=== PATIENT | female | born 1975 | race Two or more races ===

== ENCOUNTER 2020-07-03 12:15 | Outpatient (REF) | payer OTHER, SELFPAY | END 2020-07-03 12:16 | disposition home or self-care (01) | LOC: HO.MDS 12:15 | PROVIDERS: Visit Provider Internal Medicine Medical Oncology | DX: D50.9 Iron deficiency anemia, unspecified (principal) | CPT/HCPCS: 96365; J1439 ==

== ENCOUNTER 2020-07-07 13:02 | Outpatient (REF) | payer OTHER, SELFPAY ==
[2020-07-07 16:40] LABS: CT PCR NOT DETECTED (Not Detect.); NG PCR NOT DETECTED (Not Detect.)
[2020-07-10 01:26] LABS: HPV mRNA E6/E7 rflx Not Detected (Not Detected)
== END 2020-07-07 13:03 | disposition home or self-care (01) ==
LOC: HO.LAB 13:02
PROVIDERS: PCP Family Medicine; Visit Provider Obstetrics & Gynecology
DX: N92.0 Excessive and frequent menstruation with regular cycle (principal)
CPT/HCPCS: 36415; 87491; 87591; 87624; 88142; 99202

== ENCOUNTER 2020-07-08 09:42 | Outpatient (REF) | payer OTHER, SELFPAY | END 2020-07-08 09:43 | disposition home or self-care (01) | LOC: HO.MDS 09:42 | PROVIDERS: Visit Provider Internal Medicine Medical Oncology | DX: D50.9 Iron deficiency anemia, unspecified (principal) | CPT/HCPCS: 96365; J1439 ==

== ENCOUNTER 2020-07-16 10:22 | Outpatient (REF) | payer OTHER, SELFPAY ==
--- NOTE | ~2020-07-16 | US_ITS ---
EXAMINATION: US PELVIS, COMPLETE CLINICAL INFORMATION: Excessive and frequent menses. COMPARISON: 05/31/2011 TECHNIQUE: Transabdominal and transvaginal imaging was performed. FINDINGS: LMP: 06/16/2020 Uterus is anteverted , measuring 14.1 x 7 x 9.2 cm. Hypoechoic foci, probably representing fibroids. 1 cm fibroid in the anterior fundus, 1.7 cm fibroid in the posterior myometrium. Endometrial thickness 0.9 cm. Right ovary measures 2.9 x 2.3 x 2.3 cm. Volume 8 mL. Left ovary measures 3 x 1.9 x 2.6 cm. Volume 7.8 mL. Bilateral ovaries appear unremarkable. No free fluid in the cul-de-sac. US/US pelvic complete IMPRESSION: 1. Hypoechoic foci likely representing uterine fibroids, larger measuring 1.7 cm. 2. Otherwise unremarkable study.
--- NOTE | ~2020-07-16 | US_ITS ---
EXAMINATION: US PELVIS, COMPLETE CLINICAL INFORMATION: Excessive and frequent menses. COMPARISON: 05/31/2011 TECHNIQUE: Transabdominal and transvaginal imaging was performed. FINDINGS: LMP: 06/16/2020 Uterus is anteverted , measuring 14.1 x 7 x 9.2 cm. Hypoechoic foci, probably representing fibroids. 1 cm fibroid in the anterior fundus, 1.7 cm fibroid in the posterior myometrium. Endometrial thickness 0.9 cm. Right ovary measures 2.9 x 2.3 x 2.3 cm. Volume 8 mL. Left ovary measures 3 x 1.9 x 2.6 cm. Volume 7.8 mL. Bilateral ovaries appear unremarkable. No free fluid in the cul-de-sac. US/US transvaginal IMPRESSION: 1. Hypoechoic foci likely representing uterine fibroids, larger measuring 1.7 cm. 2. Otherwise unremarkable study.
[2020-07-16 12:44] LABS: HCG Quantitative < 2 mIU/mL; Thyroid Stimulating Hormone 2.66 uIU/mL (0.32-4.0)
== END 2020-07-16 10:23 | disposition home or self-care (01) ==
LOC: HO.US 10:22
PROVIDERS: PCP Family Medicine; Visit Provider Obstetrics & Gynecology
DX: N92.0 Excessive and frequent menstruation with regular cycle (principal)
CPT/HCPCS: 36415; 76830; 76856; 84443; 84702

== ENCOUNTER 2020-09-01 13:39 | Outpatient (REF) | payer OTHER, SELFPAY | END 2020-09-01 13:40 | disposition home or self-care (01) | LOC: HO.LAB 13:39 | PROVIDERS: Visit Provider Obstetrics & Gynecology | DX: N92.0 Excessive and frequent menstruation with regular cycle (principal); E11.21 Type 2 diabetes mellitus with diabetic nephropathy; E78.5 Hyperlipidemia, unspecified; I10 Essential (primary) hypertension; E66.9 Obesity, unspecified; G47.33 Obstructive sleep apnea (adult) (pediatric); E55.9 Vitamin D deficiency, unspecified; Z98.51 Tubal ligation status; Z90.79 Acquired absence of other genital organ(s); Z90.721 Acquired absence of ovaries, unilateral | CPT/HCPCS: 58100; 88305 ==

== ENCOUNTER → 2020-09-16 11:44 | Outpatient (BNVA) | payer OTHER, SELFPAY | PROVIDERS: Visit Provider Obstetrics & Gynecology ==

== ENCOUNTER → 2020-10-14 11:34 | Outpatient (BNVA) | payer OTHER, SELFPAY | PROVIDERS: Visit Provider Obstetrics & Gynecology ==

== ENCOUNTER → 2020-10-20 10:41 | Outpatient (BNVA) | payer OTHER, SELFPAY | PROVIDERS: Visit Provider Obstetrics & Gynecology | DX: N92.0 Excessive and frequent menstruation with regular cycle (principal) | CPT/HCPCS: 99212 ==

== ENCOUNTER 2020-10-23 11:32 | Day surgery (SDC) | payer OTHER, SELFPAY ==
--- NOTE | 2020-10-22 09:09 | P.CONAN_ITS ---
Documented by User: Puja Velasco 10/22/20 09:10 HPI - Anesthesia Eval Consult details Narrative: 45yo F for Uterine Ablation w/Novasure PMFSH Active Problems Active Problems: All Active Problems (Updated 09/24/20 @ 10:52 by Susanna Santiago MD) Screening mammogram, encounter for (Acute) Menorrhagia (Acute) Microcytic anemia (Acute) Past Medical History Medical History Allergic rhinitis Anemia Carpal tunnel syndrome Chronic low back pain Diabetes mellitus Diabetic nephropathy Dyslipidemia Family history of systemic lupus erythematosus Hepatitis B immune Hypertension Microalbuminuria Migraine headache Obesity WANDA (obstructive sleep apnea) Transaminitis Vitamin D deficiency Family History Family History Father Diabetes Heart disease Mother Hypertension Arthritis Thyroid activity decreased Brother Hypertension Thyroid activity decreased Sister Hypertension Thyroid activity decreased Other Family history of cancer of gallbladder Surgical History Surgical History History of salpingo-oophorectomy Tubal ligation status Social History Social History Alcohol intake: never Patient : No Meds Allergies Allergy/AdvReac Type Severity Reaction Status Date / Time yusuf inhibitors Allergy Unknown cough Uncoded 08/30/18 00:00 Home Medications Medication Instructions Recorded Confirmed Last Taken Type acetaminophen [Tylenol Extra 500 mg PO Q6H PRN 06/25/20 10/20/20 Unknown History Strength] albuterol sulfate 2 puff INHALATION Q4-6H PRN 06/25/20 10/20/20 Unknown History ascorbic acid (vitamin C) [Vitamin 500 mg PO BID 06/25/20 10/20/20 Unknown History C] cholecalciferol (vitamin D3) 50 mcg PO DAILY 06/25/20 10/20/20 Unknown History [Vitamin D3] cyclobenzaprine 10 mg PO BEDTIME 06/25/20 10/20/20 Unknown History losartan 100 mg PO DAILY 06/25/20 10/20/20 Unknown History metformin 500 mg PO BID 06/25/20 10/20/20 Unknown History metoprolol tartrate 50 mg PO BID 06/25/20 10/20/20 Unknown History Exam Exam Date and Time: October 22, 2020 0909 Pertinent Lab Results Pertinent Lab Results: Laboratory Tests 09/24/20 09/24/20 10:17 10:17 WBC 5.7 Hgb 11.6 L Hct 33.8 L Plt Count 259 Sodium 140 Potassium 3.9 Chloride 105 Carbon Dioxide 29 BUN 8 L Creatinine 0.66 Assessment and Plan Assessment Anesthesia Assessment: Chart Reviewed Documented by User: Raquel Higgins 10/23/20 09:04 [facility] Past Medical History Medical History Allergic rhinitis Anemia Carpal tunnel syndrome Chronic low back pain Diabetes mellitus Diabetic nephropathy Dyslipidemia Family history of systemic lupus erythematosus Hepatitis B immune Hypertension Microalbuminuria Migraine headache Obesity WANDA (obstructive sleep apnea) Transaminitis Vitamin D deficiency Family History Family History Father Diabetes Heart disease Mother Hypertension Arthritis Thyroid activity decreased Brother Hypertension Thyroid activity decreased Sister Hypertension Thyroid activity decreased Other Family history of cancer of gallbladder Surgical History Surgical History History of salpingo-oophorectomy Tubal ligation status Social History Social History Alcohol intake: never Patient : No Meds Allergies Allergy/AdvReac Type Severity Reaction Status Date / Time yusuf inhibitors Allergy Unknown cough Uncoded 08/30/18 00:00 Home Medications Medication Instructions Recorded Confirmed Last Taken Type acetaminophen [Tylenol Extra 500 mg PO Q6H PRN 06/25/20 10/20/20 Unknown History Strength] albuterol sulfate 2 puff INHALATION Q4-6H PRN 06/25/20 10/20/20 Unknown History ascorbic acid (vitamin C) [Vitamin 500 mg PO BID 06/25/20 10/20/20 Unknown History C] cholecalciferol (vitamin D3) 50 mcg PO DAILY 06/25/20 10/20/20 Unknown History [Vitamin D3] cyclobenzaprine 10 mg PO BEDTIME 06/25/20 10/20/20 Unknown History losartan 100 mg PO DAILY 06/25/20 10/20/20 Unknown History metformin 500 mg PO BID 06/25/20 10/20/20 Unknown History metoprolol tartrate 50 mg PO BID 06/25/20 10/20/20 Unknown History Exam Airway Mallampati Class: II TM Dist: >3cm Neck ROM: Full Assessment and Plan Assessment Anesthesia Assessment: Anesthesia Plan Discussed and Chart Reviewed Final Anesthetic Review NPO: Yes ASA Class: II Final Preanesthetic Review: No Changes in Pt Med Stat, Meds/Allgs Chart Reviewed, Consent Obtained/Reviewed and Anes Risks/Benef Reviewed Patient Risk: Low Procedure Risk: Low Assessment/Block/Sedation in SS: Assess/Block/Sedation-SS Anesthetic Plan Anesthetic Plan: MAC: Disposition: Standard PACU
[2020-10-23] VITALS (7 sets, daily range): BP systolic 138–160; BP diastolic 76–85; PULSE 68–78; RESP 16–20; TEMP 36.2; O2SAT 95–100; BMI 39.4
--- NOTE | 2020-10-23 11:47 | MHC.SHP ---
Pre-Procedural Eval Section A Date of Service: 10/23/20 The patient is an INPATIENT: No Changes since office visit: No Cold of Flu in the past 2 weeks, No New Medical Problems, No Changes in Medication and No Patient answered all questions The History & Physical has been completed within 30 days and I have reviewed it.: Yes Section B Chief Complaint: excessive and frquent menstruation Allergies: Allergies Allergy/AdvReac Type Severity Reaction Status Date / Time yusuf inhibitors Allergy Unknown cough Uncoded 08/30/18 00:00 Plan Diagnosis/Plan: Unchanged I have reviewed the history and physical and performed a pertinent physical examination on my patient. No changes have occurred unless specified.
[2020-10-23 11:55] LABS: Glucose, Whole Blood 131 mg/dL (60-115)
[2020-10-23 12:04] LABS: UPreg QC Valid YES; Urine Pregnancy NEGATIVE (NEGATIVE)
[2020-10-23] MEDS: Lactated Ringers 1,000 ML 100 ML IVCONT (12:06)
--- NOTE | 2020-10-23 13:38 | P.BOP_ITS ---
Brief Operative Note Date of Service: 10/23/20 Pre-op diagnosis: Menometrorrhagia Post-op diagnosis: same Procedure: NovaSure Endometrial Ablation Surgeon: Sam Michel MD Anesthesia: MAC Was an Pasting Machine Offbearer used for this Procedure?: No Estimated blood loss (mL): 0 Pathology: none sent Condition: stable Disposition: PACU
--- NOTE | 2020-10-23 13:38 | P.OP_ITS ---
Operative Note Operative Note Date of Service: 02/21/20 Narrative: Preop diagnosis: Menorrhagia Post Op Diagnosis: Same Op: Novasure Endometrial Ablation Anesthesia: MAC Skein Drier: None QBL: Minimal Pathology: None Complications: None Procedure: The patient was put in the dorsal lithotomy position. She was prepped and draped in the usual sterile manner. Bimanual exam prior to prepping revealed a mobile, anteverted uterus. A speculum was placed in the vagina and the anterior lip of the cervix was grasped with a single toothed tenaculum and brought forward. Taking care not to enter deep into the uterus, a sound was passed inside to measure the length of the uterus and cervix. This length was found to be 8 cm. Next, Hegar dilator was inserted into the cervical os to measure the cervical length which was 3 cm. This yielded an endometrial cavity length of 6.5 cm. A series of Hegar dilators were then inserted sequentially into the cervical os up to a size of 5 mm. The Novasure device was then opened and tested; the fan deployed easily. The instrument was set to the correct cavity length and introduced into the uterine cavity. The fan was slowly deployed with gentle movements to ensure a snug fit within the cavity. The cavity width read 4.5 cm. The measurements were imported and a cavity check was done. The trumpet was then slid down to the cervix and the device was activated. The total burn time was 86 seconds. The fan was retracted and device removed. The fan was examined and revealed charred tissue. The tenaculum was removed and the cervix examined for hemostasis which was achieved using pressure. Finally the speculum was removed. The patient tolerated the procedure well and was brought to the recovery room in a stable condition. At the end of the procedure all sponges and instruments were counted and correct. The blood loss was minimal and there were no complications.
[2020-10-23] MEDS: oxyCODONE HCl Immed Release 5 MG TABLET PO (13:59)
[2020-10-23] MEDS: Acetaminophen 325 MG TABLET 650 MG PO (14:00)
[2020-10-23] MEDS: fentaNYL citrate/PF 100 MCG/2 ML VIAL 50 MCG IVPUSH (14:01)
== END 2020-10-23 14:50 | disposition home or self-care (01) ==
PROVIDERS: Visit Provider Obstetrics & Gynecology
PROC: (CPT 58353; principal; 2020-10-23 10:40)
DX: N92.0 Excessive and frequent menstruation with regular cycle (principal); N85.4 Malposition of uterus; I10 Essential (primary) hypertension; E11.21 Type 2 diabetes mellitus with diabetic nephropathy; G47.33 Obstructive sleep apnea (adult) (pediatric); E55.9 Vitamin D deficiency, unspecified; Z79.84 Long term (current) use of oral hypoglycemic drugs; Z79.899 Other long term (current) drug therapy; Z98.51 Tubal ligation status
CPT/HCPCS: 58353; 81025; 82947; J1100; J2250; J2405; J3010

== ENCOUNTER → 2020-11-17 12:25 | Outpatient (BNVA) | payer OTHER, SELFPAY | PROVIDERS: PCP Family Medicine; Visit Provider Obstetrics & Gynecology ==

== ENCOUNTER 2021-06-22 12:43 | Emergency (ER) | payer OTHER, SELFPAY ==
--- NOTE | 2021-06-22 12:52 | ED_ITS ---
HPI - Chest Pain General Chief Complaint: Chest Pain Stated Complaint: CP,HIGH BP PER EMS Time Seen by Provider: 06/22/21 12:51 Source: EMS Mode of arrival: EMS Limitations: no limitations History of Present Illness HPI narrative: Patient with increased chest pain and BP. Patient received NTG x 2 and ASA with some relief. Patient states that her pain started 4 days ago and is associated with HTN. BP 207/107 at home. she is also complaining of palpitations. Today her chest pain was relieved by NTG. Father had a [place] at 40 MD complaint: chest pain Onset (ago): day(s) Timing of current episode: episodic Onset: during exertion Pain location: left chest Pain radiation: back Severity: mild Quality: aching Relieving factors: nothing Associated symptoms: nausea and other (headache) Risk Factors Coronary artery disease risk factors: diabetes, hyperlipidemia and hypertension Related Data Home Medications Medication Instructions Recorded Confirmed acetaminophen 500 mg tablet 500 mg PO Q6H PRN 06/25/20 10/20/20 (Tylenol Extra Strength) albuterol sulfate 90 mcg/actuation 2 puff INHALATION Q4-6H PRN 06/25/20 10/20/20 aerosol inhaler ascorbic acid (vitamin C) 500 mg 500 mg PO BID 06/25/20 10/20/20 tablet (Vitamin C) cholecalciferol (vitamin D3) 50 50 mcg PO DAILY 06/25/20 10/20/20 mcg (2,000 unit) tablet (Vitamin D3) cyclobenzaprine 10 mg tablet 10 mg PO BEDTIME 06/25/20 10/20/20 losartan 100 mg tablet 100 mg PO DAILY 06/25/20 10/20/20 metformin 500 mg tablet 500 mg PO BID 06/25/20 10/20/20 metoprolol tartrate 50 mg tablet 50 mg PO BID 06/25/20 10/20/20 Previous Rx's Medication Instructions Recorded metoprolol tartrate 100 mg tablet 100 mg PO BID #30 tab 06/22/21 Allergies Allergy/AdvReac Type Severity Reaction Status Date / Time yusuf inhibitors Allergy Unknown cough Uncoded 08/30/18 00:00 Review of Systems Constitutional: Constitutional: Reports no additional constitutional complaints Eyes: Eyes: Reports no additional eye complaints ENT: Denies dizziness Cardiovascular: Cardiovascular: Reports no additional cardiovascular complaints Respiratory: Respiratory: Reports as per HPI Gastrointestinal: Gastrointestinal: Reports no additional gastrointestinal complaints Genitourinary: Genitourinary: Reports no additional female genitourinary complaints Musculoskeletal: Musculoskeletal: Reports no additional musculoskeletal complaints Integumentary/Breasts: Skin/Breast: Denies rash Neurologic: Reports system reviewed and no additional complaints, except as documented, Denies dizziness and Denies Sensory deficit (Neuro) Psychiatric: Psychiatric: Denies anxiety [facility] Past Medical History Medical History Allergic rhinitis Anemia Carpal tunnel syndrome Chronic low back pain Diabetes mellitus Diabetic nephropathy Dyslipidemia Family history of systemic lupus erythematosus Hepatitis B immune Hypertension Microalbuminuria Migraine headache Obesity WANDA (obstructive sleep apnea) Transaminitis Vitamin D deficiency Surgical History History of salpingo-oophorectomy Tubal ligation status Family History Family History Father Diabetes Heart disease Mother Hypertension Arthritis Thyroid activity decreased Brother Hypertension Thyroid activity decreased Sister Hypertension Thyroid activity decreased Other Family history of cancer of gallbladder Social History Social History Alcohol intake: never Patient Tobacco Use Status: Never used Tobacco Second Hand Smoke Exposure: No Use of substances other than those prescribed or required for medical reasons: No Advance Directives: No Advance Directives Information Provided: No Patient : No Physical Exam Vital Signs: Vital Signs: Last Vital Signs Temp 98.0 F 06/22/21 13:40 Pulse 83 06/22/21 14:04 Resp 16 06/22/21 14:04 BP 169/88 H 06/22/21 14:04 Pulse Ox 97 06/22/21 13:40 BMI result Body Mass Index 40.2 Neuro: Sensory Exam: No Sensory deficit (Neuro) Course Reevaluation(s) Reevaluation #1: No evidence of cardiac injury, BP down to systolic of 150 and 170 with just NTP. Will increase metoprolol to 100mg twice a day and have patient follow up with PMD Time: 15:15 MDM - Chest Pain Lab Data Result diagrams: 06/22/21 13:45 06/22/21 13:45 Labs: Lab Results 06/22/21 06/22/21 06/22/21 Range/Units 13:45 13:45 13:45 WBC 5.7 (4.8-10.8) X10*3/uL RBC 4.33 (4.20-5.50) X10*6/uL Hgb 13.2 (12.0-16.0) g/dl Hct 38.3 (37.0-47.0) % MCV 88.5 (80.0-98.0) fL MCH 30.5 (27.0-33.0) pg MCHC 34.5 (31.0-35.0) g/dl RDW 11.9 (11.0-16.0) % Plt Count 250 (160-400) X10*3/uL MPV 9.3 L (9.4-12.3) fL Immature Gran % (Auto) 0.4 (0.0-0.4) % Neut % (Auto) 55.9 (45-73) % Lymph % (Auto) 32.2 (20-40) % [place] % (Auto) 9.9 (2-11) % Eos % (Auto) 1.2 (0-4) % Baso % (Auto) 0.4 (0-2) % Lymph # (Auto) 1.8 (1.2-4.9) X10*3/uL [place] # (Auto) 0.6 (0.1-1.2) X10*3/uL Eos # (Auto) 0.1 (0.0-0.4) X10*3/uL Baso # (Auto) 0.0 (0.0-0.2) X10*3/uL Abs Immat Gran (auto) 0.02 (0.00-0.03) X10*3/uL Absolute Neuts (auto) 3.2 (2.0-8.3) x10*3/uL Absolute Nucleated RBC 0.000 (0.0-0.012) X10*3/uL Nucleated RBC % (auto) 0.0 (0.0-0.2) /100WBC Sodium 138 (135-145) mmol/L Potassium 4.2 (3.3-5.1) mmol/L Chloride 106 (96-108) mmol/L Carbon Dioxide 24 (22-29) mmol/L Anion Gap 12 (12-20) BUN 13 (9-16) mg/dL Creatinine 0.73 (0.5-1.4) mg/dL Estim Creat Clear Calc 102.3 Estimated GFR > 60 Random Glucose 148 H (60-115) mg/dL Calcium 9.5 (8.4-10.2) mg/dL Troponin I High Sens 3.8 (<3.5-17.0) ng/L ECG Data ECG #1: Attestation: I personally reviewed and interpreted this ECG as follows: Interpretation: sinus rate of 80, boderline LVH, flate ts anterior and lateral Discharge Plan Discharge Clinical Impression: Atypical chest pain, Essential hypertension Patient Disposition: Home, Self-Care Instructions: Chest Pain (ED), Hypertension (ED) Additional Instructions: must increase your metoprolol to 100mg twice a day and follow up with your doctor in a week for blood pressure check Prescriptions: New metoprolol tartrate 100 mg tablet 100 mg PO BID Qty: 30 0RF No Action cyclobenzaprine 10 mg Tablet 10 mg PO BEDTIME 0RF metformin 500 mg Tablet 500 mg PO BID 0RF acetaminophen [Tylenol Extra Strength] 500 mg Tablet 500 mg PO Q6H PRN (Reason: Pain) 0RF ascorbic acid (vitamin C) [Vitamin C] 500 mg Tablet 500 mg PO BID 0RF metoprolol tartrate 50 mg Tablet 50 mg PO BID 0RF albuterol sulfate 90 mcg/actuation Hfa Aerosol Inhaler 2 puff INHALATION Q4-6H PRN (Reason: Wheezing) 0RF losartan 100 mg Tablet 100 mg PO DAILY 0RF cholecalciferol (vitamin D3) [Vitamin D3] 50 mcg (2,000 unit) Tablet 50 mcg PO DAILY 0RF Referrals: Sharmin Ortiz MD [Primary Care Provider] - 1 week
--- NOTE | 2021-06-22 13:06 | ECG_ITS ---
Test Reason : CHEST PAIN Blood Pressure : / mmHG Vent. Rate : 084 BPM Atrial Rate : 084 BPM P-R Int : 140 ms QRS Dur : 086 ms QT Int : 366 ms P-R-T Axes : 044 023 028 degrees QTc Int : 432 ms Normal sinus rhythm Nonspecific T wave abnormality Abnormal ECG When compared to the previous EKG of 18 may 2004, T inversion improved. Referred By: Bello Booth Electronically Signed By:SARAH JACKMAN
[2021-06-22 13:08] VITALS: BP 160/90; PULSE 90; TEMP 37; O2SAT 98; BMI 40.2
[2021-06-22 13:40] VITALS: BP 151/83; PULSE 82; RESP 14; TEMP 36.7; O2SAT 97
[2021-06-22 13:49] LABS: MANUAL DIFF FLAG NO
[2021-06-22 13:55] LABS: Basophils Percent Auto 0.4 % (0-2); Eosinophils Absolute Auto 0.1 X10*3/uL (0.0-0.4); Eosinophils Percent Auto 1.2 % (0-4); Hematocrit 38.3 % (37.0-47.0); Hemoglobin 13.2 g/dl (12.0-16.0); Imm Gran Abs Auto 0.02 X10*3/uL (0.00-0.03); Imm Gran Pct Auto 0.4 % (0.0-0.4); Lymphocytes Absolute Auto 1.8 X10*3/uL (1.2-4.9); Lymphocytes Percent Auto 32.2 % (20-40); Mean Corpuscular HGB Conc 34.5 g/dl (31.0-35.0); Mean Corpuscular Hemoglobin 30.5 pg (27.0-33.0); Mean Corpuscular Volume 88.5 fL (80.0-98.0); Mean Platelet Volume 9.3 fL (9.4-12.3); Monocytes Absolute Auto 0.6 X10*3/uL (0.1-1.2); Monocytes Percent Auto 9.9 % (2-11); Neutrophils Absolute Auto 3.2 x10*3/uL (2.0-8.3); Neutrophils Percent Auto 55.9 % (45-73); Platelet Count 250 X10*3/uL (160-400); Red Blood Count 4.33 X10*6/uL (4.20-5.50); Red Cell Distribution Width 11.9 % (11.0-16.0); White Blood Count 5.7 X10*3/uL (4.8-10.8)
[2021-06-22] MEDS: Nitroglycerin 2 % Oint 1 GM Packet 1 INCH TRANSDERMA (14:00)
[2021-06-22 14:04] VITALS: BP 169/88; PULSE 83; RESP 16
[2021-06-22 14:07] LABS: Anion Gap 12 (12-20); Blood Urea Nitrogen 13 mg/dL (9-16); Calcium 9.5 mg/dL (8.4-10.2); Carbon Dioxide 24 mmol/L (22-29); Chloride 106 mmol/L (96-108); Creatinine Clr Calc Pharmacy 102.3; Estimated Glomerular Filt Rate > 60; Glucose Random 148 mg/dL (60-115); Potassium 4.2 mmol/L (3.3-5.1); Sodium 138 mmol/L (135-145)
[2021-06-22 14:15] LABS: Troponin-I High Sensitivity 3.8 ng/L (<3.5-17.0)
[2021-06-22] MEDS: Metoprolol Tartrate 100 MG TABLET PO (15:34)
[2021-06-22] MEDS: Acetaminophen 325 MG TABLET 975 MG PO (15:34)
[2021-06-22 15:37] VITALS: BP 182/106; PULSE 95; RESP 16; O2SAT 96
== END 2021-06-22 15:42 | disposition home or self-care (01) ==
PROVIDERS: Emergency Provider Emergency Medicine; PCP Family Medicine
DX: R07.89 Other chest pain (principal); I10 Essential (primary) hypertension; E11.9 Type 2 diabetes mellitus without complications; E78.5 Hyperlipidemia, unspecified
CPT/HCPCS: 36415; 80048; 84484; 85025; 93005; 99283; 99285

== ENCOUNTER → 2021-09-02 12:49 | Outpatient (BNVA) | payer OTHER, SELFPAY | PROVIDERS: PCP Family Medicine; Referring Provider Family Medicine; Visit Provider Internal Medicine Cardiovascular Disease | DX: I10 Essential (primary) hypertension (principal); R07.9 Chest pain, unspecified | CPT/HCPCS: 99202 ==

== ENCOUNTER → 2021-10-18 08:27 | Outpatient (REF) | payer OTHER, SELFPAY ==
--- NOTE | ~2021-10-18 | NM_ITS ---
Exercise Myocardial perfusion study Indication: Chest pain to evaluate for myocardial ischemia Technique: The patient was brought in for an exercise perfusion study on 10/18/2021. Patient performed exercise as per Adriano protocol and was injected 35 mCi of sestamibi was given intravenously one target HR was achieved. Images were obtained using the SPECT gamma camera interlaced with the gating device. Images were obtained in supine position. Resting perfusion study was performed on 10/19/2021. Patient was administered 35 mCi of sestamibi intravenously at rest. Images were then obtained in supine position. Images obtained with and without CT attenuation. Total DLP 146 mGy-cm. Images were processed with the software and compared side to side in short axis, horizontal long axis and vertical long axis views. Findings: The stress perfusion study showed non attenuated images show normal uptake of radiotracer in all segments of LV myocardium. Attenuated corrected images show minimal thinning of the septum of the LV myocardium.. The gated study shows low normal LV systolic function with calculated LVEF of 53%. LV cavity is normal in in size. The gated study shows normal systolic wall thickening and contraction of all segments. There is no transient ischemic dilation. Resting study shows non attenuated images show normal uptake of radiotracer in all segments of LV myocardium. Gating at rest reveals normal systolic wall motion with ejection fraction at greater than 50 %. The findings are consistent with normal myocardial perfusion. NM/NM cardiolite stress test Impression: 1. Normal myocardial perfusion 2. Gated LVEF is 53% 3. Transient ischemic dilatation not present Stress EKG is negative for ischemia
--- NOTE | 2021-10-18 08:36 | CA_ITS ---
Acquisition Time: 2021-10-18 09:03:08 Total Exercise Time: 00:05:31 Test Indications: ABN EKG Medications: SEE CHART Protocol: MINOO Max HR: 151 BPM 87% of Pred: 173 BPM Max BP: 190/098 mmHG Max Work Load: 4.6 METS Exercise Stress test using modified Minoo protocol for 5 min 31 sec, METS 4.6, TAPHR up to 87%. Pt had SOB one minute into the exercise. Second stage held. EKG without any arrhythmias, no ischemic changes seen from baseline during exercise or in recovery. Hypertensive response to exercise. Nuclear images to follow. Test reviewed with Dr. Pearl. Referred By: Lacho Pearl Overread By: Oneyda Wagner NP
== END ==
LOC: HO.CARD 08:27
PROVIDERS: Visit Provider Internal Medicine Cardiovascular Disease
DX: R07.9 Chest pain, unspecified (principal)
CPT/HCPCS: 78452; 93017; A9500

== ENCOUNTER → 2021-11-09 08:55 | Outpatient (REF) | payer OTHER, SELFPAY ==
--- NOTE | 2021-11-09 09:00 | HM_ITS ---
* Total monitoring time 3 days and 1 hour. * Underlying rhythm is sinus. Average rate 95/Min. Range 64 to 146/Min. * About 41% of the time, rate greater than 100/Min. * Rare ventricular ectopy. 2 morphologies. 1 couplet. Overall burden 0.3%. * No patient events. MTDD
--- NOTE | 2021-11-09 09:00 | CA_ITS ---
Transthoracic Echocardiogram Patient (Last, First, Middle): Arleen Astorga, Gender: Female Date of : 1975 Age: 46 Procedure Date: 11/09/2021 Procedure Type: Transthoracic Echocardiogram Location: OP Height: 154.94 cm Weight: 99.34 kg BSA: 1.96 m2 Heart Rate: bpm BP: 132 / 88 mmHg Housekeeper Child Care: TERELL Referring MD: Lacho Pearl MD Investigator Operator: Lacho Pearl MD Symptoms: R07.9 - Chest pain, unspecified Study Quality: Fair ECG Rhythm: Sinus Conclusions: - 1. Technically limited study due to body habitus 2. Normal LV systolic function with impaired relaxation filling pattern 3. Limited visualization of cardiac valves with normal cardiac valvular Doppler Findings Left Ventricle Normal left ventricular size, thickness, and systolic function. The visually estimated ejection fraction is between 65-70%. Regional wall motion abnormalities can not be excluded due to suboptimal endocardial definition. Spectral Doppler is indicative of an impaired relaxation filling pattern. E/E prime ratio is between 8 and 15 consistent with indeterminate filling pressures. Right Ventricle The right ventricle was not well visualized. Atria The left atrium is normal in size. Interatrial shunt cannot be excluded. The right atrium was not well visualized. Aortic Valve The aortic valve was not well visualized. There is no aortic valve stenosis. There is no aortic valve regurgitation. Mitral Valve The mitral valve was not well visualized. There is no mitral valve regurgitation. There is no mitral valve stenosis. Pulmonic Valve The pulmonic valve was not well visualized. Tricuspid Valve The tricuspid valve was not well visualized. Tricuspid regurgitation envelope is inadequate for calculation of right ventricular systolic pressure. Great Vessels All visible segments of the aorta are normal in size. The pulmonary artery was not well visualized. Venous The inferior vena cava was not well visualized. Pericardium/Pleural The pericardium was not well visualized. Prior Study Comparison no previous study in the last 5 years for comparison Measurements 2D Linear Measurements IVSd: 1.15 0.6-0.9/0.6-1.0 cm LVIDd: 4.33 3.9-5.3/4.2-5.9 cm LVIDd Index: 2.21 2.4-3.2/2.2-3.1 cm/m2 LVIDs: 2.95 2.0-3.6 cm LVPWd: 1.14 0.7-1.1 cm LA Diam: 3.60 2.7-3.8/3.0-4.0 cm LAIDs Index: 1.84 1.5-2.3 cm/m2 LV Mass: 217.29 67-162/88-224 g LV Mass Index: 110.86 43-95/49-115 g/m2 LVOT Diam: 1.90 3.0+(-)1.3 cm 2D Systolic Function EF 4C: 65.50 >55% EF 2C: 60.50 >55% EF BiP: 66.90 >55% Mitral Valve MV Pk E: 0.63 MV PK A: 0.75 MV Decel Time: 215.00 E/A: 0.80 E'Lateral: 5.87 E'Medial: 5.00 E/E' Med: 12.60 E/E' Lat: 10.70 PHT: 63.00 MVA PHT: 3.49 Decel Owen: 2.92 Aortic Valve AoV Pk Dax: 1.34 AoV Mn Dax: 0.93 AoV VTI: 0.26 AoV Pk Grad: 7.00 Aov Mn Grad: 4.00 HOLLI Cont.VTI: 2.15 LVOT LVOT Pk Dax: 0.95 LVOT Mn Dax: 0.62 LVOT VTI: 0.20 LVOT Pk Grad: 4.00 LVOT Mn Grad: 2.00 LVOT Diam: 1.90 LVOT Area: 2.84 Diastolic Function MV Pk E: 0.63 MV Pk A: 0.75 E/A: 0.80 E'Medial: 5.00 E/E' Med: 12.60 E' Laterial: 5.87 E/E' Lat: 10.70 Right Ventricle TAPSE (mm): 18.40 TVS' Dax: 10.70 Great Vessels Aorta Sinus of Valsalva: 3.61 2.0-3.[address] [place]: 3.07 1.7-3.4 cm Ao Asc: 3.60 2.1-3.4 cm Updated in Other Vendor System with Status of Final Lacho Pearl MD electronically signed on 11/10/2021 4:02:17 PM with status of Final
== END ==
LOC: HO.CARD 08:55
PROVIDERS: Visit Provider Internal Medicine Cardiovascular Disease
DX: R07.9 Chest pain, unspecified (principal)
CPT/HCPCS: 93242; 93306

== ENCOUNTER → 2021-11-25 13:45 | Outpatient (BNVA) | payer OTHER, SELFPAY | PROVIDERS: PCP Family Medicine; Referring Provider Family Medicine; Visit Provider Internal Medicine Cardiovascular Disease | DX: R00.0 Tachycardia, unspecified (principal); I10 Essential (primary) hypertension | CPT/HCPCS: 93005; 99212 ==

== ENCOUNTER 2022-02-14 15:58 | Outpatient (REF) | payer OTHER, SELFPAY ==
[2022-02-14 17:17] LABS: Alanine Aminotransferase 60 U/L (0-31); Albumin Level 4.3 g/dL (3.5-5.0); Alkaline Phosphatase 136 U/L (39-117); Aspartate Amino Transferase 39 U/L (5-31); Bilirubin Direct 0.2 mg/dL (0.0-0.5); Bilirubin Total 0.4 mg/dL (0.0-1.0); Lipase 27 U/L (8-78); Total Protein 7.3 g/dL (6.5-8.0)
[2022-02-14 17:37] LABS: TSH reflex Free T4 1.39 uIU/mL (0.32-4.0)
[2022-02-14 17:48] LABS: Folate 9.9 ng/mL (> or = 4.0); Vitamin B12 339 pg/mL (200-900)
[2022-02-18 16:26] LABS: Vitamin D 25-OH, D2 8 ng/mL; Vitamin D 25-OH, D3 9 ng/mL; Vitamin D 25-OH, Total 17 ng/mL (30-100)
== END 2022-02-14 15:59 | disposition home or self-care (01) ==
LOC: HO.LAB 15:58
PROVIDERS: PCP Family Medicine; Visit Provider Nurse Practitioner Family
DX: Z01.818 Encounter for other preprocedural examination (principal); K59.00 Constipation, unspecified; R19.7 Diarrhea, unspecified; R14.0 Abdominal distension (gaseous); R10.11 Right upper quadrant pain; E55.9 Vitamin D deficiency, unspecified
CPT/HCPCS: 36415; 80076; 82306; 82607; 82746; 83690; 84443; 99202; 99212

== ENCOUNTER 2022-02-17 13:20 | Outpatient (REF) | payer OTHER, SELFPAY ==
[2022-02-28 22:42] LABS: Pancreatic Elastase-1 >500 mcg/g
== END 2022-02-17 13:21 | disposition home or self-care (01) ==
LOC: HO.LNP 13:20
PROVIDERS: Visit Provider Nurse Practitioner Family
DX: R10.9 Unspecified abdominal pain (principal)
CPT/HCPCS: 82656

== ENCOUNTER 2022-03-15 08:34 | Outpatient (REF) | payer OTHER, SELFPAY ==
--- NOTE | ~2022-03-15 | US_ITS ---
EXAMINATION: US ABDOMEN COMPLETE CLINICAL INFORMATION: Abdominal pain. COMPARISON: CT abdomen pelvis 06/08/2017. TECHNIQUE: Real-time imaging of the abdominal viscera. FINDINGS: PANCREAS: Normal. ABDOMINAL AORTA: The proximal, mid, and distal segments are normal in caliber. INFERIOR VENA CAVA: Visualized portions are normal. LIVER: The liver is enlarged in size. The liver contour is normal. Parenchymal echogenicity is increased. There are focal areas of fatty sparing. There is no intrahepatic biliary duct dilatation seen. GALLBLADDER: Gallbladder has been surgically removed. COMMON BILE DUCT: Normal in caliber measuring 0.31 cm in diameter. RIGHT KIDNEY: Normal. No hydronephrosis. No renal calculi or focal parenchymal lesions. The kidney measures 10.6 cm in maximum dimension. LEFT KIDNEY: Normal. No hydronephrosis. No renal calculi or focal parenchymal lesions. The kidney measures 11.7 cm in maximum dimension. SPLEEN: Normal. The spleen measures 11.6 cm in maximum dimension. FREE FLUID: None. US/US abdomen complete IMPRESSION: Hepatomegaly with hepatic steatosis with areas of focal fatty sparing. Cholecystectomy. Rest of the abdominal ultrasound is unremarkable.
== END 2022-03-15 08:35 | disposition home or self-care (01) ==
LOC: HO.HMGCX 08:34
PROVIDERS: PCP Family Medicine; Visit Provider Nurse Practitioner Family
DX: R10.9 Unspecified abdominal pain (principal)
CPT/HCPCS: 76700

== ENCOUNTER → 2022-04-25 13:28 | Outpatient (BNVA) | payer OTHER, SELFPAY | PROVIDERS: PCP Family Medicine; Referring Provider Family Medicine; Visit Provider Nurse Practitioner Family | DX: R04.1 Hemorrhage from throat (principal); K58.1 Irritable bowel syndrome with constipation; K59.04 Chronic idiopathic constipation; R74.01 Elevation of levels of liver transaminase levels | CPT/HCPCS: 99212 ==

== ENCOUNTER 2022-06-16 09:57 | Outpatient (REF) | payer OTHER, SELFPAY ==
[2022-06-16 10:36] LABS: INTERNATIONAL NORM RATIO 0.9 (0.9-1.1); Prothrombin Time 10.6 SEC (10.0-13.1)
[2022-06-16 10:49] LABS: C Reactive Protein 0.48 mg/dL (< or = 0.50)
[2022-06-16 11:29] LABS: Estimated Average Glucose 140 mg/dL; Hemoglobin A1C 148.3279 umol/L; Hemoglobin A1c % 6.5 %
[2022-06-17 05:25] LABS: HBS Num1 > 1000.00 mIU/mL (0-7.99); HBc Num1 0.15 S/CO (0.00-0.79); HBsAGNum1 0.28 S/CO (0.00-0.99); HIV AB/AG Nonreactive (Nonreactive); HIV Num 1 0.09 S/CO (0.00-0.99); Hepatitis A Antibody IgM 0.15 Index (0-0.79); Hepatitis B Core Antibody Nonreactive (Nonreactive); Hepatitis B Surface Antigen Negative (Negative); ~HepC Num1 0.12 S/CO (0.00-0.79); ~Hepatitis A Antibody IgM Nonreactive (Nonreactive); ~Hepatitis B Surface Antibody REACTIVE (Nonreactive); ~Hepatitis C Antibody Nonreactive (Nonreactive)
[2022-06-20 13:18] LABS: Alpha Fetoprotein 1.9 ng/mL
[2022-06-20 15:14] LABS: Ceruloplasmin 30 mg/dL (18-53)
[2022-06-21 13:13] LABS: Smooth Muscle Antibody <20 U (<20)
[2022-06-22 11:23] LABS: Mitochondrial Antibodies NEGATIVE (NEGATIVE)
[2022-06-24 00:54] LABS: FIB-ALT 29 U/L (6-29); FIB-Alpha-2-Macroglobulin 190 mg/dL (106-279); FIB-Apolipoprotein A1 135 mg/dL (101-198); FIB-GGT 31 U/L (3-55); FIB-Haptoglobin 230 mg/dL (43-212); FIB-Total Bilirubin 0.6 mg/dL (0.2-1.2); Liver Fibrosis Score 0.15; Liver Fibrosis Stage F0; Nec Inflam Act Grade A0; Nec Inflam Act Score 0.11
== END 2022-06-16 09:58 | disposition home or self-care (01) ==
LOC: HO.LAB 09:57
PROVIDERS: PCP Family Medicine; Visit Provider Nurse Practitioner Family
DX: R79.89 Other specified abnormal findings of blood chemistry (principal); R74.8 Abnormal levels of other serum enzymes; E11.9 Type 2 diabetes mellitus without complications; K58.9 Irritable bowel syndrome, unspecified
CPT/HCPCS: 36415; 81596; 82105; 82390; 83036; 85610; 86015; 86140; 86255; 86256; 86704; 86706; 86709; 86803; 87340; 87389

== ENCOUNTER → 2022-06-22 08:09 | Outpatient (REF) | payer OTHER, SELFPAY ==
--- NOTE | ~2022-06-22 | NM_ITS ---
EXAMINATION: [place] RADIONUCLIDE SOLID FOOD GASTRIC EMPTYING 4-HOUR STUDY CLINICAL INFORMATION: Abnormal gaseous distention. COMPARISON: Abdominal ultrasound done on 03/15/2022. TECHNIQUE: A standard meal consisting of 4 oz of Egg Beaters brand tagged with 820 microcuries Tc-99m Sulfur Colloid, 8 oz water and 2 slices of toast with jelly was administered orally to the patient. Images were obtained using a dual head gamma camera in the anterior and posterior projections over of the stomach immediately post ingestion and at hourly intervals up to 4 hours post ingestion. The anterior and posterior counts at each time interval were averaged using the geometric mean and expressed as percentage of the immediate post ingestion counts. FINDINGS: There is good visualization of activity in the stomach immediately post ingestion. As the study progresses, there is good clearance of activity from the stomach and visualization of progressively increasing small bowel activity. By the end of the study, there is almost no retention noted in the stomach. Retention in the stomach at each time interval was: 1 hour 65% (normal 37%-90%) 2 hours 40% (normal 30%-60%) 3 hours 14% 4 hours 4% (normal 0%-10%) NY/NY gastric emptying study IMPRESSION: Normal 4-hour solid food gastric emptying study.
== END ==
LOC: HO.NUCMED 08:09
PROVIDERS: Visit Provider Nurse Practitioner Family
DX: R14.0 Abdominal distension (gaseous) (principal)
CPT/HCPCS: 78264; A9541

== ENCOUNTER 2023-02-08 08:53 | Outpatient (AMB) | payer OTHER, SELFPAY ==
[2023-02-08 09:05] VITALS: BMI 39.1
--- NOTE | 2023-02-08 09:05 | A.OFFVIS_ITS ---
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 States she has numbness and tingling in both hands that started about 4-5 yr ago and now symptoms are more frequent and worse at night. States her left is worse. Denies past injection or therapy. 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 She complains of numbness in all digits of her bilateral hands, L>R. She is unsure if her small fingers feel numb at times. She says this has been present ~5 years and has recently worsened. Her symptoms are intermittent, but daily, and worse at night which affects her sleep. She says she occasionally has difficulties holding objects for long periods of time without her hands becoming numb, and activities such as doing her hair is difficult for her. She also says she has swelling more in her right hand than her left at times, which she thinks may be arthritis. She denies any prior treatment, and says she has a NCS scheduled sometime next week. She is a Diabetic, and says this is well-controlled. [facility] Medical History (Updated 02/08/23 @ 09:26 by Remi Thomason) Family history of systemic lupus erythematosus Hepatitis B immune Diabetic nephropathy Microalbuminuria Dyslipidemia Diabetes mellitus Allergic rhinitis Transaminitis Anemia Chronic low back pain Migraine headache Obesity Carpal tunnel syndrome Hypertension WANDA (obstructive sleep apnea) Vitamin D deficiency Surgical History Tubal ligation status History of salpingo-oophorectomy Family History Father Diabetes Heart disease Mother Hypertension Arthritis Thyroid activity decreased Brother Hypertension Thyroid activity decreased Sister Hypertension Thyroid activity decreased Other Family history of cancer of gallbladder Social History (Updated 02/08/23 @ 09:11 by GHAZAL Ritter) Alcohol intake: never Patient Tobacco Use Status: Never used Tobacco Second Hand Smoke Exposure: No 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 Female Reproductive History Menstrual Age of Menarche: 8 Review of Systems Const All systems reviewed & are unremarkable except as noted in HPI and below Physical Exam Vital Signs: BMI result Body Mass Index 39.1 Const General: cooperative, healthy appearing and no acute distress Orientation/consciousness: patient oriented x3 HEENT Head: Yes normocephalic and Yes atraumatic Eyes EOM: EOMs intact bilaterally Resp Effort & Inspection: normal respiratory effort and able to speak in complete sentences Cardio Jugular venous distension: no JVD Skin General skin exam: turgor normal Rashes: no rashes Neuro General: patient oriented x3 Extrem Other: Evaluation of Bilateral Upper Extremity: The patient is alert, oriented, and in no acute distress Neuro: Decreased subjective sensation in the median nerve distribution of her right hand today in clinic. More normal sensation to the ulnar nerve distribution of the right hand today in a clinic Normal sensation to the tips of all digits of the left hand today in clinic. No thenar or intrinsic wasting Good APB muscle belly firing and good finger cross Vascular: Cap refill brisk ROM: She can make a fist and extend all her digits No locking or catching Skin: No lacerations or abrasions. General: No Ecchymosis. No Erythema or evidence of infection. Psych Appearance: grossly normal Affect: normal affect Attitude: cooperative Assessment & Plan Assessment & Plan (1) Bilateral hand numbness: Code(s): R20.0 - Anesthesia of skin Plan Assessment & Plan: 1. Left hand numbness In the median nerve distribution Symptoms intermittent, but daily, worse at night This is the more bothersome side 2. Right hand numbness In the median nerve distribution Symptoms intermittent, but daily, worse at night I educated her about this condition She has a NCS scheduled for 02/16/23 with an outside provider She will follow up when completed for review Scribed for Carmen Rothman MD by Remi Thomason manager medical writing, on 02/08/23 at 9:30 AM, EST. Orders: Orders NE nerve conduction velocity Today R20.0 - Anesthesia of skin, R20.2 - Paresthesia of skin Coding Level of Care Code New Pt Level 3 (84651) Diagnoses Bilateral hand numbness R20.0
== END 2023-02-08 09:36 | disposition home or self-care (01) ==
PROVIDERS: PCP Family Medicine; Visit Provider Orthopaedic Surgery
DX: R20.0 Anesthesia of skin (principal)
CPT/HCPCS: 99203

== ENCOUNTER → 2023-02-08 08:53 | Outpatient (BNVA) | payer OTHER, SELFPAY | PROVIDERS: PCP Family Medicine; Visit Provider Orthopaedic Surgery | DX: R20.0 Anesthesia of skin (principal); R20.2 Paresthesia of skin | CPT/HCPCS: 99202 ==

== ENCOUNTER 2023-02-16 07:56 | Outpatient (REF) | payer OTHER, SELFPAY ==
--- NOTE | 2023-02-16 08:27 | EMG_ITS ---
Bilateral median and ulnar motor and sensory studies were performed. Bilateral radial and median and lateral antecubital brachial sensory studies were performed and needle examination was performed. IMPRESSION: Mild bilateral median neuropathy across carpal tunnel. MD SATNAM Hanna/WENDY / [id number]
== END 2023-02-16 07:57 | disposition home or self-care (01) ==
LOC: HO.NEURO 07:56
PROVIDERS: PCP Family Medicine; Visit Provider Family Medicine
DX: R20.0 Anesthesia of skin (principal); R20.2 Paresthesia of skin; G56.03 Carpal tunnel syndrome, bilateral upper limbs
CPT/HCPCS: 95886; 95913

== ENCOUNTER 2023-02-23 09:25 | Outpatient (AMB) | payer OTHER, SELFPAY ==
[2023-02-23 09:27] VITALS: BMI 39.1
--- NOTE | 2023-02-23 09:27 | A.OFFVIS_ITS ---
Intake Vital Signs 02/23/23 09:27 Height 5 ft 1 in Weight 207 lb BMI 39.1 Intake Visit Reasons: ov- Carpal tunnel syndrome B/L Intake Note: Arleen mcconnell 47 year old left hand dominant female presents today for a EMG review of bilateral hands. Allergies yusuf inhibitors Allergy (Unknown, Uncoded 02/23/23 09:31) cough HPI ov- Carpal tunnel syndrome B/L HPI Details 47-year-old female who presents to the [facility] today with an science analyst for an EMG review of bilateral hand. She states she has intermittent numbness, tingling and weakness in her hand for about 4 years and has been worsening for about an year and a half. Her numbness comes with lifting or with any motion which puts her hand forward. She has a history of diabetes. She is taking insulin for her sugar. [facility] Medical History (Updated 02/23/23 @ 09:49 by Shine Niño) Family history of systemic lupus erythematosus Hepatitis B immune Diabetic nephropathy Microalbuminuria Dyslipidemia Diabetes mellitus Allergic rhinitis Transaminitis Anemia Chronic low back pain Migraine headache Obesity Carpal tunnel syndrome Hypertension WANDA (obstructive sleep apnea) Vitamin D deficiency Surgical History Tubal ligation status History of salpingo-oophorectomy Family History Father Diabetes Heart disease Mother Hypertension Arthritis Thyroid activity decreased Brother Hypertension Thyroid activity decreased Sister Hypertension Thyroid activity decreased Other Family history of cancer of gallbladder Social History Alcohol intake: never Patient Tobacco Use Status: Never used Tobacco Second Hand Smoke Exposure: No 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 Tenderness over the carpal canal. Numbness and tingling over the median nerve distribution of the right hand. Able to make a full fist and fully extend all fingers. Positive Tinel's. Results Reviewed Results Reviewed: 02/16/23 EMG IMPRESSION: Mild bilateral median neuropathy across carpal tunnel. Assessment & Plan Assessment & Plan (1) Carpal tunnel syndrome, bilateral: Code(s): G56.03 - Carpal tunnel syndrome, bilateral upper limbs Plan We discussed options which include conservative vs operative treatment. Since the patient has been symptomatic for several months and it is impacting their daily life, the decision was made to undergo right carpal tunnel release. We discussed risk, benefits and alternatives. Risk including but not limited to infection, weakness, stiffness, ongoing numbness or tingling. The patient does understand all this and would like to proceed with Right carpal tunnel release with Dr. Rothman. They will be booked accordingly. Patient Instructions: Scribed for Sam Nieto PA-C, by Shine Niño bacteriologist medical, on 02/23/2023 at 9:45 AM ROYAL. Sam Corral PA-C, have personally reviewed and agree with the information entered by the scribe. Coding Level of Care Code Est Pt Level 3 (05000) Diagnoses Carpal tunnel syndrome, bilateral G56.03
== END 2023-02-23 10:41 | disposition home or self-care (01) ==
PROVIDERS: PCP Family Medicine; Visit Provider Physician Assistant
DX: G56.03 Carpal tunnel syndrome, bilateral upper limbs (principal)
CPT/HCPCS: 99214

== ENCOUNTER → 2023-02-23 09:25 | Outpatient (BNVA) | payer OTHER, SELFPAY | PROVIDERS: PCP Family Medicine; Visit Provider Physician Assistant | DX: G56.03 Carpal tunnel syndrome, bilateral upper limbs (principal) | CPT/HCPCS: 99212 ==

== ENCOUNTER 2023-03-28 10:49 | Outpatient (AMB) | payer MEDICAID, SELFPAY ==
--- NOTE | 2023-03-28 10:50 | A.OFFVIS_ITS ---
Intake Vital Signs 3 03/28/23 10:58 Height 5 ft 1 in Weight 207 lb 8 oz BMI 39.2 BP 140/78 H Blood Pressure Location Rt brachial Position Sitting Pulse 72 Pulse Source Pulse Oximeter Pulse Oximetry (%) 98 Oxygen Delivery Method Room Air Intake Visit Reasons: CHRONIC LOW BACK PAIN/no answer Allergies yusuf inhibitors Allergy (Unknown, Uncoded 02/23/23 09:31) cough HPI CHRONIC LOW BACK PAIN/no answer 2 HPI0 Details Patient is a pleasant 47 years old female with past medical history of chronic back pain, carpal tunnel syndrome, WANDA with mild adherence to CPAP machine, obesity, type 2 DM (A1C 6.8 on 11/30), left knee pain, OA, fibromyalgia, presents today for initial evaluation of right hip and low back pain. Denies any recent trauma, injury or falls. She was seen at [facility] 2 years ago and declined SI injection. She is also was seen by Rheumatology for OA and fibromyalgia. 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 Back pain is axial and also radiates into her right buttock and into lateral right hip and groin. She reports weakness and occasional right leg giving out as well as burning and radiating pain into her right foot with numbness and tingling. Patient also has significant neck pain with muscle stiffness and spasms. Reports physical therapy in the remote past with mild improvement in her symptoms and function. Due to significant pain, patient cannot undergo PT. Pain is constant and she rates it at 8/10. Denies previous spine surgery or injections. Pain affects her daily activities, functioning, sleep, social activities, mood and quality of life. Patient denies any fever, abdominal pain, foot drop, bladder or bowel incontinence or saddle anesthesia. Reports right lower extremity weakness with ambulation. Patient reports she does not check blood sugars regularly. She states her A1C was good in November and she cannot recall if this has been rechecked recently. Patient tries to loose weight, and control DM with diet and taking medications regularly. Location Lower back, radiates into right buttock and right hip and groin Duration Progressively worsening pain > 2 years Characteristics of symptom or complaint Aching, shooting, radiating, tight, tiring, numbness, heavy, sore Aggravating or associated factors Walking, bending, climbing stairs, lifting, pulling, pushing, cold weather Relieving factors Cyclobenzaprine, Tylenol, resting, heat therapy Treatment None PFSH Medical History (Updated 03/28/23 @ 13:13 by DAMEON Mandujano) Fibromyalgia Family history of systemic lupus erythematosus Hepatitis B immune Diabetic nephropathy Microalbuminuria Dyslipidemia Diabetes mellitus Allergic rhinitis Transaminitis Anemia Chronic low back pain Migraine headache Obesity Carpal tunnel syndrome Hypertension WANDA (obstructive sleep apnea) Vitamin D deficiency Surgical History Tubal ligation status History of salpingo-oophorectomy Family History Father Diabetes Heart disease Mother Hypertension Arthritis Thyroid activity decreased Brother Hypertension Thyroid activity decreased Sister Hypertension Thyroid activity decreased Other Family history of cancer of gallbladder Social History Alcohol intake: never Comment: medicated in pacu Patient Tobacco Use Status: Never used Tobacco Second Hand Smoke Exposure: No 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 Alert and oriented. Mood and affect appropriate. Follows and participates in conversation appropriately. Respiratory effort is unlabored. No cough. Able to transition from sit to stand unassisted. Ambulates with bilaterally normal heel strike and toe off, reports increased pain on right low back and right leg with heel walking on right. Neck Other: Significant tightness throughout bilateral upper trapezius muscles. No paravertebral tenderness over facet joints. Multiple taut bands palpated throughout bilateral upper trapezius muscles. Neck: Yes full ROM, Yes no lymphadenopathy, Yes supple, No anterior neck swelling, Yes no JVD and Yes prominent dorsocervical fat pad Back/Spine/Pelvis Other: Limited lumbar ROM with flexion and extension reproducing moderate pain, worse pain with extension. Antalgic gait with mild limping on right due to pain. Demonstrates 5/5 left and 4/5 right due to pain strength of quadriceps bilaterally as well as flexion/dorsiflexion of bilateral feet against resistance. 2+ pedal pulses bilaterally. Seated straight leg rise with dorsiflexion positive on the right. +2 patellar and achilles reflexes bilaterally. Facet loading test positive bilaterally. Nia sign, Sudarshan?s, Gaenslen, Pelvic compression and Stinchfield tests are positive on the right, minimal pain on the left. Moderate right groin pain with I/E hip rotations. Valsalva maneuver negative. Cervical Spine: cervical ROM normal, cervical muscular tenderness, pain with cervical ROM, cervical spasm, No Cervical spine tenderness and No step off deformity Thoracic/Lumbar Spine: thoracic and lumbar spine normal to inspection, No Thoracic/lumbar spine scar(s), Lasegue's sign positive on the right and diffuse, pain with thoraco-lumbar ROM, paraspinal muscle tenderness, thoraco-lumbar ROM limited, No thoracic spinal tenderness, lumbar spinal tenderness at L4 and at L5 and straight leg raise positive right at 50 degrees Pelvis: buttock tenderness on the right Sacroiliac joints: bilaterally tender to palpation Results Reviewed Results Reviewed: Assessment & Plan Assessment & Plan (1) Right hip pain: Code(s): M25.551 - Pain in right hip (2) Sacroiliac joint pain: Code(s): M53.3 - Sacrococcygeal disorders, not elsewhere classified (3) Lumbosacral spondylosis: Code(s): M47.817 - Spondylosis without myelopathy or radiculopathy, lumbosacral region (4) Fibromyalgia: Code(s): M79.7 - Fibromyalgia (5) Myofascial neck pain: Code(s): M54.2 - Cervicalgia Plan Lumbar spine and hip imaging to assess degree of degenerative changes, any subluxation, listhesis, compression fractures or pars defects. Discussed treatments for axial low back pain, right hip, right SIJ pain and cervical muscle tenderness, including therapeutic vs diagnostic injections, Sprint PNS trial, SI joint stimulation, stabilization vs RFA. Reinforced importance of checking and monitoring blood sugars regularly, daily physical activity, healthy eating, weight loss and lowering risks for diabetic complications. We will check A1C level prior to potential cervical trigger point injections and therapeutic right hip vs SI joint injections. Expectations, risks and benefits were reviewed. Informational pamphlets provided to patient. All questions and concerns have been answered and patient agreed with the plan. Follow up for xray/A1C results and sooner as needed. Orders: Orders 2 XR hip RT w PEL1V Today M25.551 - Pain in right hip, M53.3 - Sacrococcygeal disorders, not elsewhere classified Hemoglobin A1c Today E11.9 - Type 2 diabetes mellitus without complications XR lumbar spine 4V min Today M47.817 - Spondylosis without myelopathy or radiculopathy, lumbosacral region, M53.3 - Sacrococcygeal disorders, not elsewhere classified Coding Level of Care Code New Pt Level 4 (23435) Diagnoses Right hip pain M25.551 Sacroiliac joint pain M53.3 Lumbosacral spondylosis M47.817 Fibromyalgia M79.7 Myofascial neck pain M54.2
[2023-03-28 10:58] VITALS: BP 140/78; PULSE 72; O2SAT 98; BMI 39.2
== END 2023-03-28 11:37 | disposition home or self-care (01) ==
PROVIDERS: PCP Family Medicine; Visit Provider Nurse Practitioner Family
DX: M25.551 Pain in right hip (principal); M53.3 Sacrococcygeal disorders, not elsewhere classified; M47.817 Spondylosis without myelopathy or radiculopathy, lumbosacral region; M79.7 Fibromyalgia; M54.2 Cervicalgia
CPT/HCPCS: 99204

== ENCOUNTER → 2023-03-28 10:49 | Outpatient (BNVA) | payer OTHER, SELFPAY | PROVIDERS: PCP Family Medicine; Visit Provider Nurse Practitioner Family | DX: M25.551 Pain in right hip (principal); M53.3 Sacrococcygeal disorders, not elsewhere classified; M47.817 Spondylosis without myelopathy or radiculopathy, lumbosacral region; M79.7 Fibromyalgia; M54.2 Cervicalgia | CPT/HCPCS: 99212 ==

== ENCOUNTER 2023-04-25 09:44 | Outpatient (REF) | payer OTHER, SELFPAY ==
[2023-04-25 10:37] LABS: Estimated Average Glucose 148 mg/dL; Hemoglobin A1c % 6.8 % (<6.0)
[2023-04-25 11:03] LABS: Alanine Aminotransferase 35 U/L (0-31); Albumin Level 4.3 g/dL (3.5-5.0); Alkaline Phosphatase 124 U/L (39-117); Anion Gap 14 (12-20); Aspartate Amino Transferase 24 U/L (5-31); Bilirubin Total 0.3 mg/dL (0.0-1.0); Blood Urea Nitrogen 23 mg/dL (9-16); Carbon Dioxide 27 mmol/L (22-29); Chloride 101 mmol/L (96-108); Cholesterol 162 mg/dL (<200); Estimated Glomerular Filt Rate 43; Glucose Random 176 mg/dL (60-115); HDL Cholesterol 32 mg/dL (>40); LDL Cholesterol Calculated 90 mg/dL (<100); Potassium 3.6 mmol/L (3.3-5.1); Sodium 138 mmol/L (135-145); Total Protein 7.8 g/dL (6.5-8.0); Triglycerides 200 mg/dL (<150)
[2023-04-25 11:20] LABS: TSH reflex Free T4 3.86 uIU/mL (0.32-4.0)
[2023-04-25 11:28] LABS: Folate 7.3 ng/mL (> or = 4.0); Vitamin B12 256 pg/mL (200-900)
[2023-04-25 12:05] LABS: Creatinine Urine 171.09 mg/dL; Microalbum/Creatinine Ratio Ur 30.3 ug/mg cr (<30)
[2023-04-25 13:27] LABS: Reflex LDLD? No
== END 2023-04-25 09:45 | disposition home or self-care (01) ==
LOC: HO.LAB 09:44
PROVIDERS: PCP Family Medicine; Visit Provider Nurse Practitioner Family
DX: E11.65 Type 2 diabetes mellitus with hyperglycemia (principal); E55.9 Vitamin D deficiency, unspecified
CPT/HCPCS: 36415; 80053; 80061; 82043; 82306; 82570; 82607; 82746; 83036; 84443

== ENCOUNTER 2023-06-01 09:21 | Day surgery (SDC) | payer OTHER, SELFPAY ==
[2023-06-01 09:37] VITALS: BP 112/84; PULSE 82; RESP 16; TEMP 36.7; O2SAT 100
--- NOTE | 2023-06-01 09:45 | MHC.SHP ---
Pre-Procedural Eval Section A - 24 Hr Update-Section A only Date of Service: 06/01/23 The patient is an INPATIENT: No Changes since office visit: No Cold of Flu in the past 2 weeks, No New Medical Problems, No Changes in Medication and No Patient answered all questions The patient has been examined within 24 hours of the surgical procedure. The History & Physical has been completed within 30 days and I have reviewed it.: Yes Section B - Complete if H&P > 30 days Chief Complaint: Carpal tunnel syndrome, right upper limb Allergies: Allergies Allergy/AdvReac Type Severity Reaction Status Date / Time yusuf inhibitors Allergy Intermediate cough Uncoded 06/01/23 09:33 Plan I have reviewed the history and physical and performed a pertinent physical examination on my patient. No changes have occurred unless specified. Time Spent With Patient Time: Total time managing care of this patient today ____ minutes.
--- NOTE | 2023-06-01 09:45 | W.PM.OPN ---
Operative Note Operative Note Date of Service: 06/01/23 Narrative: Preop diagnosis: 1. Right Carpal tunnel syndrome Postop diagnosis: same Procedure: 1. Right Carpal tunnel release Surgeon: Carmen Rothman MD Anesthesia: local block using 1% lidocaine with epinephrine Findings: Thickened transverse carpal ligament. EBL: Less than 5 mL Specimens: None Complications: None Disposition: Brought to recovery room in stable condition Plan: Follow-up for 10-14 days for wound check and suture removal Indications: The patient is 47 years old, with right carpal tunnel syndrome that has been unresponsive to nonoperative management. The risks and benefits of operative treatment including but not limited to risk of damage to blood vessels, nerves, tendons, infection, persistent pain, persistent symptoms, or possible need for additional surgery were discussed with the patient and the patient wishes to proceed with surgery. Procedure: Once consent was obtained a local block was performed using a combination of 1% lidocaine with epinephrine. The patient was then brought back to the operating suite and placed on the operative table in supine position. The right upper extremity was prepped and draped in a standard surgical fashion. Once assured that we had a good block, a 2.0 cm longitudinal incision was made centered over the carpal tunnel. The incision was made through the skin to the subcutaneous tissues using a #15 blade. Dissection was made down to the level of the transverse carpal ligament with care being taken to protect the palmar cutaneous nerve. Once the transverse carpal ligament was clearly visualized, a longitudinal incision was made in the transverse carpal ligament 1st using a #15 blade, then using tenotomy scissors under direct visualization. Care was taken to look for and protect the motor branch of the median nerve when seen in this area. Once satisfied with our carpal tunnel release the wound was copiously irrigated with normal saline and hemostasis was obtained with a brief period of local pressure. The skin edges were reapproximated with some 5.0 nylon suture material and a sterile dressing was applied. The patient appears to have tolerated the procedure well and with no complications. All digits were well vascularized at the conclusion of the case.
[2023-06-01 10:39] VITALS: BMI 36.8
[2023-06-01 11:35] VITALS: BP 140/86; PULSE 79; RESP 20; O2SAT 100
[2023-06-01 12:31] VITALS: BP 140/86; PULSE 79; RESP 20; O2SAT 100
== END 2023-06-01 12:32 | disposition home or self-care (01) ==
PROVIDERS: PCP Family Medicine; Visit Provider Orthopaedic Surgery
PROC: (CPT 64721; principal; 2023-06-01 09:30)
DX: G56.01 Carpal tunnel syndrome, right upper limb (principal); R20.0 Anesthesia of skin; R20.2 Paresthesia of skin; E11.21 Type 2 diabetes mellitus with diabetic nephropathy; Z79.4 Long term (current) use of insulin; Z88.8 Allergy status to other drugs, medicaments and biological substances
CPT/HCPCS: 64721; J0171

== ENCOUNTER → 2023-06-01 09:21 | Outpatient (BNV) | payer OTHER, SELFPAY | PROVIDERS: PCP Family Medicine; Visit Provider Orthopaedic Surgery | DX: G56.01 Carpal tunnel syndrome, right upper limb (principal) | CPT/HCPCS: 64721 ==

== ENCOUNTER 2023-06-20 12:15 | Outpatient (REF) | payer OTHER, SELFPAY ==
--- NOTE | ~2023-06-20 | XR_ITS ---
EXAMINATION: XR AP PELVIS XR HIP, RIGHT CLINICAL INFORMATION: Pain in right hip COMPARISON: None available. TECHNIQUE: Two views of the right hip. AP view the pelvis FINDINGS: No fracture. Alignment is anatomic. Right hip joint space is maintained. Small calcifications are seen in the right lower quadrant. A few calcifications are seen in the pelvis which likely represent phleboliths. Hip joint space of the left hip is preserved. 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 The pubic symphysis is normal. XR/XR hip RT w PEL1V IMPRESSION: No significant abnormality of the right hip.
--- NOTE | ~2023-06-20 | XR_ITS ---
EXAMINATION: XR LUMBOSACRAL SPINE WITH OBLIQUES CLINICAL INFORMATION: Sacrococcygeal disorders, not elsewhere classified COMPARISON: None available. TECHNIQUE: AP, both oblique, and lateral views of the lumbar spine. Lateral view of the lumbosacral junction. FINDINGS: There 5 nonrib-bearing lumbar-type vertebral bodies. The height of the vertebral bodies is well-maintained. There is straightening of the usual lumbar lordosis which can be seen with muscle spasm. There is no spondylolysis or spondylolisthesis. 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 A few small calcifications are seen in the right lower quadrant. There are a few calcifications in the pelvis which likely represent phleboliths. Surgical clips in the right upper quadrant are consistent with prior cholecystectomy. XR/XR lumbar spine 4V min IMPRESSION: 1. Muscle spasm. 2. 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
== END 2023-06-20 12:16 | disposition home or self-care (01) ==
LOC: HO.XRAY 12:15
PROVIDERS: Absent Provider Nurse Practitioner Family; PCP Family Medicine; Visit Provider Orthopaedic Surgery
DX: M25.641 Stiffness of right hand, not elsewhere classified (principal); G56.03 Carpal tunnel syndrome, bilateral upper limbs; Z48.02 Encounter for removal of sutures; M25.551 Pain in right hip; M53.3 Sacrococcygeal disorders, not elsewhere classified; M47.817 Spondylosis without myelopathy or radiculopathy, lumbosacral region; M79.7 Fibromyalgia; E11.9 Type 2 diabetes mellitus without complications
CPT/HCPCS: 72110; 73502; 99212

== ENCOUNTER 2023-06-20 12:15 | Outpatient (AMB) | payer OTHER, SELFPAY ==
[2023-06-20 13:03] VITALS: BMI 36.8
--- NOTE | 2023-06-20 13:03 | MHC.OFFVIS ---
Intake Vital Signs 06/20/23 13:03 Height 5 ft 1 in Weight 195 lb BMI 36.8 Intake Visit Reasons: PO RT CTR 06/05/23 AR Intake Note: Arleen 47 yr old female presents today for his PO visit for his RT CTR 06/05/[address] Rothman. States CTS have have improved but her hand feels a little numb, stiff and swollen. Sutures removed and steri strips applied. Allergies yusuf inhibitors Allergy (Intermediate, Uncoded 06/20/23 13:18) cough HPI PO RT CTR 06/05/23 AR HPI Details Arleen is a 47 year old left hand dominant Kyrgyz speaking Diabetic woman who returns S/P right carpal tunnel release, DOS: 06/05/23. She says she is doing well & her sensation has improved, but she still has some numbness in the median nerve distribution, along with stiffness in her fingers. She continues to have intermittent but daily numbness in the left median nerve distribution. 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 She has a hx of Fibromyalgia & OA, and sees both Rheumatology & Pain Management for this. [facility] Medical History (Updated 06/20/23 @ 13:55 by Remi Thomason) Fibromyalgia Family history of systemic lupus erythematosus Hepatitis B immune Diabetic nephropathy Microalbuminuria Dyslipidemia Diabetes mellitus Allergic rhinitis Transaminitis Anemia Chronic low back pain Migraine headache Obesity Carpal tunnel syndrome Hypertension WANDA (obstructive sleep apnea) Vitamin D deficiency Surgical History History of cholecystectomy Tubal ligation status History of salpingo-oophorectomy Family History Father Diabetes Heart disease Mother Hypertension Arthritis Thyroid activity decreased Brother Hypertension Thyroid activity decreased Sister Hypertension Thyroid activity decreased Other Family history of cancer of gallbladder Social History Alcohol intake: never Comment: medicated in pacu Patient Tobacco Use Status: Never used Tobacco Second Hand Smoke Exposure: No 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 Sutures removed and Steri-Strips applied She struggles to bring her fingers closed to a fist, and it looks like she has not been working on ROM since her surgery Initially she can only bring her fingertips to perhaps 4 cm from her palm. Before leaving clinic she could bring them actively to a fist and back into extension with encouragement. Similarly, initially she can only touch the tip of her index finger with her thumb, but with encouragement she was able to touch the tips of her middle ring and then small finger with her thumb. Again she finds it painful to move her thumb through full range of motion. Sensation is improving but she still has numbness in the median nerve distribution Cap refill is brisk Nerve Conduction study: IMPRESSION: Mild bilateral median neuropathy across carpal tunnel. [place] MD 02/16/2023 Psych Appearance: grossly normal Affect: normal affect Attitude: cooperative Assessment & Plan Assessment & Plan (1) Stiffness of right hand joint: Code(s): M25.641 - Stiffness of right hand, not elsewhere classified (2) Carpal tunnel syndrome, bilateral: Code(s): G56.03 - Carpal tunnel syndrome, bilateral upper limbs (3) Fibromyalgia: Code(s): M79.7 - Fibromyalgia (4) Diabetes mellitus: Code(s): E11.9 - Type 2 diabetes mellitus without complications Plan Assessment & Plan: 1. Right carpal tunnel syndrome, mild Pre-operative symptoms intermittent, but daily, worse at night Now with improving but not yet normal sensation 2. Right hand stiffness Likely secondary to disuse following surgery The patient appears to be doing well post-operatively, though she does have a bit more stiffness which is likely secondary to apprehension and disuse. I educated her about the post-operative course I explained the signs and symptoms of infection, if the patient develops any new or worsening erythema, drainage, pain, or warmth they should contact the clinic or attend the ED. I discussed activity modifications, she is to lift nothing heavier than a cellphone for the next two weeks She will perform gentle ROM exercises at home. 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 She says there is no light duty available for her She will follow up in 3 weeks for a ROM check Her hope is to get her back to work at full duty 1 week later, which will be 6 weeks postop. 3. Left carpal tunnel syndrome, mild Symptoms intermittent, but daily, worse at night She will follow up at a later date to discuss treatment options, when she has recovered from her right hand surgery. Scribed for Carmen Rothman MD by Remi Thomason, medical billing representative, on 06/20/23 at 1:50 PM, EST. Orders: Orders OT Evaluation and Treatment Today G56.03 - Carpal tunnel syndrome, bilateral upper limbs Coding Level of Care Code Global (97803) Diagnoses Stiffness of right hand joint M25.641 Carpal tunnel syndrome, bilateral G56.03 Fibromyalgia M79.7 Diabetes mellitus E11.9
== END 2023-06-20 15:00 | disposition home or self-care (01) ==
PROVIDERS: PCP Family Medicine; Visit Provider Orthopaedic Surgery
DX: M25.641 Stiffness of right hand, not elsewhere classified (principal); G56.03 Carpal tunnel syndrome, bilateral upper limbs; M79.7 Fibromyalgia; E11.9 Type 2 diabetes mellitus without complications
CPT/HCPCS: 99024

== ENCOUNTER 2023-06-30 10:05 | Outpatient (AMB) | payer OTHER, SELFPAY ==
--- NOTE | 2023-06-30 10:09 | A.OFFVIS_ITS ---
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 She was initially seen in our office in March 2023. Reports recent right carpal tunnel release surgery and reports recovery has been well. 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 Her back pain extends to sacral areas bilaterally and into her lateral hips. She reports her worse side alternates from left to right, depending on the daily activities and work. Patient also reports occasional sensations of heaviness with numbness in her posterior legs. Lumbar spine and hip xrays reports were reviewed today and are noted below. Pain affects her daily ADLs, mobility, sleep and social interactions. She continues to stay active and performs regular HEP, takes Tylenol and Flexeril with continued symptoms. She has been trying to loose weight and has lost 7 lbs since last visit. Most recent A1C is 6.8. Patient is interested to proceed with interventional treatments to address her radicular back and SIJ pain. Denies any recent cough, cold, infection, fever, weakness, foot drop, bladder or bowel dysfunction, saddle anesthesia, any significant changes in her medical history, medications or recent hospitalizations. PRIOR: Patient is a pleasant 47 years old female with past medical history of chronic back pain, carpal tunnel syndrome, WANDA with mild adherence to CPAP machine, obesity, type 2 DM (A1C 6.8 on 11/30), left knee pain, OA, fibromyalgia, presents today for initial evaluation of right hip and low back pain. Denies any recent trauma, injury or falls. She was seen at [facility] ago and declined SI injection. She is also was seen by Rheumatology for OA and fibromyalgia. 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 Back pain is axial and also radiates into her right buttock and into lateral right hip and groin. She reports weakness and occasional right leg giving out as well as burning and radiating pain into her right foot with numbness and tingling. Patient also has significant neck pain with muscle stiffness and spasms. Reports physical therapy in the remote past with mild improvement in her symptoms and function. Due to significant pain, patient cannot undergo PT. Pain is constant and she rates it at 8/10. Denies previous spine surgery or injections. Pain affects her daily activities, functioning, sleep, social activities, mood and quality of life. Patient denies any fever, abdominal pain, foot drop, bladder or bowel incontinence or saddle anesthesia. Reports right lower extremity weakness with ambulation. Patient reports she does not check blood sugars regularly. She states her A1C was good in November and she cannot recall if this has been rechecked recently. Patient tries to loose weight, and control DM with diet and taking medications regularly. Location Lower back, radiates into right buttock and right hip and groin Duration Progressively worsening pain > 2 years Characteristics of symptom or complaint Aching, shooting, radiating, tight, tiring, numbness, heavy, sore Aggravating or associated factors Walking, bending, climbing stairs, lifting, pulling, pushing, cold weather Relieving factors Cyclobenzaprine, Tylenol, resting, heat therapy Treatment None PFS Medical History (Updated 06/30/23 @ 13:09 by DAMEON Mandujano) Fibromyalgia Family history of systemic lupus erythematosus Hepatitis B immune Diabetic nephropathy Microalbuminuria Dyslipidemia Diabetes mellitus Allergic rhinitis Transaminitis Anemia Chronic low back pain Migraine headache Obesity Carpal tunnel syndrome Hypertension WANDA (obstructive sleep apnea) Vitamin D deficiency Surgical History History of cholecystectomy Tubal ligation status History of salpingo-oophorectomy Family History Father Diabetes Heart disease Mother Hypertension Arthritis Thyroid activity decreased Brother Hypertension Thyroid activity decreased Sister Hypertension Thyroid activity decreased Other Family history of cancer of gallbladder Social History Alcohol intake: never Comment: medicated in pacu Patient Tobacco Use Status: Never used Tobacco Second Hand Smoke Exposure: No 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 Alert and oriented. Mood and affect appropriate. Follows and participates in conversation appropriately. Respiratory effort is unlabored. No cough. Able to transition from sit to stand unassisted. Ambulates with bilaterally normal heel strike and toe off, reports imbalance on the right due to back and right anterior knee pain. Neck Neck: Yes full ROM, Yes no lymphadenopathy, Yes supple, No anterior neck swelling, Yes no JVD and Yes prominent dorsocervical fat pad Back/Spine/Pelvis Other: Limited lumbar ROM with flexion and extension reproducing moderate pain, worse pain with extension and facet loading bilaterally. Antalgic gait with mild limping on right due to pain. Demonstrates 5/5 strength of quadriceps bilaterally as well as flexion/dorsiflexion of bilateral feet against resistance. 2+ pedal pulses bilaterally. Seated straight leg rise with dorsiflexion positive bilaterally. +1 patellar and achilles reflexes bilaterally. Nia sign, Sudarshan?s, Gaenslen, Pelvic compression and Stinchfield tests are positive bilaterally. No groin pain with I/E hip rotations. Valsalva maneuver negative. Cervical Spine: cervical ROM normal, cervical muscular tenderness, pain with cervical ROM, cervical spasm, No Cervical spine tenderness and No step off deformity Thoracic/Lumbar Spine: thoracic and lumbar spine normal to inspection, No Thoracic/lumbar spine scar(s), Lasegue's sign positive bilateral and diffuse, pain with thoraco-lumbar ROM, paraspinal muscle tenderness, thoraco-lumbar ROM limited, No thoracic spinal tenderness and lumbar spinal tenderness (L4-S1) Pelvis: buttock tenderness bilaterally Sacroiliac joints: bilaterally tender to palpation Extrem General: Yes capillary refill normal, Yes no clubbing, cyanosis or edema and Yes no calf tenderness Right lower extremity: knee Details: tenderness Location: of the patella, normal ROM and crepitus; no swelling, no ecchymosis and no deformity Results Reviewed Results Reviewed: XR LUMBOSACRAL SPINE WITH OBLIQUES 06/20/23 FINDINGS: There 5 nonrib-bearing lumbar-type vertebral bodies. The height of the vertebral bodies is well-maintained. There is straightening of the usual lumbar lordosis which can be seen with muscle spasm. There is no spondylolysis or spondylolisthesis. 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 A few small calcifications are seen in the right lower quadrant. There are a few calcifications in the pelvis which likely represent phleboliths. Surgical clips in the right upper quadrant are consistent with prior cholecystectomy. IMPRESSION: 1. Muscle spasm. 2. 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 Alignment is anatomic. Right hip joint space is maintained. Small calcifications are seen in the right lower quadrant. A few calcifications are seen in the pelvis which likely represent phleboliths. Hip joint space of the left hip is preserved. 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 The pubic symphysis is normal. IMPRESSION: No significant abnormality of the right hip. XR KNEE, RIGHT XR KNEE, LEFT 06/13/2018 CLINICAL INFORMATION: Bilateral chronic knee pain. FINDINGS: RIGHT KNEE: There is no visible acute fracture or dislocation. The tricompartment joint space is preserved. No bony erosive changes or loose body seen. No abnormal joint effusion seen. There is a small enthesophyte along the anterior superior patella. LEFT KNEE: There is no acute fracture or dislocation. There is a small enthesophyte along the anterior superior patella. No abnormal joint effusion seen. There is no loose bodies. There is a small enthesophyte along the anterior superior patella. IMPRESSION: Small enthesophytes along the anterior superior patella. Otherwise the tricompartment joint space is normal. No visible acute fracture or dislocation seen. Assessment & Plan Assessment & Plan (1) Sacroiliac joint pain: Code(s): M53.3 - Sacrococcygeal disorders, not elsewhere classified (2) Sacroiliitis: Code(s): M46.1 - Sacroiliitis, not elsewhere classified (3) Low back pain: Code(s): M54.50 - Low back pain, unspecified (4) Fibromyalgia: Code(s): M79.7 - Fibromyalgia (5) Lumbar radiculopathy: Code(s): M54.16 - Radiculopathy, lumbar region Plan Discussed recent lumbar spine and right hip xray results and imaging and interventional treatments for radicular back and SIJ pain. Patient is hesitant toward injections but will consider it under light sedation due to needle phobia. Schedule Bilateral Diagnostic SIJ injections with sedation and fluorosocopy. We reviewed SI joint stabilization with fusion (especially on the left), PNS trial and implant, therapeutic injections and RFA procedure. Informational pamphlets provided to patient. Patient was fitted for SIJ brace today, instructions provided on wearing SIJ brace to support lower back and hips. Continue gabapentin, Flexeril, Tylenol and avoid NSAIDs. All questions and concerns have been answered and patient agreed with the plan. Follow up after injections and sooner as needed. Coding Level of Care Code Est Pt Level 4 (18939) Diagnoses Sacroiliac joint pain M53.3 Sacroiliitis M46.1 Low back pain M54.50 Fibromyalgia M79.7 Lumbar radiculopathy M54.16
[2023-06-30 10:17] VITALS: BP 137/82; PULSE 115; O2SAT 100; BMI 36.7
== END 2023-06-30 11:13 | disposition home or self-care (01) ==
PROVIDERS: PCP Family Medicine; Visit Provider Nurse Practitioner Family
DX: M53.3 Sacrococcygeal disorders, not elsewhere classified (principal); M46.1 Sacroiliitis, not elsewhere classified; M54.50 Low back pain, unspecified; M79.7 Fibromyalgia; M54.16 Radiculopathy, lumbar region
CPT/HCPCS: 99214

== ENCOUNTER → 2023-06-30 10:05 | Outpatient (BNVA) | payer OTHER, SELFPAY | PROVIDERS: PCP Family Medicine; Visit Provider Nurse Practitioner Family | DX: M79.7 Fibromyalgia (principal); M46.1 Sacroiliitis, not elsewhere classified; G47.33 Obstructive sleep apnea (adult) (pediatric); E66.9 Obesity, unspecified; M53.3 Sacrococcygeal disorders, not elsewhere classified; M54.16 Radiculopathy, lumbar region; Z99.89 Dependence on other enabling machines and devices | CPT/HCPCS: 99212 ==

== ENCOUNTER 2023-07-12 14:58 | Outpatient (AMB) | payer OTHER, SELFPAY ==
--- NOTE | 2023-07-12 15:02 | A.OFFVIS_ITS ---
Intake Intake Visit Reasons: PO RT CTR 06/05/23 AR-follow up Intake Note: Arleen 47 yr old female presents today for her PO visit for her right CTR 06/05/23 AR ROM check and discuss work status. Patient states she mainly has some pain in her palm,thumb, and wrist but she states the pain has gotten much better than before and she states her ROM is much better. Allergies BEAU Inhibitors Allergy (Unknown, Verified 07/12/23 15:02) cough HPI PO RT CTR 06/05/23 AR-follow up HPI Details Arleen is a 47 year old left hand dominant Diabetic woman who returns S/P right carpal tunnel release, DOS: 06/05/23. She says she is doing well & her sensation has improved, but is still not normal. She has some pain with use of her hand, such as prolonged holding objects, but she says her pain & stiffness have greatly improved after attending OT hand therapy. She is happy about this improvement and is able to make a fist. She says she has ~2 weeks of OT left. She continues to have intermittent but daily numbness in the left median nerve distribution. 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 She has a hx of Fibromyalgia & OA, and sees both Rheumatology & Pain Management for this. She says she is out of work on FMLA currently as there is no light duty available for her at her job. REPLACED BY [facility] Medical History Fibromyalgia Family history of systemic lupus erythematosus Hepatitis B immune Diabetic nephropathy Microalbuminuria Dyslipidemia Diabetes mellitus Allergic rhinitis Transaminitis Anemia Chronic low back pain Migraine headache Obesity Carpal tunnel syndrome Hypertension WANDA (obstructive sleep apnea) Vitamin D deficiency Surgical History History of cholecystectomy Tubal ligation status History of salpingo-oophorectomy Family History Father Diabetes Heart disease Mother Hypertension Arthritis Thyroid activity decreased Brother Hypertension Thyroid activity decreased Sister Hypertension Thyroid activity decreased Other Family history of cancer of gallbladder Social History Alcohol intake: never Comment: medicated in pacu Patient Tobacco Use Status: Never used Tobacco Second Hand Smoke Exposure: No 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 Female Reproductive History Menstrual Age of Menarche: 8 Physical Exam Const General: no acute distress and alert Orientation/consciousness: patient oriented x3 Neuro General: patient oriented x3 Extrem Other: The patient was alert oriented and in no acute distress The incision is well-healed with no erythema drainage or evidence of infection. She was able to make a weak fist and slowly bring her fingers out to full extension, improved from prior She has some tightness in the dorsal aspect of her MCP joints Sensation is improving but she still has numbness in the median nerve distribution Cap refill is brisk Nerve Conduction study: IMPRESSION: Mild bilateral median neuropathy across carpal tunnel. [place] MD 02/16/2023 Psych Appearance: grossly normal Affect: normal affect Attitude: cooperative Assessment & Plan Assessment & Plan (1) Stiffness of right hand joint: Code(s): M25.641 - Stiffness of right hand, not elsewhere classified (2) Carpal tunnel syndrome, bilateral: Code(s): G56.03 - Carpal tunnel syndrome, bilateral upper limbs (3) Fibromyalgia: Code(s): M79.7 - Fibromyalgia (4) Diabetes mellitus: Code(s): E11.9 - Type 2 diabetes mellitus without complications Plan Assessment & Plan: 1. Right carpal tunnel syndrome, S/P release DOS: 06/05/23 Pre-operative symptoms intermittent, but daily, worse at night Now with improving but not yet normal sensation 2. 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 She would like to finish out her OT hand therapy before returning to work. Her last appointment is on 07/26/23 She was given a note to return to work on full duty, without restrictions, effective 07/27/23 3. Left carpal tunnel syndrome, mild Symptoms intermittent, but daily, worse at night She will follow up at a later date to discuss treatment options, when she has recovered from her right hand surgery. When we discuss surgery we need to remind her to begin ROM exercises the day of surgery, to prevent her developing significant stiffness. Scribed for Carmen Rothman MD by Remi Thomason, medical transcriber, on 07/12/23 at 3:30 PM, EST. Coding Level of Care Code Global (16411) Diagnoses Stiffness of right hand joint M25.641 Carpal tunnel syndrome, bilateral G56.03 Fibromyalgia M79.7 Diabetes mellitus E11.9
== END 2023-07-13 09:33 | disposition home or self-care (01) ==
PROVIDERS: PCP Family Medicine; Visit Provider Orthopaedic Surgery
DX: M25.641 Stiffness of right hand, not elsewhere classified (principal); G56.03 Carpal tunnel syndrome, bilateral upper limbs; M79.7 Fibromyalgia; E11.9 Type 2 diabetes mellitus without complications
CPT/HCPCS: 99024

== ENCOUNTER → 2023-07-12 14:58 | Outpatient (BNVA) | payer OTHER, SELFPAY | PROVIDERS: PCP Family Medicine; Visit Provider Orthopaedic Surgery | DX: Z47.89 Encounter for other orthopedic aftercare (principal); M25.641 Stiffness of right hand, not elsewhere classified; G56.02 Carpal tunnel syndrome, left upper limb; M79.7 Fibromyalgia; E11.9 Type 2 diabetes mellitus without complications; Z86.69 Personal history of other diseases of the nervous system and sense organs | CPT/HCPCS: 99212 ==

== ENCOUNTER 2023-07-26 13:00 | Outpatient (RCR) | payer OTHER, SELFPAY ==
--- NOTE | 2023-06-28 15:20 | MHC.OT.EP ---
[address] [phone] Occupational Therapy Plan of Care Patient Name: Arleen Astorga Date of Evaluation: 06/28/23 Diagnosis: S/P R CTR Pain Location: 2/10 AT REST 7/10 WITH USE RADIAL WRIST > PALM OF HAND THROBBING PAIN Pain Score: 2-7/10 Pain Scale Used: Numeric (0 - 10) Aggravating Factors: PINCHING, HOLDING ITEMS Alleviating Factors: TYLENOL, NOT USING HEAT/ICE Assessment: MS ASTORGA IS ABOUT 4 WEEKS S/P R CTR ON 06/01/23. SHE HAS EMERGING ROM THROUGH R WRIST AND HAND. A 61% LIMITATION IS REPORTED PER THE QUICK DASH ASSESSMENT. 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 Frequency and Duration: The patient will be seen 2X/WEEK FOR 6 WEEKS Short Term Goals: IND HEP IND EDEMA MANAGEMENT AND SCAR MOBILIZATION IND USE OF ICE MASSAGE/ CP TOLERATE 7 MINS OF ROUGH, TOUGH TEXTURES TO VOLAR WRIST IND ADL CLOSURE BOARD [facility] Goals: R WRIST FLEX >55 DEGREES, L WRIST EXT >55 DEGREES R GROSS GRASP >40 POUNDS TOLERATE LIFTING >15 POUNDS AND SIMULATED WORK RELATED TASKS WITH <3/10 PAIN QUICK DASH <40% Treatment Plan: Therapeutic Exercise Therapeutic Activity Home Exercise Program Splinting Neuro Re-ed Patient Education Desensitization/Sensory Re-ed Edema Control ADL Training Ultrasound NMES Iontophoresis Paraffin Fluidotherapy MHP Cold Packs Joint Mobilization Soft Tissue Mobilization Kinesiotaping Other (see comments) Electronically Signed By: CHANDRIKA BUCIO OTR/L Please Sign and return to therapist. Thank you once again for your referral.
--- NOTE | 2023-07-10 14:45 | MHC.OT.OP ---
[address] [phone] F: [phone] Occupational Therapy Progress Note Patient Name: Arleen Astorga Diagnosis: S/P R CTR Date of Surgery: 06/05/23 Date of Evaluation: 06/28/23 Treatments to Date: 5 Cancellations to Date: 0 No Shows to Date: 0 Subjective: I'M BECOMING MORE INDEPENDENT Pain Score: 4 Pain Location: R WRIST Objective Measures: R WRIST 48 EXTENSION R WRIST 62 FLEXION 0.5 CM TIP TO DPC 16.8 CM CIRCUMFERENCE DISTAL TO U.S. AT WRIST 42.5 CM FIGURE 8 ON R GRASP DEFERRED ON R Status: Progressing Assessment: MS ASTORGA IS 5 WEEKS POST OP. SHE IS SHOWING CONSISTENT IMPROVEMENTS IN HER RIGHT HAND, WRIST ROM AND COORDINATION. SHE IS WORKING ON DECREASING EDEMA IN R HAND AND SCAR MOBILIZATION NOW THAT STERI STRIPS ARE NO LONGER PRESENT AND INCISION IS HEALED. SHE CONT TO P/W TIGHT INTRINSICS AND LIMITED WRIST EXTENSION. ONGOING SKILLED OT IS WARRANTED TO ADDRESS AREAS MENTIONED BELOW. 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 Goals: R WRIST FLEX >55 DEGREES, R WRIST EXT >55 DEGREES R GROSS GRASP >40 POUNDS TOLERATE LIFTING >15 POUNDS AND SIMULATED WORK RELATED TASKS WITH <3/10 PAIN QUICK DASH <40% Frequency and Duration: The patient will be seen 2X/WEEK FOR 4 WEEKS Treatment Plan: Therapeutic Exercise Therapeutic Activity Home Exercise Program Splinting Neuro Re-ed Patient Education Desensitization/Sensory Re-ed Edema Control ADL Training Ultrasound NMES Iontophoresis Paraffin Fluidotherapy MHP Cold Packs Joint Mobilization Soft Tissue Mobilization Kinesiotaping Other (see comments) Electronically Signed By: CHANDRIKA BUCIO OTR/L Reviewed/agree with student documentation: N/A Therapist:
--- NOTE | 2023-08-11 10:17 | MHC.OT.DC ---
[address] [phone] F: [phone] Occupational Therapy Discharge Note Patient Name: Arleen Astorga Provider: Carmen Rothman Diagnosis: S/P R CTR Date of Surgery: 06/05/23 Date of Evaluation: 06/28/23 Date of Discharge: 08/11/23 Treatments to Date: 8 Cancellations to Date: 0 No Shows to Date: 0 Discharge Status: Achieved Goals Improved Function Independent with HEP Discharge Summary: MS ASTORGA HAS MADE STEADY GAINS TOWARDS HER LTGs AND IMPROVED TOLERANCE TO IADLs AT HOME. SHE WAS CLEARED FOR RTW BY ORTHO . Pt WAS ORIGINALLY PLACED ON HOLD (07/26/23) WITH POSSIBILITY TO CONTINUE OT WITH FOCUS ON STRENGTHENING AND SCAR MOBILIZATION. Pt HAS NOW RETURNED BACK TO WORK (07/31/23), AND READY FOR TRANSITION TO A HOME BASED PROGRAM. Pt IND WITH HEP. D/C SKILLED OT SERVICES. Electronically Signed By: CHANDRIKA BUCIO OTR/L Reviewed/agree with student documentation: N/A Therapist: Please Sign and return to therapist, thank you for your referral.
== END 2023-08-11 10:15 | disposition home or self-care (01) ==
LOC: HO.OT 13:00
PROVIDERS: PCP Family Medicine; Visit Provider Orthopaedic Surgery
DX: G56.03 Carpal tunnel syndrome, bilateral upper limbs (principal)
CPT/HCPCS: 97035; 97110; 97140; 97166

== ENCOUNTER 2023-12-05 09:50 | Outpatient (AMB) | payer OTHER, SELFPAY ==
--- NOTE | 2023-12-05 10:00 | MHC.OFFVIS ---
Vital Signs 12/05/23 10:06 Height 5 ft 1 in Weight 206 lb 2 oz BMI 38.9 BP 168/86 H Blood Pressure Location Rt brachial Position Sitting Pulse 75 Pulse Source Pulse Oximeter Pulse Oximetry (%) 98 Oxygen Delivery Method Room Air Intake Visit Reasons: Follow Up/Discuss Inj Intake Note: 01/17 Wrapper And Preserver Required: No Accompanied by: Self / Same As Patient Allergies BEAU Inhibitors Allergy (Unknown, Verified 12/05/23 10:06) cough HPI Comments Details: Patient presents today for follow-up for worsening low back pain. She was seen in June with plans to undergo diagnostic sacroiliac joint injections. Unfortunately this has not been scheduled as of yet. 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 She reports she was started on naproxen and muscle relaxants without any pain relief. Patient presents today with significant low back pain and unable to undergo full exam due to exacerbation of back and bilateral leg pain. She reports numbness and intermittent weakness in bilateral lower extremities and severe pain with bending or flexing forward. Denies any fever, chills, abdominal or groin pain, foot drop, bladder or bowel dysfunction or saddle anesthesia. PRIOR: Patient presents today for follow up for worsening low back pain and review xray results. She was initially seen in our office in March 2023. Reports recent right carpal tunnel release surgery and reports recovery has been well. 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 Her back pain extends to sacral areas bilaterally and into her lateral hips. She reports her worse side alternates from left to right, depending on the daily activities and work. Patient also reports occasional sensations of heaviness with numbness in her posterior legs. Lumbar spine and hip xrays reports were reviewed today and are noted below. Pain affects her daily ADLs, mobility, sleep and social interactions. She continues to stay active and performs regular HEP, takes Tylenol and Flexeril with continued symptoms. She has been trying to loose weight and has lost 7 lbs since last visit. Most recent A1C is 6.8. Patient is interested to proceed with interventional treatments to address her radicular back and SIJ pain. Denies any recent cough, cold, infection, fever, weakness, foot drop, bladder or bowel dysfunction, saddle anesthesia, any significant changes in her medical history, medications or recent hospitalizations. PRIOR: Patient is a pleasant 47 years old female with past medical history of chronic back pain, carpal tunnel syndrome, WANDA with mild adherence to CPAP machine, obesity, type 2 DM (A1C 6.8 on 11/30), left knee pain, OA, fibromyalgia, presents today for initial evaluation of right hip and low back pain. Denies any recent trauma, injury or falls. She was seen at [facility] 2 years ago and declined SI injection. She is also was seen by Rheumatology for OA and fibromyalgia. 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 Back pain is axial and also radiates into her right buttock and into lateral right hip and groin. She reports weakness and occasional right leg giving out as well as burning and radiating pain into her right foot with numbness and tingling. Patient also has significant neck pain with muscle stiffness and spasms. Reports physical therapy in the remote past with mild improvement in her symptoms and function. Due to significant pain, patient cannot undergo PT. Pain is constant and she rates it at 8/10. Denies previous spine surgery or injections. Pain affects her daily activities, functioning, sleep, social activities, mood and quality of life. Patient denies any fever, abdominal pain, foot drop, bladder or bowel incontinence or saddle anesthesia. Reports right lower extremity weakness with ambulation. Patient reports she does not check blood sugars regularly. She states her A1C was good in November and she cannot recall if this has been rechecked recently. Patient tries to loose weight, and control DM with diet and taking medications regularly. Location Lower back, radiates into right buttock and right hip and groin Duration Progressively worsening pain > 2 years Characteristics of symptom or complaint Aching, shooting, radiating, tight, tiring, numbness, heavy, sore Aggravating or associated factors Walking, bending, climbing stairs, lifting, pulling, pushing, cold weather Relieving factors Cyclobenzaprine, Tylenol, resting, heat therapy Treatment None [facility] Medical History Fibromyalgia Family history of systemic lupus erythematosus Hepatitis B immune Diabetic nephropathy Microalbuminuria Dyslipidemia Diabetes mellitus Allergic rhinitis Transaminitis Anemia Chronic low back pain Migraine headache Obesity Carpal tunnel syndrome Hypertension WANDA (obstructive sleep apnea) Vitamin D deficiency Surgical History History of cholecystectomy Tubal ligation status History of salpingo-oophorectomy Family History Father Diabetes Heart disease Mother Hypertension Arthritis Thyroid activity decreased Brother Hypertension Thyroid activity decreased Sister Hypertension Thyroid activity decreased Other Family history of cancer of gallbladder Social History Alcohol intake: never Comment: medicated in pacu Patient Tobacco Use Status: Never used Tobacco Second Hand Smoke Exposure: No 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 Alert and oriented. Mood and affect appropriate. Follows and participates in conversation appropriately. Respiratory effort is unlabored. No cough. Able to transition from sit to stand unassisted. Ambulates with bilaterally normal heel strike and toe off, reports BLE numbness with intermittent weakness. Neck Neck: Yes full ROM, Yes no lymphadenopathy, Yes supple, No anterior neck swelling, Yes no JVD and Yes prominent dorsocervical fat pad General: Yes no CVA tenderness Back/Spine/Pelvis Other: Limited lumbar ROM with flexion and extension reproducing moderate-severe pain, worse pain with flexion forward and facet loading bilaterally. Antalgic gait with mild limping on right due to pain. Demonstrates 5/5 left and 4/5 right strength of quadriceps bilaterally as well as flexion/dorsiflexion of bilateral feet against resistance. 2+ pedal pulses bilaterally. Seated straight leg rise with dorsiflexion positive bilaterally. +1 patellar and achilles reflexes bilaterally. Nia sign positive bilaterally, Sudarshan?s, Gaenslen, Pelvic compression and Stinchfield tests are positive bilaterally. No groin pain with I/E hip rotations. Valsalva maneuver negative. Back: no CVA tenderness Cervical Spine: cervical ROM normal, cervical muscular tenderness, pain with cervical ROM, No Cervical spine tenderness and No step off deformity Thoracic/Lumbar Spine: thoracic and lumbar spine normal to inspection, No Thoracic/lumbar spine scar(s), Lasegue's sign positive bilateral and diffuse, pain with thoraco-lumbar ROM, paraspinal muscle tenderness, thoraco-lumbar ROM limited, No thoracic spinal tenderness and lumbar spinal tenderness (L4-S1) Pelvis: buttock tenderness bilaterally Sacroiliac joints: bilaterally tender to palpation Extrem General: Yes capillary refill normal, Yes no clubbing, cyanosis or edema and Yes no calf tenderness Right lower extremity: knee Details: tenderness Location: of the patella, normal ROM and crepitus; no swelling, no ecchymosis and no deformity Results Reviewed Results Reviewed: XR LUMBOSACRAL SPINE WITH OBLIQUES 06/20/23 FINDINGS: There 5 nonrib-bearing lumbar-type vertebral bodies. The height of the vertebral bodies is well-maintained. There is straightening of the usual lumbar lordosis which can be seen with muscle spasm. There is no spondylolysis or spondylolisthesis. 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 A few small calcifications are seen in the right lower quadrant. There are a few calcifications in the pelvis which likely represent phleboliths. Surgical clips in the right upper quadrant are consistent with prior cholecystectomy. IMPRESSION: 1. Muscle spasm. 2. 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 Alignment is anatomic. Right hip joint space is maintained. Small calcifications are seen in the right lower quadrant. A few calcifications are seen in the pelvis which likely represent phleboliths. Hip joint space of the left hip is preserved. 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 The pubic symphysis is normal. IMPRESSION: No significant abnormality of the right hip. XR KNEE, RIGHT XR KNEE, LEFT 06/13/2018 CLINICAL INFORMATION: Bilateral chronic knee pain. FINDINGS: RIGHT KNEE: There is no visible acute fracture or dislocation. The tricompartment joint space is preserved. No bony erosive changes or loose body seen. No abnormal joint effusion seen. There is a small enthesophyte along the anterior superior patella. LEFT KNEE: There is no acute fracture or dislocation. There is a small enthesophyte along the anterior superior patella. No abnormal joint effusion seen. There is no loose bodies. There is a small enthesophyte along the anterior superior patella. IMPRESSION: Small enthesophytes along the anterior superior patella. Otherwise the tricompartment joint space is normal. No visible acute fracture or dislocation seen. Assessment & Plan Assessment & Plan (1) Sacroiliac joint pain: Code(s): M53.3 - Sacrococcygeal disorders, not elsewhere classified Category: Medical (2) Low back pain: Code(s): M54.50 - Low back pain, unspecified Category: Medical (3) Lumbar radiculopathy: Code(s): M54.16 - Radiculopathy, lumbar region Category: Medical (4) Lumbosacral spondylosis: Code(s): M47.817 - Spondylosis without myelopathy or radiculopathy, lumbosacral region Category: Medical (5) Discogenic low back pain: Code(s): M51.36 - Other intervertebral disc degeneration, lumbar region Category: Medical (6) Lumbar degenerative disc disease: Code(s): M51.36 - Other intervertebral disc degeneration, lumbar region Category: Medical Plan MRI of the lumbar spine to assess for neural integrity and compression and follow up on previous MRI findings to rule out disc herniation following recent work-related injury 3 weeks ago. Patient has tried NSAIDs, muscle relaxants, heat therapy with continued symptoms. She can not pursue physical therapy at this time due to severe low back pain. Patient will return to the clinic to discuss results of the MRI findings when it is done and consider interventional therapy as indicated. We will hold off on Bilateral Diagnostic SIJ injections with sedation and fluorosocopy until further notice. Work note provided today at patient's request. Discussed activity restrictions and advised patient for light duty at work setting. All questions and concerns have been answered and patient agreed with the plan. Follow up for MRI results and sooner as needed. Orders: Orders MR lumbar spine wo con Today M47.817 - Spondylosis without myelopathy or radiculopathy, lumbosacral region, M51.36 - Other intervertebral disc degeneration, lumbar region, M54.16 - Radiculopathy, lumbar region Medications: New lidocaine 5% 1 patch topical DAILY 30 ea 0RF pain 30 days M4 - Spondylosis without myelopathy or radiculopathy, lumbosacral region, M51.36 - Other intervertebral disc degeneration, lumbar region, M54.16 - Radiculopathy, lumbar region, M54.50 - Low back pain, unspecified Changed From gabapentin 300 mg PO DAILY - Spondylosis without myelopathy or radiculopathy, lumbosacral region, M51.36 - Other intervertebral disc degeneration, lumbar region, M54.16 - Radiculopathy, lumbar region To gabapentin 100 mg PO TID 90 caps 0RF pain 30 days M4 - Spondylosis without myelopathy or radiculopathy, lumbosacral region, M51.36 - Other intervertebral disc degeneration, lumbar region, M54.16 - Radiculopathy, lumbar region Coding Level of Care Code Est Pt Level 4 (19177) Diagnoses Sacroiliac joint pain M53.3 Low back pain M54.50 Lumbar radiculopathy M54.16 Lumbosacral spondylosis M4781 Discogenic low back pain M51.36 Lumbar degenerative disc disease M51.36
[2023-12-05 10:06] VITALS: BP 168/86; PULSE 75; O2SAT 98; BMI 38.9
== END 2023-12-05 10:27 | disposition home or self-care (01) ==
PROVIDERS: PCP Family Medicine; Visit Provider Nurse Practitioner Family
DX: M53.3 Sacrococcygeal disorders, not elsewhere classified (principal); M54.50 Low back pain, unspecified; M54.16 Radiculopathy, lumbar region; M47.817 Spondylosis without myelopathy or radiculopathy, lumbosacral region; M51.36 Other intervertebral disc degeneration, lumbar region
CPT/HCPCS: 99214

== ENCOUNTER → 2023-12-05 09:50 | Outpatient (BNVA) | payer OTHER, SELFPAY | PROVIDERS: PCP Family Medicine; Visit Provider Nurse Practitioner Family | DX: M53.3 Sacrococcygeal disorders, not elsewhere classified (principal); M54.50 Low back pain, unspecified; M54.16 Radiculopathy, lumbar region; M47.817 Spondylosis without myelopathy or radiculopathy, lumbosacral region; M51.36 Other intervertebral disc degeneration, lumbar region | CPT/HCPCS: 99212 ==

== ENCOUNTER → 2023-12-14 14:23 | Outpatient (RCR) | payer OTHER, SELFPAY ==
[2020-06-25 08:49] VITALS: BP 196/107; PULSE 96; RESP 12; TEMP 36.5; O2SAT 98; BMI 39.6
--- NOTE | 2020-06-25 09:24 | P.CNHO_ITS ---
Subjective - Subjective Chief complaint: Consult for anemia. Patient: new to practice Consult date: 06/25/20 Requesting Physician: Diana. Primary Care Provider: Sharmin Ortiz MD Medical Summary: DIAGNOSIS: MICROCYTIC ANEMIA. HPI - Consult Narrative Reason for consult: Consult for anemia. Narrative: Arleen Astorga is a pleasant 44 year old lady, who has felt fatigued over the past 6 months or so. Review of her labs in the computer revealed the following hemoglobin trend: Jun 13, 09:55 9.1 Jun 08, 15:33 11.1 Aug 01, 09:00 9.8 Sep 24, 09:40 11.0 August 25, 09:10 13.8 Apr 15, 09:15 13.6 Jun 26, 10:24 12.8 Jun 30, 16:21 11.7 Oct 22, 10:34 9.1 September 01 15:07 8.1. ROS: She does feel rather fatigued. Appetite is good. Weight is stable. She complains of headache and dizziness. She gets chest pain and palpitations. She complains of nausea and constipation. Sometimes she gets diarrhea he attributes that to metformin. She denies urinary complaints. She does have a heavy period. It changes from month to month She has not seen plant chief lately. She complains of joint pains involving her neck back shoulders elbows knees and fingers. She recently had an MRI of the spine which showed arthritis and Disc disease. She denies depression. Review of Systems - Constitutional Reports no additional constitutional complaints, Reports lack of energy, Reports malaise, Reports weakness, Reports weight gain - Eyes Reports no additional eye complaints - ENT Reports no additional ear, nose, mouth, and throat complaints - Cardiovascular Reports no additional cardiovascular complaints - Respiratory Reports no additional respiratory complaints - Gastrointestinal Reports no additional gastrointestinal complaints, Reports constipation, Reports nausea - Genitourinary Reports no additional female genitourinary complaints, Reports heavy periods - Musculoskeletal Reports no additional musculoskeletal complaints, Reports back pain, Reports joint pain - Integumentary/Breasts Skin/Breast: Reports no additional skin complaints - Neurologic Reports no additional neurologic complaints - Psychiatric Reports no additional psychiatric complaints - Endocrine Reports no additional endocrine complaints - Hematologic/Lymphatic Reports no additional hematologic/lymphatic complaints - Allergic/Immunologic Reports no additional allergic/immunologic complaints Oncology Screenings - ECOG Performance Status ECOG Performance Status: 0 PMFSH Medical History: Medical History (Last Updated 06/25/20 @ 08:44 by Sherrell Buchanan) Allergic rhinitis Anemia Carpal tunnel syndrome Chronic low back pain Diabetes mellitus Diabetic nephropathy Dyslipidemia Family history of systemic lupus erythematosus Hepatitis B immune Hypertension Microalbuminuria Migraine headache Obesity WANDA (obstructive sleep apnea) Transaminitis Vitamin D deficiency Functional capacity: independent ambulation Patient : No Family History: Family History (Last Updated 06/25/20 @ 08:59 by Sherrell Buchanan) Father Diabetes Heart disease Mother Hypertension Arthritis Thyroid activity decreased Brother Hypertension Thyroid activity decreased Sister Hypertension Thyroid activity decreased Other Family history of cancer of gallbladder Surgical History: Surgical History (Last Updated 06/25/20 @ 08:44 by Sherrell Buchanan) History of salpingo-oophorectomy Social History: Social History (Last Updated 06/25/20 @ 08:53 by Sherrell Buchanan) Alcohol History: Alcohol intake: never Alcohol History Details: Alcohol intake frequency: does not drink Tobacco History: Smoking Status: Never smoker Substance Use History: Use of substances other than those prescribed or required for medical reasons : No Nutrition Assessment: Patient : No Smoking status: Never smoker Home Medications and Allergies Home Medications Medication Instructions Recorded Confirmed Type acetaminophen [Tylenol Extra 500 mg PO Q6H PRN 06/25/20 06/25/20 History Strength] albuterol sulfate 2 puff INHALATION Q4-6H PRN 06/25/20 06/25/20 History ascorbic acid (vitamin C) [Vitamin 500 mg PO BID 06/25/20 06/25/20 History C] cholecalciferol (vitamin D3) 50 mcg PO DAILY 06/25/20 06/25/20 History [Vitamin D3] cyclobenzaprine 10 mg PO BEDTIME 06/25/20 06/25/20 History ferrous sulfate 325 mg PO BID 06/25/20 06/25/20 History lidocaine [Lidoderm] 1 patch TOPICAL DAILY 06/25/20 06/25/20 History losartan 100 mg PO DAILY 06/25/20 06/25/20 History meloxicam 7.5 mg PO DAILY 06/25/20 06/25/20 History metformin 500 mg PO BID 06/25/20 06/25/20 History metoprolol tartrate 50 mg PO BID 06/25/20 06/25/20 History pravastatin 20 mg PO BEDTIME 06/25/20 06/25/20 History Allergies Allergy/AdvReac Type Severity Reaction Status Date / Time yusuf inhibitors Allergy Unknown cough Uncoded 08/30/18 00:00 Physical Exam Vital signs: Vital Signs Temp 97.7 F 06/25/20 08:49 Pulse 96 06/25/20 08:49 Resp 12 06/25/20 08:49 BP 196/107 H 06/25/20 08:49 Pulse Ox 98 06/25/20 08:49 Intake & Output 06/24/20 06/25/20 06/25/20 18:59 06:59 18:59 Other: Weight 95.1 kg [place] Weight in Grams 27844 Weight 95.1 kg - Constitutional Present: no acute distress - Routine HEENT Exam Head: Present: normal inspection ENT: Present: mucous membranes moist - Routine Neck Exam Present: supple - Routine Respiratory Exam Present: CTAB - Routine Cardiovascular Exam Cardiovascular: Present: RRR, S1, S2 - Routine Abdominal Exam Present: normal bowel sounds, nontender - Routine Rectal Exam Patient deferred: digital exam - Routine Skin Exam Present: intact - Routine Neurological Exam Present: alert, oriented X3 - Detailed Neurological Exam: Coma Scale Eye Opening: Spontaneous (4) - Routine Psychiatric Exam Present: normal affect Hem/Onc Consult Result - Labs CBC & Chem 7: 06/25/20 09:29 06/25/20 09:29 Assessment and Plan (1) Microcytic anemia Status: Acute This is a pleasant 44-year-old lady with a history of anemia that is microcystic hypochromic. It has been present intermittently over the years. She has had it since September of 2014. Prior to that she was anemic in the summer of 2004. DIFFERENTIAL DIAGNOSIS: 1. IRON DEFICIENCY ANEMIA: This is most likely. She does have heavy periods that are responsible for it. 2. ANEMIA OF CHRONIC DISEASE: Is possible. She does have underlying diabetes and kidney disease. 3. HEMOLYTIC ANEMIA: Could be microcytic. 4. MYELO INFILTRATIVE DISORDER: Not likely at her young age and other explanation for her anemia. 5. THALASSEMIA: Is possible however she does have a iron deficiency. Her MCV was normal back in 2009 so less likely. Can consider the once the iron deficit has been corrected and if she still remains anemic. PLAN: I will proceed with further workup. Check CBC and diff. I will check iron studies and ferritin.: . Check hemolytic screen, retic 1.8. If she remains anemic will give her IV iron. I will arrange for Injectofer, because of its effectiveness and convenience. This will be set up in short stay surgery next week. She has been taking oral but has had some intolerance to it and so not regular. Will refer her for plant chief consultation regarding her heavy period to fix the root cause of the problem. She will return in 3 months for a follow-up visit. Thank you, CC: Dr. Sharmin Ortiz. Dr. Michel.
[2020-06-25 09:31] LABS: MANUAL DIFF FLAG NO
[2020-06-25 09:37] LABS: Basophils Percent Auto 0.4 % (0-2); Eosinophils Absolute Auto 0.1 X10*3/uL (0.0-0.4); Hematocrit 31.5 % (37-47); Imm Gran Abs Auto 0.02 X10*3/uL (0.00-0.03); Imm Gran Pct Auto 0.4 % (0.0-0.4); Immature Retic Fraction 23.1 % (3.0-15.9); Lymphocytes Absolute Auto 1.9 X10*3/uL (1.2-4.9); Lymphocytes Percent Auto 36.5 % (20-40); Mean Corpuscular HGB Conc 31.7 g/dl (31.0-35.0); Mean Corpuscular Volume 81.8 fL (80-98); Monocytes Absolute Auto 0.4 X10*3/uL (0.1-1.2); Monocytes Percent Auto 8.4 % (2-11); Neutrophils Absolute Auto 2.7 X10*3/uL (2.0-8.3); Neutrophils Percent Auto 52.3 % (45-73); Platelet Count 253 X10*3/uL (160-400); Red Blood Count 3.85 X10*6/uL (4.20-5.50); Red Cell Distribution Width 15.2 % (11.0-16.0); Retic HGB Equivalent 30.9 pg (30.0-35.0); Reticulocyte Percent 1.8 % (0.5-1.8); Reticulocytes Absolute 0.071 X10*6/uL (0.026-0.095); White Blood Count 5.1 X10*3/uL (4.8-10.8)
--- NOTE | 2020-06-25 09:38 | MHC.HEMONCMA ---
Pt presents for consult on anemia. Hx reviewed, labs drawn and pt to return in [address] Michel has been placed.
[2020-06-25 10:12] LABS: Alanine Aminotransferase 35 U/L (0-31); Albumin Level 4.2 g/dL (3.5-5.0); Alkaline Phosphatase 137 U/L (39-117); Anion Gap 8 (12-20); Aspartate Amino Transferase 23 U/L (5-31); Bilirubin Total 0.4 mg/dL (0.0-1.0); Blood Urea Nitrogen 8 mg/dL (9-16); Calcium 8.4 mg/dL (8.4-10.2); Carbon Dioxide 30 mmol/L (22-29); Chloride 104 mmol/L (96-108); Estimated Glomerular Filt Rate > 60; Glucose Random 156 mg/dL (60-115); Iron 21 mcg/dL (30-160); Percent Iron Saturation 5 % (15-50); Potassium 3.8 mmol/L (3.3-5.1); Sodium 138 mmol/L (135-145); Total Iron Binding Capacity 452 mcg/dL (228-428); Total Protein 6.8 g/dL (6.5-8.0); Unsaturated Iron Binding 431 ug/dL
[2020-06-25 10:24] LABS: Ferritin 7 ng/mL (10-250)
[2020-06-26 05:12] LABS: Transglutaminase IgA 1 U/mL
--- NOTE | 2020-06-26 08:30 | MHC.HEMONCMA ---
Order for injectofen faxed to [facility] on 06/15/20 and pt is scheduled to come in on 07/03/20 @ 1 pm. Pt notified.
--- NOTE | 2020-06-26 09:17 | MHC.HEMONCMA ---
Referral to Dr. Michel made for 07/06/20 @ 1:30pm. Pt was notified and has to change it. Information was given for her to reschedule.
[2020-09-24 10:21] LABS: MANUAL DIFF FLAG NO
[2020-09-24 10:24] LABS: Basophils Percent Auto 0.3 % (0-2); Eosinophils Absolute Auto 0.2 X10*3/uL (0.0-0.4); Eosinophils Percent Auto 2.6 % (0-4); Hematocrit 33.8 % (37-47); Hemoglobin 11.6 g/dl (12.0-16.0); Imm Gran Abs Auto 0.02 X10*3/uL (0.00-0.03); Imm Gran Pct Auto 0.3 % (0.0-0.4); Lymphocytes Absolute Auto 1.4 X10*3/uL (1.2-4.9); Lymphocytes Percent Auto 24.7 % (20-40); Mean Corpuscular HGB Conc 34.3 g/dl (31.0-35.0); Mean Corpuscular Hemoglobin 30.4 pg (27.0-33.0); Mean Corpuscular Volume 88.7 fL (80-98); Mean Platelet Volume 9.1 fL (9.4-12.3); Monocytes Absolute Auto 0.5 X10*3/uL (0.1-1.2); Monocytes Percent Auto 9.4 % (2-11); Neutrophils Absolute Auto 3.6 X10*3/uL (2.0-8.3); Neutrophils Percent Auto 62.7 % (45-73); Platelet Count 259 X10*3/uL (160-400); Red Blood Count 3.81 X10*6/uL (4.20-5.50); Red Cell Distribution Width 12.7 % (11.0-16.0); White Blood Count 5.7 X10*3/uL (4.8-10.8)
[2020-09-24 10:25] VITALS: BP 160/95; PULSE 92; RESP 18; TEMP 36.6; O2SAT 98; BMI 39.7
[2020-09-24 10:46] LABS: Alanine Aminotransferase 58 U/L (0-31); Albumin Level 4.3 g/dL (3.5-5.0); Alkaline Phosphatase 176 U/L (39-117); Anion Gap 10 (12-20); Aspartate Amino Transferase 34 U/L (5-31); Bilirubin Total 0.5 mg/dL (0.0-1.0); Blood Urea Nitrogen 8 mg/dL (9-16); Calcium 9.3 mg/dL (8.4-10.2); Carbon Dioxide 29 mmol/L (22-29); Chloride 105 mmol/L (96-108); Creatinine Clr Calc Pharmacy 113.6; Estimated Glomerular Filt Rate > 60; Glucose Random 164 mg/dL (60-115); Potassium 3.9 mmol/L (3.3-5.1); Sodium 140 mmol/L (135-145)
--- NOTE | 2020-09-24 10:50 | PM.HEMONCPN ---
Medical Summary - Medical Summary Date of Service: 09/24/20 Chief complaint: Follow-up for: Iron deficiency anemia. Medical Summary: DIAGNOSIS: MICROCYTIC ANEMIA. CURRENT THERAPY: Received injectofer 750 mg x 2, 1 week apart. Interval History Interval history: Arleen Astorga is a pleasant 44 year old lady, here for a follow-up visit. She tells me that her energy level was really good 1st couple of weeks after the iron infusion. Subsequently it went down a bit however she does work long hours. 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 Her blood pressure is elevated today. Her period has been heavy, especially this past month. She is under the care of chief lifestyle officer. They have given her a choice of Mirena IUD verses endometrial ablation. She is still considering these. She complains of occasional headaches and dizziness. She denies chest pain nor trouble breathing. She gets occasional palpitations. She denies abdominal pain, occasional nausea but no vomiting. Mostly she has constipation. No blood in the stools. Sometimes she gets diarrhea, she attributes that to metformin. Appetite is good. Weight is stable. She denies urinary complaints. She complains of joint pains involving her neck back shoulders elbows knees and fingers. She had an MRI of the spine which showed arthritis and Disc disease. She denies depression. Previous history: She had felt fatigued over the past 6 months or so. Review of her labs in the computer revealed the following hemoglobin trend: Jun 13 09:55 9.1 Jun 08 15:33 11.1 Aug 01 09:00 9.8 Sep 24 09:40 11.0 August 25 09:10 13.8 Apr 15 09:15 13.6 Jun 26 10:24 12.8 Jun 30 16:21 11.7 Oct 22 10:34 9.1 September 01 15:07 8.1. ROS: Review of Systems - Constitutional Reports no additional constitutional complaints, Denies lack of energy, Denies weight gain - Eyes Reports no additional eye complaints - ENT Reports no additional ear, nose, mouth, and throat complaints - Cardiovascular Reports no additional cardiovascular complaints, Denies bluish discoloration of hand/feet - Respiratory Reports no additional respiratory complaints - Gastrointestinal Reports no additional gastrointestinal complaints - Genitourinary Reports no additional female genitourinary complaints - Musculoskeletal Reports no additional musculoskeletal complaints - Integumentary/Breasts Skin/Breast: Reports no additional skin complaints - Neurologic Reports no additional neurologic complaints, Reports weakness - Psychiatric Reports no additional psychiatric complaints, Denies depression - Endocrine Reports no additional endocrine complaints - Hematologic/Lymphatic Reports no additional hematologic/lymphatic complaints - Allergic/Immunologic Reports no additional allergic/immunologic complaints [facility] Medical History: Medical History (Last Reviewed 09/16/20 @ 12:21 by Sam Michel MD) Allergic rhinitis Anemia Carpal tunnel syndrome Chronic low back pain Diabetes mellitus Diabetic nephropathy Dyslipidemia Family history of systemic lupus erythematosus Hepatitis B immune Hypertension Microalbuminuria Migraine headache Obesity WANDA (obstructive sleep apnea) Transaminitis Vitamin D deficiency Functional capacity: independent ambulation Patient : No Family History: Family History (Last Reviewed 09/16/20 @ 12:21 by Sam Michel MD) Father Diabetes Heart disease Mother Hypertension Arthritis Thyroid activity decreased Brother Hypertension Thyroid activity decreased Sister Hypertension Thyroid activity decreased Other Family history of cancer of gallbladder Surgical History: Surgical History (Last Reviewed 09/16/20 @ 12:21 by Sam Michel MD) History of salpingo-oophorectomy Tubal ligation status Social History: Social History (Last Reviewed 09/16/20 @ 12:21 by Sam Michel MD) Alcohol History: Alcohol intake: never Alcohol History Details: Alcohol intake frequency: does not drink Substance Use History: Use of substances other than those prescribed or required for medical reasons: No Nutrition Assessment: Patient : No Oncology Screenings - ECOG Performance Status ECOG Performance Status: 0 Home Medications and Allergies Home Medications Medication Instructions Recorded Confirmed Type acetaminophen [Tylenol Extra 500 mg PO Q6H PRN 06/25/20 09/24/20 History Strength] albuterol sulfate 2 puff INHALATION Q4-6H PRN 06/25/20 09/24/20 History ascorbic acid (vitamin C) [Vitamin 500 mg PO BID 06/25/20 09/24/20 History C] cholecalciferol (vitamin D3) 50 mcg PO DAILY 06/25/20 09/24/20 History [Vitamin D3] cyclobenzaprine 10 mg PO BEDTIME 06/25/20 09/24/20 History losartan 100 mg PO DAILY 06/25/20 09/24/20 History metformin 500 mg PO BID 06/25/20 09/24/20 History metoprolol tartrate 50 mg PO BID 06/25/20 09/24/20 History Allergies Allergy/AdvReac Type Severity Reaction Status Date / Time yusuf inhibitors Allergy Unknown cough Uncoded 08/30/18 00:00 Exam Vital signs: Vital Signs Temp 97.9 F 09/24/20 10:25 Pulse 92 09/24/20 10:25 Resp 18 09/24/20 10:25 BP 160/95 H 09/24/20 10:25 Pulse Ox 98 09/24/20 10:25 Intake & Output 09/23/20 09/24/20 09/24/20 18:59 06:59 18:59 Other: Weight 95.4 kg [place] Weight in Grams [address]297 Weight 95.4 kg Body Mass Index 39.7 - Constitutional Present: no acute distress - Routine HEENT Exam Head: Present: normal inspection Eye: Present: normal appearance ENT: Present: mucous membranes moist - Routine Neck Exam Present: full ROM - Routine Respiratory Exam Present: CTAB - Routine Cardiovascular Exam Cardiovascular: Present: RRR, S1, S2 - Routine Abdominal Exam Present: normal bowel sounds, nontender - Routine Rectal Exam Patient deferred: digital exam - Routine Extremities Exam Present: nontender - Routine Back/Spine/Pelvis Exam Back/Spine: Present: full ROM - Routine Skin Exam Present: intact - Routine Neurological Exam Present: alert, oriented X3 - Detailed Neurological Exam: Coma Scale Eye Opening: Spontaneous (4) - Routine Psychiatric Exam Present: normal affect Data - Labs CBC & Chem 7: 09/24/20 10:17 09/24/20 10:17 Labs: 06/25/20 09:29 Complete Blood Count Auto Diff Routine Comprehensive Met. Panel Routine Ferritin Routine IRON PROFILE Routine Reticulocyte Count Routine Transglutaminase IgA Routine 09/24/20 10:17 Complete Blood Count Auto Diff Routine Laboratory Last Values WBC 5.7 X10*3/uL (4.8-10.8) 09/24/20 10:17 RBC 3.81 X10*6/uL (4.20-5.50) L 09/24/20 10:17 Hgb 11.6 g/dl (12.0-16.0) L 09/24/20 10:17 Hct 33.8 % (37-47) L 09/24/20 10:17 MCV 88.7 fL (80-98) 09/24/20 10:17 MCH 30.4 pg (27.0-33.0) 09/24/20 10:17 MCHC 34.3 g/dl (31.0-35.0) 09/24/20 10:17 RDW 12.7 % (11.0-16.0) 09/24/20 10:17 Plt Count 259 X10*3/uL (160-400) 09/24/20 10:17 MPV 9.1 fL (9.4-12.3) L 09/24/20 10:17 Immature Gran % (Auto) 0.3 % (0.0-0.4) 09/24/20 10:17 Neut % (Auto) 62.7 % (45-73) 09/24/20 10:17 Lymph % (Auto) 24.7 % (20-40) 09/24/20 10:17 [place] % (Auto) 9.4 % (2-11) 09/24/20 10:17 Eos % (Auto) 2.6 % (0-4) 09/24/20 10:17 Baso % (Auto) 0.3 % (0-2) 09/24/20 10:17 Lymph # (Auto) 1.4 X10*3/uL (1.2-4.9) 09/24/20 10:17 [place] # (Auto) 0.5 X10*3/uL (0.1-1.2) 09/24/20 10:17 Eos # (Auto) 0.2 X10*3/uL (0.0-0.4) 09/24/20 10:17 Baso # (Auto) 0.0 X10*3/uL (0.0-0.2) 09/24/20 10:17 Abs Immat Gran (auto) 0.02 X10*3/uL (0.00-0.03) 09/24/20 10:17 Absolute Neuts (auto) 3.6 X10*3/uL (2.0-8.3) 09/24/20 10:17 Absolute Nucleated RBC 0.000 X10*3/uL (0.0-0.012) 09/24/20 10:17 Nucleated RBC % (auto) 0.0 /100WBC (0.0-0.2) 09/24/20 10:17 Absolute Retic 0.071 X10*6/uL (0.026-0.095) 06/25/20 09:29 Percent Retic 1.8 % (0.5-1.8) 06/25/20 09:29 Immature Retic Fraction 23.1 % (3.0-15.9) H 06/25/20 09:29 Retic Hgb Equivalent 30.9 pg (30.0-35.0) 06/25/20 09:29 Sodium 140 mmol/L (135-145) 09/24/20 10:17 Potassium 3.9 mmol/L (3.3-5.1) 09/24/20 10:17 Chloride 105 mmol/L (96-108) 09/24/20 10:17 Carbon Dioxide 29 mmol/L (22-29) 09/24/20 10:17 Anion Gap 10 (12-20) L 09/24/20 10:17 BUN 8 mg/dL (9-16) L 09/24/20 10:17 Creatinine 0.66 mg/dL (0.5-1.4) 09/24/20 10:17 Estim Creat Clear Calc 113.6 09/24/20 10:17 Estimated GFR > 60 09/24/20 10:17 Random Glucose 164 mg/dL (60-115) H 09/24/20 10:17 Calcium 9.3 mg/dL (8.4-10.2) D 09/24/20 10:17 Iron 21 mcg/dL (30-160) L 06/25/20 09:29 TIBC 452 mcg/dL (228-428) H 06/25/20 09:29 % Saturation 5 % (15-50) L 06/25/20 09:29 Unsat Iron Binding 431 ug/dL 06/25/20 09:29 Ferritin 7 ng/mL (10-250) L 06/25/20 09:29 Total Bilirubin 0.5 mg/dL (0.0-1.0) 09/24/20 10:17 AST 34 U/L (5-31) H D 09/24/20 10:17 ALT 58 U/L (0-31) H 09/24/20 10:17 Alkaline Phosphatase 176 U/L (39-117) H D 09/24/20 10:17 Total Protein 7.0 g/dL (6.5-8.0) 09/24/20 10:17 Albumin 4.3 g/dL (3.5-5.0) 09/24/20 10:17 Tiss Transglutamin IgA 1 U/mL 06/25/20 09:29 Progress Note: A/P (1) Microcytic anemia Status: Acute Assessment and plan: This is a pleasant 44-year-old lady with a history of Anemia that is microcystic hypochromic. It has been present intermittently over the years. She has had it since September of 2014. Prior to that she was anemic in the summer of 2004. DIFFERENTIAL DIAGNOSIS: 1. IRON DEFICIENCY ANEMIA: This is most likely. She does have heavy periods that are responsible for it. 2. ANEMIA OF CHRONIC DISEASE: Is possible. She does have underlying diabetes and kidney disease. 3. HEMOLYTIC ANEMIA: Could be microcytic. 4. MYELO INFILTRATIVE DISORDER: Not likely at her young age and other explanation for her anemia. 5. THALASSEMIA: Is possible however she does have a iron deficiency. Her MCV was normal back in 2009 so less likely. Can consider the once the iron deficit has been corrected and if she still remains anemic. I proceeded with further workup. Checked CBC and diff: Hemoglobin 10. Hematocrit 31.5. I checked iron studies and ferritin.: /08/14. Transglut. IgA: 1. Checked a hemolytic screen, retic 1.8. She had been taking oral but had some intolerance to it and so not regular. I arranged for Injectofer, because of its effectiveness and convenience. She received it mid June. l referred her for chief lifestyle officer consultation regarding her heavy period to fix the root cause of the problem. She has been under the care of Dr. Michel. He gave her a choice. She is considering the options. In the meantime her energy level has improved, hemoglobin has improved significantly. Ferritin is up to 84. PLAN: I suggested that she get the endometrial ablation which is quick and easy and more of a definitive cure. She is going to discuss this further with Dr. Michel. Will follow-up on her blood count to assess need for further iron infusions. Hopefully she will not need them after she gets her periods fixed. She will return in 3 months for a follow-up visit. Thank you, CC: Dr. Sharmin Ortiz. Dr. Michel. - Time Spent With Patient 15 - 24 minutes
--- NOTE | 2020-09-24 10:54 | MHC.HEMONC ---
Pt here for Hem follow up with Dr Santiago. Lab draw by owner spa director and sent to lab. Clinical summary updated by nurse. Pt states she has a migraine headache today-states she takes excedrin which usually helps with migraine. States she has fatigue. Provider into see pt. Follow up appointment made. Discharged home.
[2020-09-24 11:05] LABS: Ferritin 84 ng/mL (10-250)
--- NOTE | 2021-03-26 11:37 | PM.HEMONCPN ---
Medical Summary - Medical Summary Date of Service: 03/26/21 Chief complaint: Follow-up for: Iron deficiency anemia. Medical Summary: DIAGNOSIS: MICROCYTIC ANEMIA. CURRENT THERAPY: Received injectofer 750 mg x 2, 1 week apart. Interval History Interval history: Arleen Astorga is a pleasant 44 year old lady, here for a follow-up visit. She tells me that her energy level was really good 1st couple of weeks after the iron infusion. Subsequently it went down a bit however she does work long hours. 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 Her blood pressure is elevated today. Her period has been heavy, especially this past month. She is under the care of gas engine mechanic. They have given her a choice of Mirena IUD verses endometrial ablation. She is still considering these. She complains of occasional headaches and dizziness. She denies chest pain nor trouble breathing. She gets occasional palpitations. She denies abdominal pain, occasional nausea but no vomiting. Mostly she has constipation. No blood in the stools. Sometimes she gets diarrhea, she attributes that to metformin. Appetite is good. Weight is stable. She denies urinary complaints. She complains of joint pains involving her neck back shoulders elbows knees and fingers. She had an MRI of the spine which showed arthritis and Disc disease. She denies depression. Previous history: She had felt fatigued over the past 6 months or so. Review of her labs in the computer revealed the following hemoglobin trend: Jun 13 09:55 9.1 Jun 08 15:33 11.1 Aug 01 09:00 9.8 Sep 24 09:40 11.0 August 25 09:10 13.8 Apr 15 09:15 13.6 Jun 26 10:24 12.8 Jun 30 16:21 11.7 Oct 22 10:34 9.1 September 01 15:07 8.1. Review of Systems - Constitutional Reports system reviewed and no additional complaints, except as documented - Eyes Reports system reviewed and no additional complaints, except as documented - ENT Reports system reviewed and no additional complaints, except as documented - Cardiovascular Reports system reviewed and no additional complaints, except as documented - Respiratory Reports no additional respiratory complaints - Gastrointestinal Reports system reviewed and no additional complaints, except as documented - Genitourinary Reports no additional female genitourinary complaints - Musculoskeletal Reports system reviewed and no additional complaints, except as documented - Integumentary/Breasts Skin/Breast: Reports no additional skin complaints - Neurologic Reports system reviewed and no additional complaints, except as documented, Reports weakness - Psychiatric Reports system reviewed and no additional complaints, except as documented - Endocrine Reports no additional endocrine complaints - Hematologic/Lymphatic Reports system reviewed and no additional complaints, except as documented - Allergic/Immunologic Reports system reviewed and no additional complaints, except as documented PMFSH Medical History: Medical History (Last Reviewed 10/23/20 @ 09:04 by Raquel Higgins MD) Allergic rhinitis Anemia Carpal tunnel syndrome Chronic low back pain Diabetes mellitus Diabetic nephropathy Dyslipidemia Family history of systemic lupus erythematosus Hepatitis B immune Hypertension Microalbuminuria Migraine headache Obesity WANDA (obstructive sleep apnea) Transaminitis Vitamin D deficiency Functional capacity: independent ambulation Patient : No Family History: Family History (Last Reviewed 10/23/20 @ 09:04 by Raquel Higgins MD) Father Diabetes Heart disease Mother Hypertension Arthritis Thyroid activity decreased Brother Hypertension Thyroid activity decreased Sister Hypertension Thyroid activity decreased Other Family history of cancer of gallbladder Surgical History: Surgical History (Last Reviewed 10/23/20 @ 09:04 by Raquel Higgins MD) History of salpingo-oophorectomy Tubal ligation status Social History: Social History (Last Reviewed 10/23/20 @ 09:04 by Raquel Higgins MD) Alcohol History: Alcohol intake: never Alcohol History Details: Alcohol intake frequency: does not drink Tobacco History: Patient Tobacco Use Status: Never used Tobacco Second Hand Smoke Exposure: No Substance Use History: Use of substances other than those prescribed or required for medical reasons: No Nutrition Assessment: Patient : No Home Medications and Allergies Home Medications Medication Instructions Recorded Confirmed Type acetaminophen 500 mg tablet 500 mg PO Q6H PRN 06/25/20 10/20/20 History (Tylenol Extra Strength) albuterol sulfate 90 mcg/actuation 2 puff INHALATION Q4-6H PRN 06/25/20 10/20/20 History aerosol inhaler ascorbic acid (vitamin C) 500 mg 500 mg PO BID 06/25/20 10/20/20 History tablet (Vitamin C) cholecalciferol (vitamin D3) 50 50 mcg PO DAILY 06/25/20 10/20/20 History mcg (2,000 unit) tablet (Vitamin D3) cyclobenzaprine 10 mg tablet 10 mg PO BEDTIME 06/25/20 10/20/20 History losartan 100 mg tablet 100 mg PO DAILY 06/25/20 10/20/20 History metformin 500 mg tablet 500 mg PO BID 06/25/20 10/20/20 History metoprolol tartrate 50 mg tablet 50 mg PO BID 06/25/20 10/20/20 History Allergies Allergy/AdvReac Type Severity Reaction Status Date / Time yusuf inhibitors Allergy Unknown cough Uncoded 08/30/18 00:00 Exam Vital signs: Vital Signs Temp 97.9 F 09/24/20 10:25 Pulse 92 09/24/20 10:25 Resp 18 09/24/20 10:25 BP 160/95 H 09/24/20 10:25 Pulse Ox 98 09/24/20 10:25 Weight 95.4 kg BMI result Body Mass Index 39.7 - Constitutional Present: no acute distress - Routine HEENT Exam Head: Present: normal inspection Eye: Present: normal appearance ENT: Present: mucous membranes moist - Routine Neck Exam Present: full ROM - Routine Respiratory Exam Present: CTAB - Routine Cardiovascular Exam Cardiovascular: Present: RRR, S1, S2 - Routine Abdominal Exam Present: normal bowel sounds, nontender - Routine Rectal Exam Patient deferred: digital exam - Routine Extremities Exam Present: nontender - Routine Back/Spine/Pelvis Exam Back/Spine: Present: full ROM - Routine Skin Exam Present: intact - Routine Neurological Exam Present: alert, oriented X3 - Detailed Neurological Exam: Coma Scale Eye Opening: Spontaneous (4) - Routine Psychiatric Exam Present: normal affect Data - Labs CBC & Chem 7: 09/24/20 10:17 09/24/20 10:17 Assessment and Plan Patient Active problem list reviewed?: Yes (1) Microcytic anemia Status: Acute Assessment and plan: This is a pleasant 44-year-old lady with a history of Anemia that is microcystic hypochromic. It has been present intermittently over the years. She has had it since September of 2014. Prior to that she was anemic in the summer of 2004. DIFFERENTIAL DIAGNOSIS: 1. IRON DEFICIENCY ANEMIA: This is most likely. She does have heavy periods that are responsible for it. 2. ANEMIA OF CHRONIC DISEASE: Is possible. She does have underlying diabetes and kidney disease. 3. HEMOLYTIC ANEMIA: Could be microcytic. 4. MYELO INFILTRATIVE DISORDER: Not likely at her young age and other explanation for her anemia. 5. THALASSEMIA: Is possible however she does have a iron deficiency. Her MCV was normal back in 2009 so less likely. Can consider the once the iron deficit has been corrected and if she still remains anemic. I proceeded with further workup. Checked CBC and diff: Hemoglobin 10. Hematocrit 31.5. I checked iron studies and ferritin.: /08/14. Transglut. IgA: 1. Checked a hemolytic screen, retic 1.8. She had been taking oral but had some intolerance to it and so not regular. I arranged for Injectofer, because of its effectiveness and convenience. She received it mid June. l referred her for gas engine mechanic consultation regarding her heavy period to fix the root cause of the problem. She has been under the care of Dr. Michel. He gave her a choice. She is considering the options. In the meantime her energy level has improved, hemoglobin has improved significantly. Ferritin is up to 84. PLAN: I suggested that she get the endometrial ablation which is quick and easy and more of a definitive cure. She is going to discuss this further with Dr. Michel. Will follow-up on her blood count to assess need for further iron infusions. Hopefully she will not need them after she gets her periods fixed. She will return in 3 months for a follow-up visit. Thank you, CC: Dr. Sharmin Ortiz. Dr. Michel. - Time Spent With Patient Time Spent with Patient (in minutes): 30
== END | disposition home or self-care (01) ==
LOC: HO.ONC 06-25 08:33
PROVIDERS: PCP Family Medicine; Referring Provider Family Medicine; Visit Provider Internal Medicine Medical Oncology
DX: D50.9 Iron deficiency anemia, unspecified (principal)
CPT/HCPCS: 36415; 80053; 82728; 83516; 83540; 85025; 85045; 99204; 99213; 99214

== ENCOUNTER 2024-01-23 10:40 | Outpatient (AMB) | payer OTHER, SELFPAY ==
--- NOTE | 2024-01-23 10:49 | A.OFFVIS_ITS ---
Vital Signs 01/23/24 10:55 Height 5 ft 1 in Weight 205 lb BMI 38.7 BP 145/83 H Blood Pressure Location Rt brachial Position Sitting Pulse 113 H Pulse Source Pulse Oximeter Pulse Oximetry (%) 98 Oxygen Delivery Method Room Air Intake Visit Reasons: MRI FU Intake Note: Pain today 12/18 Hydrometer Tester Required: No Accompanied by: Self / Same As Patient Allergies BEAU Inhibitors Allergy (Unknown, Verified 01/23/24 10:57) cough HPI Comments Details: Patient presents today for follow-up to review recent lumbar spine MRI results. She continues to endorse significant lower back pain is radiation into left lower extremity posteriorly is associated numbness in tingling in her calf, heel and the 5th toe. Radiation of back pain into the sacral areas consistent with sacroiliac joint pain. 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 Lumbar spine MRI findings significant for moderate left paracentral L5-S1 disc protrusion impinging upon the descending left S1 nerve root. Patient is interested to undergo therapeutic transforaminal epidural steroidal injections to address her radicular symptoms. Denies any recent cough, cold, infection, fever, bowel or bladder dysfunction or other significant changes in medical history since last office visit. Reports intermittent left lower extremity weakness and left saddle anesthesia. PRIOR: Patient presents today for follow-up for worsening low back pain. She was seen in June with plans to undergo diagnostic sacroiliac joint injections. Unfortunately this has not been scheduled as of yet. 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 She reports she was started on naproxen and muscle relaxants without any pain relief. Patient presents today with significant low back pain and unable to undergo full exam due to exacerbation of back and bilateral leg pain. She reports numbness and intermittent weakness in bilateral lower extremities and severe pain with bending or flexing forward. Denies any fever, chills, abdominal or groin pain, foot drop, bladder or bowel dysfunction or saddle anesthesia. PRIOR: Patient presents today for follow up for worsening low back pain and review xray results. She was initially seen in our office in March 2023. Reports recent right carpal tunnel release surgery and reports recovery has been well. 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 Her back pain extends to sacral areas bilaterally and into her lateral hips. She reports her worse side alternates from left to right, depending on the daily activities and work. Patient also reports occasional sensations of heaviness with numbness in her posterior legs. Lumbar spine and hip xrays reports were reviewed today and are noted below. Pain affects her daily ADLs, mobility, sleep and social interactions. She continues to stay active and performs regular HEP, takes Tylenol and Flexeril with continued symptoms. She has been trying to loose weight and has lost 7 lbs since last visit. Most recent A1C is 6.8. Patient is interested to proceed with interventional treatments to address her radicular back and SIJ pain. Denies any recent cough, cold, infection, fever, weakness, foot drop, bladder or bowel dysfunction, saddle anesthesia, any significant changes in her medical history, medications or recent hospitalizations. PRIOR: Patient is a pleasant 47 years old female with past medical history of chronic back pain, carpal tunnel syndrome, WANDA with mild adherence to CPAP machine, obesity, type 2 DM (A1C 6.8 on 11/30), left knee pain, OA, fibromyalgia, presents today for initial evaluation of right hip and low back pain. Denies any recent trauma, injury or falls. She was seen at [facility] 2 years ago and declined SI injection. She is also was seen by Rheumatology for OA and fibromyalgia. Patient works as [employer]ARD [employer] which involves physically demanding pulling, pushing, heavy lifting and prolonged walking or standing which exacerbate her pain generators. Back pain is axial and also radiates into her right buttock and into lateral right hip and groin. She reports weakness and occasional right leg giving out as well as burning and radiating pain into her right foot with numbness and tingling. Patient also has significant neck pain with muscle stiffness and spasms. Reports physical therapy in the remote past with mild improvement in her symptoms and function. Due to significant pain, patient cannot undergo PT. Pain is constant and she rates it at 8/10. Denies previous spine surgery or injections. Pain affects her daily activities, functioning, sleep, social activities, mood and quality of life. Patient denies any fever, abdominal pain, foot drop, bladder or bowel incontinence or saddle anesthesia. Reports right lower extremity weakness with ambulation. Patient reports she does not check blood sugars regularly. She states her A1C was good in November and she cannot recall if this has been rechecked recently. Patient tries to loose weight, and control DM with diet and taking medications regularly. Location Lower back, radiates into right buttock and right hip and groin Duration Progressively worsening pain > 2 years Characteristics of symptom or complaint Aching, shooting, radiating, tight, tiring, numbness, heavy, sore Aggravating or associated factors Walking, bending, climbing stairs, lifting, pulling, pushing, cold weather Relieving factors Cyclobenzaprine, Tylenol, resting, heat therapy Treatment None PFSH Medical History Fibromyalgia Family history of systemic lupus erythematosus Hepatitis B immune Diabetic nephropathy Microalbuminuria Dyslipidemia Diabetes mellitus Allergic rhinitis Transaminitis Anemia Chronic low back pain Migraine headache Obesity Carpal tunnel syndrome Hypertension WANDA (obstructive sleep apnea) Vitamin D deficiency Surgical History History of cholecystectomy Tubal ligation status History of salpingo-oophorectomy Family History Father Diabetes Heart disease Mother Hypertension Arthritis Thyroid activity decreased Brother Hypertension Thyroid activity decreased Sister Hypertension Thyroid activity decreased Other Family history of cancer of gallbladder Social History Alcohol intake: never Comment: medicated in pacu Patient Tobacco Use Status: Never used Tobacco Second Hand Smoke Exposure: No 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 Mild to moderate distress due to significant pain. Alert and oriented. Mood and affect appropriate. Follows and participates in conversation appropriately. Respiratory effort is unlabored. No cough. Able to transition from sit to stand unassisted. Ambulates with bilaterally normal heel strike and toe off, reports LLE numbness with intermittent weakness. Neck Neck: Yes full ROM, Yes no lymphadenopathy, Yes supple, No anterior neck swelling, Yes no JVD and Yes prominent dorsocervical fat pad General: Yes no CVA tenderness Back/Spine/Pelvis Other: Limited lumbar ROM with flexion and extension reproducing moderate-severe pain, worse pain with flexion forward and facet loading bilaterally. Antalgic gait with mild limping on right due to pain. Demonstrates 5/5 right and 4/5 left strength of quadriceps bilaterally as well as flexion/dorsiflexion of bilateral feet against resistance. 2+ pedal pulses bilaterally. Seated straight leg rise with dorsiflexion positive bilaterally, worse on the left. +1 patellar and diminished achilles reflexes bilaterally. Nia sign positive bilaterally, Sudarshan?s, Gaenslen, Pelvic compression and Stinchfield tests are positive bilaterally. No groin pain with I/E hip rotations. Valsalva maneuver negative. Reports saddle anesthesia on the left. Back: no CVA tenderness Cervical Spine: cervical ROM normal, cervical muscular tenderness, pain with cervical ROM and No Cervical spine tenderness Thoracic/Lumbar Spine: thoracic and lumbar spine normal to inspection, No Thoracic/lumbar spine scar(s), Lasegue's sign positive (right diffuse, left localized in L5-S1 distribution), pain with thoraco-lumbar ROM, paraspinal muscle tenderness, thoraco-lumbar ROM limited, No thoracic spinal tenderness and lumbar spinal tenderness (L4-S1) Pelvis: buttock tenderness (left>right) bilaterally and sciatic notch tenderness on the left Sacroiliac joints: bilaterally tender to palpation Extrem General: Yes capillary refill normal, Yes no clubbing, cyanosis or edema and Yes no calf tenderness Right lower extremity: knee Details: tenderness Location: of the patella, normal ROM and crepitus; no swelling, no ecchymosis and no deformity Results Reviewed Results Reviewed: XR LUMBOSACRAL SPINE WITH OBLIQUES 06/20/23 FINDINGS: There 5 nonrib-bearing lumbar-type vertebral bodies. The height of the vertebral bodies is well-maintained. There is straightening of the usual lumbar lordosis which can be seen with muscle spasm. There is no spondylolysis or spondylolisthesis. 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 A few small calcifications are seen in the right lower quadrant. There are a few calcifications in the pelvis which likely represent phleboliths. Surgical clips in the right upper quadrant are consistent with prior cholecystectomy. IMPRESSION: 1. Muscle spasm. 2. 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 Alignment is anatomic. Right hip joint space is maintained. Small calcifications are seen in the right lower quadrant. A few calcifications are seen in the pelvis which likely represent phleboliths. Hip joint space of the left hip is preserved. 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 The pubic symphysis is normal. IMPRESSION: No significant abnormality of the right hip. MR SPINE LUMBAR without CONTRAST 01/01/24 at [facility] INDICATION: Low back pain that radiates to bilateral legs with a heavy feeling associated with leg symptoms. Bilateral hip pain. Painful to walk. TECHNIQUE: Unenhanced multiplanar, multisequence MR imaging of the lumbar spine. COMPARISON: None Available. FINDINGS: Normal lumbar alignment is demonstrated. Vertebral heights are well maintained. Bone marrow signal is within normal limits, and no suspicious osseous lesion is identified. Conus medullaris is unremarkable. Paraspinal soft tissues and visualized portions of the abdomen and pelvis are unremarkable. At L1-2 there is no significant disc herniation or protrusion. No central canal or neural foraminal stenosis is demonstrated. At L2-3 there is no significant disc herniation or protrusion. No central canal or neural foraminal stenosis is demonstrated. At L3-4 there is no significant disc herniation or protrusion. No central canal or neural foraminal stenosis is demonstrated. At L4-5 there is no significant disc herniation or protrusion. No central canal or neural foraminal stenosis is demonstrated. At L5-S1 there is loss of T2 hyperintense intervertebral disc signal. There is a moderate left paracentral disc protrusion extending into the left anterolateral recess of spinal canal impinging upon the descending left S1 nerve root. No clinically significant central canal or neuroforaminal stenosis.. IMPRESSION: Moderate left paracentral L5-S1 disc protrusion impinging upon the descending left S1 nerve root. Assessment & Plan Assessment & Plan (1) Sacroiliac joint pain: Code(s): M53.3 - Sacrococcygeal disorders, not elsewhere classified Category: Medical (2) Low back pain: Code(s): M54.50 - Low back pain, unspecified Category: Medical (3) Lumbosacral spondylosis: Code(s): M47.817 - Spondylosis without myelopathy or radiculopathy, lumbosacral region Category: Medical (4) Lumbar degenerative disc disease: Code(s): M51.36 - Other intervertebral disc degeneration, lumbar region Category: Medical (5) Lumbar disc herniation with radiculopathy: Code(s): M51.16 - Intervertebral disc disorders with radiculopathy, lumbar region Category: Medical Plan Lumbar spine MRI results discussed with patient today and noted for moderate left paracentral L5-S1 disc protrusion impinging upon the descending left S1 nerve root. Schedule Left L5-S1 TFESI with local and fluoroscopy for left radicular symptoms. Expectations, risks and benefits were reviewed. Patient is aware she will be contacted to schedule this procedure. Patient has pending lab work to complete this Monday, including A1C level. Patient is aware of hyperglycemic effects of steroids and has been instructed to regularly monitor her blood sugars following the injection. Reviewed with patient activity modifications and restrictions and advised patient to continue light duty at work setting. Patient completed functional capacity assessment at [facility] and report has been reviewed and scanned into the chart. All questions and concerns have been answered and patient agreed with the plan. Follow up after injections and sooner as needed. Coding Level of Care Code Est Pt Level 4 (57118) Complex EM visit Add On G2211 Diagnoses Sacroiliac joint pain M53.3 Low back pain M54.50 Lumbosacral spondylosis M47.817 Lumbar degenerative disc disease M51.36 Lumbar disc herniation with radiculopathy M51.16
[2024-01-23 10:55] VITALS: BP 145/83; PULSE 113; O2SAT 98; BMI 38.7
== END 2024-01-23 11:31 | disposition home or self-care (01) ==
PROVIDERS: PCP Family Medicine; Visit Provider Nurse Practitioner Family
DX: M53.3 Sacrococcygeal disorders, not elsewhere classified (principal); M54.50 Low back pain, unspecified; M47.817 Spondylosis without myelopathy or radiculopathy, lumbosacral region; M51.369 Other intervertebral disc degeneration, lumbar region without mention of lumbar back pain or lower extremity pain; M51.16 Intervertebral disc disorders with radiculopathy, lumbar region
CPT/HCPCS: 99214; G2211

== ENCOUNTER → 2024-01-23 10:40 | Outpatient (BNVA) | payer OTHER, SELFPAY | PROVIDERS: PCP Family Medicine; Visit Provider Nurse Practitioner Family | DX: M53.3 Sacrococcygeal disorders, not elsewhere classified (principal); M54.50 Low back pain, unspecified; M47.817 Spondylosis without myelopathy or radiculopathy, lumbosacral region; M51.369 Other intervertebral disc degeneration, lumbar region without mention of lumbar back pain or lower extremity pain; M51.16 Intervertebral disc disorders with radiculopathy, lumbar region | CPT/HCPCS: 99212 ==

== ENCOUNTER 2024-02-02 10:41 | Outpatient (REF) | payer OTHER, SELFPAY ==
[2024-02-02 11:15] LABS: MANUAL DIFF FLAG NO
[2024-02-02 11:20] LABS: Basophils Percent Auto 0.7 % (0-2); Eosinophils Absolute Auto 0.1 X10*3/uL (0.0-0.4); Eosinophils Percent Auto 2.2 % (0-4); Hematocrit 37.2 % (37.0-47.0); Hemoglobin 13.3 g/dl (12.0-16.0); Imm Gran Abs Auto 0.03 X10*3/uL (0.00-0.03); Imm Gran Pct Auto 0.5 % (0.0-0.4); Lymphocytes Percent Auto 33.5 % (20-40); Mean Corpuscular HGB Conc 35.8 g/dl (31.0-35.0); Mean Corpuscular Hemoglobin 31.8 pg (27.0-33.0); Mean Platelet Volume 9.7 fL (9.4-12.3); Monocytes Absolute Auto 0.5 X10*3/uL (0.1-1.2); Monocytes Percent Auto 8.8 % (2-11); Neutrophils Absolute Auto 3.2 x10*3/uL (2.0-8.3); Neutrophils Percent Auto 54.3 % (45-73); Platelet Count 230 X10*3/uL (160-400); Red Blood Count 4.18 X10*6/uL (4.20-5.50); Red Cell Distribution Width 11.9 % (11.0-16.0); White Blood Count 5.9 X10*3/uL (4.8-10.8)
[2024-02-02 11:31] LABS: Estimated Average Glucose 263 mg/dL; Hemoglobin A1C 301.0379 umol/L; Hemoglobin A1c % 10.8 % (<6.0); Total Hemoglobin (HGBA1C) 3169.6196 umol/L
[2024-02-02 11:55] LABS: Albumin Level 4.5 g/dL (3.5-5.0); Alkaline Phosphatase 151 U/L (39-117); Anion Gap 13 (12-20); Aspartate Amino Transferase 77 U/L (5-31); Bilirubin Total 0.7 mg/dL (0.0-1.0); Blood Urea Nitrogen 18 mg/dL (9-16); Calcium 10.7 mg/dL (8.4-10.2); Carbon Dioxide 30 mmol/L (22-29); Chloride 98 mmol/L (96-108); Estimated Glomerular Filt Rate 39; Glucose Random 341 mg/dL (60-115); Potassium 3.9 mmol/L (3.3-5.1); Sodium 137 mmol/L (135-145); Total Protein 8.1 g/dL (6.5-8.0)
[2024-02-02 12:12] LABS: Alanine Aminotransferase 110 U/L (0-31)
== END 2024-02-02 10:42 | disposition home or self-care (01) ==
LOC: HO.HHCL 10:41
PROVIDERS: Visit Provider Family Medicine
DX: I10 Essential (primary) hypertension (principal); E11.65 Type 2 diabetes mellitus with hyperglycemia; K76.0 Fatty (change of) liver, not elsewhere classified
CPT/HCPCS: 36415; 80053; 83036; 85025

== ENCOUNTER 2024-02-16 11:15 | Outpatient (AMB) | payer OTHER, SELFPAY ==
--- NOTE | 2024-02-16 11:18 | MHC.OFFVIS ---
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 She continues to endorse significant lower back pain is radiation into left lower extremity posteriorly is associated numbness in tingling in her calf, heel and the 5th toe. Radiation of back pain into the sacral areas consistent with sacroiliac joint pain. She had recent follow up with PCP and completed labs work, including A1C=10.8 on 02/02/24. Due to significant elevated A1C levels, she is not candidate for therapeutic injection. Patient reports she Januvia injections and continues with metformin. She continues to experience significant left sided radiculopathy and impairments in her ADLs, mobility, lifting mechanics, limited ROM, sleep and work. She made minimal progress with formal PT and is being discharged from PT due to lack of progress and back pain aggravation with exercises and movements. 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 enies any recent cough, cold, infection, fever, bowel or bladder dysfunction or other significant changes in medical history since last office visit. Reports intermittent left lower extremity weakness and left saddle anesthesia. PRIOR: Patient presents today for follow up for worsening low back pain and review xray results. She was initially seen in our office in March 2023. Reports recent right carpal tunnel release surgery and reports recovery has been well. 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 Her back pain extends to sacral areas bilaterally and into her lateral hips. She reports her worse side alternates from left to right, depending on the daily activities and work. Patient also reports occasional sensations of heaviness with numbness in her posterior legs. Lumbar spine and hip xrays reports were reviewed today and are noted below. Pain affects her daily ADLs, mobility, sleep and social interactions. She continues to stay active and performs regular HEP, takes Tylenol and Flexeril with continued symptoms. She has been trying to loose weight and has lost 7 lbs since last visit. Most recent A1C is 6.8. Patient is interested to proceed with interventional treatments to address her radicular back and SIJ pain. Denies any recent cough, cold, infection, fever, weakness, foot drop, bladder or bowel dysfunction, saddle anesthesia, any significant changes in her medical history, medications or recent hospitalizations. PRIOR: Patient is a pleasant 47 years old female with past medical history of chronic back pain, carpal tunnel syndrome, WANDA with mild adherence to CPAP machine, obesity, type 2 DM (A1C 6.8 on 11/30), left knee pain, OA, fibromyalgia, presents today for initial evaluation of right hip and low back pain. Denies any recent trauma, injury or falls. She was seen at [facility] 2 years ago and declined SI injection. She is also was seen by Rheumatology for OA and fibromyalgia. 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 Back pain is axial and also radiates into her right buttock and into lateral right hip and groin. She reports weakness and occasional right leg giving out as well as burning and radiating pain into her right foot with numbness and tingling. Patient also has significant neck pain with muscle stiffness and spasms. Reports physical therapy in the remote past with mild improvement in her symptoms and function. Due to significant pain, patient cannot undergo PT. Pain is constant and she rates it at 8/10. Denies previous spine surgery or injections. Pain affects her daily activities, functioning, sleep, social activities, mood and quality of life. Patient denies any fever, abdominal pain, foot drop, bladder or bowel incontinence or saddle anesthesia. Reports right lower extremity weakness with ambulation. Patient reports she does not check blood sugars regularly. She states her A1C was good in November and she cannot recall if this has been rechecked recently. Patient tries to loose weight, and control DM with diet and taking medications regularly. Location Lower back, radiates into right buttock and right hip and groin Duration Progressively worsening pain > 2 years Characteristics of symptom or complaint Aching, shooting, radiating, tight, tiring, numbness, heavy, sore Aggravating or associated factors Walking, bending, climbing stairs, lifting, pulling, pushing, cold weather Relieving factors Cyclobenzaprine, Tylenol, resting, heat therapy Treatment None PFSH Medical History Fibromyalgia Family history of systemic lupus erythematosus Hepatitis B immune Diabetic nephropathy Microalbuminuria Dyslipidemia Diabetes mellitus Allergic rhinitis Transaminitis Anemia Chronic low back pain Migraine headache Obesity Carpal tunnel syndrome Hypertension WANDA (obstructive sleep apnea) Vitamin D deficiency Surgical History History of cholecystectomy Tubal ligation status History of salpingo-oophorectomy Family History Father Diabetes Heart disease Mother Hypertension Arthritis Thyroid activity decreased Brother Hypertension Thyroid activity decreased Sister Hypertension Thyroid activity decreased Other Family history of cancer of gallbladder Social History Alcohol intake: never Comment: medicated in pacu Patient Tobacco Use Status: Never used Tobacco Second Hand Smoke Exposure: No 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 Mild to moderate distress due to significant pain. Alert and oriented. Mood and affect appropriate. Follows and participates in conversation appropriately. Respiratory effort is unlabored. No cough. Able to transition from sit to stand unassisted. Ambulates with bilaterally normal heel strike and toe off, reports LLE numbness with intermittent weakness. Neck Neck: Yes full ROM, Yes no lymphadenopathy, Yes supple, No anterior neck swelling, Yes no JVD and Yes prominent dorsocervical fat pad General: Yes no CVA tenderness Back/Spine/Pelvis Other: Limited lumbar ROM with flexion and extension reproducing moderate-severe pain, worse pain with flexion forward and facet loading bilaterally. Antalgic gait with mild limping. Demonstrates 5/5 right and 4/5 left strength of quadriceps bilaterally as well as flexion/dorsiflexion of bilateral feet against resistance. 2+ pedal pulses bilaterally. Seated straight leg rise with dorsiflexion positive on the left. +1 patellar and diminished achilles reflexes bilaterally. Nia sign positive bilaterally, Sudarshan?s, Gaenslen, Pelvic compression and Stinchfield tests are positive bilaterally. No groin pain with I/E hip rotations. Valsalva maneuver negative. Reports saddle anesthesia on the left. Back: no CVA tenderness Cervical Spine: cervical ROM normal, cervical muscular tenderness, pain with cervical ROM and No Cervical spine tenderness Thoracic/Lumbar Spine: thoracic and lumbar spine normal to inspection, No Thoracic/lumbar spine scar(s), Lasegue's sign positive (right diffuse, left localized in L5-S1 distribution), pain with thoraco-lumbar ROM, paraspinal muscle tenderness, thoraco-lumbar ROM limited, No thoracic spinal tenderness and lumbar spinal tenderness (L4-S1) Pelvis: buttock tenderness (left>right) bilaterally and sciatic notch tenderness on the left Sacroiliac joints: bilaterally tender to palpation Extrem General: Yes capillary refill normal, Yes no clubbing, cyanosis or edema and Yes no calf tenderness Right lower extremity: knee Details: tenderness Location: of the patella, normal ROM and crepitus; no swelling, no ecchymosis and no deformity Results Reviewed Results Reviewed: XR LUMBOSACRAL SPINE WITH OBLIQUES 06/20/23 FINDINGS: There 5 nonrib-bearing lumbar-type vertebral bodies. The height of the vertebral bodies is well-maintained. There is straightening of the usual lumbar lordosis which can be seen with muscle spasm. There is no spondylolysis or spondylolisthesis. 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 A few small calcifications are seen in the right lower quadrant. There are a few calcifications in the pelvis which likely represent phleboliths. Surgical clips in the right upper quadrant are consistent with prior cholecystectomy. IMPRESSION: 1. Muscle spasm. 2. 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 Alignment is anatomic. Right hip joint space is maintained. Small calcifications are seen in the right lower quadrant. A few calcifications are seen in the pelvis which likely represent phleboliths. Hip joint space of the left hip is preserved. 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 The pubic symphysis is normal. IMPRESSION: No significant abnormality of the right hip. MR SPINE LUMBAR without CONTRAST 01/01/24 at [facility] INDICATION: Low back pain that radiates to bilateral legs with a heavy feeling associated with leg symptoms. Bilateral hip pain. Painful to walk. TECHNIQUE: Unenhanced multiplanar, multisequence MR imaging of the lumbar spine. COMPARISON: None Available. FINDINGS: Normal lumbar alignment is demonstrated. Vertebral heights are well maintained. Bone marrow signal is within normal limits, and no suspicious osseous lesion is identified. Conus medullaris is unremarkable. Paraspinal soft tissues and visualized portions of the abdomen and pelvis are unremarkable. At L1-2 there is no significant disc herniation or protrusion. No central canal or neural foraminal stenosis is demonstrated. At L2-3 there is no significant disc herniation or protrusion. No central canal or neural foraminal stenosis is demonstrated. At L3-4 there is no significant disc herniation or protrusion. No central canal or neural foraminal stenosis is demonstrated. At L4-5 there is no significant disc herniation or protrusion. No central canal or neural foraminal stenosis is demonstrated. At L5-S1 there is loss of T2 hyperintense intervertebral disc signal. There is a moderate left paracentral disc protrusion extending into the left anterolateral recess of spinal canal impinging upon the descending left S1 nerve root. No clinically significant central canal or neuroforaminal stenosis.. IMPRESSION: Moderate left paracentral L5-S1 disc protrusion impinging upon the descending left S1 nerve root. Assessment & Plan Assessment & Plan (1) Sacroiliac joint pain: Code(s): M53.3 - Sacrococcygeal disorders, not elsewhere classified Category: Medical (2) Low back pain: Code(s): M54.50 - Low back pain, unspecified Category: Medical (3) Lumbosacral spondylosis: Code(s): M47.817 - Spondylosis without myelopathy or radiculopathy, lumbosacral region Category: Medical (4) Lumbar degenerative disc disease: Code(s): M51.36 - Other intervertebral disc degeneration, lumbar region Category: Medical (5) Lumbar disc herniation with radiculopathy: Code(s): M51.16 - Intervertebral disc disorders with radiculopathy, lumbar region Category: Medical Plan Due to significantly elevated A1C at 10.8, we will hold Left L5-S1 TFESI for left radicular symptoms. Neurosurgery referral to Dr. Hdez for surgical evaluation for persistent back pain with left sided radicular symptoms which has been resistant to conservative treatments. Reviewed with patient activity modifications and restrictions and advised patient to continue light duty at work setting. Work note provided today. All questions and concerns have been answered and patient agreed with the plan. Follow up as needed. Orders: Referrals Neurosurgery Referral M51.16 - Intervertebral disc disorders with radiculopathy, lumbar region, M51.36 - Other intervertebral disc degeneration, lumbar region Coding Level of Care Code Est Pt Level 4 (47985) Complex EM visit Add On G2211 Diagnoses Sacroiliac joint pain M53.3 Low back pain M54.50 Lumbosacral spondylosis M47.817 Lumbar degenerative disc disease M51.36 Lumbar disc herniation with radiculopathy M51.16
[2024-02-16 11:32] VITALS: BP 140/83; PULSE 95; O2SAT 97; BMI 38.7
== END 2024-02-16 12:04 | disposition home or self-care (01) ==
PROVIDERS: PCP Family Medicine; Visit Provider Nurse Practitioner Family
DX: M53.3 Sacrococcygeal disorders, not elsewhere classified (principal); M54.50 Low back pain, unspecified; M47.817 Spondylosis without myelopathy or radiculopathy, lumbosacral region; M51.369 Other intervertebral disc degeneration, lumbar region without mention of lumbar back pain or lower extremity pain; M51.16 Intervertebral disc disorders with radiculopathy, lumbar region
CPT/HCPCS: 99214; G2211

== ENCOUNTER → 2024-02-16 11:15 | Outpatient (BNVA) | payer OTHER, SELFPAY | PROVIDERS: PCP Family Medicine; Visit Provider Nurse Practitioner Family | DX: M53.3 Sacrococcygeal disorders, not elsewhere classified (principal); M54.50 Low back pain, unspecified; M47.817 Spondylosis without myelopathy or radiculopathy, lumbosacral region; M51.369 Other intervertebral disc degeneration, lumbar region without mention of lumbar back pain or lower extremity pain; M51.16 Intervertebral disc disorders with radiculopathy, lumbar region | CPT/HCPCS: 99212 ==

== ENCOUNTER 2024-05-14 10:56 | Outpatient (REF) | payer MEDICAID, SELFPAY ==
--- OUTSIDE RECORDS SUMMARY | 2024-05-14 11:54 | XMS_ITS | Encounter Summary ---
Author Organization [employer] Address [address] [facility] [address] [place] [address] Care Team Providers Care Vp Lab Name Role Phone Sharmin Ortiz MD Primary Care Provider [phone] Lamine Giles PharmD Unavailable [phone] Encounter Details Date Type Department Care Team (Late st Contact Info) Description 01/17/2023 Abstract [facility] [address] [place] [address] Nicci Jimenez Social History Tobacco Use Types Packs/Day Years Used Date Smoking Tobacco: Never Smokeless Tobacco: Never PHQ-2 Answer Date Recorded Patient Health Questionnaire-2 Score 2 11/29/2022 Depression Answer Date Recorded Patient Health Questionnaire-2 Score 2 11/29/2022 Comments Unknown Sex and Gender Information Value Date Recorded Sex Assigned at Female 02/07/2022 10:17 AM EDT Legal Sex Female 10:17 AM EDT Gender Identity Female 02/07/2022 10:17 AM EDT Sexual Orientation Choose not to disclose 2021 10:17 AM EDT documented as of this encounter Plan of Treatment Upcoming Encounters Date Type Department Care Team (Late st Contact Info) Description 05/20/2024 11:30 AM EST Medication Management [facility] [address] [place] [address] Lamine Giles, PharmD [address] [place] [address] documented as of this encounter Visit Diagnoses Not on filedocumented in this encounter Care Teams Vp Lab Relationship Specialty Start Date End Date Sharmin Ortiz MD [address] [place] [address] PCP - General Family Medicine 04/10/18 Lamine Giles, DaisyD [address] [place] [address] [place] [address] Pharmacist Internal Medicine 04/01/24 documented as of this encounter
--- OUTSIDE RECORDS SUMMARY | 2024-05-14 11:54 | XMS_ITS | Encounter Summary ---
Author Organization [employer] Address [address] [facility] [address] [place] [address] Care Team Providers Care Transcription Typist Name Role Phone Sharmin Ortiz MD Primary Care Provider [phone] Lamine Giles PharmD Unavailable [phone] Encounter Details Date Type Department Care Team (Late st Contact Info) Description 04/19/2024 Telephone [facility] [address] [place], [place] [phone] Lamine Giles, PharmD [address] [place], [place] [phone] Social History Tobacco Use Types Packs/Day Years Used Date Smoking Tobacco: Never Smokeless Tobacco: Never PHQ-2 Answer Date Recorded Patient Health Questionnaire-2 Score 2 11/29/2022 Housing Stability Answer Date Recorded What is your housing situation today? I have terryanabel pedraza 02/28/[address] you li ve. Do you have problems with any of the following? None of the above 02/28/2023 Food Insecurity Answer Date Recorded Within the past 12 months, y ou worried that your food would run out before you got money to buy more: Never True 02/28/2023 Within the past 12 months,th e food you bought just didn't last and you didn't have enough money to get more: Never True Transportation Answer Date Recorded In the past 12 months, has l ack of transportation kept you from medical appts, meetings, work or from getting things needed for daily living? No 02/28/2023 Utilities Answer Date Recorded In the past 12 months, has t he electric, gas, oil or water company threatened to shut off services in your home? No 02/28/2023 Depression Answer Date Recorded Patient Health Questionnaire-2 Score 2 11/29/2022 Comments Unknown Sex and Gender Information Value Date Recorded Sex Assigned at Female 02/07/2022 10:17 AM EDT Legal Sex Female 10:17 AM EDT Gender Identity Female 02/07/2022 10:17 AM EDT Sexual Orientation Choose not to disclose 2021 10:17 AM EDT documented as of this encounter Miscellaneous Notes * Telephone Encounter - Lamine Giles PharmD - 04/19/2024 1:18 PM EST Prior Authorization for Mounjaro was resubmitted to new insurance plan ([facility]), which was approved.Pharmacist called patient to inform her that Mounjaro 2.5 mg subcutaneously weekly now available for pickup at [facility] pharmacy. Reviewed that pen device is same design as Trulicity, patient confirmed that she will be comfortable with device use. Reviewed possible CELINE upon initiation and recommended patient manage GI CELINE by avoiding greasy foods, eating smaller portions, and not eating beyond sensation of fullness. CDTM Fu will be rescheduled for 4 weeks from now to facilitate GLP-1 titration. Patient agrees to contact [facility] sooner if she experiences intolerable CELINE or extremes of BG (hyper/hypo-glycemia). documented in this encounter Plan of Treatment Upcoming Encounters Date Type Department Care Team (Late st Contact Info) Description 05/20/2024 11:30 AM EST Medication Management [facility] [address] [place] [address] Lamine Giles PharmD [address] [place] [address] documented as of this encounter Visit Diagnoses Not on filedocumented in this encounter Care Teams Transcription Typist Relationship Specialty Start Date End Date Sharmin Ortiz MD [address] [place] [id number] PCP - General Family Medicine 04/10/18 Lamine Giles PharmD [address] [place] [address] Pharmacist Internal Medicine 04/01/24 documented as of this encounter
--- OUTSIDE RECORDS SUMMARY | 2024-05-14 11:54 | XMS_ITS | Encounter Summary ---
Author Organization [employer] Address [address] [facility] [address] [place] [address] Care Team Providers Care Psychologist Name Role Phone Sharmin Ortiz MD Primary Care Provider [phone] Lamine Giles PharmD Unavailable Encounter Details Date Type Department Care Team (Late st Contact Info) Description 03/28/2023 Orders Only [facility] [address] [place], [place] [phone] Sharmin Ortiz MD [address] [place], [place] [phone] Chronic pain of left knee (Primary Dx); Right hip pain; Chronic low back pain, unspecified back pain laterality, unspecified whether sciatica present Social History Tobacco Use Types Packs/Day Years [...] Description 05/20/2024 11:30 AM EST Medication Management [facility] [address] [place] [id number] Lamine Giles, PharmD [address] [place] [address] documented as of this encounter Visit Diagnoses Diagnosis Chronic pain of left knee- Primary Right hip pain Pain in joint, pelvic region and thigh Chronic low back pain, unspecified back pain laterality, unspecified whether sciatica present documented in this encounter Care Teams Psychologist Relationship Specialty Start Date End Date Sharmin Ortiz MD [address] [place] [phone] PCP - General Family Medicine 04/10/18 Lamine Giles, PharmD [address] [place] [phone] Pharmacist Internal Medicine 04/01/24 documented as of this encounter
--- OUTSIDE RECORDS SUMMARY | 2024-05-14 11:54 | XMS_ITS | Encounter Summary ---
Author Organization [employer] Address [address] [facility] [address] [place] [address] Care Team Providers Care Transfill Technician Name Role Phone Sharmin Ortiz MD Primary Care Provider [phone] Lamine Giles PharmD Unavailable [phone] Encounter Details Date Type Department Care Team (Late st Contact Info) Description 02/07/2024 Orders Only [facility] [address] [place], [place] [phone] Sharmin Ortiz MD [address] [place], [place] [phone] Social History Tobacco Use Types Packs/Day Years [...] Description 05/20/2024 11:30 AM EST Medication Management [facility] [address] [place] [address] Lamine Giles, PharmD [address] [place] [address] documented as of this encounter Visit Diagnoses Not on filedocumented in this encounter Care Teams Transfill Technician Relationship Specialty Start Date End Date Sharmin Ortiz MD [address] [place] [id number] PCP - General Family Medicine 04/10/18 Lamine Giles, PharmD [address] [place] [phone] Pharmacist Internal Medicine 04/01/24 documented as of this encounter
--- OUTSIDE RECORDS SUMMARY | 2024-05-14 11:54 | XMS_ITS | Clinical Summary ---
Author Organization [employer] Address [address] [facility] 7[address] [place] [address] Care Team Providers Care Employment Representative Name Role Phone Sharmin Ortiz MD Primary Care Provider [phone] Lamine Giles PharmD Unavailable [phone] Allergies Active Allergy Reactions Criticality Noted Date Comments Albert Inhibitors Cough High 06/28/2010 Other reaction(s): unspecified Medications acetaminophen (Tylenol) 500 MG tablet Take 2 tablets by mouth every 8 (eight) hours if needed for pain. 9 Active lidocaine (Lidoderm) 5 % patch Place 1 patch on the skin at bed time. 1 Active Elastic Bandages & Supports (Wrist Splint) misc Active pravastatin (Pravachol) 20 MG tablet Take 1 tablet (20 mg) by mouth at bedtime. 90 tablet 3 3 Active metFORMIN XR (Glucophage-XR) 500 MG 24 hr tablet TAKE 2 TABLETS BY MOUTH TWICE DAILY 120 tablet 11 4 Active chlorthalidone (Hygroton) 25 MG tabletIndications :Primary hypertension TAKE 1 TABLET BY MOUTH EVERY DAY 90 tablet 3 4 Active metoprolol tartrate (Lopressor) 100 MG tablet Take 1.5 tablets (150 mg) by mouth with breakfast and with evening meal. 180 tablet 3 4 Active losartan (Cozaar) 100 MG tablet TAKE 1 TABLET BY MOUTH EVERY DAY 90 tablet 1 4 Active empagliflozin (Jardiance) 25 MG Take 1 tablet (25 mg) by mouth Once per day. 30 tablet 11 4 02/08/20 25 Active Lancets Thin misc Check blood sugar 3 times daily 100 each 11 4 Active glucose blood (FREESTYLE LITE) test strip Check blood sugar 3 times daily 100 each 4 Active Alcohol Swabs (Alcohol Prep) pads Check blood sugar three times daily 100 each 4 Active Blood Glucose Monitoring Suppl kit Check blood sugar 3 times daily 1 kit 4 Active cyclobenzaprine (Flexeril) 10 MG tablet TAKE 1 TABLET BY MOUTH THREE TIMES DAILY IN THE MORNING, AT NOON, AND AT BEDTIME NEEDED FOR MUSCLE SPASMS 30 tablet 2 4 Active Active Problems Problem Noted Date Diagnosed Date Fibromyalgia 08/03/2023 Assessment & Plan (08/03/2023 1:10 PM EDT): - continue tylenol prn, continue muscle relaxants prn, advised to avoid NSAIDs IBS (irritable bowel syndrome) 11/29/2022 Assessment & Plan (03/12/2023 5:50 AM EST): - following with [facility]. -Low FODMAP diet Assessment & Plan (12/18/2022 11:33 AM EDT): - following with [facility]. -Low FODMAP diet History of right salpingo-oophorectomy 2 Family history of hypercoagulable state 03/22/20 Family history of lupus erythematosus 03/22/2022 Hepatitis B immune 03/22/2022 Chronic low back pain 02/09/2018 Assessment & Plan (08/03/2023 1:13 PM EDT): - continue current medications for fibromyalgia - pt declines PT referral - patient was seen by stage settings painter and currently scheduled for SI joint injection treatment Assessment & Plan (03/12/2023 5:56 AM EST): - continue current medications for fibromyalgia - pt declines PT referral - pt requests stage settings painter referral Assessment & Plan (12/18/2022 11:37 AM EDT): - continue current medications for fibromyalgia - pt declines PT referral Dyslipidemia 08/16/2016 Assessment & Plan (08/03/2023 10:20 AM EDT): - current medication: Pravastatin - lipid profile: 03/01/23 - continue lifestyle modification Assessment & Plan (03/12/2023 5:54 AM EST): - current medication: Pravastatin - lipid profile: 03/01/23 - continue lifestyle modification Type 2 diabetes mellitus 08/16/2016 Assessment & Plan (08/03/2023 1:12 PM EDT): A1C 6.8% in Nov 2022, improving -Continue working on lifestyle modifications. -Improve adherence to medications and SMBG. -Continue metformin ER 1000 mg bid. - Currently on dulaglutide 3 mg weekly, patient has not received since APR or MAY 2023, will check if we can change it to another GLP1-RA -Consider SGLT-2 inhibitor -Referred to DM education nurse, but appt was not kept Last eye exam: 10/25/21 No diabetic retinopathy Last foot exam: 11/29/22 Last microalbumin test: Hx microalbuminuria Last lipid profile: 05/22/20 TC 159; TG 147; HDL 34; LDL 101 Last dental exam: > years. No dental plan currently Immunizations: UTD Follow up in 3 mo Assessment & Plan (03/12/2023 5:52 AM EST): A1C 6.8% in Nov 2022, improving -Continue working on lifestyle modifications. -Improve adherence to medications and SMBG. -Continue metformin ER 1000 mg bid. - Currently on dulaglutide 1.5 mg weekly; will check if it can be changed to semaglutide -Consider SGLT-2 inhibitor -Referred to DM education nurse, but appt was not kept Last eye exam: 10/25/21 No diabetic retinopathy Last foot exam: 11/29/22 Last microalbumin test: Hx microalbuminuria Last lipid profile: 05/22/20 TC 159; TG 147; HDL 34; LDL 101 Last dental exam: > years. No dental plan currently Immunizations: UTD Follow up in 3 mo Assessment & Plan (12/18/2022 11:36 AM EDT): A1C 6.8% today, improving -Continue working on lifestyle modifications. -Improve adherence to medications and SMBG. -Continue metformin ER 1000 mg bid. - Increase Trulicity 1.5 mg weekly -Consider SGLT-2 inhibitor -Referred to DM education nurse, but appt was not kept Last eye exam: 10/25/21 No diabetic retinopathy Last foot exam: 11/29/22 Last microalbumin test: Hx microalbuminuria Last lipid profile:05/22/20 TC 159; TG 147; HDL 34; LDL 101 Last dental exam: > years. No dental plan currently Immunizations: UTD Follow up in 3 mo Microalbuminuric diabetic nephropathy 07/15/2016 Assessment & Plan (08/04/2023 9:52 AM EDT): - will check kidney function today, since last lab shows mild microalbuminuria - patient is prescribed ARB History of anemia 09/24/2014 Metabolic dysfunction-associ ated steatotic liver disease (MASLD) 09/24/2014 Assessment & Plan (08/04/2023 9:48 AM EDT): - last seen by [facility] in Apr 2022 - last US in Mar 2022. Hepatomegaly with hepatic steatosis. No focal lesion. - FIB-4 = 0.78 in 2021 - avoid hepatotoxic drugs. - will update ultrasound Assessment & Plan (03/12/2023 5:50 AM EST): - followed by [facility] - avoid hepatotoxic drugs. Assessment & Plan (12/18/2022 11:34 AM EDT): - followed by [facility] - avoid hepatotoxic drugs. Allergic rhinitis 09/16/2014 Hypertension 05/30/2012 Assessment & Plan (08/03/2023 10:19 AM EDT): - Goal BP < 140/90 per JNC-8, < 130/80 per ACC/AHA guideline - not at goal; inadequate Tx for WANDA and questionable medication adherence -Work on lifestyle modifications. -Pt reports frequesnt tachycardia at work (in a setting of anemia, obesity, WANDA) -Consider SGLT-2 inhibitor -Continue losartan 100 mg daily. -continue metoprolol tartrate 150 mg bid -continue chlorthalidone 25 mg once daily -Had nml stress test, Holter monitor and echo in 11/2021 -continue checking home BP -keep appt with sleep medicine clinic -follow-up in 3 mo Assessment & Plan (03/12/2023 5:50 AM EST): - Goal BP < 140/90 per JNC-8, < 130/80 per ACC/AHA guideline - not at goal; inadequate Tx for WANDA and questionable medication adherence -Work on lifestyle modifications. -Pt reports frequesnt tachycardia at work (in a setting of anemia, obesity, WANDA) -Consider SGLT-2 inhibitor -Continue losartan 100 mg daily. -continue metoprolol tartrate 150 mg bid -continue chlorthalidone 25 mg once daily -Had nml stress test, Holter monitor and echo in 11/2021 -continue checking home BP -keep appt with sleep medicine clinic -follow-up in 3 mo Assessment & Plan (12/18/2022 11:33 AM EDT): - Goal BP < 140/90 per JNC-8, < 130/80 per ACC/AHA guideline -Work on lifestyle modifications. -Pt reports frequesnt tachycardia at work (in a setting of anemia, obesity, WANDA) -Consider SGLT-2 inhibitor -Continue losartan 100 mg daily. -continue metoprolol tartrate 150 mg bid -continue chlorthalidone 25 mg once daily -Had nml stress test, Holter monitor and echo in 11/2021 -continue checking home BP -follow-up with me in 3 mo Migraine 05/30/2012 Assessment & Plan (03/12/2023 5:53 AM EST): - multifactorial headache - optimize Tx for WANDA - lately not active Obesity 05/30/2012 Assessment & Plan (08/04/2023 9:50 AM EDT): -continue working on lifestyle modifications -associated conditions: WANDA; hypertension; diabetes mellitus; MASLD -patient is considering about surgical weight loss -continue GLP-1 RA Obstructive sleep apnea syndrome 05/30/2012 Assessment & Plan (08/03/2023 10:18 AM EDT): -pt has diagnosis of WANDA but has not been adherence to CPAP machine -referred to sleep clinic' check its status -pt is hesitant to try CPAP machine again but she is very symptomatic -pt was advised to sign up for weight management clinic in the past; pt is currently trying to lose weight with GLP-1 agonist Assessment & Plan (03/12/2023 5:45 AM EST): -pt has diagnosis of WANDA but has not been adherence to CPAP machine -referred to sleep clinic' check its status -pt is hesitant to try CPAP machine again but she is very symptomatic -pt was advised to sign up for weight management clinic in the past; pt is currently trying to lose weight with GLP-1 agonist Assessment & Plan (12/18/2022 11:24 AM EDT): -pt has diagnosis of WANDA but has not been adherence to CPAP machine -will refer her to sleep clinic -pt is hesitant to try CPAP machine again but she is very symptomatic -pt was advised to sign up for weight management clinic Vitamin D deficiency 05/30/2012 Carpal tunnel syndrome 09/28/2011 Assessment & Plan (08/03/2023 1:09 PM EDT): - seen by [facility] orthopedic provider in July 2023 - most recent NCT/EMG on 02/16/23 showed b/l mild median nerve neuropathy, consistent with CTS - s/p light carpal tunnel release on 05/16/23 - judicious use of NSAIDs prn and gabapentin - use brace Assessment & Plan (03/12/2023 5:48 AM EST): - seen by [facility] orthopedic provider in Feb 2023, upcoming appt to schedule surgery - most recent NCT/EMG on 02/16/23 showed b/l mild median nerve neuropathy, consistent with CTS - judicious use of NSAIDs prn and gabapentin - use brace Assessment & Plan (12/18/2022 11:31 AM EDT): - last NCT / EMG in 2014 which showed early CTS; will update NCT/EMG - refer to hand specialist - judicious use of NSAIDs prn and gabapentin - will prescribe brace - may have steroid injection as her A1C is < 7%. Resolved Problems Problem Noted Date Diagnosed Date Resolved Date Iron deficiency anemia 08/08/201611/29 Encounters Date Type Department Care Team Description 04/19/2024 Telephone [facility] [address] [place] [address] Lamine Giles, PharmD 04/11/2024 Telephone [facility] [address], [place] [phone] Lamine Giles, PharmD 03/28/2024 Travel 02/22/2024 Telephone [facility] [address], [place] [phone] Susan Reynolds RN Results 02/16/2024 Refill [facility] [address], [place] [phone] Jesenia Justice FNP from Last 3 Months Immunizations Name Administration Dates Next Due Influenza, IIV3, injectable 04/14/2011 Moderna Covid-19 Vaccine 12+ 07/06/2020,06/09/19 21 Pfizer Covid-19 Vaccine 12+ 01/28/2021,,04/08/2020 Pneumococcal Polysaccharide PPSV23 07/13/2016 TD (adult), 2 Lf tetanus tox oid, preservative free, adsorbed 08/24/2020 Tdap 11/23/2009 Social History Tobacco Use Types Packs/Day Years Used Date Smoking Tobacco: Never Smokeless Tobacco: Never Tobacco Cessation:Counseling Given: Not Answered PHQ-2 Answer Date Recorded Patient Health Questionnaire-2 Score 2 11/29/2022 Housing Stability Answer Date Recorded What is your housing situation today? I have terry pedraza 02/28/[address] you [...] not to disclose 2021 10:17 AM EDT Last Filed Vital Signs Vital Sign Reading Time Taken Comments Blood Pressure 136/82 03/28/2024 10:35 AM EST Pulse 105 03/28/2024 10:35 AM EST Temperature 36.7 ??C (98.1 ??F) 10/31/2023 3:51 PM ED T Respiratory Rate 18 10/31/2023 3:51 PM EDT Oxygen Saturation 99% 10/31/2023 3:51 PM EDT Inhaled Oxygen Concentration - - Weight 93.4 kg (206 lb) 10/31/2023 3:51 PM EDT Height 154.9 cm (5' 1 ) 02/28/2023 10:48 AM EST Body Mass Index 38.92 02/28/2023 10:48 AM EST Plan of Treatment Upcoming Encounters Date Type Department Care Team (Late st Contact Info) Description 05/20/2024 11:30 AM EST Medication Management [facility] [address] [place] [address] Lamine Giles, PharmD [address] [place] [address] Health Maintenance Due Date Last Done Comments CT Colonography 1974 Colonoscopy 1974 Colorectal Cancer Screening 1974 FIT DNA/Cologuard 1974 FIT 1974 FOBT 1974 Sigmoidoscopy 1974 Eye Exam 1984 Alcohol/Substance Use Screening 1986 Family Planning (PISQ) 1989 Hepatitis A Vaccines (1 of 2 - Risk 2-dose series) 1993 Hepatitis B Vaccines (1 of 3 - 19+ 3-dose series) 1993 Pap Smear 10/01/1995 Pneumococcal Vaccine: Pediatrics (0 to 5 Years) and At-Risk Patients (6 to 49) Years) (2 of 2 - PCV) 07/13/2017 07/13/2016 Mammogram 07/16/2020 07/16/2018, 11/2018, 07/11/2018 Depression Screening 11/30/2023 11/29/2022, 11/30/19 Diabetes: Foot Exam 11/30/2023 11/29/2022, 11/29/2022, 11/29/2022, Additional history exists COVID-19 Vaccine ( season) 2023 01/28/2021, 07/06/2020, 06/08/2020, Additional history exists Influenza Vaccine (#1) 2023 04/14/2011 SDOH Screening 02/29/2024 02/28/2023 Lipid Panel 04/25/2024 04/25/2023, 1009/2021, 05/22/2020 Diabetes: Hemoglobin A1C 05/04/2024 024, 04/25/2023, 11/29/2022, Additional history exists Zoster Vaccines (1 of 2) 2024 Tobacco Screening 10/30/2024 10/31/2023 Cervical Cancer Screening 07/07/2025 HPV/Cotest 07/07/2025 07/07/2020, 07/07/2020 DTaP/Tdap/Td Vaccines (3 - Td or Tdap) 08/24/2030 08/24/2020, 11/23/2009 RSV Patients and Patients Aged 60 years or older (1 - 1-dose 75+ series) 2049 HIV Screening Completed 06/16/2022 Hepatitis C Screening Completed 06/16/2022 HIB Vaccines Aged Out No longer eligi ble based on patient's age to complete this topic HPV Vaccines Aged Out No longer eligi ble based on patient's age to complete this topic IPV Vaccines Aged Out No longer eligi ble based on patient's age to complete this topic Meningococcal Vaccine Aged Out No vanita jennifer eligible based on patient's age to complete this topic RSV under 20 months Aged Out No longe r eligible based on patient's age to complete this topic Rotavirus Vaccines Aged Out No longer eligible based on patient's age to complete this topic Procedures Procedure Name Priority Date/Time Associated Diagnosis Comments HEMOGLOBIN A1C Routine 02/02/2024 10:42 AM EDT Type 2 diabetes mellitus with hyperglycemia, without long-term current use of insulin ([facility]) LIPID PANEL WITH REFLEX TO DIRECT LDL Routine 04/25/2023 9:56 AM EST Type 2 diabetes mellitus with hyperglycemia, without long-term current use of insulin ([facility]) HEPATITIS PANEL, GENERAL Routine 06/16/2022 10:23 AM EST HIV ANTIBODY/ANTIGEN ([facility]) Routine 06/16/2022 10:23 AM EST ZZZ HISTORICAL HPV E6/E7 RFLX RENEE 16 18/45 Routine 07/07/2020 1:59 PM EDT MAMMOGRAM GENERIC Routine 07/16/2018 9:4 1 AM EDT from Last 3 Months or Most Recently Relevant to Health Maintenance Results * (ABNORMAL) Hemoglobin A1c (02/02/2024 10:42 AM EDT) Hemoglobin A1c 10.8(H) <6.0 % [facility] Comment:Hemoglobin A1C Refer ence Range Adults: 4.8 - 6.0 % Non diabetic: < 6.0 % Goal: < 7.0 %Additional Action Suggested: > 8.0 %Note: Hemoglobin A1c results are invalid for patients with abnormal amounts of HbF. Blood transfusions may impact the HbA1c concentration in the patient sample. Estimated Average Glucose 263 mg/dL [facility] Comment:eAG = Estimated ave rage glucose which is %A1C expressed asaverage glucose, using the formula of the K1V-GqojzcmHhiflks Glucose study (ADAG), Diabetes Care, Vol.31,#8,Nov. 2007 Blood Venous blood specimen / Unknown 02/02/2024 10:42 AM EDT 02/02/2024 11:11 AM EDT us Sharmin Ortiz MD LAB BLOOD ORDERABLES Final Resul t Performing Organization Address [facility] Co de Phone Number [facility] [address] [place] [phone] * (ABNORMAL) Lipid Panel with Reflex to Direct LDL (04/25/2023 9:56 AM EST) Triglycerides 200(H) <150 mg/dL [facility] Comment:Desirable Triglyceri de: less than 150 mg/dLBorderline High Triglyceride 150-199 mg/dLHigh Triglyceride: 200-499 mg/dLVery High Triglyceride: greater than or equal to 5OO mg/dL Cholesterol 162 <200 mg/dL [facility] Comment:Desirable Cholestero l: less than 200 mg/dLBorderline High Cholesterol: 200-239 mg/dLHigh Cholesterol: greater than 239 mg/dL LDL Cholesterol Calculated 90 <100 mg/dL [facility] Comment:Desirable LDL: less than 100 mg/dLNear Optimal/Above Optimal LDL: 110- 129 mg/dLBorderline High LDL: 130-159 mg/dLHigh LDL: 160-189 mg/dLVery High LDL: greater than or equal to 190 mg/dL HDL Cholesterol 32(L) >40 mg/dL [facility] Comment:Desirable HDL: great er than 40 mg/dL Note: This HDL assay may give artificially low results in patients with liver disease. Blood 04/25/2023 9:56 AM EST 04/25/2023 9:56 AM EST us Sharmin Ortiz MD LAB BLOOD ORDERABLES Final Resul t Performing Organization Address [facility] Co de Phone Number [facility] [address] [place] [phone] * HIV Ab/Ag (JAYNA MCCARTY) (06/16/2022 10:23 AM EST) HIV AB/AG Nonreactive Nonreactive [facility] Comment:HIV-1 p24 Ag and/or HIV-1/HIV-2 Ab not detected.A test result that is nonreactive does not exclude thepossibility of exposure to or infection with HIV-1 and/orHIV-2. Nonreactive results in this assay for individualswith prior exposure to HIV-1 and/or HIV-2 may be due toantigen and antibody levels that are below the limit ofdetection of this assay.The [employer] Counter Attendant HIV Ag/Ab Combo assay result andsupplemental assay results should be interpreted inconjunction with the patient's clinical presentation,history and other laboratory results. If the results areinconsistent with clinical evidence, additional testing issuggested to confirm the result. 06/16/2022 10:2 3 AM EST 06/16/2022 10:23 AM EST [facility] External Provider LAB BLO OD ORDERABLES Final Result Performing Organization Address [facility] de Phone Number [facility] [address] [place] [phone] * Hepatitis Panel, General (06/16/2022 10:23 AM EST) Hepatitis A IgM Nonreactive Nonreactive [facility] Comment:IgM antibodies to ROBERTO V not detected; does not exclude earlyacute or recovered HAV infection. ~Hepatitis B Surface Antibody REACTIVE Nonreactive [facility] Comment:REACTIVE: > 11.99 mI U/mL Hepatitis B Core Antibody Nonreactive Nonreactive [facility] Hepatitis C Antibody Nonreactive Nonreactive [facility] Comment:Antibodies to HCV no t detected; does not exclude early acuteHCV infection. Hepatitis B Surface Ag Negative Negative [facility] 06/16/2022 10:2 3 AM EST 06/16/2022 10:23 AM EST [facility] External Provider LAB BLO OD ORDERABLES Final Result Performing Organization Address [facility] Co de Phone Number [facility] [address] [place] [phone] * HPV E6/E7 RFLX RENEE 16 18/45 (07/07/2020 1:59 PM EDT) HPV mRNA E6/E7 rflx Not Detected Not Detected [facility] Comment: Methodology: [employer]-Mediated Amplification This assay detects E6/E7 viral messenger RNA (mRNA) from 14 high-risk HPV types (16,18,31,33,35,39,45,51,52,56,58,59,66,68). The analytical performance characteristics of this assay have been determined by [employer]. The modifications have not been cleared or approved by the FDA. This assay has been validated pursuant to the CLIA regulations and is used for clinical purposes. For additional information, please refer to http://education.trippiece/faq/EYX970v0 (This link if provided for information/ educational purposes only.) THIS TEST WAS PERFORMED AT: [email or web address] [address] [place] [address],[address] [place], [place] [phone] SAUL REECE MD 07/07/2020 1:59 PM EDT us Sam Michel MD HISTORICAL/NON ORDERABLE LABS Fi nal Result [facility] [address] * 3D UNI DIGITAL DX MAMMO 1 (07/16/2018 9:41 AM EDT) Anatomical Region Laterality Modality Breast Bilateral Mammography 07/16/2018 9:41 AM EDT Narrative 07/16/2018 9:43 AM EDT Refer to the Notes tab for result details [facility] Procedure: 3D UNI DIGITAL DX MAMMO 1 Procedure Note ProviderAngelita MD - 07/02/2022 Refer to the Notes tab for result details [facility] Procedure: 3D UNI DIGITAL DX MAMMO 1 us Sharmin Ortiz MD IMG BI PROCEDURES Final Result from Last 3 Months or Most Recently Relevant to Health Maintenance Insurance Care Teams Employment Representative Relationship Specialty Start Date End Date Sharmin Ortiz MD [address] [place] [phone] PCP - General Family Medicine 04/10/18 Lamine Giles, PharmD [address] [place] [phone] Pharmacist Internal Medicine 04/01/24
--- OUTSIDE RECORDS SUMMARY | 2024-05-14 11:54 | XMS_ITS | Encounter Summary ---
Author Organization [employer] Address [address] [facility] [address] [place] [address] Care Team Providers Care Suction Roller Name Role Phone Sharmin Ortiz MD Primary Care Provider [phone] Lamine Giles PharmD Unavailable [phone] Encounter Details Date Type Department Care Team (Late st Contact Info) Description 02/09/2024 Orders Only [facility] [address], [place] [phone] Sharmin Ortiz MD [address] [place], [place] [phone] Social History Tobacco Use Types Packs/Day Years [...] Description 05/20/2024 11:30 AM EST Medication Management [facility] [address] [place] [address] Lamine Giles, PharmD [address] [place] [address] documented as of this encounter Visit Diagnoses Not on filedocumented in this encounter Care Teams Suction Roller Relationship Specialty Start Date End Date Sharmin Ortiz MD [address] [place] [phone] PCP - General Family Medicine 04/10/18 Lamine Giles, PharmD [address] [place] [phone] Pharmacist Internal Medicine 04/01/24 documented as of this encounter
--- OUTSIDE RECORDS SUMMARY | 2024-05-14 11:54 | XMS_ITS | Encounter Summary ---
Author Organization [employer] Address 75 [facility] 7t [place] [address] Care Team Providers Care Endoscopic Technician Name Role Phone Sharmin Ortiz MD Primary Care Provider [phone] Lamine Giles PharmD Unavailable [phone] Reason for Visit * Reason Onset Date Comments Referral 03/28/2023 Encounter Details Date Type Department Care Team ([facility] st Contact Info) Description 03/28/[address] [facility] PEDS [address] [place], [place] [phone] Sharmin Ortiz MD [address] [place] [address] Referral Social History Tobacco Use Types Packs/Day Years [...] t he electric, gas, oil or water [employer] threatened to shut off services in your [...] encounter Miscellaneous Notes * Telephone Encounter - Alma Villeda Pires - 03/28/2023 10:30 AM EST Tc from [facility] with [facility] Pain Management requesting an updated referral for Pain management for pt due to current one being at least two years old Please fax over @ [phone] Please if any questions contact Stella @ [phone] documented in this encounter Plan of Treatment Upcoming Encounters Date Type Department Care Team (Late st Contact Info) Description 05/20/2024 11:30 AM EST Medication Management [facility] [address] [place] [address] Lamine Giles, Dameon [address] [place] [address] documented as of this encounter Visit Diagnoses Not on filedocumented in this encounter Care Teams Endoscopic Technician Relationship Specialty Start Date End Date Sharmin Ortiz MD [address] [place] [address] PCP - General Family Medicine 04/10/18 Lamine Giles, DaisyD [address] [place] [address] Pharmacist Internal Medicine 04/01/24 documented as of this encounter
--- OUTSIDE RECORDS SUMMARY | 2024-05-14 11:54 | XMS_ITS | Encounter Summary ---
Author Organization [employer] Address 75 [facility] 7t [place] [address] Care Team Providers Care Trial Court Judge Name Role Phone Sharmin Ortiz MD Primary Care Provider [phone] Lamine Giles PharmD Unavailable [phone] Encounter Details Date Type Department Care Team (Late st Contact Info) Description 02/07/2024 Orders Only [facility] MEDICINE [address] [place], [place] [phone] Sharmin Ortiz MD [address] [place], [place] [phone] Social History Tobacco Use Types Packs/Day Years [...] Description 05/20/2024 11:30 AM EST Medication Management [facility] [address] [place] [address] Lamine Giles, PharmD [address] [place] [address] documented as of this encounter Visit Diagnoses Not on filedocumented in this encounter Care Teams Trial Court Judge Relationship Specialty Start Date End Date Sharmin Ortiz MD [address] [place] [address] PCP - General Family Medicine 04/10/18 Lamine Giles, PharmD [address] [place] [address] Pharmacist Internal Medicine 04/01/24 documented as of this encounter
--- OUTSIDE RECORDS SUMMARY | 2024-05-14 11:54 | XMS_ITS | Encounter Summary ---
Author Organization [employer] Address 75 [facility] 7t [place] [address] Care Team Providers Care Central Stores Attendant Name Role Phone Sharmin Ortiz MD Primary Care Provider [phone] Lamine Giles PharmD Unavailable Reason for Visit * Reason Comments Med Refill Encounter Details Date Type Department Care Team ([facility] st Contact Info) Description 03/14/2023 Refill [facility] [address] [place], [place] [phone] Sharmin Ortiz MD [address] [place], [place] [phone] Social History Tobacco Use Types Packs/Day Years [...] Description 05/20/2024 11:30 AM EST Medication Management [facility] [address] [place] [address] Lamine Giles, PharmD [address] [place] [address] documented as of this encounter Visit Diagnoses Not on filedocumented in this encounter Care Teams Central Stores Attendant Relationship Specialty Start Date End Date Sharmin Ortiz MD [address] [place] [address] PCP - General Family Medicine 04/10/18 Lamine Giles, PharmD [address] [place] [address] Pharmacist Internal Medicine 04/01/24 documented as of this encounter
[2024-05-14 12:25] LABS: Anion Gap 15 (12-20); Blood Urea Nitrogen 26 mg/dL (9-16); Calcium 10.1 mg/dL (8.4-10.2); Carbon Dioxide 26 mmol/L (22-29); Chloride 104 mmol/L (96-108); Estimated Glomerular Filt Rate 41; Glucose Random 134 mg/dL (60-115); Potassium 3.8 mmol/L (3.3-5.1); Sodium 141 mmol/L (135-145)
== END 2024-05-14 10:57 | disposition home or self-care (01) ==
LOC: HO.LAB 10:56
PROVIDERS: PCP Family Medicine; Visit Provider Family Medicine
DX: E11.65 Type 2 diabetes mellitus with hyperglycemia (principal)
CPT/HCPCS: 36415; 80048

== ENCOUNTER → 2024-05-17 11:20 | Outpatient (BNVA) | payer OTHER, MEDICAID, SELFPAY | PROVIDERS: PCP Family Medicine; Visit Provider Nurse Practitioner Family | DX: M53.3 Sacrococcygeal disorders, not elsewhere classified (principal); M47.817 Spondylosis without myelopathy or radiculopathy, lumbosacral region; M51.360 Other intervertebral disc degeneration, lumbar region with discogenic back pain only; M51.16 Intervertebral disc disorders with radiculopathy, lumbar region; M54.2 Cervicalgia; M47.812 Spondylosis without myelopathy or radiculopathy, cervical region | CPT/HCPCS: 99212 ==

== ENCOUNTER → 2024-05-17 11:20 | Outpatient (AMB) | payer MEDICAID, SELFPAY | END | disposition home or self-care (01) | PROVIDERS: PCP Family Medicine; Visit Provider Nurse Practitioner Family | CPT/HCPCS: 99214 ==

== ENCOUNTER 2024-05-23 10:01 | Outpatient (REF) | payer OTHER, MEDICAID, SELFPAY ==
--- NOTE | ~2024-05-23 | XR_ITS ---
CLINICAL HISTORY: M25.512 - Pain in left shoulder 3 view left shoulder Comparison: None Findings: Bones intact. No dislocations. No significant arthritic change. No erosions. No radiopaque foreign body. IMPRESSION: 1. No acute findings This document has been electronically signed by: Curtis Jacinto MD on 05/24/2024 05:41:21
--- NOTE | ~2024-05-23 | XR_ITS ---
CLINICAL HISTORY: M54.2 - Cervicalgia 5 views cervical spine Comparison: None Findings: Normal vertebral body alignment. No acute fractures or dislocation. Mild multilevel degenerative changes with mild disc space narrowing at C5-6 and C6-7. No bony foraminal narrowing. No prevertebral soft tissue swelling. IMPRESSION: No acute findings. Mild degenerative changes. This document has been electronically signed by: Curtis Jacinto MD on 05/24/2024 05:41:27
--- OUTSIDE RECORDS SUMMARY | 2024-05-23 10:45 | XMS_ITS | Encounter Summary ---
Author Organization [employer] Address 75 [facility] 7t [place] [address] Care Team Providers Care Hot Plate Plywood Press Feeder Name Role Phone Sharmin Ortiz MD Primary Care Provider [phone] Lamine Giles PharmD Unavailable [phone] Encounter Details Date Type Department Care Team (Late st Contact Info) Description 01/17/2023 Abstract [facility] [address] [place] [address] Nicci Jimenez Social History Tobacco Use Types [...] Care Team (Late st Contact Info) Description 06/10/2024 2:30 PM EST Office Visit [facility] [address] [place] [address] [phone] Sharmin Ortiz MD [address] [place] [address] [phone] documented as of this encounter Visit Diagnoses Not on filedocumented in this encounter Care Teams Hot Plate Plywood Press Feeder Relationship Specialty Start Date End Date Sharmin Ortiz MD [address] [place] [address] [phone] PCP - General Family Medicine 04/10/18 Lamine Giles, DaisyD [address] [place] [address] [place] [address] Pharmacist Internal Medicine 04/01/24 documented as of this encounter
--- OUTSIDE RECORDS SUMMARY | 2024-05-23 10:45 | XMS_ITS | Encounter Summary ---
Author Organization [employer] Address 75 [facility] 7t [place] [address] Care Team Providers Care Safety Investigator Name Role Phone Sharmin Ortiz MD Primary Care Provider [phone] Lamine Giles PharmD Unavailable [phone] Reason for Visit * Reason Comments Med Refill Encounter Details Date Type Department Care Team ([facility] st Contact Info) Description 03/14/2023 Refill [facility] [address] [place], [place] [phone] Sharmin Ortiz MD 230 [place], [place] [phone] Social History Tobacco Use Types Packs/Day Years [...] Description 06/10/2024 2:30 PM EST Office Visit [facility] [address] [place] [address] Sharmin Ortiz MD [address] [place] [address] documented as of this encounter Visit Diagnoses Not on filedocumented in this encounter Care Teams Safety Investigator Relationship Specialty Start Date End Date Sharmin Ortiz MD [address] [place] [address] PCP - General Family Medicine 04/10/18 Lamine Giles, PharmD [address] [place] [address] Pharmacist Internal Medicine 04/01/24 documented as of this encounter
--- OUTSIDE RECORDS SUMMARY | 2024-05-23 10:45 | XMS_ITS | Encounter Summary ---
Author Organization [employer] Address 75 [facility] 7t [place] [address] Care Team Providers Care Lecturer In Marketing Name Role Phone Sharmin Ortiz MD Primary Care Provider [phone] Lamine Giles PharmD Unavailable [phone] Reason for Visit * Reason Onset Date Comments Referral 03/28/2023 Encounter Details Date Type Department Care Team ([facility] st Contact Info) Description 03/28/2023 Telephone [facility] MED & PEDS [address] [place], [place] [phone] Sharmin Ortiz MD 230 [place] [address] Referral Social History Tobacco Use Types Packs/Day [...] t he electric, gas, oil or water [employer] threatened to shut off services in your [...] Miscellaneous Notes * Telephone Encounter - Alma Chamorrocitlaly Pires - 03/28/2023 10:30 AM EST Tc from [facility] with [facility] Pain Management requesting an updated referral for Pain management for pt due to current one being at least two years old Please fax over @ [phone] Please if any questions contact Stella @ [phone] documented in this encounter Plan of Treatment Upcoming Encounters Date Type Department Care Team (Late st Contact Info) Description 06/10/2024 2:30 PM EST Office Visit [facility] MED[facility]INE [address] [place] [phone] Sharmin Ortiz MD [address] [place] [address] documented as of this encounter Visit Diagnoses Not on filedocumented in this encounter Care Teams Lecturer In Marketing Relationship Specialty Start Date End Date Sharmin Ortiz MD [address] [place] [address] PCP - General Family Medicine 04/10/18 Lamine Giles, DaisyD [address] [place] [address] Pharmacist Internal Medicine 04/01/24 documented as of this encounter
--- OUTSIDE RECORDS SUMMARY | 2024-05-23 10:45 | XMS_ITS | Encounter Summary ---
Author Organization [employer] Address 75 [facility] 7t [place] [address] Care Team Providers Care Waybill Clerk Name Role Phone Sharmin Ortiz MD Primary Care Provider [phone] Laimne Giles PharmD Unavailable [phone] Encounter Details Date Type Department Care Team (Late st Contact Info) Description 02/07/2024 Orders Only [facility] MED[facility]INE 230 [place], [place] [phone] Sharmin Ortiz MD 230 [place], [place] [phone] Social History Tobacco Use Types Packs/Day Years [...] Description 06/10/2024 2:30 PM EST Office Visit [facility] MEDICINE 230 [place] [address] Sharmin Ortiz MD [address] [place] [address] documented as of this encounter Visit Diagnoses Not on filedocumented in this encounter Care Teams Waybill Clerk Relationship Specialty Start Date End Date Sharmin Ortiz MD [address] [place] [address] PCP - General Family Medicine 04/10/18 Lamine Giles, DaisyD [address] [place] [address] Pharmacist Internal Medicine 04/01/24 documented as of this encounter
--- OUTSIDE RECORDS SUMMARY | 2024-05-23 10:45 | XMS_ITS | Encounter Summary ---
Author Organization [employer] Address 75 [facility] 7t [place] [address] Care Team Providers Care Alto Singer Name Role Phone Sharmin Ortiz MD Primary Care Provider [phone] Lamine Giles PharmD Unavailable [phone] Encounter Details Date Type Department Care Team (Late st Contact Info) Description 05/15/2024 Orders Only [facility] MEDICINE 230 [place], [place] [phone] Sharmin Ortiz MD 230 [place], [place] [phone] Social History Tobacco Use Types Packs/Day Years [...] Description 06/10/2024 2:30 PM EST Office Visit [facility] [address] [place] [address] Sharmin Ortiz MD [address] [place] [address] documented as of this encounter Visit Diagnoses Not on filedocumented in this encounter Care Teams Alto Singer Relationship Specialty Start Date End Date Sharmin Ortiz MD [address] [place] [address] PCP - General Family Medicine 04/10/18 Lamine Giles, DaisyD [address] [place] [address] Pharmacist Internal Medicine 04/01/24 documented as of this encounter
--- OUTSIDE RECORDS SUMMARY | 2024-05-23 10:45 | XMS_ITS | Encounter Summary ---
Author Organization [employer] Address 75 [facility] 7t [place] [address] Care Team Providers Care Rn Geriatric Name Role Phone Sharmin Ortiz MD Primary Care Provider [phone] Lamine Giles PharmD Unavailable [phone] Encounter Details Date Type Department Care Team (Late st Contact Info) Description 05/15/2024 Telephone [facility]INE [address] [place] [address] Shauna Nguyen RN Social History Tobacco Use Types Packs/Day Years [...] encounter Miscellaneous Notes * Telephone Encounter - Shauna Nguyen RN - 05/15/2024 4:13 PM EST Telephone call to pt to advise that she should continue with Mounjaro and med sent to pharmacy for burr picker before CDTM appt on 05/30/24. Pt verbalized understanding, no further questions. -- Dr Ortiz She should continue tirzepatide (Mounjaro). The script was sent on 05/15/24, so she can burr picker before next appointment with Lamine as long as she is tolerating current dose. Thank you * Telephone Encounter - Shauna Nguyen RN - 05/15/2024 9:23 AM EST Telephone call to pt to advise labs show low but slightly improved renal function. Advised pt that PCP would still like for her to get mammogram and abdominal US done, gave her phone number for [facility] Centralized Scheduling. Pt asked about rescheduling office visit extended that she missed on 02/07/25. Advised will send message to medical numerical control operator for PCP. Faxed orders for both to [facility], confirmationreceived. Pt reports being on last injection of Mounjaro, stated pharmacy told her she was out. Mounjaro Rx on file . Encounter from 04/19/24 with pharmacist stated that new Rx/PA for Mounjaro was approved under new insurance plan. Will send message to Lamine Giles PharmD for clarification in advance of CDTM visit on 05/20/24. * Telephone Encounter - Shauna Nguyen RN - 05/15/2024 8:53 AM EST ----- Message from Sharmin Ortiz MD sent at 05/14/2024 5:54 PM EST ----- Please inform patient that her renal function is still low, but very slightly better than last test. Please ask if patient has received call from [facility] regarding to mammo and abdominal US which were ordered in July 2023. If not, please fax the order again. Thank you documented in this encounter Plan of Treatment Upcoming Encounters Date Type Department Care Team (Late st Contact Info) Description 06/10/2024 2:30 PM EST Office Visit [facility] [address] [place] [address] Sharmin Ortiz MD [address] [place] [address] documented as of this encounter Visit Diagnoses Not on filedocumented in this encounter Care Teams Rn Geriatric Relationship Specialty Start Date End Date Sharmin Ortiz MD [address] [place] [address] PCP - General Family Medicine 04/10/18 Lamine Giles, PharmD [address] [place] [address] Pharmacist Internal Medicine 04/01/24 documented as of this encounter
--- OUTSIDE RECORDS SUMMARY | 2024-05-23 10:45 | XMS_ITS | Encounter Summary ---
Author Organization [employer] Address 75 [facility] 7t [place] [address] Care Team Providers Care Merchandising Director Name Role Phone Sharmin Ortiz MD Primary Care Provider [phone] Lamine Giles PharmD Unavailable [phone] Encounter Details Date Type Department Care Team (Late st Contact Info) Description 02/09/2024 Orders Only [facility] MEDICINE [address] [place], [place] [phone] Sharmin Ortiz MD 230 [place], [place] [phone] Social History Tobacco Use Types Packs/Day Years [...] Description 06/10/2024 2:30 PM EST Office Visit [facility] MEDICINE [address] [place] [address] Sharmin Ortiz MD [address] [place] [address] documented as of this encounter Visit Diagnoses Not on filedocumented in this encounter Care Teams Merchandising Director Relationship Specialty Start Date End Date Sharmin Ortiz MD [address] [place] [address] PCP - General Family Medicine 04/10/18 Lamine Giles, DaisyD [address] [place] [address] Pharmacist Internal Medicine 04/01/24 documented as of this encounter
--- OUTSIDE RECORDS SUMMARY | 2024-05-23 10:45 | XMS_ITS | Encounter Summary ---
Author Organization [employer] Address 75 [facility] 7t [place] [address] Care Team Providers Care Venetian Blind Cleaner Name Role Phone Sharmin Ortiz MD Primary Care Provider [phone] Lamine Giles PharmD Unavailable [phone] Encounter Details Date Type Department Care Team (Late st Contact Info) Description 05/14/2024 Orders Only [facility] MEDICINE 230 [place], [place] [phone] Sharmin Ortiz MD [address] [place], [place] [phone] Social History Tobacco Use Types Packs/Day Years [...] 06/10/2024 2:30 PM EST Office Visit [facility] MEDICINE [address] [place] [address] Sharmin Ortiz MD [address] [place] [address] documented as of this encounter Procedures Procedure Name Priority Date/Time Associated Diagnosis Comments BASIC METABOLIC PANEL Routine 05/14/2024 11:04 AM EST documented in this encounter Results * (ABNORMAL) Basic Metabolic Panel (05/14/2024 11:04 AM EST) Sodium 141 135 - 145 mmol/L [facility] Potassium 3.8 3.3 - 5.1 mmol/L [facility] Chloride 104 96 - 108 mmol/L [facility] Carbon Dioxide 26 22 - 29 mmol/L [facility] Anion Gap 15 12 - 20 [facility] Urea Nitrogen (BUN) 26(H) 9 - 16 mg/dL [facility] Creatinine, Serum 1.37 0.5 - 1.4 mg/dL [facility] Estimated Glomerular Filt Rate 41 [facility] Comment:Chronic Kidney Disea se: Estimated GFR < 60 mL/min/1.38e1Sovwox Kidney Disease: Estimated GFR < 15 mL/min/1.73m2 Glucose 134(H) 60 - 115 mg/dL [facility] Calcium 10.1 8.4 - 10.2 mg/dL [facility] 05/14/2024 11:0 4 AM EST 05/14/2024 11:04 AM EST Sharmin Ortiz MD LAB BLOOD ORDERABLES Final Resul t [facility] [address] [place] [address] [phone] documented in this encounter Visit Diagnoses Not on filedocumented in this encounter Care Teams Venetian Blind Cleaner Relationship Specialty Start Date End Date Sharmin Ortiz MD [address] [place] [address] PCP - General Family Medicine 04/10/18 Lamine Giles, PharmD [address] [place] [address]70 Pharmacist Internal Medicine 04/01/24 documented as of this encounter
--- OUTSIDE RECORDS SUMMARY | 2024-05-23 10:45 | XMS_ITS | Clinical Summary ---
Author Organization [employer] Address [address] [facility] 7t [place] [address] Care Team Providers Care Stockroom Selector Name Role Phone Sharmin Ortiz MD Primary Care Provider [phone] Lamine Giles PharmD Unavailable [phone] Allergies Active Allergy Reactions Criticality Noted Date [...] 11 4 Active chlorthalidone (Hygroton) 25 MG tabletIndication s:Primary hypertension TAKE 1 TABLET BY MOUTH EVERY [...] times daily 100 each 11 4 Active Alcohol Swabs (Alcohol Prep) pads Check blood sugar three times daily 100 each 11 4 Active Blood Glucose Monitoring Suppl kit Check blood sugar 3 times daily 1 kit 4 Active cyclobenzaprine (Flexeril) 10 MG tablet TAKE 1 TABLET BY MOUTH THREE TIMES DAILY IN THE MORNING, AT NOON, AND AT BEDTIME NEEDED FOR MUSCLE SPASMS 30 tablet 2 4 Active meloxicam (Mobic) 15 MG tablet TAKE 1 TABLET BY MOUTH EVERY DAY AFTER MEAL 4 Active Semaglutide,0.25 or 0.5MG/DOS, (Ozempic, 0.25 or 0.5 MG/DOSE,) 2 MG/3ML solution pen-injectorIndi cations:Type 2 diabetes mellitus with hyperglycemia, without long-term current use of insulin (CMS/HCC) Inject 0.5 mg under the skin 1 (one) time per week. 3 mL 5 5 Active Tirzepatide (Mounjaro) 5 MG/0.5ML solution auto-injectorInd ications:Type 2 diabetes mellitus with hyperglycemia, without long-term current use of insulin (CMS/HCC) Inject 5 mg under the skin 1 (one) time per week. 2 mL 3 5 05/21/19 25 Discontin ued(Alter ilir therapy) Active Problems Problem Noted Date Diagnosed Date Fibromyalgia 08/03/2023 Assessment & Plan (08/03/2023 1:10 PM EDT): - continue tylenol prn, continue muscle relaxants prn, advised to avoid NSAIDs IBS (irritable bowel syndrome) 11/29/2022 Assessment & Plan (03/12/2023 5:50 AM EST): - following with [facility]. -Low FODMAP diet Assessment & Plan (12/18/2022 11:33 AM EDT): - following with [facility]. -Low FODMAP diet History of right salpingo-oophorectomy 12/13/202 2 Family history of hypercoagulable state 03/22/20 Family history of lupus erythematosus 03/22/2022 Hepatitis B immune 03/22/2022 Chronic low back pain 02/09/2018 Assessment & Plan (08/03/2023 1:13 PM EDT): - continue current medications for fibromyalgia - pt declines PT referral - patient was seen by [facility] and currently scheduled for SI joint injection treatment Assessment & Plan (03/12/2023 5:56 AM EST): - continue current medications for fibromyalgia - pt declines PT referral - pt requests [facility] referral Assessment & Plan (12/18/2022 11:37 AM [...] 9:48 AM EDT): - last seen by [facility] in Apr 2022 - last US in Mar 2022. Hepatomegaly with hepatic steatosis. No focal lesion. - FIB-4 = 0.78 in 2021 - avoid hepatotoxic drugs. - will update ultrasound Assessment & Plan (03/12/2023 5:50 AM EST): - followed by [facility] - avoid hepatotoxic drugs. Assessment & Plan (12/18/2022 11:34 AM EDT): - followed by [facility] - avoid hepatotoxic drugs. Allergic rhinitis [...] (08/03/2023 1:09 PM EDT): - seen by [facility] orthopedic provider in July 2023 - most recent NCT/EMG on 02/16/23 showed b/l mild median nerve neuropathy, consistent with CTS - s/p light carpal tunnel release on 05/16/23 - judicious use of NSAIDs prn and gabapentin - use brace Assessment & Plan (03/12/2023 5:48 AM EST): - seen by [facility] orthopedic provider in Feb 2023, upcoming appt [...] Encounters Date Type Department Care Team Description 05/20/2024 Travel 05/15/2024 Orders Only [facility] [address] [facility] [place] [address] Sharmin Ortiz MD 05/15/2024 Telephone [facility] [address] [facility] [place] [address] Lamine Giles, PharmD 05/15/2024 Telephone [facility] [address] [place] [address] Shauna Nguyen RN 05/14/2024 Orders Only [facility] [address] [facility] [place] [address] Sharmin Ortiz MD 04/19/2024 Telephone [facility] [address] [facility] [place] [address] Lamine Giles, PharmD 04/11/2024 Telephone [facility] [address] [facility] [place] [address] Lamine Giles, PharmD 03/28/2024 Travel 02/22/2024 Telephone [facility] [address] [facility] [place] [address] Susan Reynolds, GLEN Results from Last 3 Months Immunizations Name Administration Dates Next Due Influenza, IIV3, injectable 04/14/2011 Moderna Covid-19 Vaccine 12+ 07/06/2020,06/09/19 Pfizer Covid-19 Vaccine 12+ 01/28/2021,,04/08/2020 Pneumococcal Polysaccharide [...] Sign Reading Time Taken Comments Blood Pressure 126/78 05/20/2024 11:54 AM EST Pulse 106 05/20/2024 11:54 AM EST Temperature 36.7 ??C (98.1 ??F) [...] 06/10/2024 2:30 PM EST Office Visit [facility] [address] [place], [place] [phone] Sharmin Ortiz MD [address] [place], [place] [phone] Health Maintenance Due Date Last Done Comments [...] Screening 02/29/2024 02/28/2023 Lipid Panel 04/25/2024 04/25/2023, 10/0 09/2021, 05/22/2020 Diabetes: Hemoglobin A1C 08/17/2024 025, 02/02/2024, 04/25/2023, Additional history exists Zoster Vaccines (1 of [...] Procedure Name Priority Date/Time Associated Diagnosis Comments POCT GLYCATED HEMOGLOBIN, TOTAL Routine 05/20/2024 11:55 AM EST Type 2 diabetes mellitus with hyperglycemia, without long-term current use of insulin ([facility]/HCC) BASIC METABOLIC PANEL Routine 05/14/2024 11:04 AM EST LIPID PANEL WITH REFLEX TO DIRECT LDL Routine 04/25/2023 9:56 AM EST Type 2 diabetes mellitus with hyperglycemia, without long-term current use of insulin (CMS/HCC) HEPATITIS PANEL, GENERAL Routine 06/16/2022 10:23 AM EST HIV ANTIBODY/ANTIGEN ([place] [facility]) Routine 06/16/2022 10:23 AM EST ZZZ HISTORICAL HPV E6/E7 RFLX RENEE 16 18/45 Routine 07/07/2020 1:59 PM EDT MAMMOGRAM GENERIC Routine 07/16/2018 9:4 1 AM EDT from Last 3 Months or Most Recently Relevant to Health Maintenance Results * (ABNORMAL) POCT HGB A1C (05/20/2024 11:55 AM EST) Hemoglobin A1C 8.0(A) 4.0 - 6.0 % QC Media Lot # [id number] Lot# Expiration Date Blood 05/20/2024 11:5 5 AM EST Sharmin Ortiz MD POINT OF CARE TEST ENTER/EDIT OR DERABLES Final Result * (ABNORMAL) Basic Metabolic Panel (05/14/2024 11:04 AM EST) Sodium 141 135 - 145 mmol/L [facility] Potassium 3.8 3.3 - 5.1 mmol/L [facility] Chloride 104 96 - 108 mmol/L [facility] Carbon Dioxide 26 22 - 29 mmol/L [facility] Anion Gap 15 12 - 20 [facility] Urea Nitrogen (BUN) 26(H) 9 - 16 mg/dL [facility] Creatinine, Serum 1.37 0.5 - 1.4 mg/dL [facility] Estimated Glomerular Filt Rate 41 [facility] Comment:Chronic Kidney Disea se: Estimated GFR < 60 mL/min/1.94n1Bntqcx Kidney Disease: Estimated GFR < 15 mL/min/1.73m2 Glucose 134(H) 60 - 115 mg/dL [facility] Calcium 10.1 8.4 - 10.2 mg/dL [facility] 05/14/2024 11:0 4 AM EST 05/14/2024 11:04 AM EST Sharmin Ortiz MD LAB BLOOD ORDERABLES Final Resul t Performing Organization Address [facility] de Phone Number [facility] [address] [place] [phone] * (ABNORMAL) Lipid Panel with Reflex to Direct LDL (04/25/2023 9:56 AM EST) Triglycerides 200(H) <150 mg/dL [facility] Comment:Desirable Triglyceri de: less than 150 mg/dLBorderline High Triglyceride 150-199 mg/dLHigh Triglyceride: 200-499 mg/dLVery High Triglyceride: greater than or equal to 5OO mg/dL Cholesterol 162 <200 mg/dL [facility] Comment:Desirable Cholestero l: less than 200 mg/dLBorderline High Cholesterol: 200-239 mg/dLHigh Cholesterol: greater than 239 mg/dL LDL Cholesterol Calculated 90 <100 mg/dL [facility] Comment:Desirable LDL: less than 100 mg/dLNear Optimal/Above Optimal LDL: 110- 129 mg/dLBorderline High LDL: 130-159 mg/dLHigh LDL: 160-189 mg/dLVery High LDL: greater than or equal to 190 mg/dL HDL Cholesterol 32(L) >40 mg/dL [facility] Comment:Desirable HDL: great er than 40 mg/dL Note: This HDL assay may give artificially low results in patients with liver disease. Blood 04/25/2023 9:56 AM EST 04/25/2023 9:56 AM EST Sharmin Ortiz MD LAB BLOOD ORDERABLES Final Resul t Performing Organization Address [facility] de Phone Number [facility] [address] [place] [phone] * HIV Ab/Ag (JAYNA MCCARTY) (06/16/2022 10:23 AM EST) HIV AB/AG Nonreactive Nonreactive [facility] Comment:HIV-1 p24 Ag and/or HIV-1/HIV-2 Ab not detected.A test result that is nonreactive does not exclude thepossibility of exposure to or infection with HIV-1 and/orHIV-2. Nonreactive results in this assay for individualswith prior exposure to HIV-1 and/or HIV-2 may be due toantigen and antibody levels that are below the limit ofdetection of this assay.The [employer] HIV Ag/Ab Combo assay result andsupplemental assay results should be interpreted inconjunction with the patient's clinical presentation,history and other laboratory results. If the results areinconsistent with clinical evidence, additional testing issuggested to confirm the result. 06/16/2022 10:2 3 AM EST 06/16/2022 10:23 AM EST [facility] External Provider LAB BLO OD ORDERABLES Final Result Performing Organization Address [facility] de Phone Number [facility] [address] [place] [phone] * Hepatitis Panel, General (06/16/2022 10:23 AM EST) Pathologist [facility] Hepatitis A IgM Nonreactive Nonreactive [facility] Comment:IgM antibodies to ROBERTO V not detected; does not exclude earlyacute or recovered HAV infection. ~Hepatitis B Surface Antibody REACTIVE Nonreactive [facility] Comment:REACTIVE: > 11.99 mI U/mL Hepatitis B Core Antibody Nonreactive Nonreactive [facility] Hepatitis C Antibody Nonreactive Nonreactive [facility] Comment:Antibodies to HCV no t detected; does not exclude early acuteHCV infection. Hepatitis B Surface Ag Negative Negative [facility] 06/16/2022 10:2 3 AM EST 06/16/2022 10:23 AM EST [facility] External Provider LAB BLO OD ORDERABLES Final Result Performing Organization Address City/[facility]/ZIP Co de Phone Number [facility] [address] [place] [phone] * HPV E6/E7 RFLX RENEE 16 18/45 (07/07/2020 1:59 PM EDT) HPV mRNA E6/E7 rflx Not Detected Not Detected [facility] Comment: Methodology: [employer]-Mediated Amplification This assay detects E6/E7 viral messenger RNA (mRNA) from 14 high-risk HPV types (16,18,31,33,35,39,45,51,52,56,58,59,66,68). The analytical performance characteristics of this assay have been determined by [facility]. The modifications have not been cleared or approved by the FDA. This assay has been validated pursuant to the CLIA regulations and is used for clinical purposes. For additional information, please refer to http://education.[employer]/faq/OGX274c3 (This link if provided for information/ educational purposes only.) THIS TEST WAS PERFORMED AT: [facility] [address] [place] [address] [address] [place], [place] [phone] SAUL REECE MD 07/07/2020 1:59 PM EDT us Sam Michel MD HISTORICAL/NON ORDERABLE LABS Fi nal Result [facility] [address] * 3D UNI DIGITAL DX MAMMO [...] Relevant to Health Maintenance Insurance Care Teams Stockroom Selector Relationship Specialty Start Date End Date Sharmin Ortiz MD [address] [place] [address] PCP - General Family Medicine 04/10/18 Lamine Giles, DaisyD [address] [place] [address] Pharmacist Internal Medicine 04/01/24
--- OUTSIDE RECORDS SUMMARY | 2024-05-23 10:45 | XMS_ITS | Encounter Summary ---
Author Organization [employer] Address [address] [facility] 7t [place] [address] Care Team Providers Care Supervisor Pre Wave Name Role Phone Sharmin Ortiz MD Primary Care Provider [phone] Lamine Giles PharmD Unavailable [phone] Encounter Details Date Type Department Care Team (Late st Contact Info) Description 05/15/2024 Telephone [facility] [address] [place], [place] [phone] Lamine Giles, PharmD [address] [place], [place] [phone] Social History Tobacco Use Types Packs/Day Years [...] Telephone Encounter - Lamine Giles PharmD - 05/15/2024 11:49 AM EST Patient told nurse she used her last Mounjaro pen and is requesting a refill. Patient has completed4 doses of initial Mounjaro 2.5 mg dose and is now indicated to increase to therapeutic dose of 5 mg. Pharmacist sent a prescription to the pharmacy for Mounjaro 5 mg subcutaneously once weekly. Pharm acist attempted to call the patient. Left generic message with to inform patient that the pharmacist would like to speak to her. Pharmacist has a visit scheduled with the patient on 05/20/2024. documented in this encounter Plan of Treatment Upcoming Encounters Date Type Department Care Team (Late st Contact Info) Description 06/10/2024 2:30 PM EST Office Visit [facility] [address] [place] [phone] Sharmin Ortiz MD [address] [place] [phone] documented as of this encounter Visit Diagnoses Diagnosis Type 2 diabetes mellitus with hyperglycemia, without long-term current use of insulin ([facility])- Primary documented in this encounter Care Teams Supervisor Pre Wave Relationship Specialty Start Date End Date Sharmin Ortiz MD [address] [place] [phone] PCP - General Family Medicine 04/10/18 Lamine Giles PharmD [address] [place] [phone] Pharmacist Internal Medicine 04/01/24 documented as of this encounter
--- OUTSIDE RECORDS SUMMARY | 2024-05-23 10:45 | XMS_ITS | Encounter Summary ---
Author Organization [employer] Address 75 [facility] 7t [place] [address] Care Team Providers Care Site Specialist Name Role Phone Sharmin Ortiz MD Primary Care Provider [phone] Lamine Giles PharmD Unavailable [phone] Encounter Details Date Type Department Care Team (Latest Contact Info) Description 05/20/2024 Travel Social History Tobacco Use Types Packs/Day Years [...] Description 06/10/2024 2:30 PM EST Office Visit [facility] [address] [place] [address] Sharmin Ortiz MD 230 [place] [address] documented as of this encounter Visit Diagnoses Not on filedocumented in this encounter Care Teams Site Specialist Relationship Specialty Start Date End Date Sharmin Ortiz MD [address] [place] [phone] PCP - General Family Medicine 04/10/18 Lamine Giles, DaisyD [address] [place] [phone] Pharmacist Internal Medicine 04/01/24 documented as of this encounter
--- OUTSIDE RECORDS SUMMARY | 2024-05-23 10:45 | XMS_ITS | Encounter Summary ---
Author Organization [employer] Address 75 [facility] 7t [place] [address] Care Team Providers Care Fiberglass Boat Assembly Supervisor Name Role Phone Sharmin Ortiz MD Primary Care Provider Lamine Giles PharmD Unavailable [phone] Encounter Details Date Type Department Care Team (Late st Contact Info) Description 02/07/2024 Orders Only [facility] [address] [place], [place] [phone] Sharmin Ortiz MD [address] [place], [place] [phone] Social History Tobacco Use Types Packs/Day Years [...] 2:30 PM EST Office Visit [facility] [address] [place] [address] Sharmin Ortiz MD [address] [place] [phone] documented as of this encounter Visit Diagnoses Not on filedocumented in this encounter Care Teams [employer]lass Boat Assembly Supervisor Relationship Specialty Start Date End Date Sharmin Ortiz MD [address] [place] [phone] PCP - General Family Medicine 04/10/18 Lamine Giles, DaisyD [address] [place] [phone] Pharmacist Internal Medicine 04/01/24 documented as of this encounter
--- OUTSIDE RECORDS SUMMARY | 2024-05-23 10:45 | XMS_ITS | Encounter Summary ---
Author Organization [employer] Address [address] [facility] 7t [place] [address] Care Team Providers Care Forestry Supervisor Name Role Phone Sharmin Ortiz MD Primary Care Provider [phone] Lamine Giles PharmD Unavailable [phone] Encounter Details Date Type Department Care Team (Late st Contact Info) Description 03/28/2023 Orders Only [facility] 230 [place], [place] [phone] Sharmin Ortiz MD [address] [place], [place] [phone] Chronic pain of left knee (Primary Dx); [...] Description 06/10/2024 2:30 PM EST Office Visit [facility] [address] [place] [phone] Sharmin Ortiz MD [address] [place] [phone] documented as of this encounter Visit Diagnoses Diagnosis Chronic pain of left knee- Primary Right hip pain Pain in joint, pelvic region and thigh Chronic low back pain, unspecified back pain laterality, unspecified whether sciatica present documented in this encounter Care Teams Forestry Supervisor Relationship Specialty Start Date End Date Sharmin Ortiz MD [address] [place] [phone] PCP - General Family Medicine 04/10/18 Lamine Giles, Dameon [address] [place] [phone] Pharmacist Internal Medicine 04/01/24 documented as of this encounter
== END 2024-05-23 10:02 | disposition home or self-care (01) ==
LOC: HO.XRAY 10:01
PROVIDERS: PCP Family Medicine; Visit Provider Nurse Practitioner Family
DX: M25.512 Pain in left shoulder (principal); M47.812 Spondylosis without myelopathy or radiculopathy, cervical region; M54.2 Cervicalgia
CPT/HCPCS: 72050; 73030

== ENCOUNTER → 2024-05-23 10:06 | Outpatient (BNV) | payer OTHER, MEDICAID, SELFPAY | PROVIDERS: PCP Family Medicine; Visit Provider Radiology Vascular & Interventional Radiology | DX: M54.2 Cervicalgia (principal); M25.512 Pain in left shoulder | CPT/HCPCS: 72050; 73030 ==

== ENCOUNTER 2024-06-06 10:09 | Outpatient (AMB) | payer MEDICAID, SELFPAY ==
--- NOTE | 2024-06-06 10:15 | MHC.OFFVIS ---
Vital Signs 06/06/24 10:19 Height 5 ft 1 in Weight 196 lb BMI 37.0 BP 120/73 Blood Pressure Location Rt brachial Position Sitting Pulse 95 Pulse Source Pulse Oximeter Pulse Oximetry (%) 100 Oxygen Delivery Method Room Air Intake Visit Reasons: Discuss X-Ray Results Intake Note: Pain today 11/17 Custom Protection Officer Required: No Accompanied by: Self / Same As Patient Allergies BEAU Inhibitors Allergy (Unknown, Verified 06/06/24 10:25) cough HPI Comments Details: Patient presents today for follow up with persistent neck and left shoulder pain and to discuss recent xray results. She reports no improvement with PT and home exercise program. Neck pain is axial but also radiates into her left shoulder and left upper arm to the elbow with pain and tingling. Reports chronic bilateral hand numbness and tingling with history of CTS. She remains out of work. Reports she recently started on Ozempic, fasting blood sugars at home remain >200 and most recent A1C=10.8. Reports she is seeing Endocrinology or Nutrionist provider at [facility]. Patient was deemed non-surgical for back pain per recent visit with Dr. Hdez. Denies any recent cough, cold, infection, fever, dizziness, weakness, foot drop, bladder or bowel dysfunction, saddle anesthesia, or any other significant changes in medical history since last office visit. PRIOR: Patient presents today for follow up and now reports neck and left shoulder pain after completing another course of physical therapy. She reports no improvement in her back symptoms and limiting range of motions of left shoulder and neck with muscle spasms. Denies any new injury, trauma, or falls. Reports numbness and tingling in both hands, known history of CTS, with release done on the right without much relief and pending left CTS release. She is left hand dominant. Patient is scheduled to follow up with Dr. Hdez next week after PT and surgical re-evaluation. She has been taking Meloxicam for pain control prescribed by Neurosurgery. We have reviewed her recent lab work, with concerns in decreased renal function, estimated GFR=41, ranging 39-43 in 2023, Creatinine=1.37 and BUN=26. Patient was advised to discontinue NSAIDs. Her A1C remains 10.8, she was recently started on Mounjaro. Denies any recent cough, cold, infection, fever or any other significant changes in medical history since last office visit. PRIOR: Patient presents today to discuss concerns for planned therapeutic injection Left L5-S1 TFESI for moderate left paracentral L5-S1 disc protrusion impinging upon the descending left S1 nerve root per recent lumbar spine MRI. She continues to endorse significant lower back pain is radiation into left lower extremity posteriorly is associated numbness in tingling in her calf, heel and the 5th toe. Radiation of back pain into the sacral areas consistent with sacroiliac joint pain. She had recent follow up with PCP and completed labs work, including A1C=10.8 on 02/02/24. Due to significant elevated A1C levels, she is not candidate for therapeutic injection. Patient reports she Januvia injections and continues with metformin. She continues to experience significant left sided radiculopathy and impairments in her ADLs, mobility, lifting mechanics, limited ROM, sleep and work. She made minimal progress with formal PT and is being discharged from PT due to lack of progress and back pain aggravation with exercises and movements. 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 enies any recent cough, cold, infection, fever, bowel or bladder dysfunction or other significant changes in medical history since last office visit. Reports intermittent left lower extremity weakness and left saddle anesthesia. PRIOR: Patient presents today for follow up for worsening low back pain and review xray results. She was initially seen in our office in March 2023. Reports recent right carpal tunnel release surgery and reports recovery has been well. 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 Her back pain extends to sacral areas bilaterally and into her lateral hips. She reports her worse side alternates from left to right, depending on the daily activities and work. Patient also reports occasional sensations of heaviness with numbness in her posterior legs. Lumbar spine and hip xrays reports were reviewed today and are noted below. Pain affects her daily ADLs, mobility, sleep and social interactions. She continues to stay active and performs regular HEP, takes Tylenol and Flexeril with continued symptoms. She has been trying to loose weight and has lost 7 lbs since last visit. Most recent A1C is 6.8. Patient is interested to proceed with interventional treatments to address her radicular back and SIJ pain. Denies any recent cough, cold, infection, fever, weakness, foot drop, bladder or bowel dysfunction, saddle anesthesia, any significant changes in her medical history, medications or recent hospitalizations. PRIOR: Patient is a pleasant 47 years old female with past medical history of chronic back pain, carpal tunnel syndrome, WANDA with mild adherence to CPAP machine, obesity, type 2 DM (A1C 6.8 on 11/30), left knee pain, OA, fibromyalgia, presents today for initial evaluation of right hip and low back pain. Denies any recent trauma, injury or falls. She was seen at [facility] 2 years ago and declined SI injection. She is also was seen by Rheumatology for OA and fibromyalgia. 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 Back pain is axial and also radiates into her right buttock and into lateral right hip and groin. She reports weakness and occasional right leg giving out as well as burning and radiating pain into her right foot with numbness and tingling. Patient also has significant neck pain with muscle stiffness and spasms. Reports physical therapy in the remote past with mild improvement in her symptoms and function. Due to significant pain, patient cannot undergo PT. Pain is constant and she rates it at 8/10. Denies previous spine surgery or injections. Pain affects her daily activities, functioning, sleep, social activities, mood and quality of life. Patient denies any fever, abdominal pain, foot drop, bladder or bowel incontinence or saddle anesthesia. Reports right lower extremity weakness with ambulation. Patient reports she does not check blood sugars regularly. She states her A1C was good in November and she cannot recall if this has been rechecked recently. Patient tries to loose weight, and control DM with diet and taking medications regularly. Location Lower back, radiates into right buttock and right hip and groin Duration Progressively worsening pain > 2 years Characteristics of symptom or complaint Aching, shooting, radiating, tight, tiring, numbness, heavy, sore Aggravating or associated factors Walking, bending, climbing stairs, lifting, pulling, pushing, cold weather Relieving factors Cyclobenzaprine, Tylenol, resting, heat therapy Treatment None PFSH Medical History Fibromyalgia Family history of systemic lupus erythematosus Hepatitis B immune Diabetic nephropathy Microalbuminuria Dyslipidemia Diabetes mellitus Allergic rhinitis Transaminitis Anemia Chronic low back pain Migraine headache Obesity Carpal tunnel syndrome Hypertension WANDA (obstructive sleep apnea) Vitamin D deficiency Surgical History History of cholecystectomy Tubal ligation status History of salpingo-oophorectomy Family History Father Diabetes Heart disease Mother Hypertension Arthritis Thyroid activity decreased Brother Hypertension Thyroid activity decreased Sister Hypertension Thyroid activity decreased Other Family history of cancer of gallbladder Social History Alcohol intake: never Comment: medicated in pacu Patient Tobacco Use Status: Never used Tobacco Second Hand Smoke Exposure: No 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 Female Reproductive History Menstrual Age of Menarche: 8 Review of Systems Const All systems reviewed & are unremarkable except as noted in HPI and below Physical Exam Vital Signs: Last Vital Signs Pulse 95 06/06/24 10:19 BP 120/73 06/06/24 10:19 Pulse Ox 100 06/06/24 10:19 Oxygen Delivery Method Room Air 06/06/24 10:19 BMI result Body Mass Index 37.0 General: Appears afebrile. Alert and oriented. Mood and affect appropriate. Follows and participates in conversation appropriately. Respiratory effort is unlabored. No cough. Able to transition from sit to stand unassisted. Ambulates with bilaterally normal heel strike and toe off. Neck Other: Patient with decreased cervical ROM in all planes/especially with left lateral rotation. Reports increased pain with cervical extension and flexion. Spurling compression test is negative. Pain is unchanged by Spurling maneuver with retraction. Elvey's tension test positive on the left, with increased pain from neck into left shouder and upper right arm with numbness and tingling. Lhermitte's test was negative. 2 + radial pulses. Significant tightness throughout left upper trapezius as well as TTP throughout bilateral upper trapezius muscles. Neck: Yes no lymphadenopathy, Yes supple, No anterior neck swelling, Yes no JVD and Yes prominent dorsocervical fat pad General: Yes no CVA tenderness Back/Spine/Pelvis Back: no CVA tenderness Cervical Spine: No Lhermitte's sign positive, loss of normal cervical lordosis, cervical muscular tenderness, pain with cervical ROM, No Cervical spine scars present, cervical spasm, No Cervical spine tenderness and No step off deformity Thoracic/Lumbar Spine: thoracic and lumbar spine normal to inspection, No Thoracic/lumbar spine scar(s), pain with thoraco-lumbar ROM, paraspinal muscle tenderness, thoraco-lumbar ROM limited, No thoracic spinal tenderness and lumbar spinal tenderness (L4-S1) Pelvis: buttock tenderness (left>right) bilaterally Sacroiliac joints: bilaterally tender to palpation Extrem General: Yes capillary refill normal, Yes no clubbing, cyanosis or edema and Yes no calf tenderness Left upper extremity: shoulder/upper arm (Difficulty with overhead reaches due to pain) Details: inspection abnormal, tenderness Location: of the A-C joint, over the biceps tendon and over the subacromial bursa and normal ROM; no swelling, no ecchymosis, no crepitus, no deformity and no unsual warmth Results Reviewed Results Reviewed: 5 views cervical spine 05/24/24 Comparison: None Findings: Normal vertebral body alignment. No acute fractures or dislocation. Mild multilevel degenerative changes with mild disc space narrowing at C5-6 and C6-7. No bony foraminal narrowing. No prevertebral soft tissue swelling. IMPRESSION: No acute findings. Mild degenerative changes. 3 view left shoulder 05/24/24 Comparison: None Findings: Bones intact. No dislocations. No significant arthritic change. No erosions. No radiopaque foreign body. IMPRESSION: 1. No acute findings Assessment & Plan Assessment & Plan (1) Bilateral hand numbness: Code(s): R20.0 - Anesthesia of skin Category: Medical (2) Cervical spondylosis: Code(s): M47.812 - Spondylosis without myelopathy or radiculopathy, cervical region Category: Medical (3) Degenerative disc disease, cervical: Code(s): M50.30 - Other cervical disc degeneration, unspecified cervical region Category: Medical (4) Cervical radiculopathy: Code(s): M54.12 - Radiculopathy, cervical region Category: Medical (5) Cervicalgia: Code(s): M54.2 - Cervicalgia Category: Medical Plan Cervical spine and left shoulder results were discussed today and are noted above. Due to significantly elevated A1C at 10.8, patient is not candidate for interventional treatments at this time. She is working with Endocrinology and PCP at [facility] for DM and weight management. Started Ozempic 2 weeks ago. We discussed diagnostic cervical medial branch blocks for axial neck pain. However for persistent cervical radicular symptoms, we will proceed with cervical spine MRI to assess for neural integrity and compression. All questions and concerns have been answered and patient agreed with the plan. Follow up for MRI results and sooner as needed. Orders: Orders MR cervical spine wo con Today M47.812 - Spondylosis without myelopathy or radiculopathy, cervical region, M50.30 - Other cervical disc degeneration, unspecified cervical region, M54.12 - Radiculopathy, cervical region, R20.0 - Anesthesia of skin Coding Level of Care Code Est Pt Level 4 (96952) Complex EM visit Add On G2211 Diagnoses Bilateral hand numbness R20.0 Cervical spondylosis M47.812 Degenerative disc disease, cervical M50.30 Cervical radiculopathy M54.12 Cervicalgia M54.2
[2024-06-06 10:19] VITALS: BP 120/73; PULSE 95; O2SAT 100; BMI 37.0
--- OUTSIDE RECORDS SUMMARY | 2024-06-06 11:42 | XMS_ITS | Encounter Summary ---
Author Organization [employer] Address [address] [facility] 7t [place] [address] Care Team Providers Care Shaving Machine Operator Name Role Phone Sharmin Ortiz MD Primary Care Provider [phone] Lamine Giles PharmD Unavailable [phone] Encounter Details Date Type Department Care Team (Late st Contact Info) Description 01/17/2023 Abstract [facility] MEDICINE [address] [place] [phone] Nicci Jimenez Social History Tobacco Use Types [...] 2:30 PM EST Office Visit [facility] MEDICINE [address] [place] [address] Sharmin Ortiz MD [address] [place] [address] 07/08/2024 11:30 AM EDT Medication Management [facility] MEDICINE [address] [place] [address] Lamine Giles, PharmD [address] [place], [place] [phone] documented as of this encounter Visit Diagnoses Not on filedocumented in this encounter Care Teams Shaving Machine Operator Relationship Specialty Start Date End Date Sharmin Ortiz MD [address] [place] [phone] PCP - General Family Medicine 04/10/18 Lamine Giles, DaisyD [address] [place] [address] Pharmacist Internal Medicine 04/01/24 documented as of this encounter
--- OUTSIDE RECORDS SUMMARY | 2024-06-06 11:43 | XMS_ITS | Encounter Summary ---
Author Organization [employer] Address [address] [facility] [address]t [place] [address] Care Team Providers Care Cartridge Assembler Name Role Phone Sharmin Ortiz MD Primary Care Provider [phone] Lamine Giles PharmD Unavailable [phone] Encounter Details Date Type Department Care Team [...] Description 06/10/2024 2:30 PM EST Office Visit [address] [address] Sharmin Ortiz MD [address] [place] [address] 07/08/2024 11:30 AM EDT Medication Management [address] [address] Lamine Giles, PharmD [address] [place] [address] documented as of this encounter Visit Diagnoses Not on filedocumented in this encounter Care Teams Cartridge Assembler Relationship Specialty Start Date End Date Sharmin Ortiz MD [address] [place] [phone] PCP - General Family Medicine 04/10/18 Lamine Giles, PharmD [address] [place] [address] Pharmacist Internal Medicine 04/01/24 documented as of this encounter
--- OUTSIDE RECORDS SUMMARY | 2024-06-06 11:43 | XMS_ITS | Encounter Summary ---
Author Organization [employer] Address [address] [facility] [address]t [place] [address] Care Team Providers Care Bottom Wheeler Name Role Phone Sharmin Ortiz MD Primary Care Provider [phone] Lamine Giles PharmD Unavailable [phone] Reason for Visit * Reason Comments Med Refill Encounter Details Date Type Department Care Team ([place] [facility] st Contact Info) Description 03/14/2023 Refill [facility] MEDICINE [address] [place], [place] [phone] Sharmin Ortiz MD [address] [place], [place] [phone] Social History Tobacco Use Types Packs/Day Years [...] Description 06/10/2024 2:30 PM EST Office Visit [address] [address] Sharmin Ortiz MD [address] [place] [address] 07/08/2024 11:30 AM EDT Medication Management [address] [address] Lamine Giles, PharmChencho [address] [place] [address] documented as of this encounter Visit Diagnoses Not on filedocumented in this encounter Care Teams Bottom Wheeler Relationship Specialty Start Date End Date Sharmin Ortiz MD [address] [place] [address] PCP - General Family Medicine 04/10/18 Lamine Giles, PharmD [address] [place] [address] Pharmacist Internal Medicine 04/01/24 documented as of this encounter
--- OUTSIDE RECORDS SUMMARY | 2024-06-06 11:43 | XMS_ITS | Encounter Summary ---
Author Organization [employer] Address [address] [facility] 7t [place] [address] Care Team Providers Care Orthopaedic Nurse Name Role Phone Sharmin Ortiz MD Primary Care Provider [phone] Lamine Giles PharmD Unavailable [phone] Encounter Details Date Type Department Care Team (Late st Contact Info) Description 05/23/2024 Orders Only [facility] External Provider, [facility] Social History Tobacco Use Types Packs/Day Years [...] Description 06/10/2024 2:30 PM EST Office Visit [facility] MEDICINE [address] [place] [address] Sharmin Ortiz MD [address] [place] [address] 07/08/2024 11:30 AM EDT Medication Management [facility] MEDICINE [address] [place] [address] Lamine Giles, PharmD [address] [place] [address] documented as of this encounter Procedures Procedure Name Priority Date/Time Associated Diagnosis Comments XR CERVICAL SPINE 4V Routine 05/24/2024 5:41 AM EST XR SHOULDER 2+ VIEWS LEFT Routine 05/24/2024 5:41 AM EST documented in this encounter Results * XR CERVICAL SPINE 4V (05/24/2024 5:41 AM EST) Anatomical Region Laterality Modality Abdomen Radiographic Ronna ging 05/24/2024 5:41 AM EST Narrative 05/24/2024 5:42 AM EST ? [facility] ?[address] ?[place] [address] ?XRay Report ? Signed ? Patient: Rizwan,Arleen ?MR#: [id number] ?? 01 ? : 1975 ?Acct:[id number] ? Age/Sex: 48 / F ?ADM Date: 02/13/25 ? Loc: HO.XRAY ? Attending Dr: Lashae XIAO ? Ordering Physician: Lashae Reid ?? Date of Service: 05/23/24 ?? Procedure(s): XR cervical spine 4V ?? Accession Number(s): [id number] ? cc: Lashae Reid; Sharmin Ortiz MD ? CLINICAL HISTORY: M54.2 - Cervicalgia ? 5 views cervical spine ? Comparison: None ? Findings: ?? Normal vertebral body alignment. ?? No acute fractures or dislocation. ?? Mild multilevel degenerative changes with mild disc space narrowing at ?? C5-6 and C6-7. ?? No bony foraminal narrowing. ?? No prevertebral soft tissue swelling. ? IMPRESSION: ?? No acute findings. Mild degenerative changes. ? This document has been electronically signed by: Curtis Jacinto MD on ?? 05/24/2024 05:41:27 ? Dictated By: ?Curtis Jacinto MD ? Signed By: ?<Electronically signed by Curtis Jacinto MD in OV> ? 05/24/24 0542 ? DD/ 0541 ? TD/TT: 05/24/24 0541 ? Loom Changer: ? Procedure Note Donotuseinterpreter, Image - 05/24/2024 [place] [address] XRay Report Signed Patient: Mireille Astorga#: [id number] 01 : 1975Acct:[id number] Age/Sex: 48 / FADM Date: 05/23/24 Loc: [facility] Attending Dr: Lashae XIAO Ordering Physician: Lashae Reid Date of Service: 05/23/24 Procedure(s): XR cervical spine 4V Accession Number(s): [id number] cc: Lashae Reid; Sharmin Ortiz MD CLINICAL HISTORY: M54.2 - Cervicalgia 5 views cervical spine Comparison: None Findings: Normal vertebral body alignment. No acute fractures or dislocation. Mild multilevel degenerative changes with mild disc space narrowing at C5-6 and C6-7. No bony foraminal narrowing. No prevertebral soft tissue swelling. IMPRESSION: No acute findings. Mild degenerative changes. This document has been electronically signed by: Curtis Jacinto MD on 05/24/2024 05:41:27 Dictated By: Curtis Jacinto MD Signed By: <Electronically signed by Curtis Jacinto MD in OV> 05/24/24 0542 DD/ 0541 TD/TT: 05/24/24540 Loom Changer: us [facility] External Provider IMG XR PROCEDURES Final Result * XR Shoulder 2+ Views Left (05/24/2024 5:41 AM EST) Anatomical Region Laterality Modality Upper Extremities, Shoulder Left Radi ographic Imaging 05/24/2024 5:41 AM EST Narrative 05/24/2024 5:42 AM EST ? [facility] ?[address] ?[place], [place] [address] ?XRay Report ? Signed ? Patient: Rizwan,Arleen ?MR#: [id number] ?? 01 ? : 1975 ?Acct:[id number] ? Age/Sex: 48 / F ?ADM Date: 05/23/24 ? Loc: HO.XRAY ? Attending Dr: Lashae XIAO ? Ordering Physician: Lashae Reid ?? Date of Service: 05/23/24 ?? Procedure(s): XR shoulder LT min 2V ?? Accession Number(s): [id number] ? cc: Lashae Reid; Sharmin Ortiz MD ? CLINICAL HISTORY: M25.512 - Pain in left shoulder ? 3 view left shoulder ? Comparison: None ? Findings: ?? Bones intact. No dislocations. ?? No significant arthritic change. ?? No erosions. No radiopaque foreign body. ? IMPRESSION: ?? 1. No acute findings ? This document has been electronically signed by: Curtis Jacinto MD on ?? 05/24/2024 05:41:21 ? Dictated By: ?Curtis Jacinto MD ? Signed By: ?<Electronically signed by Curtis Jacinto MD in OV> ? 05/24/24 0542 ? DD/ 0541 ? TD/TT: 05/24/24 0541 ? Loom Changer: ? Procedure Note Tim Forbes - 05/24/[address] [address] XRay Report Signed Patient: Morelia AstorgaLaura#: [id number] 01 : 1975Acct:[id number] Age/Sex: 48 / FADM Date: 05/23/24 Loc: [facility] Attending Dr: Lashae XIAO Ordering Physician: Lashae Reid Date of Service: 05/23/24 Procedure(s): XR shoulder LT min 2V Accession Number(s): [id number] cc: Lashae Reid; Sharmin Ortiz MD CLINICAL HISTORY: M25.512 - Pain in left shoulder 3 view left shoulder Comparison: None Findings: Bones intact. No dislocations. No significant arthritic change. No erosions. No radiopaque foreign body. IMPRESSION: 1. No acute findings This document has been electronically signed by: Curtis Jacinto MD on 05/24/2024 05:41:21 Dictated By: Curtis Jacinto MD Signed By: <Electronically signed by Curtis Jacinto MD in OV> 05/24/24 0542 DD/ 0541 TD/TT: 05/24/2441 Loom Changer: [facility] External Provider IMG XR PROCEDURES Final Result documented in this encounter Visit Diagnoses Not on filedocumented in this encounter Care Teams Orthopaedic Nurse Relationship Specialty Start Date End Date Sharmin Ortiz MD [address] [place] [address] PCP - General Family Medicine 04/10/18 Lamine Giles PharmD [address] [place] [address] Pharmacist Internal Medicine 04/01/24 documented as of this encounter
--- OUTSIDE RECORDS SUMMARY | 2024-06-06 11:43 | XMS_ITS | Encounter Summary ---
Author Organization [employer] Address [address] [facility] 7t [place] [address] Care Team Providers Care Quality Systems Engineer Name Role Phone Sharmin Ortiz MD Primary Care Provider [phone] Lamine Giles PharmD Unavailable Encounter Details Date Type Department Care Team (Late st Contact Info) Description 05/15/2024 Telephone [facility] [address] [place] [address] Shauna Nguyen RN Social History Tobacco Use [...] Mounjaro and med sent to pharmacy for supervisor opening and picking before CDTM appt on 05/30/24. Pt verbalized understanding, no further questions. -- Dr Ortiz She should continue tirzepatide (Mounjaro). The script was sent on 05/15/24, so she can supervisor opening and picking before next appointment with Lamine as long as she is tolerating current dose. Thank you * Telephone Encounter - Shauna Nguyen RN - 05/15/2024 9:23 AM EST Telephone call to pt to advise labs show low but slightly improved renal function. Advised pt that PCP would still like for her to get mammogram and abdominal US done, gave her phone number for [facility] Centralized Scheduling. Pt asked about rescheduling office visit extended that she missed on 02/07/25. Advised will send message to medical record clerk for PCP. Faxed orders for both to [facility], confirmationreceived. Pt reports being on last injection [...] ask if patient has received call from [facility] regarding to mammo and abdominal US which were ordered in July 2023. If not, please fax the order again. Thank you documented in this encounter Plan of Treatment Upcoming Encounters Date Type Department Care Team (Late st Contact Info) Description 06/10/2024 2:30 PM EST Office Visit [facility] [address] [place] [phone] Sharmin Ortiz MD [address] [place] [address] 07/08/2024 11:30 AM EDT Medication Management [facility] [address] [place] [address] Lamine Giles, PharmChencho [address] [place] [address] documented as of this encounter Visit Diagnoses Not on filedocumented in this encounter Care Teams Quality Systems Engineer Relationship Specialty Start Date End Date Sharmin Ortiz MD [address] [place] [address] PCP - General Family Medicine 04/10/18 Lamine Giles, PharmD [address] [place] [phone] Pharmacist Internal Medicine 04/01/24 documented as of this encounter
--- OUTSIDE RECORDS SUMMARY | 2024-06-06 11:43 | XMS_ITS | Encounter Summary ---
Author Organization [employer] Address [address] [facility] 7t [place] [address] Care Team Providers Care Sales Development Director Name Role Phone Sharmin Ortiz MD Primary Care Provider [phone] Lamine Giles PharmD Unavailable [phone] Encounter Details Date Type Department Care Team (Late st Contact Info) Description 05/14/2024 Orders Only [facility]INE [address] [place], [place] [phone] Sharmin Ortiz MD [address] [place], [place] [phone] Social History Tobacco Use Types Packs/Day Years [...] Description 06/10/2024 2:30 PM EST Office Visit [facility] [address] [place] [address] Sharmin Ortiz MD [address] [place] [address] 07/08/2024 11:30 AM EDT Medication Management [address] [address] Lamine Giles, PharmD [address] [place] [address] documented as of this encounter Procedures Procedure Name Priority Date/Time Associated Diagnosis Comments BASIC METABOLIC PANEL Routine 05/14/2024 11:04 AM EST documented in this encounter Results * (ABNORMAL) Basic Metabolic Panel (05/14/2024 11:04 AM EST) Sodium 141 135 - 145 mmol/L [facility] Potassium 3.8 3.3 - 5.1 mmol/L [facility] Chloride 104 96 - 108 mmol/L [facility] Carbon Dioxide 26 22 - 29 mmol/L [facility] Anion Gap 15 12 - 20 [facility] Urea Nitrogen (BUN) 26(H) 9 - 16 mg/dL [facility] Creatinine, Serum 1.37 0.5 - 1.4 mg/dL [facility] Estimated Glomerular Filt Rate 41 [facility] Comment:Chronic Kidney Disea se: Estimated GFR < 60 mL/min/1.74g8Aibdmp Kidney Disease: Estimated GFR < 15 mL/min/1.73m2 Glucose 134(H) 60 - 115 mg/dL [facility] Calcium 10.1 8.4 - 10.2 mg/dL [facility] 05/14/2024 11:0 4 AM EST 05/14/2024 11:04 AM EST us Sharmin Ortiz MD LAB BLOOD ORDERABLES Final Resul t [facility] [address] [place] [address] [phone] documented in this encounter Visit Diagnoses Not on filedocumented in this encounter Care Teams Sales Development Director Relationship Specialty Start Date End Date Sharmin Ortiz MD [address] [place] [phone] PCP - General Family Medicine 04/10/18 Lamine Giles, DaisyD [address] [place] [phone] Pharmacist Internal Medicine 04/01/24 documented as of this encounter
--- OUTSIDE RECORDS SUMMARY | 2024-06-06 11:43 | XMS_ITS | Encounter Summary ---
Author Organization [employer] Address [address] [facility] 7t [place] [address] Care Team Providers Care Airplane Cover Maker Name Role Phone Sharmin Otriz MD Primary Care Provider [phone] Lamine Giles PharmD Unavailable [phone] Reason for Visit * Reason Onset Date Comments chart prep 06/05/2024 Encounter Details Date Type Department Care Team (Late st Contact Info) Description 06/05/2024 Telephone [facility] [address] [place], [place] [phone] Adela Butcher MA chart prep Social History Tobacco Use Types Packs/Day Years [...] encounter Miscellaneous Notes * Telephone Encounter - Adela Butcher MA - 06/05/2024 10:27 AM EST ..chart Prep Labs: not applicable Images: not applicable Vaccines due: Covid Due, Hep A Due, and Flu Due Referrals: Completed Screenings: Colonoscopy , Mammogram, Eye Exam, and Foot Exam Overdue care gaps: Sbirt, SDOH, PHQ-9, Oral Health, and hussein-7 documented in this encounter Plan of Treatment Upcoming Encounters Date Type Department Care Team (Late st Contact Info) Description 06/10/2024 2:30 PM EST Office Visit [facility] [address] [place] [address] Sharmin Ortiz MD [address] [place] [address] 07/08/2024 11:30 AM EDT Medication Management [address] [address] Lamine Giles PharmD [address] [place] [phone] documented as of this encounter Visit Diagnoses Not on filedocumented in this encounter Care Teams Airplane Cover Maker Relationship Specialty Start Date End Date Sharmin Ortiz MD [address] [place] [phone] PCP - General Family Medicine 04/10/18 Lamine Giles, PharmD [address] [place] [phone] Pharmacist Internal Medicine 04/01/24 documented as of this encounter
--- OUTSIDE RECORDS SUMMARY | 2024-06-06 11:43 | XMS_ITS | Encounter Summary ---
Author Organization [employer] Address [address] [facility] 7t [place] [address] Care Team Providers Care Embedded Nurse Name Role Phone Sharmin Ortiz MD Primary Care Provider [phone] Lamine Giles PharmD Unavailable [phone] Encounter Details Date Type Department Care Team (Late st Contact Info) Description 03/28/2023 Orders Only [facility] MED[facility]INE [address] [place], [place] [phone] Sharmin Ortiz MD [address] [place], [place] [phone] Chronic pain of left knee (Primary Dx); [...] 06/10/2024 2:30 PM EST Office Visit [address] [address] Sharmin Ortiz MD [address] [place] [address] 07/08/2024 11:30 AM EDT Medication Management [address] [address] Lamine Giles, PharmD [address] [place] [phone] documented as of this encounter Visit Diagnoses Diagnosis Chronic pain of left knee- Primary Right hip pain Pain in joint, pelvic region and thigh Chronic low back pain, unspecified back pain laterality, unspecified whether sciatica present documented in this encounter Care Teams Embedded Nurse Relationship Specialty Start Date End Date Sharmin Ortiz MD [address] [place] [phone] PCP - General Family Medicine 04/10/18 Lamine Giles, PharmD [address] [place] [address] [phone] Pharmacist Internal Medicine 04/01/24 documented as of this encounter
--- OUTSIDE RECORDS SUMMARY | 2024-06-06 11:43 | XMS_ITS | Encounter Summary ---
Author Organization [employer] Address [address] [facility] 7t [place] [address] Care Team Providers Care Trim And Burr Operator Name Role Phone Sharmin Ortiz MD Primary Care Provider [phone] Lamine Giles PharmD Unavailable [phone] Encounter Details Date Type Department Care Team (Late st Contact Info) Description 02/09/[address] [facility] [address] [place], [place] [phone] Sharmin Ortiz MD [address] [place], [place] [phone] Social History Tobacco Use Types Packs/Day Years [...] Description 06/10/2024 2:30 PM EST Office Visit [facility] [address] [place] [phone] Sharmin Ortiz MD [address] [place] [phone] 07/08/2024 11:30 AM EDT Medication Management [address] [address] Lamine Giles, PharmChencho [address] [place] [phone] documented as of this encounter Visit Diagnoses Not on filedocumented in this encounter Care Teams Trim And Burr Operator Relationship Specialty Start Date End Date Sharmin Ortiz MD [address] [place] [phone] PCP - General Family Medicine 04/10/18 Lamine Giles, PharmD [address] [place] [phone] Pharmacist Internal Medicine 04/01/24 documented as of this encounter
--- OUTSIDE RECORDS SUMMARY | 2024-06-06 11:43 | XMS_ITS | Encounter Summary ---
Author Organization [employer] Address [address] [facility] 7t [place] [address] Care Team Providers Care Environmental Services Tech Name Role Phone Sharmin Ortiz MD Primary Care Provider [phone] Lamine Giles PharmD Unavailable [phone] Encounter Details Date Type Department Care Team (Late st Contact Info) Description 05/15/2024 Telephone [facility] [address] [place], [place] [phone] Lamine Giles, PharmD [address] [place], [place] [phone] Social History Tobacco Use Types Packs/Day Years [...] Description 06/10/2024 2:30 PM EST Office Visit [facility] [address] [place] [address] Sharmin Ortiz MD [address] [place] [address] 07/08/2024 11:30 AM EDT Medication Management [facility] [address] [place] [address] Lamine Giles PharmD [address] [place] [phone] documented as of this encounter Visit Diagnoses Diagnosis Type 2 diabetes mellitus with hyperglycemia, without long-term current use of insulin ([facility])- Primary documented in this encounter Care Teams Environmental Services Tech Relationship Specialty Start Date End Date Sharmin Ortiz MD [address] [place] [phone] PCP - General Family Medicine 04/10/18 Lamine Giles, DaisyD [address] [place] [address] Pharmacist Internal Medicine 04/01/24 documented as of this encounter
--- OUTSIDE RECORDS SUMMARY | 2024-06-06 11:43 | XMS_ITS | Clinical Summary ---
Author Organization [employer] Address [address] [facility] 7t [place] [address] Care Team Providers Care Row Boss Name Role Phone Sharmin Ortiz MD Primary Care Provider [phone] Lamine Giles PharmD Unavailable [phone] Allergies Active Allergy Reactions Criticality Noted Date Comments Albert Inhibitors Cough High 06/28/2010 Other reaction(s): unspecified Medications acetaminophen (Tylenol) 500 MG tablet Take 2 tablets by mouth every 8 (eight) hours if needed for pain. 02/06/20 19 Active lidocaine (Lidoderm) 5 % patch Place 1 patch on the skin at bed time. 04/22/19 21 Active Elastic Bandages & Supports (Wrist Splint) misc Active pravastatin (Pravachol) 20 MG tablet Take 1 tablet (20 mg) by mouth at bedtime. 90 tablet 3 02/29/20 23 Active chlorthalidone (Hygroton) 25 MG tabletIndicatio ns:Primary hypertension TAKE 1 TABLET BY MOUTH EVERY DAY 90 tablet 3 06/20/19 24 Active metoprolol tartrate (Lopressor) 100 MG tablet Take 1.5 tablets (150 mg) by mouth with breakfast and with evening meal. 180 tablet 3 07/04/19 24 Active losartan (Cozaar) 100 MG tablet TAKE 1 TABLET BY MOUTH EVERY DAY 90 tablet 1 02/08/20 24 Active empagliflozin (Jardiance) 25 MG Take 1 tablet (25 mg) by mouth Once per day. 30 tablet 11 02/08/20 24 025 Active Lancets Thin misc Check blood sugar 3 times daily 100 each 11 02/09/20 24 Active glucose blood (FREESTYLE LITE) test strip Check blood sugar 3 times daily 100 each 11 02/09/20 24 Active Alcohol Swabs (Alcohol Prep) pads Check blood sugar three times daily 100 each 11 02/09/20 24 Active Blood Glucose Monitoring Suppl kit Check blood sugar 3 times daily 1 kit 02/09/20 24 Active cyclobenzaprine (Flexeril) 10 MG tablet TAKE 1 TABLET BY MOUTH THREE TIMES DAILY IN THE MORNING, AT NOON, AND AT BEDTIME NEEDED FOR MUSCLE SPASMS 30 tablet 2 02/16/20 24 Active meloxicam (Mobic) 15 MG tablet TAKE 1 TABLET BY MOUTH EVERY DAY AFTER MEAL 03/29/20 24 Active Semaglutide,0.2 5 or 0.5MG/DOS, (Ozempic, 0.25 or 0.5 MG/DOSE,) 2 MG/3ML solution pen-injectorInd ications:Type 2 diabetes mellitus with hyperglycemia, without long-term current use of insulin (CMS/HCC) Inject 0.5 mg under the skin 1 (one) time per week. 3 mL 5 05/21/19 25 Active metFORMIN XR (Glucophage-XR) 500 MG 24 hr tabletIndicatio ns:Type 2 diabetes mellitus with hyperglycemia, without long-term current use of insulin (CMS/HCC) Take 2 tablets (1,000 mg) by mouth Once per day. 60 tablet 05/23/19 25 Active metFORMIN XR (Glucophage-XR) 500 MG 24 hr tablet TAKE 2 TABLETS BY MOUTH TWICE DAILY 120 tablet 11 05/10/19 24 025 Discontinued(Re order (will not trigger notification to Pharmacy)) Tirzepatide (Mounjaro) 5 MG/0.5ML solution auto-injectorIn dications:Type 2 diabetes mellitus with hyperglycemia, without long-term current use of insulin (CMS/HCC) Inject 5 mg under the skin 1 (one) time per week. 2 mL 3 05/15/19 25 025 Discontinued(Al ternate therapy) Active Problems Problem Noted Date Diagnosed Date Fibromyalgia 08/03/2023 Assessment & Plan (08/03/2023 1:10 PM EDT): - continue tylenol prn, continue muscle relaxants prn, advised to avoid NSAIDs IBS (irritable bowel syndrome) 11/29/2022 Assessment & Plan (03/12/2023 5:50 AM EST): - following with [facility]. -Low FODMAP diet Assessment & Plan (12/18/2022 11:33 AM EDT): - following with [facility]. -Low FODMAP diet History of right salpingo-oophorectomy Family history of hypercoagulable state 03/22/20 Family history of lupus erythematosus 03/22/2022 Hepatitis B immune 03/22/2022 Chronic low back pain 02/09/2018 Assessment & Plan (08/03/2023 1:13 PM EDT): - continue current medications for fibromyalgia - pt declines PT referral - patient was seen by paint preparer and currently scheduled for SI joint injection treatment Assessment & Plan (03/12/2023 5:56 AM EST): - continue current medications for fibromyalgia - pt declines PT referral - pt requests paint preparer referral Assessment & Plan (12/18/2022 11:37 AM [...] 9:48 AM EDT): - last seen by [facility] in Apr 2022 - last [place] in Mar 2022. Hepatomegaly with hepatic steatosis. No focal lesion. - FIB-4 = 0.78 in 2021 - avoid hepatotoxic drugs. - will update ultrasound Assessment & Plan (03/12/2023 5:50 AM EST): - followed by [facility] - avoid hepatotoxic drugs. Assessment & Plan (12/18/2022 11:34 AM EDT): - followed by [facility] - avoid hepatotoxic drugs. Allergic rhinitis [...] (08/03/2023 1:09 PM EDT): - seen by [facility]opedic provider in July 2023 - most recent NCT/EMG on 02/16/23 showed b/l mild median nerve neuropathy, consistent with CTS - s/p light carpal tunnel release on 05/16/23 - judicious use of NSAIDs prn and gabapentin - use brace Assessment & Plan (03/12/2023 5:48 AM EST): - seen by [facility] orthopedic provider in Feb 2023, upcoming appt [...] Encounters Date Type Department Care Team Description 06/05/2024 Telephone [facility] [address] [place] [address] Adela Butcher MA chart prep 05/23/2024 Orders Only [facility] External Provider, [facility] 05/20/2024 Travel 05/15/2024 Orders Only [facility] [address] [place] [address] Sharmin Ortiz MD 05/15/2024 Telephone [facility] [address] [place] [address] Lamine Giles, Dameon 05/15/2024 Telephone [facility] [address] [place] [address] Shauna Nguyen RN 05/14/2024 Orders Only [facility] [address] [place], [place] [phone] Sharmin Ortiz MD 04/19/2024 Telephone [facility] [address] [place] [address] Lamine Giles, PharmD 04/11/2024 Telephone [facility] [address] [place] [address] Lamine Giles, PharmD 03/28/2024 Travel from Last 3 Months Immunizations Name Administration Dates Next Due Hep B, adult 05/23/2024(Deferred: No longer needed - HBV Immune (06/16/2022)) Influenza, IIV3, injectable 04/14/2011 Moderna Covid-19 Vaccine [...] Description 06/10/2024 2:30 PM EST Office Visit [facility] [address] [place] [address] Sharmin Ortiz MD [address] [place] [address] 07/08/2024 11:30 AM EDT Medication Management [facility] [address] [place] [address] Lamine Giles, PharmD [address] [place] [address] Health Maintenance Due Date Last Done Comments CT Colonography 1974 Colonoscopy 1974 Colorectal Cancer Screening 1974 FIT DNA/Cologuard 1974 FIT 1974 FOBT 1974 Sigmoidoscopy 1974 Eye Exam 1984 Alcohol/Substance Use Screening 1986 Family Planning (PISQ) 1989 Hepatitis A Vaccines (1 of 2 - Risk 2-dose series) 1993 Pap Smear 10/01/1995 Pneumococcal Vaccine: [...] Screening 02/29/2024 02/28/2023 Lipid Panel 04/25/2024 04/25/2023, 09/2021, 05/22/2020 Diabetes: Hemoglobin A1C 08/17/2024 025, [...] on patient's age to complete this topic Hepatitis B Vaccines Discontinued IPV Vaccines Aged Out No longer eligi [...] VIEWS LEFT Routine 05/24/2024 5:41 AM EST POCT GLYCATED HEMOGLOBIN, TOTAL Routine 05/20/2024 11:55 AM EST Type 2 diabetes mellitus with hyperglycemia, without long-term current use of insulin (CMS/HCC) BASIC METABOLIC PANEL Routine 05/14/2024 11:04 AM EST LIPID PANEL WITH REFLEX TO DIRECT LDL Routine 04/25/2023 9:56 AM EST Type 2 diabetes mellitus with hyperglycemia, without long-term current use of insulin (CMS/HCC) HEPATITIS PANEL, GENERAL Routine 06/16/2022 10:23 AM EST HIV ANTIBODY/ANTIGEN ([facility]) Routine 06/16/2022 10:23 AM EST ZZZ HISTORICAL HPV E6/E7 RFLX RENEE 16 18/45 Routine 07/07/2020 1:59 PM EDT MAMMOGRAM GENERIC Routine 07/16/2018 9:4 1 AM EDT from Last 3 Months or Most Recently Relevant to Health Maintenance Results * XR CERVICAL SPINE 4V (05/24/2024 5:41 AM EST) Anatomical Region Laterality Modality Abdomen Radiographic Ronna ging 05/24/2024 5:41 AM EST Narrative 05/24/2024 5:42 AM EST ? [facility] ?[address] ?[place] [address] ?XRay Report ? Signed ? Patient: Rizwan,Arleen ?MR#: [id number] ?? 01 ? : 1975 ?Acct:[id number] ? Age/Sex: 48 / F ?ADM Date: 05/23/24 ? Loc: HO.XRAY ? Attending Dr: Lashae XIAO ? Ordering Physician: Lashae Reid ?? Date of Service: 05/23/24 ?? Procedure(s): XR cervical spine 4V ?? Accession Number(s): [id number] ? cc: Lashae Reid; Sharmin Ortiz MD [...] in OV> ? 05/24/24 0542 ? DD/ 05 ? TD/TT: 05/24/24540 ? Host: ? Procedure Note Tim Forbes - 05/24/2024 [place] [address] XRay Report Signed Patient: Mireille Astorga#: [id number] 01 : 1975Acct:[id number] Age/Sex: 48 / FADM Date: 05/23/24 Loc: [facility] Attending Dr: Lashae XIAO Ordering Physician: Lashae Reid Date of Service: 05/23/24 Procedure(s): XR cervical spine 4V Accession Number(s): [id number] cc: Lashae Reid; Sharmin Ortiz MD CLINICAL [...] Jacinto MD in OV> 05/24/24 0542 DD/ TD/TT: 05/24/2441 Host: us [facility] External Provider IMG XR PROCEDURES Final Result * XR Shoulder 2+ Views Left (05/24/2024 5:41 AM EST) Anatomical Region Laterality Modality Upper Extremities, Shoulder Left Radi ographic Imaging 05/24/2024 5:41 AM EST Narrative 05/24/2024 5:42 AM EST ? [facility] ?[address] ?[place] [address] ?XRay Report ? Signed ? Patient: Arleen Astorga ?MR#: [id number] ?? 01 ? : 1975 ?Acct:[id number] ? Age/Sex: 48 / F ?ADM Date: 05/23/24 ? Loc: HO.XRAY ? Attending Dr: Lashae XIAO ? Ordering Physician: Lashae Reid ?? Date of Service: 05/23/24 ?? Procedure(s): XR shoulder LT min 2V ?? Accession Number(s): [id number] ? cc: Lashae Reid; Sharmin Ortiz MD [...] Curtis Jacinto MD in OV> ? 05/24/24 05 ? DD/ 05 ? TD/TT: 05/24/24 05 ? Host: ? Procedure Note Donotuseinterpreter, Image - 05/24/[address] [address] XRay Report Signed Patient: Mireille Astorga#: [id number] 01 : 1975Acct:[id number] Age/Sex: 48 / FADM Date: 05/23/24 Loc: HO.XRAY Attending Dr: Lashae XIAO Ordering Physician: Lashae Reid Date of Service: 05/23/24 Procedure(s): XR shoulder LT min 2V Accession Number(s): [id number] cc: Lashae Reid; Sharmin Ortiz MD CLINICAL [...] in OV> 05/24/24 0542 DD/ 0541 TD/TT: 05/24/24 0541 Host: [facility] External Provider IMG XR PROCEDURES Final Result * (ABNORMAL) POCT HGB A1C (05/20/2024 11:55 AM EST) Hemoglobin A1C 8.0(A) 4.0 - 6.0 % QC Media Lot # [id number] Lot# Expiration Date Blood 05/20/2024 11:5 5 AM EST Sharmin Ortiz MD POINT OF CARE TEST ENTER/EDIT OR DERABLES Final Result * (ABNORMAL) Basic Metabolic Panel (05/14/2024 11:04 AM EST) Sodium 141 135 - 145 mmol/L [facility] Potassium 3.8 3.3 - 5.1 mmol/L [facility] Chloride 104 96 - 108 mmol/L [facility] Carbon Dioxide 26 22 - 29 mmol/L [facility] Anion Gap 15 12 - 20 [facility] Urea Nitrogen (BUN) 26(H) 9 - 16 mg/dL [facility] Creatinine, Serum 1.37 0.5 - 1.4 mg/dL [facility] Estimated Glomerular Filt Rate 41 [facility] Comment:Chronic Kidney Disea se: Estimated GFR < 60 mL/min/1.30y0Hcicoe Kidney Disease: Estimated GFR < 15 mL/min/1.73m2 Glucose 134(H) 60 - 115 mg/dL [facility] Calcium 10.1 8.4 - 10.2 mg/dL [facility] 05/14/2024 11:0 4 AM EST 05/14/2024 11:04 AM EST us Sharmin Ortiz MD LAB BLOOD ORDERABLES Final Resul t [facility] [address] [place] [phone] * (ABNORMAL) Lipid Panel with Reflex to Direct LDL (04/25/2023 9:56 AM EST) Triglycerides 200(H) <150 mg/dL [facility] Comment:Desirable Triglyceri de: less than 150 mg/dLBorderline High Triglyceride 150-199 mg/dLHigh Triglyceride: 200-499 mg/dLVery High Triglyceride: greater than or equal to 5OO mg/dL Cholesterol 162 <200 mg/dL [facility] Comment:Desirable Cholestero l: less than 200 mg/dLBorderline High Cholesterol: 200-239 mg/dLHigh Cholesterol: greater than 239 mg/dL LDL Cholesterol Calculated 90 <100 mg/dL [facility] Comment:Desirable LDL: less than 100 mg/dLNear Optimal/Above Optimal LDL: 110- 129 mg/dLBorderline High LDL: 130-159 mg/dLHigh LDL: 160-189 mg/dLVery High LDL: greater than or equal to 190 mg/dL HDL Cholesterol 32(L) >40 mg/dL [facility] Comment:Desirable HDL: great er than 40 mg/dL Note: This HDL assay may give artificially low results in patients with liver disease. Blood 04/25/2023 9:56 AM EST 04/25/2023 9:56 AM EST Sharmin Ortiz MD LAB BLOOD ORDERABLES Final Resul t Performing Organization Address [facility]/ZIP Co de Phone Number [facility] [address] [place] [phone] * HIV Ab/Ag (JAYNA MCCARTY) (06/16/2022 10:23 AM EST) HIV AB/AG Nonreactive Nonreactive [facility] Comment:HIV-1 p24 Ag and/or HIV-1/HIV-2 Ab not detected.A test result that is nonreactive does not exclude thepossibility of exposure to or infection with HIV-1 and/orHIV-2. Nonreactive results in this assay for individualswith prior exposure to HIV-1 and/or HIV-2 may be due toantigen and antibody levels that are below the limit ofdetection of this assay.The [employer] HIV Ag/Ab Combo assay result andsupplemental assay results should be interpreted inconjunction with the patient's clinical presentation,history and other laboratory results. If the results areinconsistent with clinical evidence, additional testing issuggested to confirm the result. 06/16/2022 10:2 3 AM EST 06/16/2022 10:23 AM EST [facility] External Provider LAB BLO OD ORDERABLES Final Result Performing Organization Address [facility]/ZIP Co de Phone Number [facility] [address] [place] [phone] * Hepatitis Panel, General (06/16/2022 10:23 AM EST) Hepatitis A IgM Nonreactive Nonreactive [facility] Comment:IgM antibodies to ROBERTO V not detected; does not exclude earlyacute or recovered HAV infection. ~Hepatitis B Surface Antibody REACTIVE Nonreactive [facility] Comment:REACTIVE: > 11.99 mI U/mL Hepatitis B Core Antibody Nonreactive Nonreactive [facility] Hepatitis C Antibody Nonreactive Nonreactive [facility] Comment:Antibodies to HCV no t detected; does not exclude early acuteHCV infection. Hepatitis B Surface Ag Negative Negative [facility] 06/16/2022 10:2 3 AM EST 06/16/2022 10:23 AM EST [facility] External Provider LAB BLO OD ORDERABLES Final Result [facility] [address] [place] [phone] * HPV E6/E7 RFLX RENEE 16 18/45 (07/07/2020 1:59 PM EDT) HPV mRNA E6/E7 rflx Not Detected Not Detected [facility] Comment: Methodology: Brake Repairer Hydraulic-Mediated Amplification This assay detects E6/E7 viral messenger RNA (mRNA) from 14 high-risk HPV types (16,18,31,33,35,39,45,51,52,56,58,59,66,68). The analytical performance characteristics of this assay have been determined by [employer]. The modifications have not been cleared or approved by the FDA. This assay has been validated pursuant to the CLIA regulations and is used for clinical purposes. For additional information, please refer to http://education.ShutterCal/faq/UBE229f2 (This link if provided for information/ educational purposes only.) THIS TEST WAS PERFORMED AT: [facility] [address] [place] [address],[address] [place], [place] ??[phone] SAUL REECE MD 07/07/2020 1:59 PM EDT us Sam Michel MD HISTORICAL/NON ORDERABLE LABS Fi nal Result [facility] [address] [place] [address], * 3D UNI DIGITAL DX MAMMO 1 (07/16/2018 9:41 AM EDT) Anatomical Region Laterality Modality Breast Bilateral Mammography 07/16/2018 9:41 AM EDT Narrative 07/16/2018 9:43 AM EDT Refer to the Notes tab for result details [facility] Procedure: 3D UNI DIGITAL DX MAMMO 1 Procedure Note Provider, MD Angelita - 07/02/2022 Refer to the Notes tab for result details [facility] Procedure: 3D UNI DIGITAL DX MAMMO 1 us Sharmin Ortiz MD IMG BI PROCEDURES Final Result from Last 3 Months or Most Recently Relevant to Health Maintenance Insurance [employer] Care Teams Row Boss Relationship Specialty Start Date End Date Sharmin Ortiz MD [address] [place] [phone] PCP - General Family Medicine 04/10/18 Lamine Giles, PharmD [address] [place] [phone] Pharmacist Internal Medicine 04/01/24
--- OUTSIDE RECORDS SUMMARY | 2024-06-06 11:43 | XMS_ITS | Encounter Summary ---
Author Organization [employer] Address [address] [facility] 7t [place] [address] Care Team Providers Care Automobile Upholstery Trim Installer Name Role Phone Sharmin Ortiz MD Primary Care Provider Lamine Giles PharmD Unavailable [phone] Encounter Details Date Type Department Care Team (Late st Contact Info) Description 02/07/2024 Orders Only [facility] [address] [place], [place] [phone] Sharmin Ortiz MD [address] [place], [place] [phone] Social History Tobacco Use Types Packs/Day Years [...] Description 06/10/2024 2:30 PM EST Office Visit [facility] [address] [place] [address] Sharmin Ortiz MD [address] [place] [address] 07/08/2024 11:30 AM EDT Medication Management [address] [address] Lamine Giles, PharmChencho [address] [place] [phone] documented as of this encounter Visit Diagnoses Not on filedocumented in this encounter Care Teams Automobile Upholstery Trim Installer Relationship Specialty Start Date End Date Sharmin Ortiz MD [address] [place] [phone] PCP - General Family Medicine 04/10/18 Lamine Giles, PharmD [address] [place] [phone] Pharmacist Internal Medicine 04/01/24 documented as of this encounter
--- OUTSIDE RECORDS SUMMARY | 2024-06-06 11:43 | XMS_ITS | Encounter Summary ---
Author Organization [employer] Address [address] [facility] 7t [place] [address] Care Team Providers Care Specialties Operator Name Role Phone Sharmin Ortiz MD Primary Care Provider [phone] Lamine Giles PharmD Unavailable Reason for Visit * Reason Onset Date Comments Referral 03/28/2023 Encounter Details Date Type Department Care Team ([facility] st Contact Info) Description 03/28/2023 Telephone [facility] [address] [place], [place] [phone] Sharmin Ortiz MD [address] [place] [address] Referral Social History Tobacco Use Types Packs/Day [...] t he electric, gas, oil or water [employer] threatened to shut off services in your [...] encounter Miscellaneous Notes * Telephone Encounter - Juddveronica Ronal Pires - 03/28/2023 10:30 AM EST Tc from [facility] with [facility] Pain Management requesting an updated referral for Pain management for pt due to current one being at least two years old Please fax over @ [phone] Please if any questions contact Stella @ [phone] documented in this encounter Plan of Treatment Upcoming Encounters Date Type Department Care Team (Late st Contact Info) Description 06/10/2024 2:30 PM EST Office Visit [address] [address] Sharmin Ortiz MD [address] [place] [address] 07/08/2024 11:30 AM EDT Medication Management [address] [address] Lamine Giles, DaisyD [address] [place] [address] documented as of this encounter Visit Diagnoses Not on filedocumented in this encounter Care Teams Specialties Operator Relationship Specialty Start Date End Date Sharmin Ortiz MD [address] [place] [phone] PCP - General Family Medicine 04/10/18 Lamine Giles, DaisyD [address] [place] [address] Pharmacist Internal Medicine 04/01/24 documented as of this encounter
--- OUTSIDE RECORDS SUMMARY | 2024-06-06 11:43 | XMS_ITS | Encounter Summary ---
Author Organization [employer] [facility] [employer] Address [address] [facility] [address]t [place] [address] Care Team Providers Care Load Haul Dump Operator Name Role Phone Sharmin Ortiz MD Primary Care Provider [phone] Lamine Giles PharmD Unavailable [phone] Encounter Details Date Type Department Care Team (Late st Contact Info) Description 02/07/2024 Orders Only [facility] [address] [place], [place] [phone] Sharmin Ortiz MD [address] [place], [place] [phone] Social History Tobacco Use Types Packs/Day Years [...] PM EST Office Visit [facility] [address] [place] [phone] Sharmin Ortiz MD [address] [place] [address] 07/08/2024 11:30 AM EDT Medication Management [address] [address] Lamine Giles, PharmChencho [address] [place] [address] documented as of this encounter Visit Diagnoses Not on filedocumented in this encounter Care Teams Load Haul Dump Operator Relationship Specialty Start Date End Date Sharmin Ortiz MD [address] [place] [address] PCP - General Family Medicine 04/10/18 Lamine Giles, PharmD [address] [place] [address] Pharmacist Internal Medicine 04/01/24 documented as of this encounter
--- OUTSIDE RECORDS SUMMARY | 2024-06-06 11:43 | XMS_ITS | Encounter Summary ---
Author Organization [employer] Address [address] [facility] 7t [place] [address] Care Team Providers Care Cloth Wire Weaver Name Role Phone Sharmin Ortiz MD Primary Care Provider [phone] Lamine Giles PharmD Unavailable [phone] Encounter Details Date Type Department Care Team (Late st Contact Info) Description 05/15/2024 Orders Only [facility] [address] [place], [place] [phone] Sharmin Ortiz MD [address] [place], [place] [phone] Social History Tobacco Use Types Packs/Day Years [...] Description 06/10/2024 2:30 PM EST Office Visit [facility] [address] [place] [phone] Sharmin Ortiz MD [address] [place] [address] 07/08/2024 11:30 AM EDT Medication Management [address] [address] Lamine Giles, PharmChencho [address] [place] [address] documented as of this encounter Visit Diagnoses Not on filedocumented in this encounter Care Teams Cloth Wire Weaver Relationship Specialty Start Date End Date Sharmin Ortiz MD [address] [place] [phone] PCP - General Family Medicine 04/10/18 Lamine Giles, PharmD [address] [place] [address] Pharmacist Internal Medicine 04/01/24 documented as of this encounter
== END 2024-06-06 10:43 | disposition home or self-care (01) ==
PROVIDERS: PCP Family Medicine; Visit Provider Nurse Practitioner Family
DX: R20.0 Anesthesia of skin (principal); M47.812 Spondylosis without myelopathy or radiculopathy, cervical region; M50.30 Other cervical disc degeneration, unspecified cervical region; M54.12 Radiculopathy, cervical region; M54.2 Cervicalgia
CPT/HCPCS: 99214

== ENCOUNTER → 2024-06-06 10:09 | Outpatient (BNVA) | payer OTHER, MEDICAID, SELFPAY | PROVIDERS: PCP Family Medicine; Visit Provider Nurse Practitioner Family | DX: R20.0 Anesthesia of skin (principal); M47.22 Other spondylosis with radiculopathy, cervical region; M50.30 Other cervical disc degeneration, unspecified cervical region | CPT/HCPCS: 99212 ==

== ENCOUNTER 2024-06-28 13:07 | Outpatient (AMB) | payer MEDICAID, SELFPAY ==
--- NOTE | 2024-06-28 13:29 | HO.NEPHOV ---
Vital Signs 06/28/24 13:33 Height 5 ft 1 in Weight 194 lb 6 oz BMI 36.7 BP 100/80 Blood Pressure Location Lt brachial Position Sitting Pulse 113 H Pulse Source Pulse Oximeter Pulse Oximetry (%) 97 Oxygen Delivery Method Room Air Intake Visit Reasons: ENP: CKD stg3, Berhane has DM&HTN, On ARB & SGLT2i Transportation [employer]istics Internship Required: Yes Transportation Logistics Internship Language: Chemist Enzymes Name: Chuck [id number] Accompanied by: Self / Same As Patient Allergies BEAU Inhibitors Allergy (Unknown, Verified 06/28/24 13:32) cough HPI Comments Details: I had the privilege of seeing Angelita in consultation for CKD and hypertension. She has longstanding diabetes mellitus and has been on medications including SGLT2 inhibitor.She has no documented diabetic retinopathy but has history of microalbuminuria. She has high BMI and and has obstructive sleep apnea as well metabolic dysfunction associated steatotic liver disease. She has hypertension and is on multiple antihypertensive medications including ARB. She has history of stress test, Holter monitor and echo couple years ago which apparently had been normal. She is also on GLP 1 agonist. She is losing some weight ever since she has been on these medications. She is not a smoker. Her lipid status has been steadily improving. She does not have any history of coronary artery disease, congestive heart failure, CVA, carotid disease, peripheral arterial disease or known renal artery stenosis. Her last serum creatinine was 1.37. [facility] Medical History (Updated 07/22/24 @ 18:52 by Ravinder Liao MD) Chronic kidney disease, stage 3 Pelvic pain IBS (irritable bowel syndrome) Microalbuminuric diabetic nephropathy Metabolic dysfunction-associated steatotic liver disease (MASLD) Fibromyalgia Family history of systemic lupus erythematosus Hepatitis B immune Diabetic nephropathy Microalbuminuria Dyslipidemia Diabetes mellitus Allergic rhinitis Transaminitis Anemia Chronic low back pain Migraine headache Obesity Carpal tunnel syndrome Hypertension WANDA (obstructive sleep apnea) Vitamin D deficiency Surgical History History of cholecystectomy Tubal ligation status History of salpingo-oophorectomy Family History Father Diabetes Heart disease Mother Hypertension Arthritis Thyroid activity decreased Brother Hypertension Thyroid activity decreased Sister Hypertension Thyroid activity decreased Other Family history of cancer of gallbladder Social History Alcohol intake: never Comment: medicated in pacu Patient Tobacco Use Status: Never used Tobacco Second Hand Smoke Exposure: No 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 Female Reproductive History Menstrual Age of Menarche: 8 Review of Systems Const All systems reviewed & are unremarkable except as noted in HPI and below Physical Exam Vital Signs: Last Vital Signs Pulse 113 H 06/28/24 13:33 BP 100/80 06/28/24 13:33 Pulse Ox 97 06/28/24 13:33 Oxygen Delivery Method Room Air 06/28/24 13:33 BMI result Body Mass Index 36.7 Const General: comfortable and no acute distress Orientation/consciousness: patient oriented x3 HEENT Head: Yes normocephalic Mouth: Normal oral and palatal mucosa present Eyes EOM: EOMs intact bilaterally Neck Neck: Yes supple Resp Auscultation: clear to auscultation bilaterally Cardio Jugular venous distension: no JVD Rate: regular rate GI Palpation (GI): Soft to palpation Auscultation: normal bowel sounds General: Yes no CVA tenderness Back/Spine/Pelvis Back: no CVA tenderness Skin General skin exam: no rashes or lesions noted Neuro General: patient oriented x3 and moves all extremities Extrem General: Yes no pedal edema Results Reviewed Nephrology Results: Hgb 13.2 g/dl (12.0-16.0) 07/12/24 WBC 7.1 X10*3/uL (4.8-10.8) 07/12/24 Plt Count 279 X10*3/uL (160-400) 07/12/24 Sodium 140 mmol/L (135-145) 07/12/24 Potassium 3.5 mmol/L (3.3-5.1) 07/12/24 Chloride 106 mmol/L (96-108) 07/12/24 Carbon Dioxide 27 mmol/L (22-29) 07/12/24 BUN 18 mg/dL (9-16) H 07/12/24 Creatinine 1.09 mg/dL (0.5-1.4) 07/12/24 Calcium 9.5 mg/dL (8.4-10.2) 07/12/24 Urine Creatinine 206.08 mg/dL 07/12/24 Assessment & Plan Assessment & Plan (1) Hypertension: Code(s): I10 - Essential (primary) hypertension Category: Medical Qualifiers: Hypertension type: primary hypertension Qualified Code(s): I10 - Essential (primary) hypertension (2) CKD stage 3a, GFR 45-59 ml/min: Code(s): N18.31 - Chronic kidney disease, stage 3a Category: Medical Plan She has CKD 3 likely from longstanding diabetes mellitus and hypertension. She is on SGLT2 inhibitor as well as ARB. She has no documented diabetic retinopathy but has history of microalbuminuria. She has high BMI and and has obstructive sleep apnea as well metabolic dysfunction associated steatotic liver disease. Her blood pressure needs to be maintain a goal of less than 130/80 mm Hg. She has history of stress test, Holter monitor and echo couple years ago which apparently had been normal. She is also on GLP 1 agonist. She is losing some weight ever since she has been on these medications. She is not a smoker. Her lipid status has been steadily improving. She should maintain good hydration and avoid nonsteroidal anti-inflammatories. I have ordered detailed workup. If her serum creatinine continues to rise she will need a renal biopsy. I answered all questions. Follow-up appointment given Orders: Orders Calcium 1 Month N18.31 - Chronic kidney disease, stage 3a, I10 - Essential (primary) hypertension Immunofixation Pnl, Serum 1 Month N18.31 - Chronic kidney disease, stage 3a, I10 - Essential (primary) hypertension Anti DNA DS Antibody 1 Month N18.31 - Chronic kidney disease, stage 3a, I10 - Essential (primary) hypertension Proteinase 3 PR3 Antibodies 1 Month N18.31 - Chronic kidney disease, stage 3a, I10 - Essential (primary) hypertension Anti Glomerular Basement Memb 1 Month N18.31 - Chronic kidney disease, stage 3a, I10 - Essential (primary) hypertension Complement C3 1 Month N18.31 - Chronic kidney disease, stage 3a, I10 - Essential (primary) hypertension Complement C4 1 Month N18.31 - Chronic kidney disease, stage 3a, I10 - Essential (primary) hypertension Phospholipase A2 Receptor Pnl 1 Month N18.31 - Chronic kidney disease, stage 3a, I10 - Essential (primary) hypertension Creatinine 1 Month N18.31 - Chronic kidney disease, stage 3a, I10 - Essential (primary) hypertension Blood Urea Nitrogen 1 Month N18.31 - Chronic kidney disease, stage 3a, I10 - Essential (primary) hypertension Electrolytes 1 Month N18.31 - Chronic kidney disease, stage 3a, I10 - Essential (primary) hypertension Complete Blood Count Auto Diff 1 Month N18.31 - Chronic kidney disease, stage 3a, I10 - Essential (primary) hypertension Immunofixation, Random Urine 1 Month N18.31 - Chronic kidney disease, stage 3a, I10 - Essential (primary) hypertension Myeloperoxidase Antibody 1 Month N18.31 - Chronic kidney disease, stage 3a, I10 - Essential (primary) hypertension Hepatitis B Core Antibody 1 Month N18.31 - Chronic kidney disease, stage 3a, I10 - Essential (primary) hypertension Hepatitis B Surface Antigen 1 Month N18.31 - Chronic kidney disease, stage 3a, I10 - Essential (primary) hypertension Coding Level of Care Code New Pt Level 4 (80926) Diagnoses Primary hypertension I10 Hypertension type: primary hypertension CKD stage 3a, GFR 45-59 ml/min N18.31
[2024-06-28 13:33] VITALS: BP 100/80; PULSE 113; O2SAT 97; BMI 36.7
== END 2024-06-28 13:46 | disposition home or self-care (01) ==
LOC: HO.HKA 13:08
PROVIDERS: PCP Family Medicine; Referring Provider Family Medicine; Visit Provider Internal Medicine Nephrology
DX: I10 Essential (primary) hypertension (principal); N18.31 Chronic kidney disease, stage 3a
CPT/HCPCS: 99204

== ENCOUNTER → 2024-06-28 13:07 | Outpatient (BNVA) | payer OTHER, MEDICAID, SELFPAY | PROVIDERS: PCP Family Medicine; Referring Provider Family Medicine; Visit Provider Internal Medicine Nephrology | DX: E11.22 Type 2 diabetes mellitus with diabetic chronic kidney disease (principal); I12.9 Hypertensive chronic kidney disease with stage 1 through stage 4 chronic kidney disease, or unspecified chronic kidney disease; N18.31 Chronic kidney disease, stage 3a; Z79.899 Other long term (current) drug therapy | CPT/HCPCS: 99202 ==

== ENCOUNTER 2024-07-12 09:32 | Outpatient (REF) | payer MEDICAID, SELFPAY ==
--- NOTE | ~2024-07-12 | MM_ITS ---
EXAMINATION: MM SCREENING DIGITAL BREAST TOMOSYNTHESIS, BILATERAL CLINICAL INFORMATION: Screening. Asymptomatic. COMPARISON: Mammography: Comparison is made with available priors TECHNIQUE: Digital breast mammography with tomosynthesis is performed in both the craniocaudal and mediolateral oblique views along with computer-aided detection (CAD). FINDINGS: There are scattered areas of fibroglandular density (ACR BI-RADS breast composition Category b). There are no significant masses, abnormal calcifications, or other abnormalities. MM/MM tomosynthesis screening BI IMPRESSION: No mammographic evidence of malignancy. ASSESSMENT: BI-RADS BI-RADS 1 - Negative RECOMMENDATION: Routine annual mammography screening. 1 year F/U This examination should not preclude the clinical evaluation of a suspicious palpable abnormality. This patient's information was entered into a reminder system with a target due date for their next mammogram. Electronically signed by: Joie Kaba DO 07/19/2024 12:56 PM EDT
[2024-07-12 10:22] LABS: MANUAL DIFF FLAG NO
--- OUTSIDE RECORDS SUMMARY | 2024-07-12 10:29 | XMS_ITS | Encounter Summary ---
Author Organization [employer] Address [address] [facility] [address] [place] [address] Care Team Providers Care Sunglass Clip Attacher Name Role Phone Sharmin Ortiz MD Primary Care Provider [phone] Lamine Giles PharmD Unavailable [phone] Reason for Visit * Reason Onset Date Comments Referral 03/28/2023 Encounter Details Date Type Department Care Team ([facility] st Contact Info) Description 03/28/2023 Telephone [facility]EDS [address] [place], [place] [phone] Sharmin Ortiz MD [address] [place] [address] Referral Social History Tobacco Use Types Packs/Day [...] t he electric, gas, oil or water [employer] threatened to shut off services in your [...] - 03/28/2023 10:30 AM EST Tc from [facility] with [facility] requesting an updated referral for Pain management for pt due to current one being at least two years old Please fax over @ [phone] Please if any questions contact Stella @ [phone] documented in this encounter Plan of Treatment Upcoming Encounters Date Type Department Care Team (Late st Contact Info) Description 07/18/2024 11:30 AM EDT Medication Management [facility] MEDICINE [address] [place] [phone] Lamine Giles, Dameon [address] [place] [address] documented as of this encounter Visit Diagnoses Not on filedocumented in this encounter Care Teams Sunglass Clip Attacher Relationship Specialty Start Date End Date Sharmin Ortiz MD [address] [place] [phone] PCP - General Family Medicine 04/10/18 Lamine Giles, PharmD [address] [place] [address] Pharmacist Internal Medicine 04/01/24 documented as of this encounter
--- OUTSIDE RECORDS SUMMARY | 2024-07-12 10:29 | XMS_ITS | Encounter Summary ---
Author Organization [employer] Address [address] [facility] [address] [place] [address] Care Team Providers Care Combiner Operator Name Role Phone Sharmin Ortiz MD Primary Care Provider [phone] Lamine Giles PharmD Unavailable [phone] Encounter Details Date Type Department Care Team (Late st Contact Info) Description 03/28/2023 Orders Only [facility] MEDICINE [address] [place], [place] [phone] Sharmin Ortiz MD [address] [place], [place] [phone] Chronic pain of left knee (Primary Dx); [...] Description 07/18/2024 11:30 AM EDT Medication Management [facility] MEDICINE [address] [place] [phone] Lamine Giles, PharmD [address] [place] [address] documented as of this encounter Visit Diagnoses Diagnosis Chronic pain of left knee- Primary Right hip pain Pain in joint, pelvic region and thigh Chronic low back pain, unspecified back pain laterality, unspecified whether sciatica present documented in this encounter Care Teams Combiner Operator Relationship Specialty Start Date End Date Sharmin Ortiz MD [address] [place] [phone] PCP - General Family Medicine 04/10/18 Lamine Giles, PharmD [address] [place] [address] Pharmacist Internal Medicine 04/01/24 documented as of this encounter
--- OUTSIDE RECORDS SUMMARY | 2024-07-12 10:29 | XMS_ITS | Encounter Summary ---
Author Organization [employer] Address [address] [facility] 7t [place] [address] Care Team Providers Care Wastewater Analyst Name Role Phone Sharmin Ortiz MD Primary Care Provider [phone] Lamine Giles PharmD Unavailable [phone] Encounter Details Date Type Department Care Team (Late st Contact Info) Description 02/09/2024 Orders Only [facility] MEDICINE [address] [place], [place] [phone] Sharmin Ortiz MD [address] [place], [place] [phone] Social History Tobacco Use Types Packs/Day Years [...] Description 07/18/2024 11:30 AM EDT Medication Management [facility] MEDICINE [address] [place] [address] Lamine Giles, PharmD [address] [place] [address] documented as of this encounter Visit Diagnoses Not on filedocumented in this encounter Care Teams Wastewater Analyst Relationship Specialty Start Date End Date Sharmin Ortiz MD [address] [place] [address] PCP - General Family Medicine 04/10/18 Lamine Giles, PharmD [address] [place] [phone] Pharmacist Internal Medicine 04/01/24 documented as of this encounter
--- OUTSIDE RECORDS SUMMARY | 2024-07-12 10:29 | XMS_ITS | Encounter Summary ---
Author Organization [employer] Address [address] [facility] [address] [place] [address] Care Team Providers Care Duty Engineer Name Role Phone Sharmin Ortiz MD Primary Care Provider Lamine Giles PharmD Unavailable [phone] Encounter Details Date Type Department Care Team (Late st Contact Info) Description 02/07/2024 Orders Only [facility] MEDICINE [address] [place], [place] [phone] Sharmin Ortiz MD [address] [place], [place] [phone] Social History Tobacco Use Types Packs/Day Years [...] Description 07/18/2024 11:30 AM EDT Medication Management [facility] MEDICINE [address] [place] [address] Lamine Giles, PharmD [address] [place] [address] documented as of this encounter Visit Diagnoses Not on filedocumented in this encounter Care Teams Duty Engineer Relationship Specialty Start Date End Date Sharmin Ortiz MD [address] [place] [address] PCP - General Family Medicine 04/10/18 Lamine Giles, PharmD [address] [place] [address] Pharmacist Internal Medicine 04/01/24 documented as of this encounter
--- OUTSIDE RECORDS SUMMARY | 2024-07-12 10:29 | XMS_ITS | Encounter Summary ---
Author Organization [employer] Address [address] [facility] 7t [place] [address] Care Team Providers Care Pond Supervisor Name Role Phone Sharmin Ortiz MD Primary Care Provider [phone] Lamine Giles PharmD Unavailable [phone] Encounter Details Date Type Department Care Team (Late st Contact Info) Description 02/07/2024 Orders Only [facility] MEDICINE [address] [place], [place] [phone] Sharmin Ortiz MD [address] [place], [place] [phone] Social History Tobacco Use Types Packs/Day Years [...] 11:30 AM EDT Medication Management [facility] MEDICINE [address] [place] [address] Lamine Giles, PharmD [address] [place] [address] documented as of this encounter Visit Diagnoses Not on filedocumented in this encounter Care Teams Pond Supervisor Relationship Specialty Start Date End Date Sharmin Ortiz MD [address] [place] [phone] PCP - General Family Medicine 04/10/18 Lamine Giles, PharmD [address] [place] [address] Pharmacist Internal Medicine 04/01/24 documented as of this encounter
--- OUTSIDE RECORDS SUMMARY | 2024-07-12 10:29 | XMS_ITS | Clinical Summary ---
Author Organization [employer] Address [address] [facility] [address] [place] [address] Care Team Providers Care Expense Clerk Name Role Phone Sharmin Ortiz MD Primary Care Provider [phone] Lamine Giles PharmD Unavailable [phone] Allergies Active Allergy Reactions Criticality Noted Date [...] 02/29/20 23 Active chlorthalidone (Hygroton) 25 MG tabletIndication s:Primary hypertension TAKE 1 TABLET BY MOUTH EVERY DAY 90 tablet 3 06/20/19 24 Active metoprolol tartrate (Lopressor) 100 MG tablet Take 1.5 tablets (150 mg) by mouth with breakfast and with evening meal. 180 tablet 3 07/04/19 24 Active empagliflozin (Jardiance) 25 MG Take 1 tablet (25 mg) by mouth Once per day. 30 tablet 11 02/08/20 24 025 Active Lancets Thin misc Check blood sugar 3 times daily 100 each 02/09/20 24 Active glucose blood (FREESTYLE LITE) test strip Check blood sugar 3 times daily 100 each 02/09/20 24 Active Alcohol Swabs (Alcohol Prep) pads Check blood sugar three times daily 100 each 02/09/20 24 Active Blood Glucose Monitoring Suppl kit Check blood sugar 3 times daily 1 kit 02/09/20 24 Active meloxicam (Mobic) 15 MG tablet TAKE 1 TABLET BY MOUTH EVERY DAY AFTER MEAL 03/29/20 24 Active Semaglutide,0.25 or 0.5MG/DOS, (Ozempic, 0.25 or 0.5 MG/DOSE,) 2 MG/3ML solution pen-injectorIndi cations:Type 2 diabetes mellitus with hyperglycemia, without long-term current use of insulin (CMS/[facility]) Inject 0.5 mg under the skin 1 (one) time per week. 3 mL 5 05/21/19 25 Active metFORMIN XR (Glucophage-XR) 500 MG 24 hr tabletIndication s:Type 2 diabetes mellitus with hyperglycemia, without long-term current use of insulin (CMS/HCC) Take 2 tablets (1,000 mg) by mouth Once per day. 60 tablet 11 05/23/19 25 Active losartan (Cozaar) 100 MG tablet Take 1 tablet (100 mg) by mouth Once per day. 90 tablet 3 06/11/19 25 Active cyclobenzaprine (Flexeril) 10 MG tablet TAKE 1 TABLET BY MOUTH THREE TIMES DAILY IN THE MORNING, AT NOON, AND AT BEDTIME NEEDED FOR MUSCLE SPASMS 30 tablet 2 06/21/19 25 Active cyclobenzaprine (Flexeril) 10 MG tablet TAKE 1 TABLET BY MOUTH THREE TIMES DAILY IN THE MORNING, AT NOON, AND AT BEDTIME NEEDED FOR MUSCLE SPASMS 30 tablet 2 02/16/20 24 025 Discontinued Active Problems Problem Noted Date Diagnosed Date Pelvic pain 06/16/2024 Assessment & Plan (06/16/2024 12:13 PM EDT): - history of large ovarian cyst s/p removal - evaluate with US CKD (chronic kidney disease) stage 3, GFR 30-59 ml/min 06/16/2024 Assessment & Plan (06/16/2024 1:13 PM EDT): - in a setting of diabetes mellitus type 2 and hypertension - Kidney failure risk: 0.93% at 1 years, 2.87% at 4 years. - continue ARB and SGLT2i - optimize diabetes mellitus and hypertension management - avoid nephrotoxic drugs Due to her young age and the risk is almost 3% at 4 years, will refer to telecommunications project manager. Fibromyalgia 08/03/2023 Assessment & Plan (06/11/2024 6:54 AM EST): - continue tylenol prn, continue muscle relaxants prn, advised to avoid NSAIDs Assessment & Plan (08/03/2023 1:10 PM EDT): - continue tylenol prn, continue muscle relaxants prn, advised to avoid NSAIDs IBS (irritable bowel syndrome) 11/29/2022 Assessment & Plan (06/11/2024 6:58 AM EST): - following with [facility]. -Low FODMAP diet - Ordered CBC auto differential 06/10/24 Assessment & Plan (03/12/2023 5:50 AM EST): - following with [facility]. -Low FODMAP diet Assessment & Plan (12/18/2022 11:33 AM EDT): - following with [facility]. -Low FODMAP diet History of right salpingo-oophorectomy Family history of hypercoagulable state 03/22/20 22 Family history of lupus erythematosus 03/22/2022 Hepatitis B immune 03/22/2022 Chronic low back pain 02/09/2018 Assessment & Plan (08/03/2023 1:13 PM EDT): - continue current medications for fibromyalgia - pt declines PT referral - patient was seen by painter drum and currently scheduled for SI joint injection treatment Assessment & Plan (03/12/2023 5:56 AM EST): - continue current medications for fibromyalgia - pt declines PT referral - pt requests painter drum referral Assessment & Plan (12/18/2022 11:37 AM [...] 2 diabetes mellitus 08/16/2016 Assessment & Plan (06/16/2024 12:17 PM EDT): A1C 6.8% in Nov 2022, improving -Continue working on lifestyle modifications. -Improve adherence to medications and SMBG. -Continue metformin ER 1000 mg bid. - Currently on semaglutide, titrate up as tolerated -Consider SGLT-2 inhibitor -Referred to DM education nurse, but appt was not kept Last eye exam: 10/25/21 No diabetic retinopathy Last foot exam: 06/10/24 Last microalbumin test: Hx microalbuminuria Last lipid profile: 04/2023 Last dental exam: > years. No dental plan currently Immunizations: UTD Follow up in 3 mo - Ordered Vitamin B12 (Cobalamin) and Folate Panel, Serum 06/10/24 - Ordered Lipid Panel with Reflex to Direct LDL 06/10/24 - Ordered Albumin, Random Urine W/Creatinine 06/10/24 - Ordered Comprehensive Metabolic Panel 06/10/24 Assessment & Plan (08/03/2023 1:12 PM EDT): [...] liver disease (MASLD) 09/24/2014 Assessment & Plan (06/16/2024 12:16 PM EDT): - last seen by [facility] in Apr 2022 - last US in Mar 2022. Hepatomegaly with hepatic steatosis. No focal lesion. - FIB-4 = 1.56 in FIB4 index - avoid hepatotoxic drugs. Assessment & Plan (08/04/2023 9:48 AM EDT): - last seen by [facility] in Apr 2022 - last US in Mar 2022. Hepatomegaly with hepatic steatosis. No focal lesion. - FIB-4 = 0.78 in 2021 - avoid hepatotoxic drugs. - will update ultrasound Assessment & Plan (03/12/2023 5:50 AM EST): - followed by [facility] - avoid hepatotoxic drugs. Assessment & Plan (12/18/2022 11:34 AM EDT): - followed by [facility] - avoid hepatotoxic drugs. Allergic rhinitis 09/16/2014 Hypertension 05/30/2012 Assessment & Plan (06/16/2024 12:15 PM EDT): - Goal BP < 140/90 per JNC-8, < 130/80 per ACC/AHA guideline - within acceptable range today; inadequate Tx for WANDA and questionable medication adherence -Work on lifestyle modifications. -Pt reports frequesnt tachycardia at work (in a setting of anemia, obesity, WANDA) -Continue losartan 100 mg daily. -continue metoprolol tartrate 150 mg bid -continue chlorthalidone 25 mg once daily -Had nml stress test, Holter monitor and echo in 11/2021 -continue checking home BP -keep appt with sleep medicine clinic Assessment & Plan (08/03/2023 10:19 AM EDT): [...] not active Obesity 05/30/2012 Assessment & Plan (06/16/2024 12:19 PM EDT): -continue working on lifestyle modifications -associated conditions: WANDA; hypertension; diabetes mellitus; MASLD -patient is considering about surgical weight loss -continue GLP-1 RA -Here today for follow-up/weight check. Tolerating ssemaglutide well, denies side effects. BMI Readings from Last 3 Encounters: 06/10/24 37.53 kg/m?? 10/31/23 38.92 kg/m?? 08/03/23 39.30 kg/m?? Wt Readings from Last 3 Encounters: 06/10/24 200 lb 6.4 oz (90.9 kg) 10/31/23 206 lb (93.4 kg) 08/03/23 208 lb (94.3 kg) Has had improvement in secondary outcomes with weight loss medication use. Understands that weight loss medications must be used as part of a comprehensive lifestyle plan that incorporates daily exercise, adequate protein intake, decreased soda and sugary beverage consumption, decreased caloric intake. Assessment & Plan (08/04/2023 9:50 AM EDT): -continue working on lifestyle modifications -associated conditions: WANDA; hypertension; diabetes mellitus; MASLD -patient is considering about surgical weight loss -continue GLP-1 RA Obstructive sleep apnea syndrome 05/30/2012 Assessment & Plan (06/11/2024 6:53 AM EST): -pt has diagnosis of WANDA but has not been adherence to CPAP machine -referred to sleep clinic' check its status -pt is hesitant to try CPAP machine again but she is very symptomatic -pt was advised to sign up for weight management clinic in the past; pt is currently trying to lose weight with GLP-1 agonist Assessment & Plan (08/03/2023 10:18 AM EDT): [...] weight management clinic Vitamin D deficiency 05/30/2012 Assessment & Plan (06/11/2024 6:58 AM EST): - Ordered Vitamin D, 25-Hydroxy, Total, Immunoassay 06/10/24 Carpal tunnel syndrome 09/28/2011 Assessment & Plan (08/03/2023 1:09 PM EDT): - seen by [facility]opedic provider in July 2023 - most recent NCT/EMG on 02/16/23 showed b/l mild median nerve neuropathy, consistent with CTS - s/p light carpal tunnel release on 05/16/23 - judicious use of NSAIDs prn and gabapentin - use brace Assessment & Plan (03/12/2023 5:48 AM EST): - seen by [facility] orthopedic provider in Feb 2023, upcoming appt [...] Encounters Date Type Department Care Team Description 07/03/2024 Population Health Risk Score [facility] (C3) Department [address] [phone] Provider, Population Health Generic 06/17/2024 Refill [facility] [address] [place] [address] Sharmin Ortiz MD 06/10/2024 2:30 PM EST Office Visit [facility] [address] [place] [address] Sharmin Ortiz MD Primary hypertension (Primary Dx); Obstructive sleep apnea syndrome; Metabolic dysfunction-associa rocael steatotic liver disease (MASLD); Irritable bowel syndrome, unspecified type; Fibromyalgia; Vitamin D deficiency; Type 2 diabetes mellitus with hyperglycemia, without long-term current use of insulin ([facility]); Encounter for immunization; Pelvic pain; Stage 3b chronic kidney disease ([facility]); Dietary counseling; Exercise counseling; Class 2 severe obesity due to excess calories with serious comorbidity and body mass index (BMI) of 37.0 to 37.9 in adult ([facility]) 06/10/2024 Travel 06/05/2024 Telephone [facility] [address] [place] [phone] Adela Butcher MA chart prep 05/23/2024 Orders Only [facility] External Provider, [facility] 05/20/2024 Travel 05/15/2024 Orders Only [facility] [address] [place] [address] Sharmin Ortiz MD 05/15/[address] [address] Lamine Giles, PharmD 05/15/[address] [address] Shauna Christian RN 05/14/2024 Orders Only [facility] [address] [place] [phone] Sharmin Ortiz MD 04/19/[address] [address] Lamine Giles, PharmD from Last 3 Months Immunizations Name Administration Dates Next Due Hep A, Adult 06/10/2024 Hep B, adult 05/23/2024(Deferred: No longer needed - HBV Immune (06/16/2022)) Influenza, IIV3, injectable 04/14/2011 Moderna Covid-19 Vaccine 12+ 07/06/2020,06/09/19 21 Pfizer Covid-19 Vaccine 12+ 01/28/2021,,04/08/2020 Pneumococcal Conjugate PCV 20 06/10/2024 Pneumococcal Polysaccharide PPSV23 07/13/2016 TD (adult), 2 Lf tetanus tox oid, preservative free, adsorbed 08/24/2020 Tdap 11/23/2009 Social History Tobacco Use Types Packs/Day Years Used Date Smoking Tobacco: Never Smokeless Tobacco: Never Tobacco Cessation:Counseling Given: Not Answered Depression Answer Date Recorded Patient Health Questionnaire-9 Score 12 06/10/2024 Patient Health Questionnaire-9 Score 12 06/10/2024 Last PHQ-9: Questionnaire Data Not on file 0 06/10/2024 Housing Stability Answer Date Recorded What is your housing situation today? I have terry pedraza 06/10/[address] you li ve. Do you have problems with any of the following? None of the above 06/10/2024 Food Insecurity Answer Date Recorded Within the past 12 months, y ou worried that your food would run out before you got money to buy more: Never True 06/10/2024 Within the past 12 months,th e food you bought just didn't last and you didn't have enough money to get more: Never True 06/2024 Transportation Answer Date Recorded In the past 12 months, has l ack of transportation kept you from medical appts, meetings, work or from getting things needed for daily living? No 02/28/2023 Utilities Answer Date Recorded In the past 12 months, has t he electric, gas, oil or water company threatened to shut off services in your home? No 06/10/2024 Depression Answer Date Recorded Patient Health Questionnaire-2 Score 4 06/10/2024 Internet Access Answer Date Recorded Internet Access Q1 Yes 06/10/2024 Internet Access Q2 Not on file 06/10/2024 Comments Unknown Sex and Gender Information Value Date Recorded Sex Assigned at Female 02/07/2022 10:17 AM EDT Legal Sex Female 10:17 AM EDT Gender Identity Female 02/07/2022 10:17 AM EDT Sexual Orientation Choose not to disclose 2021 10:17 AM EDT Last Filed Vital Signs Vital Sign Reading Time Taken Comments Blood Pressure 131/78 06/10/2024 1:43 PM EST Pulse 109 06/10/2024 1:43 PM EST Temperature 36.1 ??C (96.9 ??F) 06/10/2024 1:43 PM ES T Respiratory Rate 21 06/10/2024 1:43 PM EST Oxygen Saturation 99% 06/10/2024 1:43 PM EST Inhaled Oxygen Concentration - - Weight 90.9 kg (200 lb 6.4 oz) 06/10/2024 1:43 P M EST Height 155.6 cm (5' 1.27 ) 06/10/2024 1:43 PM ES T Body Mass Index 37.53 06/10/2024 1:43 PM EST Plan of Treatment Upcoming Encounters Date Type Department Care Team (Late st Contact Info) Description 07/18/2024 11:30 AM EDT Medication Management [facility] [address] [place] [address] Lamine Giles, PharmD [address] [place] [address] Health Maintenance Due Date Last Done Comments CT Colonography 1974 Colonoscopy 1974 Colorectal Cancer Screening 1974 FIT DNA/Cologuard 1974 FIT 1974 FOBT 1974 Sigmoidoscopy 1974 Eye Exam 1984 Family Planning (PISQ) 1989 Pap Smear 10/01/1995 Mammogram 07/16/2020 07/16/2018, 11/2018, 07/11/2018 COVID-19 Vaccine ( season) 2023 01/28/2021, 07/06/2020, 06/08/2020, Additional history exists Influenza Vaccine (#1) 2023 04/14/2011 SDOH Screening 02/29/2024 02/28/2023 Lipid Panel 04/25/2024 04/25/2023, 09/2021, 05/22/2020 Diabetes: Hemoglobin A1C 08/17/2024 025, 02/02/2024, 04/25/2023, Additional history exists Zoster Vaccines (1 of 2) 2024 Depression Monitoring (PHQ-9) 12/11/2024 06/10/2024, 06/10/2024 Hepatitis A Vaccines (2 of 2 - Risk 2-dose series) 12/11/2024 06/10/2024 Alcohol/Substance Use Screening 06/10/2025 06/10/2024 Depression Screening 06/10/2025 06/10/2024, 06/11/19 Diabetes: Foot Exam 06/10/2025 06/10/2024, 11/29/2022, 11/29/2022, Additional history exists Tobacco Screening 06/16/2025 06/16/2024 Cervical Cancer Screening 07/07/2025 HPV/Cotest 07/07/2025 07/07/2020, 07/07/2020 DTaP/Tdap/Td Vaccines (3 - Td or Tdap) 08/24/2030 08/24/2020, 11/23/2009 RSV Patients and Patients Aged 60 years or older (1 - 1-dose 75+ series) 2049 HIV Screening Completed 06/16/2022 Hepatitis C Screening Completed 06/16/2022 Pneumococcal Vaccine: Pediatrics (0 to 5 Years) and At-Risk Patients (6 to 49) Years) Completed 06/10/2024, 07/13/2016 HIB Vaccines Aged Out No longer eligi [...] hyperglycemia, without long-term current use of insulin ([facility]) BASIC METABOLIC PANEL Routine 05/14/2024 11:04 AM EST LIPID PANEL WITH REFLEX TO DIRECT LDL Routine 04/25/2023 9:56 AM EST Type 2 diabetes mellitus with hyperglycemia, without long-term current use of insulin (CMS/HCC) HEPATITIS PANEL, GENERAL Routine 06/16/2022 10:23 AM EST HIV ANTIBODY/ANTIGEN (IN DPH) Routine 06/16/2022 10:23 AM EST ZZZ [...] EST Narrative 05/24/2024 5:42 AM EST ? [facility] ?[address] ?[place] [address] ?XRay Report ? Signed ? Patient: Arleen Astorga ?MR#: [id number] ?? 01 ? : 1975 ?Acct:[id number] ? Age/Sex: 48 / F ?ADM Date: 05/23/24 ? Loc: HO.XRAY ? Attending Dr: Lashae XIAO ? Ordering Physician: Lashae Reid ?? Date of Service: 05/23/24 ?? Procedure(s): XR cervical spine 4V ?? Accession Number(s): [id number] ? cc: Lashea Reid; Sharmin Ortiz MD ? CLINICAL HISTORY: [...] DD/ 0541 ? TD/TT: 05/24/24 0541 ? Patternmaker Grader: ? Procedure Note Donjulisa, Image - 05/24/2024 [place] [address] XRay Report Signed Patient: Mireille Astorga#: [id number] 01 : 1975Acct:[id number] Age/Sex: 48 / FADM Date: 05/23/24 Loc: [facility] Attending Dr: Lashae XIAO Ordering Physician: Lashae Reid Date of Service: 05/23/24 Procedure(s): XR cervical spine 4V Accession Number(s): [id number] cc: Lashae Reid; Sharmin Ortiz MD CLINICAL [...] 05/24/24 0542 DD/ 0541 TD/TT: 05/24/24 0541 Patternmaker Grader: us [facility] External Provider IMG XR PROCEDURES Final Result * XR Shoulder 2+ Views Left (05/24/2024 5:41 AM EST) Anatomical Region Laterality Modality Upper Extremities, Shoulder Left Radi ographic Imaging 05/24/2024 5:41 AM EST Narrative 05/24/2024 5:42 AM EST ? [facility] ?[address] ?[place] [address] ?XRay Report ? Signed ? Patient: Rizwan,Arleen ?MR#: [id number] ?? 01 ? : 1975 ?Acct:[id number] ? Age/Sex: 48 / F ?ADM Date: 05/23/24 ? Loc: HO.XRAY ? Attending Dr: Lashae XIAO ? Ordering Physician: Lashae Reid ?? Date of Service: 05/23/24 ?? Procedure(s): XR shoulder LT min 2V ?? Accession Number(s): [id number] ? cc: Lashae Reid; Sharmin Ortiz MD [...] 0542 ? DD/ 0541 ? TD/TT: 05/24/24 05 ? Patternmaker Grader: ? Procedure Note Tim Forbes - 05/24/2024 [place] [address] XRay Report Signed Patient: Mireille Astorga#: [id number] 01 : 1975Acct:[id number] Age/Sex: 48 / FADM Date: 05/23/24 Loc: [facility] Attending Dr: Lashae XIAO Ordering Physician: Lashae Reid Date of Service: 05/23/24 Procedure(s): XR shoulder LT min 2V Accession Number(s): [id number] cc: Lashae Reid; Sharmin Ortiz MD CLINICAL [...] Jacinto MD in OV> 05/24/24 0542 DD/ 0 TD/TT: 05/24/24540 Patternmaker Grader: [facility] External Provider IMG XR PROCEDURES Final [...] EST) Sodium 141 135 - 145 mmol/L [facility] Potassium 3.8 3.3 - 5.1 mmol/L [facility] Chloride 104 96 - 108 mmol/L [facility] Carbon Dioxide 26 22 - 29 mmol/L [facility] Anion Gap 15 12 - 20 [facility] Urea Nitrogen (BUN) 26(H) 9 - 16 mg/dL [facility] Creatinine, Serum 1.37 0.5 - 1.4 mg/dL [facility] Estimated Glomerular Filt Rate 41 [facility] Comment:Chronic Kidney Disea se: Estimated GFR < 60 mL/min/[id number] Kidney Disease: Estimated GFR < 15 mL/min/1.73m2 Glucose 134(H) 60 - 115 mg/dL [facility] Calcium 10.1 8.4 - 10.2 mg/dL [facility] 05/14/2024 11:0 4 AM EST 05/14/2024 11:04 AM EST us Sharmin Ortiz MD LAB BLOOD ORDERABLES Final Resul t Performing Organization Address [facility] de Phone Number [facility] [address] [place] [phone] * (ABNORMAL) Lipid Panel with Reflex to Direct LDL (04/25/2023 9:56 AM EST) Triglycerides 200(H) <150 mg/dL [facility] Comment:Desirable Triglyceri de: less than 150 mg/dLBorderline High Triglyceride 150-199 mg/dLHigh Triglyceride: 200-499 mg/dLVery High Triglyceride: greater than or equal to 5OO mg/dL Cholesterol 162 <200 mg/dL [facility] Comment:Desirable Cholestero l: less than 200 mg/dLBorderline High Cholesterol: 200-239 mg/dLHigh Cholesterol: greater than 239 mg/dL LDL Cholesterol Calculated 90 <100 mg/dL [facility] Comment:Desirable LDL: less than 100 mg/dLNear Optimal/Above Optimal LDL: 110- 129 mg/dLBorderline High LDL: 130-159 mg/dLHigh LDL: 160-189 mg/dLVery High LDL: greater than or equal to 190 mg/dL HDL Cholesterol 32(L) >40 mg/dL [facility] Comment:Desirable HDL: great er than 40 mg/dL Note: This HDL assay may give artificially low results in patients with liver disease. Blood 04/25/2023 9:56 AM EST 04/25/2023 9:56 AM EST us Sharmin Ortiz MD LAB BLOOD ORDERABLES Final Resul t Performing Organization Address [facility] Co de Phone Number [facility] [address] [place] [phone] * HIV Ab/Ag (JAYNA MCCARTY) (06/16/2022 10:23 AM EST) HIV AB/AG Nonreactive Nonreactive [facility] Comment:HIV-1 p24 Ag and/or HIV-1/HIV-2 Ab not detected.A test result that is nonreactive does not exclude thepossibility of exposure to or infection with HIV-1 and/orHIV-2. Nonreactive results in this assay for individualswith prior exposure to HIV-1 and/or HIV-2 may be due toantigen and antibody levels that are below the limit ofdetection of this assay.The [employer] Advanced HIV Ag/Ab Combo assay result andsupplemental assay results should be interpreted inconjunction with the patient's clinical presentation,history and other laboratory results. If the results areinconsistent with clinical evidence, additional testing issuggested to confirm the result. 06/16/2022 10:2 3 AM EST 06/16/2022 10:23 AM EST [facility] External Provider LAB BLO OD ORDERABLES Final Result Performing Organization Address [facility] de Phone Number [facility] [address] [place] [phone] * Hepatitis Panel, General (06/16/2022 10:23 AM EST) Hepatitis A IgM Nonreactive Nonreactive [facility] Comment:IgM antibodies to ROBERTO V not detected; does not exclude earlyacute or recovered HAV infection. ~Hepatitis B Surface Antibody REACTIVE Nonreactive [facility] Comment:REACTIVE: > 11.99 mI U/mL Hepatitis B Core Antibody Nonreactive Nonreactive [facility] Hepatitis C Antibody Nonreactive Nonreactive [facility] Comment:Antibodies to HCV no t detected; does not exclude early acuteHCV infection. Hepatitis B Surface Ag Negative Negative [facility] 06/16/2022 10:2 3 AM EST 06/16/2022 10:23 AM EST [facility] External Provider LAB BLO OD ORDERABLES Final Result Performing Organization Address [facility] Co de Phone Number [facility] [address] [place] [phone] * HPV E6/E7 RFLX RENEE 16 18/45 (07/07/2020 1:59 PM EDT) HPV mRNA E6/E7 rflx Not Detected Not Detected [facility] Comment: Methodology: Game Design Instructor-Mediated Amplification This assay detects E6/E7 viral messenger RNA (mRNA) from 14 high-risk HPV types (16,18,31,33,35,39,45,51,52,56,58,59,66,68). The analytical performance characteristics of this assay have been determined by [employer]. The modifications have not been cleared or approved by the FDA. This assay has been validated pursuant to the CLIA regulations and is used for clinical purposes. For additional information, please refer to http://education.Measurabl/faq/XYF643w3 (This link if provided for information/ educational purposes only.) THIS TEST WAS PERFORMED AT: [facility] [address] [place] [address] [address] [place], [place] ??[phone] SAUL REECE MD 07/07/2020 1:59 PM EDT us Sam Michel MD HISTORICAL/NON ORDERABLE LABS Fi nal Result [facility] [address] * 3D UNI DIGITAL DX MAMMO [...] Most Recently Relevant to Health Maintenance Insurance C3 Care Teams Expense Clerk Relationship Specialty Start Date End Date Sharmin Ortiz MD [address] [place] [phone] PCP - General Family Medicine 04/10/18 Lamine Giles, DaisyD [address] [place] [phone] Pharmacist Internal Medicine 04/01/24
--- OUTSIDE RECORDS SUMMARY | 2024-07-12 10:29 | XMS_ITS | Encounter Summary ---
Author Organization [employer] Address [address] [place] [address] Care Team Providers Care Embedded Systems Software Developer Name Role Phone Sharmin Ortiz MD Primary Care Provider [phone] Lamine Giles PharmD Unavailable [phone] Encounter Details Date Type Department Care Team (Late st Contact Info) Description 01/17/2023 Abstract [facility] MEDICINE [address] [place] [address] Nicci Jimenez Social History Tobacco Use Types [...] Description 07/18/2024 11:30 AM EDT Medication Management [facility] [address] [place] [address] Lamine Giles, PharmD [address] [place] [address] documented as of this encounter Visit Diagnoses Not on filedocumented in this encounter Care Teams Embedded Systems Software Developer Relationship Specialty Start Date End Date Sharmin Ortiz MD [address] [place] [address] PCP - General Family Medicine 04/10/18 Lamine Giles, PharmD [address] [place] [address] [place] [address] Pharmacist Internal Medicine 04/01/24 documented as of this encounter
--- OUTSIDE RECORDS SUMMARY | 2024-07-12 10:29 | XMS_ITS | Encounter Summary ---
Author Organization [employer] Address [address] [facility] 7t [place] [address] Care Team Providers Care Manager Food Safety Name Role Phone Sharmin Ortiz MD Primary Care Provider [phone] Lamine Giles PharmD Unavailable [phone] Reason for Visit * Reason Comments Med Refill Encounter Details Date Type Department Care Team ([facility] st Contact Info) Description 03/14/2023 Refill [facility] [address] [place], [place] [phone] Sharmin Ortiz MD [address] [place], [place] [phone] Social History Tobacco Use Types Packs/Day Years [...] Description 07/18/2024 11:30 AM EDT Medication Management [facility] [address] [place] [address] Lamine Giles, PharmD [address] [place] [address] documented as of this encounter Visit Diagnoses Not on filedocumented in this encounter Care Teams Manager Food Safety Relationship Specialty Start Date End Date Sharmin Ortiz MD [address] [place] [address] PCP - General Family Medicine 04/10/18 Lamine Giles, PharmD [address] [place] [address] [phone] Pharmacist Internal Medicine 04/01/24 documented as of this encounter
--- OUTSIDE RECORDS SUMMARY | 2024-07-12 10:29 | XMS_ITS | Encounter Summary ---
Author Organization [employer] Address [address] [facility] 7t [place] [address] Care Team Providers Care It Infrastructure Consultant Name Role Phone Sharmin Ortiz MD Primary Care Provider [phone] Lamine Giles PharmD Unavailable [phone] Encounter Details Date Type Department Care Team (Late st Contact Info) Description 05/15/2024 Orders Only [facility]INE [address] [place], [place] [phone] Sharmin Ortiz MD [address] [place], [place] [phone] Social History Tobacco Use Types Packs/Day Years [...] Medication Management [facility] 230 [place] [address] Lamine Giles, PharmD [address] [place] [address] documented as of this encounter Visit Diagnoses Not on filedocumented in this encounter Care Teams It Infrastructure Consultant Relationship Specialty Start Date End Date Sharmin Ortiz MD [address] [place] [address] PCP - General Family Medicine 04/10/18 Lamine Giles, PharmD [address] [place] [address] Pharmacist Internal Medicine 04/01/24 documented as of this encounter
[2024-07-12 11:34] LABS: Basophils Percent Auto 0.4 % (0-2); Eosinophils Absolute Auto 0.2 X10*3/uL (0.0-0.4); Eosinophils Percent Auto 2.1 % (0-4); Hematocrit 37.9 % (37.0-47.0); Hemoglobin 13.2 g/dl (12.0-16.0); Imm Gran Abs Auto 0.02 X10*3/uL (0.00-0.03); Imm Gran Pct Auto 0.3 % (0.0-0.4); Lymphocytes Absolute Auto 2.3 X10*3/uL (1.2-4.9); Lymphocytes Percent Auto 31.6 % (20-40); Mean Corpuscular HGB Conc 34.8 g/dl (31.0-35.0); Mean Corpuscular Hemoglobin 31.4 pg (27.0-33.0); Mean Platelet Volume 9.7 fL (9.4-12.3); Monocytes Absolute Auto 0.6 X10*3/uL (0.1-1.2); Monocytes Percent Auto 8.3 % (2-11); Neutrophils Absolute Auto 4.1 x10*3/uL (2.0-8.3); Neutrophils Percent Auto 57.3 % (45-73); Platelet Count 279 X10*3/uL (160-400); Red Blood Count 4.21 X10*6/uL (4.20-5.50); White Blood Count 7.1 X10*3/uL (4.8-10.8)
[2024-07-12 12:24] LABS: Creatinine Urine 206.08 mg/dL; Microalbum/Creatinine Ratio Ur 22.8 ug/mg cr (<30)
[2024-07-12 12:45] LABS: Folate 8.2 ng/mL (> or = 4.0); Vitamin B12 325 pg/mL (200-900)
[2024-07-12 12:52] LABS: Alanine Aminotransferase 84 U/L (0-31); Albumin Level 4.2 g/dL (3.5-5.0); Alkaline Phosphatase 144 U/L (39-117); Anion Gap 11 (12-20); Aspartate Amino Transferase 59 U/L (5-31); Bilirubin Total 0.6 mg/dL (0.0-1.0); Blood Urea Nitrogen 18 mg/dL (9-16); Calcium 9.5 mg/dL (8.4-10.2); Carbon Dioxide 27 mmol/L (22-29); Chloride 106 mmol/L (96-108); Cholesterol 163 mg/dL (<200); Estimated Glomerular Filt Rate 53; Glucose Random 148 mg/dL (60-115); HDL Cholesterol 31 mg/dL (>40); LDL Cholesterol Calculated 93 mg/dL (<100); Potassium 3.5 mmol/L (3.3-5.1); Sodium 140 mmol/L (135-145); Total Protein 7.5 g/dL (6.5-8.0); Triglycerides 197 mg/dL (<150)
[2024-07-12 12:54] LABS: TSH reflex Free T4 4.88 uIU/mL (0.32-4.0); Vitamin D 25-OH Total 18.4 ng/mL (>30)
[2024-07-12 13:26] LABS: Free T4 (Free Thyroxine) 0.99 ng/dL (0.71-1.85)
[2024-07-12 13:56] LABS: Reflex LDLD? No
== END 2024-07-12 09:33 | disposition home or self-care (01) ==
LOC: HO.MAMMO 09:32
PROVIDERS: PCP Family Medicine; Visit Provider Family Medicine
DX: Z12.31 Encounter for screening mammogram for malignant neoplasm of breast (principal); K58.9 Irritable bowel syndrome, unspecified; E11.65 Type 2 diabetes mellitus with hyperglycemia; I10 Essential (primary) hypertension; E55.9 Vitamin D deficiency, unspecified
CPT/HCPCS: 36415; 77063; 77067; 80053; 80061; 82043; 82306; 82570; 82607; 82746; 84439; 84443; 85025

== ENCOUNTER → 2024-07-12 10:15 | Outpatient (BNV) | payer MEDICAID, SELFPAY | PROVIDERS: PCP Family Medicine; Visit Provider Internal Medicine | DX: Z12.31 Encounter for screening mammogram for malignant neoplasm of breast (principal) | CPT/HCPCS: 77063; 77067 ==

== ENCOUNTER 2024-07-30 11:00 | Outpatient (REF) | payer MEDICAID, SELFPAY ==
[2024-07-30 11:24] LABS: MANUAL DIFF FLAG NO
[2024-07-30 11:39] LABS: Basophils Percent Auto 0.5 % (0-2); Eosinophils Absolute Auto 0.1 X10*3/uL (0.0-0.4); Eosinophils Percent Auto 1.6 % (0-4); Hematocrit 38.1 % (37.0-47.0); Hemoglobin 13.4 g/dl (12.0-16.0); Imm Gran Abs Auto 0.03 X10*3/uL (0.00-0.03); Imm Gran Pct Auto 0.5 % (0.0-0.4); Lymphocytes Absolute Auto 1.9 X10*3/uL (1.2-4.9); Lymphocytes Percent Auto 32.6 % (20-40); Mean Corpuscular HGB Conc 35.2 g/dl (31.0-35.0); Mean Corpuscular Hemoglobin 31.5 pg (27.0-33.0); Mean Corpuscular Volume 89.4 fL (80.0-98.0); Mean Platelet Volume 9.2 fL (9.4-12.3); Monocytes Absolute Auto 0.4 X10*3/uL (0.1-1.2); Monocytes Percent Auto 7.4 % (2-11); Neutrophils Absolute Auto 3.3 x10*3/uL (2.0-8.3); Neutrophils Percent Auto 57.4 % (45-73); Platelet Count 239 X10*3/uL (160-400); Red Blood Count 4.26 X10*6/uL (4.20-5.50); Red Cell Distribution Width 11.9 % (11.0-16.0); White Blood Count 5.8 X10*3/uL (4.8-10.8)
[2024-07-30 12:27] LABS: Anion Gap 13 (12-20); Blood Urea Nitrogen 21 mg/dL (9-16); Calcium 9.8 mg/dL (8.4-10.2); Carbon Dioxide 25 mmol/L (22-29); Chloride 104 mmol/L (96-108); Estimated Glomerular Filt Rate 50; Potassium 3.1 mmol/L (3.3-5.1); Sodium 139 mmol/L (135-145)
[2024-07-30 12:51] LABS: HBc Num1 0.13 S/CO (0.00-0.79); HBsAGNum1 0.32 S/CO (0.00-0.99); Hepatitis B Core Antibody Nonreactive (Nonreactive); Hepatitis B Surface Antigen Negative (Negative)
--- OUTSIDE RECORDS SUMMARY | 2024-07-30 13:10 | XMS_ITS | Encounter Summary ---
Author Organization [employer] Address [address] [facility] 7t [place] [address] Care Team Providers Care Thread Cutter Name Role Phone Sharmin Ortiz MD Primary Care Provider [phone] Lamine Giles PharmD Unavailable [phone] Reason for Visit * Reason Onset Date Comments Referral 03/28/2023 Encounter Details Date Type Department Care Team ([facility] st Contact Info) Description 03/28/2023 Telephone [facility] [address] [place], [place] [phone] Sharmin Ortiz MD [address] [place] [address] Referral Social History Tobacco Use Types Packs/Day [...] t he electric, gas, oil or water [employer] threatened to shut off services in your [...] encounter Miscellaneous Notes * Telephone Encounter - Amla Chamorrocitlaly Gannonro - 03/28/2023 10:30 AM EST Tc from [facility] with [facility] Pain Management requesting an updated referral for Pain management for pt due to current one being at least two years old Please fax over @ [phone] Please if any questions contact Stella @ [phone] documented in this encounter Plan of Treatment Upcoming Encounters Date Type Department Care Team (Late st Contact Info) Description 08/22/2024 11:00 AM EDT Medication Management [facility] MEDICINE [address] [place] [phone] Lamine Giles, Dameon [address] [place] [address] 08/26/2024 11:00 AM EDT Office Visit [facility] [address] [place] [address] Sharmin Ortiz MD [address] [place] [address] documented as of this encounter Visit Diagnoses Not on filedocumented in this encounter Care Teams Thread Cutter Relationship Specialty Start Date End Date Sharmin Ortiz MD [address] [place] [address] PCP - General Family Medicine 04/10/18 Lamine Giles, PharmD [address] [place] [address] Pharmacist Internal Medicine 04/01/24 documented as of this encounter
--- OUTSIDE RECORDS SUMMARY | 2024-07-30 13:10 | XMS_ITS | Encounter Summary ---
Author Organization [employer] Address [address] [facility] 7t [place] [address] Care Team Providers Care Assistant Clinical Director Name Role Phone Sharmin Ortiz MD Primary Care Provider [phone] Lamine Giles PharmD Unavailable [phone] Reason for Visit * Reason Comments Med Refill Encounter Details Date Type Department Care Team ([facility] st Contact Info) Description 03/14/2023 Refill [facility]INE [address] [place], [place] [phone] Sharmin Ortiz MD [address] [place], [place] [phone] Social History Tobacco Use Types Packs/Day Years [...] Description 08/22/2024 11:00 AM EDT Medication Management [facility] MED[facility]INE [address] [place] [address] Lamine Giles, Dameon [address] [place] [address] 08/26/2024 11:00 AM EDT Office Visit [facility] MED[facility]INE [address] [place] [address] Sharmin Ortiz MD [address] [place] [address] documented as of this encounter Visit Diagnoses Not on filedocumented in this encounter Care Teams Assistant Clinical Director Relationship Specialty Start Date End Date Sharmin Ortiz MD [address] [place] [address] PCP - General Family Medicine 04/10/18 Lamine Giles, PharmD [address] [place] [address] Pharmacist Internal Medicine 04/01/24 documented as of this encounter
--- OUTSIDE RECORDS SUMMARY | 2024-07-30 13:10 | XMS_ITS | Encounter Summary ---
Author Organization [employer] Address [address] [facility] 7t [place] [address] Care Team Providers Care Collar Band Creaser Name Role Phone Sharmin Ortiz MD Primary Care Provider [phone] Lamine Giles PharmD Unavailable [phone] Encounter Details Date Type Department Care Team (Late st Contact Info) Description 01/17/2023 Abstract [facility] MEDICINE [address] [place] [address] Nicci Jimenez Social History Tobacco Use Types [...] Description 08/22/2024 11:00 AM EDT Medication Management [facility] MEDICINE [address] [place] [address] Lamine Giles, PharmD [address] [place] [address] 08/26/2024 11:00 AM EDT Office Visit [facility] MEDICINE [address] [place] [address] [phone] Sharmin Ortiz MD [address] [place] [address] documented as of this encounter Visit Diagnoses Not on filedocumented in this encounter Care Teams Collar Band Creaser Relationship Specialty Start Date End Date Sharmin Ortiz MD [address] [place] [address] [phone] PCP - General Family Medicine 04/10/18 Lamine Giles, DaisyD [address] [place] [address] Pharmacist Internal Medicine 04/01/24 documented as of this encounter
--- OUTSIDE RECORDS SUMMARY | 2024-07-30 13:10 | XMS_ITS | Encounter Summary ---
Author Organization [employer] Address [address] [facility] 7t [place] [address] Care Team Providers Care Hydrate Thickener Operator Name Role Phone Sharmin Ortiz MD Primary Care Provider [phone] Lamine Giles PharmD Unavailable [phone] Encounter Details Date Type Department Care Team (Late st Contact Info) Description 03/28/2023 Orders Only [facility] MEDICINE [address] [place], [place] [phone] Sharmin Ortiz MD [address] [place], [place] [phone] Chronic pain of left knee (Primary Dx); [...] Description 08/22/2024 11:00 AM EDT Medication Management [facility] MED[facility]INE [address] [place] [address] Lamine Giles, Dameon [address] [place] [address] 08/26/2024 11:00 AM EDT Office Visit [facility] [address] [place] [address] Sharmin Ortiz MD [address] [place] [address] documented as of this encounter Visit Diagnoses Diagnosis Chronic pain of left knee- Primary Right hip pain Pain in joint, pelvic region and thigh Chronic low back pain, unspecified back pain laterality, unspecified whether sciatica present documented in this encounter Care Teams Hydrate Thickener Operator Relationship Specialty Start Date End Date Sharmin Ortiz MD [address] [place] [address] PCP - General Family Medicine 04/10/18 Lamine Giles, PharmD [address] [place] [address] [phone] Pharmacist Internal Medicine 04/01/24 documented as of this encounter
--- OUTSIDE RECORDS SUMMARY | 2024-07-30 13:11 | XMS_ITS | Encounter Summary ---
Author Organization [employer] Address [address] [facility] 7t [place] [address] Care Team Providers Care Juvenile Court Judge Name Role Phone Sharmin Ortiz MD Primary Care Provider [phone] Lamine Giles PharmD Unavailable Encounter Details Date Type Department Care Team (Late st Contact Info) Description 02/09/2024 Orders Only [facility] MEDICINE [address] [place], [place] [phone] Sharmin Ortiz MD [address] [place], [place] [phone] Social History Tobacco Use Types Packs/Day Years [...] Description 08/22/2024 11:00 AM EDT Medication Management [facility] MEDICINE [address] [place] [address] Lamine Giles, Dameon [address] [place] [address] 08/26/2024 11:00 AM EDT Office Visit [address] [phone] Sharmin Ortiz MD [address] [place] [address] documented as of this encounter Visit Diagnoses Not on filedocumented in this encounter Care Teams Juvenile Court Judge Relationship Specialty Start Date End Date Sharmin Ortiz MD [address] [place] [address] PCP - General Family Medicine 04/10/18 Lamine Giles, PharmD [address] [place] [address] Pharmacist Internal Medicine 04/01/24 documented as of this encounter
--- OUTSIDE RECORDS SUMMARY | 2024-07-30 13:11 | XMS_ITS | Clinical Summary ---
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 02/06/20 19 Active Elastic Bandages & Supports (Wrist Splint) misc Active chlorthalidone (Hygroton) 25 MG tabletIndicatio ns:Primary hypertension TAKE 1 TABLET BY MOUTH EVERY DAY 90 tablet 3 06/20/19 24 Active empagliflozin (Jardiance) 25 MG Take [...] EVERY DAY AFTER MEAL 03/29/20 24 Active metFORMIN XR (Glucophage-XR) 500 MG 24 hr tabletIndicatio ns:Type 2 diabetes mellitus with hyperglycemia, without long-term current use of insulin ([facility]) Take 2 tablets (1,000 mg) by mouth [...] SPASMS 30 tablet 2 06/21/19 25 Active cholecalciferol (Vitamin D-3) 25 MCG (1000 UT) tablet Take 1 tablet (25 mcg) by mouth Once per day. 90 tablet 3 07/15/19 25 Active semaglutide (Ozempic, 1 MG/DOSE,) 2 MG/1.5ML solution pen-injectorInd ications:Type 2 diabetes mellitus with hyperglycemia, without long-term current use of insulin ([facility]) Inject 1 mg under the skin 1 (one) time per week. 2 each 07/19/19 25 Active Diclofenac Sodium 1 % gel APPLY 2 GRAMS TOPICALLY TO AFFECTED AREA(S) FOUR TIMES DAILY DIRECTED 06/15/19 25 Active pravastatin (Pravachol) 20 MG tabletIndicatio ns:Type 2 diabetes mellitus with hyperglycemia, without long-term current use of insulin (CMS/HCC) Take 1 tablet (20 mg) by mouth at bedtime. 90 tablet 07/19/19 25 Active metoprolol tartrate (Lopressor) 100 MG tablet TAKE 1 AND 1/2 TABLETS BY MOUTH TWICE DAILY IN THE MORNING AND IN THE EVENING WITH BREAKFAST and WITH DINNER 180 tablet 07/23/19 25 Active lidocaine (Lidoderm) 5 % patch Place 1 patch on the skin at bed time. 04/22/19 21 025 Discontinued(Nh d list cleanup (will not trigger notification to Pharmacy)) pravastatin (Pravachol) 20 MG tablet Take 1 tablet (20 mg) by mouth at bedtime. 90 tablet 3 02/29/20 23 025 Discontinued(Re order (will not trigger notification to Pharmacy)) metoprolol tartrate (Lopressor) 100 MG tablet Take 1.5 tablets (150 mg) by mouth with breakfast and with evening meal. 180 tablet 3 07/04/19 24 025 Discontinued Semaglutide,0.2 5 or 0.5MG/DOS, (Ozempic, 0.25 or 0.5 MG/DOSE,) 2 MG/3ML solution pen-injectorInd ications:Type 2 diabetes mellitus with hyperglycemia, without long-term current use of insulin ([facility]) Inject 0.5 mg under the skin 1 (one) time per week. 3 mL 5 05/21/19 25 025 Discontinued(Do se adjustment) Active Problems Problem Noted Date Diagnosed Date [...] 3% at 5 years, will refer to [employer]. Fibromyalgia 08/03/2023 Assessment & Plan (06/11/2024 6:54 AM EST): - continue tylenol prn, continue muscle relaxants prn, advised to avoid NSAIDs Assessment & Plan (08/03/2023 1:10 PM EDT): - continue tylenol prn, continue muscle relaxants prn, advised to avoid NSAIDs IBS (irritable bowel syndrome) 11/29/2022 Assessment & Plan (06/11/2024 6:58 AM EST): - following with [facility]. -Low FODMAP diet - Ordered CBC auto differential 06/10/24 Assessment & Plan (03/12/2023 5:50 AM EST): - following with [facility]. -Low FODMAP diet Assessment & Plan (12/18/2022 11:33 AM EDT): - following with [facility]. -Low FODMAP diet History of right salpingo-oophorectomy Family history of hypercoagulable state 03/22/20 Family history of lupus erythematosus 03/22/2022 Hepatitis B immune 03/22/2022 Chronic low back pain 02/09/2018 Assessment & Plan (08/03/2023 1:13 PM EDT): - continue current medications for fibromyalgia - pt declines PT referral - patient was seen by rug touch up painter and currently scheduled for SI joint injection treatment Assessment & Plan (03/12/2023 5:56 AM EST): - continue current medications for fibromyalgia - pt declines PT referral - pt requests rug touch up painter referral Assessment & Plan (12/18/2022 11:37 [...] 2 diabetes mellitus 08/16/2016 Assessment & Plan (07/27/2024 10:56 PM EDT): A1C 8.0% on 05/20/24, trending up - Co-managed with our pharmacist - Continue working on lifestyle modifications. -Improve adherence to medications and SMBG. - Continue metformin ER 1000 mg daily (decreased from 1000 mg bid due to CKD3). - Currently on semaglutide, titrate up as tolerated - Continue empagliflozin 25 mg daily Last eye exam: 10/25/21 No diabetic retinopathy Last foot exam: 06/10/24 Last microalbumin test: Apr 2023; Hx microalbuminuria; on ARB and SGLT2i Last lipid profile: 04/2023 Last dental exam: [...] 12:16 PM EDT): - last seen by [facility] in Apr 2022 - last US in Mar 2022. Hepatomegaly with hepatic steatosis. No focal lesion. - FIB-4 = 1.56 in FIB4 index - avoid hepatotoxic drugs. Assessment & Plan (08/04/2023 9:48 AM EDT): - last seen by [facility] in Apr 2022 - last US in Mar 2022. Hepatomegaly with hepatic steatosis. No focal lesion. - FIB-4 = 0.78 in 2021 - avoid hepatotoxic drugs. - will update ultrasound Assessment & Plan (03/12/2023 5:50 AM EST): - followed by [facility] - avoid hepatotoxic drugs. Assessment & Plan (12/18/2022 11:34 AM EDT): - followed by [facility] - avoid hepatotoxic drugs. Allergic rhinitis 09/16/2014 [...] (08/03/2023 1:09 PM EDT): - seen by [facility] orthopedic provider in July 2023 - most recent NCT/EMG on 02/16/23 showed b/l mild median nerve neuropathy, consistent with CTS - s/p light carpal tunnel release on 05/16/23 - judicious use of NSAIDs prn and gabapentin - use brace Assessment & Plan (03/12/2023 5:48 AM EST): - seen by [facility] orthopedic provider in Feb 2023, upcoming appt [...] Encounters Date Type Department Care Team Description 07/30/2024 Orders Only GENERIC EXTERNAL DATA DEPARTMENT Provider, Generic External Data 07/20/2024 Refill [facility] [place] [address] Sharmin Ortiz MD 07/18/2024 Travel 07/15/2024 Telephone [facility] [place] [address] Sharmin Ortiz MD 07/14/2024 Orders Only [facility] MEDICINE [address] [facility] [place] [address] Sharmin Ortiz MD 07/12/2024 Orders Only [facility] [place] [address] Sharmin Ortiz MD 07/03/2024 Population Health Risk Score [facility] Department [address] [phone] Provider, Population Health Generic 06/17/2024 Refill [facility] WALK-IN CENTER [facility] [place] [address] Sharmin Ortiz MD 06/10/2024 2:30 PM EST Office Visit [facility] [place] [address] Sharmin Ortiz MD Primary hypertension (Primary Dx); Obstructive sleep apnea syndrome; Metabolic dysfunction-associa rocael steatotic liver disease (MASLD); Irritable bowel syndrome, unspecified type; Fibromyalgia; Vitamin D deficiency; Type 2 diabetes mellitus with hyperglycemia, without long-term current use of insulin (CMS/HCC); Encounter for immunization; Pelvic pain; Stage 3b chronic kidney disease (CMS/HCC); Dietary counseling; Exercise counseling; Class 2 severe obesity due to excess calories with serious comorbidity and body mass index (BMI) of 37.0 to 37.9 in adult ([facility]) 06/10/2024 Travel 06/05/2024 Telephone [facility] MEDICINE [address] [facility] [place] [address] Adela Butcher MA chart prep 05/23/2024 Orders Only [facility] External Provider, [facility] 05/20/2024 Travel 05/15/2024 Orders Only [facility] MEDICINE [address] [facility], [place] [phone] Sharmin Ortiz MD 05/15/2024 Telephone [facility] [address] [place], [place] [phone] Lamine Giles, PharmD 05/15/2024 Telephone [facility] [address] [facility], [place] [phone] Shauna Christian RN 05/14/2024 Orders Only [facility] [address] [place], [place] [phone] Sharmin Ortiz MD from Last 3 Months Immunizations Name Administration [...] Sign Reading Time Taken Comments Blood Pressure 132/76 07/18/2024 11:45 AM EDT Pulse 98 07/18/2024 11:45 AM EDT Temperature 36.1 ??C (96.9 ??F) 06/10/2024 1:43 PM ES T Respiratory Rate 21 06/10/2024 1:43 PM EST Oxygen Saturation 99% 06/10/2024 1:43 PM EST Inhaled Oxygen Concentration - - Weight 89.6 kg (197 lb 9.6 oz) 07/18/2024 11:49 AM EDT Height 155.6 cm (5' 1.27 ) 06/10/2024 1:43 PM ES T Body Mass Index 37.01 06/10/2024 1:43 PM EST Plan of Treatment Upcoming Encounters Date Type Department Care Team (Late st Contact Info) Description 08/22/2024 11:00 AM EDT Medication Management [facility] MEDICINE [address] [place] [address] Lamine Giles, PharmD [address] [place], [place] [phone] 08/26/2024 11:00 AM EDT Office Visit [facility] MEDICINE [address] [place], [place] [phone] Sharmin Ortiz MD [address] [place], [place] [phone] Health Maintenance Due Date Last Done Comments CT Colonography 1974 Colonoscopy 1974 Colorectal Cancer Screening 1974 FIT DNA/Cologuard 1974 FIT 1974 FOBT 1974 Sigmoidoscopy 1974 Eye Exam 1984 Family Planning (PISQ) 1989 Pap Smear 10/01/1995 COVID-19 Vaccine ( season) 2023 01/28/2021, 07/06/2020, 06/08/2020, Additional history exists Influenza Vaccine (#1) 2023 04/14/2011 SDOH Screening 02/29/2024 02/28/2023 Diabetes: Hemoglobin A1C 08/17/2024 025, 02/02/2024, 04/25/2023, Additional history exists Zoster Vaccines (1 of 2) 2024 Hepatitis A Vaccines (2 of 2 - Risk 2-dose series) 12/11/2024 06/10/2024 Alcohol/Substance Use Screening 06/10/2025 06/10/2024 Depression Screening 06/10/2025 06/10/2024, 06/11/19 Diabetes: Foot Exam 06/10/2025 06/10/2024, 11/29/2022, 11/29/2022, Additional history exists Tobacco Screening 06/16/2025 06/16/2024 Cervical Cancer Screening 07/07/2025 HPV/Cotest 07/07/2025 07/07/2020, 07/07/2020 Lipid Panel 07/12/2025 07/12/2024, 04/10, 01/13/2022, Additional history exists Mammogram 07/12/2025 07/12/2024, 11/2018, 07/16/2018, Additional history exists DTaP/Tdap/Td Vaccines (3 - Td or Tdap) [...] Procedure Name Priority Date/Time Associated Diagnosis Comments CALCIUM Routine 07/30/2024 11:22 AM EDT CREATININE, SERUM Routine 07/30/2024 11: 22 AM EDT UREA NITROGEN (BUN) Routine 07/30/2024 1 1:22 AM EDT ELECTROLYTE PANEL Routine 07/30/2024 11: 22 AM EDT CBC WITH AUTO DIFFERENTIAL Routine 07/30/2024 11:22 AM EDT T4, FREE Routine 07/12/2024 10:20 AM EDT VITAMIN D,25-OH,TOTAL,IA Routine 07/12/2024 10:20 AM EDT Vitamin D deficiency CBC WITH AUTO DIFFERENTIAL Routine 07/12/2024 10:20 AM EDT Irritable bowel syndrome, unspecified type TSH W/REFLEX TO FT4 Routine 07/12/2024 1 0:20 AM EDT Primary hypertension COMPREHENSIVE METABOLIC PANEL Routine 07/12/2024 10:20 AM EDT Type 2 diabetes mellitus with hyperglycemia, without long-term current use of insulin (CMS/HCC) LIPID PANEL WITH REFLEX TO DIRECT LDL Routine 07/12/2024 10:20 AM EDT Type 2 diabetes mellitus with hyperglycemia, without long-term current use of insulin (CMS/HCC) VITAMIN B12/FOLATE, SERUM PANEL Routine 07/12/2024 10:20 AM EDT Type 2 diabetes mellitus with hyperglycemia, without long-term current use of insulin (CMS/HCC) ALBUMIN, RANDOM URINE W/CREATININE Routine 07/12/2024 10:19 AM EDT Type 2 diabetes mellitus with hyperglycemia, without long-term current use of insulin (CMS/HCC) BI MAMMOGRAM SCREENING TOMOSYNTHESIS BILATERAL Routine 07/12/2024 9:45 AM EDT Breast cancer screening by mammogram XR CERVICAL SPINE 4V Routine 05/24/2024 5:41 AM EST XR SHOULDER 2+ VIEWS LEFT Routine 05/24/2024 5:41 AM EST POCT GLYCATED HEMOGLOBIN, TOTAL Routine 05/20/2024 11:55 AM EST Type 2 diabetes mellitus with hyperglycemia, without long-term current use of insulin (CMS/HCC) BASIC METABOLIC PANEL Routine 05/14/2024 11:04 AM EST HEPATITIS PANEL, GENERAL Routine 06/16/2022 10:23 AM EST HIV ANTIBODY/ANTIGEN ([place] DPH) Routine 06/16/2022 10:23 AM EST ZZZ HISTORICAL HPV E6/E7 RFLX RENEE 16 18/45 Routine 07/07/2020 1:59 PM EDT from Last 3 Months or Most Recently Relevant to Health Maintenance Results * Creatinine, Serum (07/30/2024 11:22 AM EDT) Creatinine, Serum 1.16 0.5 - 1.4 mg/dL [facility] Estimated Glomerular Filt Rate 50 [facility] Comment:Chronic Kidney Disea se: Estimated GFR < 60 mL/min/1.51v0Xidyxg Kidney Disease: Estimated GFR < 15 mL/min/1.73m2 07/30/2024 11:2 2 AM EDT 07/30/2024 11:22 AM EDT us Generic External Data Provider LAB BLOOD ORDERAB LES Final Result [facility] [address] [place] [phone] * (ABNORMAL) CBC auto differential (07/30/2024 11:22 AM EDT) Only the most recent of2 resultswithin the time period is included. White Blood Count 5.8 4.8 - 10.8 X10*3/uL [facility] Red Blood Count 4.26 4.20 - 5.50 X10*6/uL [facility] Hemoglobin 13.4 12.0 - 16.0 g/dl [facility] Hematocrit 38.1 37.0 - 47.0 % [facility] Mean Corpuscular Volume 89.4 80.0 - 98.0 fL [facility] Mean Corpuscular Hemoglobin 31.5 27.0 - 33.0 pg [facility] Mean Corpuscular HGB Conc 35.2(H) 31.0 - 35.0 g/dl [facility] Red Cell Distribution Width 11.9 11.0 - 16.0 % [facility] Platelet Count 239 160 - 400 X10*3/uL [facility] Mean Platelet Volume 9.2(L) 9.4 - 12.3 fL [facility] Neutrophils Percent Auto 57.4 45 - 73 % [facility] Imm Gran Pct Auto 0.5(H) 0.0 - 0.4 % [facility] Lymphocytes Percent Auto 32.6 20 - 40 % [facility] Monocytes Percent Auto 7.4 2 - 11 % [facility] Eosinophils Percent Auto 1.6 0 - 4 % [facility] Basophils Percent Auto 0.5 0 - 2 % [facility] NRBC Pct Auto 0.0 0.0 - 0.2 /100WBC [facility] Neutrophils Absolute Auto 3.3 2.0 - 8.3 x10*3/uL [facility] Imm Gran Abs Auto 0.03 0.00 - 0.03 X10*3/uL [facility] Lymphocytes Absolute Auto 1.9 1.2 - 4.9 X10*3/uL [facility] Monocytes Absolute Auto 0.4 0.1 - 1.2 X10*3/uL [facility] Eosinophils Absolute Auto 0.1 0.0 - 0.4 X10*3/uL [facility] Basophils Absolute Auto 0.0 0.0 - 0.2 X10*3/uL [facility] NRBC Abs Auto 0.000 0.0 - 0.012 X10*3/uL [facility] 07/30/2024 11:2 2 AM EDT 07/30/2024 11:22 AM EDT us Generic External Data Provider LAB BLOOD ORDERAB LES Final Result [facility] [address] [place] [phone] * (ABNORMAL) BUN (Blood Urea Nitrogen) (07/30/2024 11:22 AM EDT) Urea Nitrogen (BUN) 21(H) 9 - 16 mg/dL [facility] 07/30/2024 11:2 2 AM EDT 07/30/2024 11:22 AM EDT Generic External Data Provider LAB BLOOD ORDERAB LES Final Result Performing Organization Address [facility]/ZIP Co de Phone Number [facility] [address] [place] [phone] * Calcium (07/30/2024 11:22 AM EDT) [facility] Calcium 9.8 8.4 - 10.2 mg/dL [facility] 07/30/2024 11:2 2 AM EDT 07/30/2024 11:22 AM EDT Generic External Data Provider LAB BLOOD ORDERAB LES Final Result Performing Organization Address [facility] Co de Phone Number [facility] [address] [place] [phone] * (ABNORMAL) Electrolyte Panel (07/30/2024 11:22 AM EDT) [facility] Sodium 139 135 - 145 mmol/L [facility] Potassium 3.1(L) 3.3 - 5.1 mmol/L [facility] Chloride 104 96 - 108 mmol/L [facility] Carbon Dioxide 25 22 - 29 mmol/L [facility] Anion Gap 13 12 - 20 [facility] 07/30/2024 11:2 2 AM EDT 07/30/2024 11:22 AM EDT Generic External Data Provider LAB BLOOD ORDERAB LES Final Result Performing Organization Address [facility] Co de Phone Number [facility] [address] [place] [address] [phone] * (ABNORMAL) Vitamin D, 25-Hydroxy, Total, Immunoassay (07/12/2024 10:20 AM EDT) Vitamin D 25-OH Total 18.4(L) >30 ng/mL [facility] Comment: Health Based Reference Values*< 20 ??ng/mL ??Zophyodma65-78 ng/mL ??Insufficient> 30 ??ng/mL ??Sufficient*Kortney KINNEY. N Engl J Med. 2007;357:266-280There is no well-established upper level of normal vitamin Dlevels. Some laboratories use 50 ng/mL as an upper limit ofnormal. However, toxicity is patient-dependent and may occurat any level. Careful correlation with the patient'spresentation is necessary and, if there is concern forvitamin D toxicity, treatment should be consideredirrespective of the serum level.Care must be taken in interpreting Vitamin D results fromdifferent laboratories and methodologies. ??Published datademonstrated that results from patients undergoinghemodialysis may show a negative bias when tested withvarious automated 25-OH vitamin D assays when compared toLC- MS/MS.When testing samples from patients whose predominant form ofVitamin D is Vitamin D2, such as patients receiving VitaminD2 supplementation, results that are subtherapeutic shouldbe confirmed with another method such as LC-MS/MS. Blood Venous blood specimen / Unknown 07/12/2024 10:20 AM EDT 07/12/2024 10:20 AM EDT us Sharmin Ortiz MD LAB BLOOD ORDERABLES Final Resul t [facility] [address] [place] [phone] * Vitamin B12 (Cobalamin) and Folate Panel, Serum (07/12/2024 10:20 AM EDT) Vitamin B12 325 200 - 900 pg/mL [facility] Comment:NORMAL 200-900 PG/ML INDETERMINATE 160-199 PG/ML DEFICIENT < 160 PG/ML Folate 8.2 > or = 4.0 ng/mL [facility] Comment:Reference Values:> o r = 4.0 ng/mL< 4.0 ng/mL suggests folate deficiency Methotrexate, aminopterin and folinic acid(leucovorin) are chemotherapeutic agents whose molecularstructures are similar to folate; therefore, the Architectfolate assay cannot be used for patients using these drugs. Blood 07/12/2024 10:2 0 AM EDT 07/12/2024 10:20 AM EDT Sharmin Ortiz MD LAB BLOOD ORDERABLES Final Resul t Performing Organization Address [facility] Co de Phone Number [facility] [address] [place] [address] [phone] * (ABNORMAL) TSH with Reflex to Free T4 (07/12/2024 10:20 AM EDT) TSH reflex Free T4 4.88(H) 0.32 - 4.0 uIU/mL [facility] Blood 07/12/2024 10:2 0 AM EDT 07/12/2024 10:20 AM EDT Sharmin Ortiz MD LAB BLOOD ORDERABLES Final Resul t Performing Organization Address [facility] Co de Phone Number [facility] [address] [place] [phone] * (ABNORMAL) Lipid Panel with Reflex to Direct LDL (07/12/2024 10:20 AM EDT) Triglycerides 197(H) <150 mg/dL [facility] Comment:Desirable Triglyceri de: less than 150 mg/dLBorderline High Triglyceride 150-199 mg/dLHigh Triglyceride: 200-499 mg/dLVery High Triglyceride: greater than or equal to 5OO mg/dL Cholesterol 163 <200 mg/dL [facility] Comment:Desirable Cholestero l: less than 200 mg/dLBorderline High Cholesterol: 200-239 mg/dLHigh Cholesterol: greater than 239 mg/dL LDL Cholesterol Calculated 93 <100 mg/dL [facility] Comment:Desirable LDL: less than 100 mg/dLNear Optimal/Above Optimal LDL: 110- 129 mg/dLBorderline High LDL: 130-159 mg/dLHigh LDL: 160-189 mg/dLVery High LDL: greater than or equal to 190 mg/dL HDL Cholesterol 31(L) >40 mg/dL [facility] Comment:Desirable HDL: great er than 40 mg/dL Note: This HDL assay may give artificially low results in patients with liver disease. Blood 07/12/2024 10:2 0 AM EDT 07/12/2024 10:20 AM EDT Sharmin Ortiz MD LAB BLOOD ORDERABLES Final Resul t Performing Organization Address [facility] de Phone Number [facility] [address] [place] [address] [phone] * T4, Free (07/12/2024 10:20 AM EDT) Free T4 (Free Thyroxine) 0.99 0.71 - 1.85 ng/dL [facility] 07/12/2024 10:2 0 AM EDT 07/12/2024 10:20 AM EDT Sharmin Ortiz MD LAB BLOOD ORDERABLES Final Resul t Performing Organization Address [facility] de Phone Number [facility] [address] [place] [address] [phone] * (ABNORMAL) Comprehensive Metabolic Panel (07/12/2024 10:20 AM EDT) Sodium 140 135 - 145 mmol/L [facility] Potassium 3.5 3.3 - 5.1 mmol/L [facility] Chloride 106 96 - 108 mmol/L [facility] Carbon Dioxide 27 22 - 29 mmol/L [facility] Anion Gap 11(L) 12 - 20 [facility] Urea Nitrogen (BUN) 18(H) 9 - 16 mg/dL [facility] Creatinine, Serum 1.09 0.5 - 1.4 mg/dL [facility] Estimated Glomerular Filt Rate 53 [facility] Comment:Chronic Kidney Disea se: Estimated GFR < 60 mL/min/1.04x2Lsawqh Kidney Disease: Estimated GFR < 15 mL/min/1.73m2 Glucose 148(H) 60 - 115 mg/dL [facility] Calcium 9.5 8.4 - 10.2 mg/dL [facility] Bilirubin, Total 0.6 0.0 - 1.0 mg/dL [facility] Aspartate Amino Transferase 59(H) 5 - 31 U/L [facility] Alanine Aminotransferase 84(H) 0 - 31 U/L [facility] Total Protein 7.5 6.5 - 8.0 g/dL [facility] Albumin Level 4.2 3.5 - 5.0 g/dL [facility] Alkaline Phosphatase 144(H) 39 - 117 U/L [facility] Blood Venous blood specimen / Unknown 07/12/2024 10:20 AM EDT 07/12/2024 10:20 AM EDT us Sharmin Ortiz MD LAB BLOOD ORDERABLES Final Resul t Performing Organization Address [facility] de Phone Number [facility] [address] [place] [address] [phone] * Albumin, Random Urine W/Creatinine (07/12/2024 10:19 AM EDT) Creatinine, Urine 206.08 mg/dL [facility] Microalbumin Urine 47.0 mg/L [facility] Microalbum Creatinine Ratio Ur 22.8 <30 ug/mg cr [facility] Comment:Albumin/Creatinine R atio Reference Ranges: Normal: < 30 ug/mg creatinine Microalbuminuria: 30 - 300 ug/mg creatinineClinical Albuminuria: > 300 ug/mg creatinine Urine 07/12/2024 10:1 9 AM EDT 07/12/2024 11:17 AM EDT us Sharmin Ortiz MD LAB URINE ORDERABLES Final Resul t Performing Organization Address City/[facility] Co de Phone Number [facility] [address] [place] [address] [phone] * BI Mammogram Screening Tomosynthesis Bilateral (07/12/2024 9:45 AM EDT) Anatomical Region Laterality Modality Breast Bilateral Mammography 07/12/2024 9:45 AM EDT Narrative 07/19/2024 12:59 PM EDT ? [facility] [place] ? [address] ?[place] [address] ?[phone] ? Mammography Report ? Signed ? Patient: Rizwan,Arleen ?MR#: [id number] ?? 01 ? : 1975 ?Acct:[id number] ? Age/Sex: 48 / F ?ADM Date: 07/12/ ? Loc: HO.MAMMO ? Attending Dr: Sharmin Ortiz MD ? Ordering Physician: Sharmin Ortiz MD ?Results: 1Negative ? Date of Service: 07/12/ ?Follow Up: 1 Year From Orig ?? inal Mammogram ? Procedure(s): MM tomosynthesis screening BI ?? Accession Number(s): [id number] ? cc: Sharmin Ortiz MD ? EXAMINATION: ?? MM SCREENING DIGITAL BREAST TOMOSYNTHESIS, BILATERAL ? CLINICAL INFORMATION: ? Screening. Asymptomatic. ? COMPARISON: ?? Mammography: Comparison is made with available priors ? TECHNIQUE: ?? Digital breast mammography with tomosynthesis is performed in both the ?? craniocaudal and mediolateral oblique views along with computer-aided ?? detection (CAD). ? FINDINGS: ?? There are scattered areas of fibroglandular density (ACR BI-RADS breast ?? composition Category b). ? There are no significant masses, abnormal calcifications, or other ?? abnormalities. ? MM/MM tomosynthesis screening BI ?? IMPRESSION: ?? No mammographic evidence of malignancy. ? ASSESSMENT: ? BI-RADS BI-RADS 1 - Negative ? RECOMMENDATION: ?? Routine annual mammography screening. ? 1 year F/U ? This examination should not preclude the clinical evaluation of a ?? suspicious palpable abnormality. ? This patient's information was entered into a reminder system with a ?? target due date for their next mammogram. ? Electronically signed by: ??Joie Kaba DO ??07/19/2024 12:56 PM EDT ? Dictated By: ?Joie Kaba DO ? Signed By: ?<Electronically signed by Joie Kaba, DO in OV> ? 07/19/24 1256 ? DD/ 0945 ? TD/TT: 07/12/24 1000 ? Welfare Specialist: ? Procedure Note Leidy, Tim - 07/19/2024 [place] [facility] [address] [place] [address] Mammography Report Signed Patient: Mireille Astorga#: [id number] 01 : 1975Acct:[id number] Age/Sex: 48 / FADM Date: 07/12/24 Loc: [facility] Attending Dr: Sharmin Ortiz MD Ordering Physician: Sharmin Ortizesults: 1Negative Date of Service: 07/12/24Follow Up: 1 Year From Orig inal Mammogram Procedure(s): MM tomosynthesis screening BI Accession Number(s): [id number] cc: Sharmin Ortiz MD EXAMINATION: MM SCREENING DIGITAL BREAST TOMOSYNTHESIS, BILATERAL CLINICAL INFORMATION: Screening. Asymptomatic. COMPARISON: Mammography: Comparison is made with available priors TECHNIQUE: Digital breast mammography with tomosynthesis is performed in both the craniocaudal and mediolateral oblique views along with computer-aided detection (CAD). FINDINGS: There are scattered areas of fibroglandular density (ACR BI-RADS breast composition Category b). There are no significant masses, abnormal calcifications, or other abnormalities. MM/MM tomosynthesis screening BI IMPRESSION: No mammographic evidence of malignancy. ASSESSMENT: BI-RADS BI-RADS 1 - Negative RECOMMENDATION: Routine annual mammography screening. 1 year F/U This examination should not preclude the clinical evaluation of a suspicious palpable abnormality. This patient's information was entered into a reminder system with a target due date for their next mammogram. Electronically signed by: Joie Kaba DO 07/19/2024 12:56 PM EDT Dictated By: Joie Kaba DO Signed By: <Electronically signed by Joie Kaba DO in OV> 07/19/24 1256 DD/ 0945 TD/TT: 07/12/24 1000 Welfare Specialist: us Sharmin Ortiz MD IMG BI PROCEDURES Final Result * XR CERVICAL SPINE 4V (05/24/2024 5:41 AM EST) Anatomical Region Laterality Modality Abdomen Radiographic Ronna ging 05/24/2024 5:41 AM EST Narrative 05/24/2024 5:42 AM EST ? [facility] ?[address] ?[place] [address] ?XRay Report ? Signed ? Patient: Rizwan,Arleen ?MR#: [id number] ?? 01 ? : 1975 ?Acct:[id number] ? Age/Sex: 48 / F ?ADM Date: 02/13/25 ? Loc: HO.XRAY ? Attending Dr: Lashae XIAO ? Ordering Physician: Lashae Reid ?? Date of Service: 05/23/24 ?? Procedure(s): XR cervical spine 4V ?? Accession Number(s): [id number] ? cc: Lashae Reid; Sharmin Ortiz MD [...] 05/24/24 0542 ? DD/ 05 ? TD/TT: 05/24/24 05 ? Welfare Specialist: ? Procedure Note Leidy, Image - 05/24/2024 [place] [address] XRay Report Signed Patient: Mireille Astorga#: [id number] 01 : 1975Acct:[id number] Age/Sex: 48 / FADM Date: 05/23/24 Loc: [facility] Attending Dr: Lashae XIAO Ordering Physician: Lashae Reid Date of Service: 05/23/24 Procedure(s): XR cervical spine 4V Accession Number(s): [id number] cc: Lashae Reid; Sharmin Ortiz MD CLINICAL [...] in OV> 05/24/24 0542 DD/ 0 TD/TT: 05/24/24 0541 Welfare Specialist: us [facility] External Provider IMG XR PROCEDURES Final Result * XR Shoulder 2+ Views Left (05/24/2024 5:41 AM EST) Anatomical Region Laterality Modality Upper Extremities, Shoulder Left Radi ographic Imaging 05/24/2024 5:41 AM EST Narrative 05/24/2024 5:42 AM EST ? [facility] ?[address] ?[place], [place] [address] ?XRay Report ? Signed ? Patient: Rizwan,Arleen ?MR#: [id number] ?? 01 ? : 1975 ?Acct:[id number] ? Age/Sex: 48 / F ?ADM Date: 05/23/24 ? Loc: HO.XRAY ? Attending Dr: Lashae XIAO ? Ordering Physician: Lashae Reid ?? Date of Service: 05/23/24 ?? Procedure(s): XR shoulder LT min 2V ?? Accession Number(s): [id number] ? cc: Lashae Reid; Sharmin Ortiz MD [...] DD/ 0541 ? TD/TT: 05/24/24 0541 ? Welfare Specialist: ? Procedure Note Tim Forbes - 05/24/[address] [address] XRay Report Signed Patient: Mireille Astorga#: [id number] 01 : 1975Acct:[id number] Age/Sex: 48 / FADM Date: 05/23/24 Loc: HO.XRAY Attending Dr: Lashae XIAO Ordering Physician: Lashae Reid Date of Service: 05/23/24 Procedure(s): XR shoulder LT min 2V Accession Number(s): [id number] cc: Lashae Reid; Sharmin Ortiz MD CLINICAL [...] 05/24/24 0542 DD/ 0541 TD/TT: 05/24/24 0541 Welfare Specialist: [facility] External Provider IMG XR PROCEDURES Final [...] EST) Sodium 141 135 - 145 mmol/L [facility] Potassium 3.8 3.3 - 5.1 mmol/L [facility] Chloride 104 96 - 108 mmol/L [facility] Carbon Dioxide 26 22 - 29 mmol/L [facility] Anion Gap 15 12 - 20 [facility] Urea Nitrogen (BUN) 26(H) 9 - 16 mg/dL [facility] Creatinine, Serum 1.37 0.5 - 1.4 mg/dL [facility] Estimated Glomerular Filt Rate 41 [facility] Comment:Chronic Kidney Disea se: Estimated GFR < 60 mL/min/1.19b8Mmkjwq Kidney Disease: Estimated GFR < 15 mL/min/1.73m2 Glucose 134(H) 60 - 115 mg/dL [facility] Calcium 10.1 8.4 - 10.2 mg/dL [facility] 05/14/2024 11:0 4 AM EST 05/14/2024 11:04 AM EST Sharmin Ortiz MD LAB BLOOD ORDERABLES Final Resul t Performing Organization Address [facility] Co de Phone Number [facility] [address] [place] [phone] * HIV Ab/Ag ([place] MCCARTY) (06/16/2022 10:23 AM EST) HIV AB/AG Nonreactive Nonreactive [facility] Comment:HIV-1 p24 Ag and/or HIV-1/HIV-2 Ab not detected.A test result that is nonreactive does not exclude thepossibility of exposure to or infection with HIV-1 and/orHIV-2. Nonreactive results in this assay for individualswith prior exposure to HIV-1 and/or HIV-2 may be due toantigen and antibody levels that are below the limit ofdetection of this assay.The [employer] Screen Maker HIV Ag/Ab Combo assay result andsupplemental assay results should be interpreted inconjunction with the patient's clinical presentation,history and other laboratory results. If the results areinconsistent with clinical evidence, additional testing issuggested to confirm the result. 06/16/2022 10:2 3 AM EST 06/16/2022 10:23 AM EST [facility] External Provider LAB BLO OD ORDERABLES Final Result Performing Organization Address [facility] Co de Phone Number [facility] [address] [place] [phone] * Hepatitis Panel, General (06/16/2022 10:23 AM EST) Pathologist [facility] Hepatitis A IgM Nonreactive Nonreactive [facility] Comment:IgM antibodies to ROBERTO V not detected; does not exclude earlyacute or recovered HAV infection. ~Hepatitis B Surface Antibody REACTIVE Nonreactive [facility] Comment:REACTIVE: > 11.99 mI U/mL Hepatitis B Core Antibody Nonreactive Nonreactive [facility] Hepatitis C Antibody Nonreactive Nonreactive [facility] Comment:Antibodies to HCV no t detected; does not exclude early acuteHCV infection. Hepatitis B Surface Ag Negative Negative [facility] 06/16/2022 10:2 3 AM EST 06/16/2022 10:23 AM EST [facility] External Provider LAB BLO OD ORDERABLES Final Result [facility] [address] [place] [phone] * HPV E6/E7 RFLX RENEE 16 18/45 (07/07/2020 1:59 PM EDT) Pathologist [facility] HPV mRNA E6/E7 rflx Not Detected Not Detected [facility] Comment: Methodology: Wind Turbine Machinist-Mediated Amplification This assay detects E6/E7 viral messenger RNA (mRNA) from 14 high-risk HPV types (16,18,31,33,35,39,45,51,52,56,58,59,66,68). The analytical performance characteristics of this assay have been determined by [facility]. The modifications have not been cleared or approved by the FDA. This assay has been validated pursuant to the CLIA regulations and is used for clinical purposes. 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
--- OUTSIDE RECORDS SUMMARY | 2024-07-30 13:11 | XMS_ITS | Encounter Summary ---
Author Organization [employer] Address [address] [facility] [address] [place] [address] Care Team Providers Care Cutter V Groove Name Role Phone Sharmin Ortiz MD Primary Care Provider [phone] Lamine Giles PharmD Unavailable [phone] Encounter Details Date Type Department Care Team (Late st Contact Info) Description 05/15/2024 Orders Only [facility] [address] [place], [place] [phone] Sharmin Ortiz MD [address] [place], [place] [phone] Social History Tobacco Use Types Packs/Day Years [...] Description 08/22/2024 11:00 AM EDT Medication Management [facility] [address] [place] [phone] Lamine Giles, Dameon [address] [place] [phone] 08/26/2024 11:00 AM EDT Office Visit [address] [phone] Sharmin Ortiz MD [address] [place] [phone] documented as of this encounter Visit Diagnoses Not on filedocumented in this encounter Care Teams Cutter V Groove Relationship Specialty Start Date End Date Sharmin Ortiz MD [address] [place] [phone] PCP - General Family Medicine 04/10/18 Lamine Giles, PharmD [address] [place] [phone] Pharmacist Internal Medicine 04/01/24 documented as of this encounter
--- OUTSIDE RECORDS SUMMARY | 2024-07-30 13:11 | XMS_ITS | Encounter Summary ---
Author Organization [employer] Address [address] [facility] [address] [place] [address] Care Team Providers Care Mold Operator Name Role Phone Sharmin Ortiz MD Primary Care Provider [phone] Lamine Giles PharmD Unavailable [phone] Reason for Referral * Consultation (Routine) - Closed Specialty Diagnoses / Procedures Referred By Bakari t Referred To Contact Nephrology Diagnoses Stage 3b chronic kidney disease (CMS/HCC) Sharmin Ortiz MD [address] [place] [address] Phone: tel: fax: [facility] [address], [address] [place] [address] Phone: tel: fax: Referral ID Status Reason Start Date Expiration Date V isits Requested Visits Authorized [id number] Closed Specialty Services Required 06/17/2024 06/17/2025 12 12 * Imaging (Routine) - Closed Specialty Diagnoses / Procedures Referred By Contac t Referred To Contact Radiology Diagnoses Metabolic dysfunction-associated steatotic liver disease (MASLD) Procedures US Abdomen Comp w elastography Sharmin Ortiz MD [address] [place] [address] Phone: tel: fax: [facility] [address] [place], [place] Phone: tel: fax: Referral ID Status Reason Start Date Expiration Date Visits Re quested Visits Authorized [id number] Closed 06/16/2024 06/16/2025 1 1 * Imaging (Routine) - Closed Specialty Diagnoses / Procedures Referred By Contac t Referred To Contact Radiology Diagnoses Pelvic pain Procedures US Pelvis Transvaginal Sharmin Ortiz MD [address] [place] [address] Phone: tel: fax: [address] Phone: tel: fax: Referral ID Status Reason Start Date Expiration Date Visits Re quested Visits Authorized [id number] Closed 06/16/2024 06/16/2025 1 1 * Imaging (Routine) - Closed Specialty Diagnoses / Procedures Referred By Contac t Referred To Contact Radiology Diagnoses Pelvic pain Procedures Us Pelvis complete Sharmin Ortiz MD [address] [place] [address] Phone: tel: fax: [address] Phone: tel: fax: Referral ID Status Reason Start Date Expiration Date Visits Re quested Visits Authorized [id number] Closed 06/16/2024 06/16/2025 1 1 * Consultation (Routine) - Authorized Specialty Diagnoses / Procedures Referred By Contac t Referred To Contact Optometry Diagnoses Type 2 diabetes mellitus with hyperglycemia, without long-term current use of insulin ([facility]) Sharmin Ortiz MD [address] [place] [address] Phone: tel: fax: [facility] [address] [place] [address] Phone: tel: fax: Referral ID Status Reason Start Date Expiration Date Visits Requested Visits Authorized [id number] Authorized Consult and Treat 06/16/2024 06/16/2025 1 1 Encounter Details Date Type Department Care Team (Late st Contact Info) Description 06/10/2024 2:30 PM EST Office Visit [facility] [address] [place] [address] Sharmin Ortiz MD [address] [place] [address] Primary hypertension (Primary Dx); Obstructive sleep apnea syndrome; Metabolic dysfunction-associate d steatotic liver disease (MASLD); Irritable bowel syndrome, unspecified type; Fibromyalgia; Vitamin D deficiency; Type 2 diabetes mellitus with hyperglycemia, without long-term current use of insulin ([facility]); Encounter for immunization; Pelvic pain; Stage 3b chronic kidney disease ([facility]/HCC); Dietary counseling; Exercise counseling; Class 2 severe obesity due to excess calories with serious comorbidity and body mass index (BMI) of 37.0 to 37.9 in adult ([facility]) Social History Tobacco Use Types Packs/Day Years Used Date Smoking Tobacco: Never Smokeless Tobacco: Never Depression Answer Date Recorded Patient Health Questionnaire-9 [...] AM EDT documented as of this encounter Last Filed Vital Signs Vital Sign Reading [...] Mass Index 37.53 06/10/2024 1:43 PM EST documented in this encounter Progress Notes * Sharmin Ortiz MD - 06/10/2024 2:30 PM EST Subjective Arleen Astorga is a 48 y.o. female who has diabetes mellitus type 2, hypertension, and back pain, and patient presents for follow up of chronic conditions. Background: Our last encounter was 08/03/2023. She was pleased with the outcome for right carpal tunnel release surgery in May 2023. She had completed OT, and was approved for a return to work on 07/27/23. Anticipating left CT release surgery. However, she reported pain all over her body. It is difficult to do her work. She had been unable to take dulaglutide (Trulicity) due to its shortage. She requested to change to tirzepatide. Seen in the walk-in clinic on 10/31/23 for back pain. Dx sciatica. Recommended heat therapy, naproxen, cyclobenzaprine, diclofenac gel, PT. Seen by pain management on 12/05/23. She reported worsening back pain since patient changed her job and became a [employer]. MRI was ordered. Last MRI in Mar 2023 prior to change in her job. MRI on 01/01/24 Moderate left paracentral L5-S1 disc protrusion impinging upon the descending left S1 nerve root. Follow up with pain management clinic on 01/19/24. Dx SI joint pain, LS spondylosis. Lumbar DDD. Lumbar disc herniation with radiculopathy. Scheduling for left L5-S1 TFESI. Due to poor glycemic control, steroid injection had been on hold. Last seen in May 2024. Seen by [facility] provider in Mar 2024 for back pain. Recommended PT and Rx meloxcam. Follow up appointment on 05/22/24. Informed that there is no role in operation for her back pain. Following with Lamine Giles, DaisyD, for CDTM. Last visit on 05/22/24. BP at goal. A1C has improved to 8%. Reduced metformin dose to 1000 mg daily due to declining renal function. May need to adjustgabapentin and empagliflozin dose. Consider switching pravastatin to atorvastatin. Today: Pt reports she has been living off of worker???s comp. She notes her employer only allows light duty for 3 months and while she would like to go back to work, there???s nothing in her job descriptionwhere she doesn???t have to be standing, moving, or lifting weight. Pt has felt so depressed about not being able to work, she has been having a difficult time showering. Pt notes she has finished two rounds of Physical Therapy but she was unable to get a steroid injection because her sugar was toohigh. She also believes she has a pinched nerve on her neck and she feels pain in her lower back. Pt also notes she had carpal tunnel surgery on her right hand and she doesn???t want to do the samesurgery on her left hand because her right hand hasn't improved. She reports still having numbness and stiffness in her fingers and toes. Also stating her feet have been in pain for two days, but theorthopedist doesn't believe surgery would help with her pain. Pt is currently on 5 mg of Ozempic. Pt reports she lost her bottle for her rosatin and requested a new prescription. Pt reports she is having right pelvic pressure and pain. She had an ovarian cyst removed and she ishaving similar pain in the same area again. Pt declined a colonoscopy and a cologuard for now. Pt also notes she stopped menstruating 6 months ago. Review of Systems Constitutional: Negative for activity change, appetite change and fever. Respiratory: Negative for shortness of breath. Cardiovascular: Negative for chest pain. Objective Vitals: 06/10/24 1343 BP: 131/78 Pulse: 109 Resp: 21 Temp: 96.9 ??F (36.1 ??C) TempSrc: Temporal SpO2: 99% Weight: 200 lb 6.4 oz (90.9 kg) Height: 5' 1.27 (1.556 m) Physical Exam Constitutional: General: She is not in acute distress. Appearance: Normal appearance. She is not ill-appearing. HENT: Head: Normocephalic and atraumatic. Mouth/Throat: Mouth: Mucous membranes are moist. Eyes: Extraocular Movements: Extraocular movements intact. Pupils: Pupils are equal, round, and reactive to light. Cardiovascular: Rate and Rhythm: Normal rate and regular rhythm. Heart sounds: No murmur heard. Pulmonary: Effort: Pulmonary effort is normal. No respiratory distress. Breath sounds: Normal breath sounds. No wheezing or rhonchi. Skin: General: Skin is warm. Neurological: Mental Status: She is alert. Mental status is at baseline. Psychiatric: Mood and Affect: Mood normal. Results: Lab Results Component Value Date NA 141 05/14/2024 K 3.8 05/14/2024 CL 104 05/14/2024 CO2 26 05/14/2024 BUN 26 (H) 05/14/2024 CREATININE 1.37 05/14/2024 CRCLCALCPH 102.3 06/22/2021 EGFR 41 05/14/2024 GLUCOSE 134 (H) 05/14/2024 TOTALBILIRUB 0.7 02/02/2024 AST 77 (H) 02/02/2024 ALT 110 (H) 02/02/2024 TOTPROTEIN 8.1 (H) 02/02/2024 ALB 4.5 02/02/2024 ALP 151 (H) 02/02/2024 Lab Results Component Value Date TRIG 200 (H) 04/25/2023 CHOL 162 04/25/2023 LDLCHOLCAL 90 04/25/2023 HDL 32 (L) 04/25/2023 Lab Results Component Value Date HGBA1C 8.0 (A) 05/20/2024 MICROALBUR 52.0 04/25/2023 CREATUR 171.09 04/25/2023 MICROALBCREU 30.3 (H) 04/25/2023 Lab Results Component Value Date WBC 5.9 02/02/2024 HGB 13.3 02/02/2024 HCT 37.2 02/02/2024 PLT 230 02/02/2024 MCV 89.0 02/02/2024 The 10-year ASCVD risk score (Rosendo LING, et al., 2019) is: 4.6% Values used to calculate the score: Age: 48 years Sex: Female Is Non- : No Diabetic: Yes Tobacco smoker: No Systolic Blood Pressure: 131 mmHg Is BP treated: Yes HDL Cholesterol: 32 mg/dL Total Cholesterol: 162 mg/dL FIB-4 Calculation: 1.56 at 02/02/2024 10:42 AM Calculated from: SGOT/AST: 77 U/L at 02/02/2024 10:42 AM SGPT/ALT: 110 U/L at 02/02/2024 10:42 AM Platelets: 230 X10*3/uL at 02/02/2024 10:42 AM Age: 48 years Screening and Health Care Maintenance: PHQ-2/9 Score: Patient Health Questionnaire-9 Score: 12 (06/10/2024 2:53 PM) Patient Health Questionnaire-2 Score: 4 (06/10/2024 2:53 PM) Thoughts that you would be better off or hurting yourself in some way: Not at all (06/10/2024 2:53 PM) RICHY-7 Score: RICHY-7 Total Score: 14 (06/10/2024 2:55 PM) Health Maintenance Due Topic Date Due Colorectal Cancer Screening Never done Eye Exam Never done Family Planning (PISQ) Never done Mammogram 07/16/2020 Influenza Vaccine (1) 12/10/2023 COVID-19 Vaccine (2023- season) 2023 SDOH Screening 02/29/2024 Lipid Panel 04/25/2024 Diabetes: Hemoglobin A1C 08/17/2024 Assessment/Plan Problem List Items Addressed This Visit Metabolic dysfunction-associated steatotic liver disease (MASLD) - last seen by [facility] in Apr 2022 - last US in Mar 2022. Hepatomegaly with hepatic steatosis. No focal lesion. - FIB-4 = 1.56 in FIB4 index - avoid hepatotoxic drugs. Relevant Orders US Abdomen Comp w elastography Hypertension - Primary - Goal BP < 140/90 per JNC-8, [...] BP -keep appt with sleep medicine clinic Relevant Orders TSH with Reflex to Free T4 Obesity -continue working on lifestyle modifications -associated conditions: [...] and sugary beverage consumption, decreased caloric intake. Obstructive sleep apnea syndrome -pt has diagnosis of WANDA but has not been adherence to CPAP machine -referred to sleep clinic' check its status -pt is hesitant to try CPAP machine again but she is very symptomatic -pt was advised to sign up for weight management clinic in the past; pt is currently trying to loseweight with GLP-1 agonist Type 2 diabetes mellitus ([facility]) A1C 6.8% in Nov 2022, improving -Continue [...] 06/10/24 - Ordered Comprehensive Metabolic Panel 06/10/24 Relevant Orders Vitamin B12 (Cobalamin) and Folate Panel, Serum Lipid Panel with Reflex to Direct LDL Albumin, Random Urine W/Creatinine Comprehensive Metabolic Panel Referral to [facility] Vitamin D deficiency - Ordered Vitamin D, 25-Hydroxy, Total, Immunoassay 06/10/24 Relevant Orders Vitamin D, 25-Hydroxy, Total, Immunoassay IBS (irritable bowel syndrome) - following with [facility]. -Low FODMAP diet - Ordered CBC auto differential 06/10/24 Relevant Orders CBC auto differential Fibromyalgia - continue tylenol prn, continue muscle relaxants prn, advised to avoid NSAIDs Pelvic pain - history of large ovarian cyst s/p removal - evaluate with US Relevant Orders Us Pelvis complete US Pelvis Transvaginal CKD (chronic kidney disease) stage 3, GFR 30-59 ml/min ([facility]) - in a setting of diabetes mellitus type 2 and hypertension - Kidney failure risk: 0.93% at 1 years, 2.87% at 4 years. - continue ARB and SGLT2i - optimize diabetes mellitus and hypertension management - avoid nephrotoxic drugs Due to her young age and the risk is almost 3% at 4 years, will refer to physics teacher. Relevant Orders Referral to Nephrology Other Visit Diagnoses Encounter for immunization Relevant Orders PCV-20 VACCINE 6 wks + (Completed) Dietary counseling Exercise counseling Allergies Allergen Reactions Albert Inhibitors Cough Other reaction(s): unspecified Current Outpatient Medications Medication Instructions acetaminophen (Tylenol) 500 MG tablet 2 tablets, Oral, Every 8 hours PRN Alcohol Swabs (Alcohol Prep) pads Check blood sugar three times daily Blood Glucose Monitoring Suppl kit Check blood sugar 3 times daily chlorthalidone (Hygroton) 25 MG tablet TAKE 1 TABLET BY MOUTH EVERY DAY cyclobenzaprine (Flexeril) 10 MG tablet TAKE 1 TABLET BY MOUTH THREE TIMES DAILY IN THE MORNING, ATNOON, AND AT BEDTIME NEEDED FOR MUSCLE SPASMS Elastic Bandages & Supports (Wrist Splint) misc Does not apply empagliflozin (JARDIANCE) 25 mg, Oral, Daily glucose blood (FREESTYLE LITE) test strip Check blood sugar 3 times daily Lancets Thin misc Check blood sugar 3 times daily lidocaine (Lidoderm) 5 % patch 1 patch, Transdermal, Nightly losartan (COZAAR) 100 mg, Oral, Daily meloxicam (Mobic) 15 MG tablet TAKE 1 TABLET BY MOUTH EVERY DAY AFTER MEAL metFORMIN XR (GLUCOPHAGE-XR) 1,000 mg, Oral, Daily metoprolol tartrate (LOPRESSOR) 150 mg, Oral, 2 times daily with meals Ozempic (0.25 or 0.5 MG/DOSE) 0.5 mg, Subcutaneous, Weekly pravastatin (PRAVACHOL) 20 mg, Oral, Nightly Follow-up: 10 weeks or sooner if any problem arises. Scribe Attestation: Ludmila Corarl, am serving as a scribe to document services personally performed by Sharmin Ortiz MD, based on the patient's response to questions by provider and provides statements to me. documented in this encounter Miscellaneous Notes * Assessment & Plan Note - Sharmin Ortiz MD - 06/16/2024 12:19 PM EDTAssociated Problem(s): Obesity -continue working on lifestyle modifications -associated conditions: [...] and sugary beverage consumption, decreased caloric intake. * Assessment & Plan Note - Sharmin Ortiz MD - 06/16/2024 12:13 PM EDTAssociated Problem(s): Pelvic pain - history of large ovarian cyst s/p removal - evaluate with US * Assessment & Plan Note - Sharmin Ortiz MD - 06/16/2024 12:11 PM EDTAssociated Problem(s): CKD (chronic kidney disease) stage 3, GFR 30-59 ml/min ([facility]) - in a setting of diabetes mellitus type 2 and hypertension - Kidney failure risk: 0.93% at 1 years, 2.87% at 4 years. - continue ARB and SGLT2i - optimize diabetes mellitus and hypertension management - avoid nephrotoxic drugs Due to her young age and the risk is almost 3% at 4 years, will refer to physics teacher. * Assessment & Plan Note - Ludmila Zarate MA - 06/11/2024 6:58 AM ESTAssociated Problem(s): Vitamin D deficiency - Ordered Vitamin D, 25-Hydroxy, Total, Immunoassay 06/10/24 * Assessment & Plan Note - Ludmila Zarate MA - 06/11/2024 6:54 AM ESTAssociated Problem(s): Fibromyalgia - continue tylenol prn, continue muscle relaxants prn, advised to avoid NSAIDs * Assessment & Plan Note - Ludmila Zarate MA - 06/11/2024 6:54 AM ESTAssociated Problem(s): IBS (irritable bowel syndrome) - following with [facility]. -Low FODMAP diet - Ordered CBC auto differential 06/10/24 * Assessment & Plan Note - Ludmila Zarate MA - 06/11/2024 6:54 AM ESTAssociated Problem(s): Metabolic dysfunction-associated steatotic liver disease (MASLD) - last seen by [facility] in Apr 2022 - last US in Mar 2022. Hepatomegaly with hepatic steatosis. No focal lesion. - FIB-4 = 1.56 in FIB4 index - avoid hepatotoxic drugs. * Assessment & Plan Note - Ludmila Zarate MA - 06/11/2024 6:53 AM ESTAssociated Problem(s): Hypertension - Goal BP < 140/90 per JNC-8, [...] BP -keep appt with sleep medicine clinic * Assessment & Plan Note - Ludmila Zarate MA - 06/11/2024 6:53 AM ESTAssociated Problem(s): Obstructive sleep apnea syndrome -pt has diagnosis of WANDA but has not been adherence to CPAP machine -referred to sleep clinic' check its status -pt is hesitant to try CPAP machine again but she is very symptomatic -pt was advised to sign up for weight management clinic in the past; pt is currently trying to loseweight with GLP-1 agonist * Addendum Note - Sharmin Ortiz MD - 06/10/2024 2:30 PM ESTAddended by: SHARMIN ORTIZ on: 06/16/2024 01:13 PM Modules accepted: Orders * Assessment & Plan Note - Ludmila Zarate MA - 06/10/2024 2:23 PM ESTAssociated Problem(s): Type 2 diabetes mellitus (CMS/HCC) A1C 8.0% on 05/20/24, trending up - [...] 06/10/24 - Ordered Comprehensive Metabolic Panel 06/10/24 documented in this encounter Plan of Treatment Upcoming Encounters Date Type Department Care Team (Late st Contact Info) Description 08/22/2024 11:00 AM EDT Medication Management [facility] [address] [place] [phone] Lamine Giles, PharmD [address] [place] [phone] 08/26/2024 11:00 AM EDT Office Visit [facility] [address] [place] [phone] Sharmin Ortiz MD [address] [place] [phone] Pending Results Name Type Priority Associated Diagnoses Date /Time Referral to Nephrology Outpatient Referral Routine Stage 3b chronic kidney disease (CMS/HCC) 06/28/2024 Scheduled Orders Name Type Priority Associated Diagnoses Orde r Schedule Us Pelvis complete Imaging Routine Pelvic pain Expected: 06/16/2024, Expires: 06/16/2025 US Pelvis Transvaginal Imaging Routine Pelvic pain Expected: 06/16/2024, Expires: 06/16/2025 US Abdomen Comp w elastography Imaging Routine Metabolic dysfunction-associated steatotic liver disease (MASLD) Expected: 06/16/2024, Expires: 06/16/2025 Scheduled Referrals Name Type Priority Associated Diagnoses Order Schedule Referral to [facility] Outpatient Referral Routine Type 2 diabetes mellitus with hyperglycemia, without long-term current use of insulin (CMS/HCC) Expected: 06/16/2024 (Approximate), Expires: 06/10/2025 Referral to Nephrology Outpatient Referral Routine Stage 3b chronic kidney disease (CMS/HCC) Expected: 06/16/2024 (Approximate), Expires: 06/16/2025 documented as of this encounter Procedures Procedure Name Priority Date/Time Associated Diagnosis Comments VITAMIN D,25-OH,TOTAL,IA Routine 07/12/2024 10:20 AM EDT Vitamin D deficiency VITAMIN B12/FOLATE, SERUM PANEL Routine 07/12/2024 10:20 AM EDT Type 2 diabetes mellitus with hyperglycemia, without long-term current use of insulin (CMS/HCC) TSH W/REFLEX TO FT4 Routine 07/12/2024 1 0:20 AM EDT Primary hypertension LIPID PANEL WITH REFLEX TO DIRECT LDL Routine 07/12/2024 10:20 AM EDT Type 2 diabetes mellitus with hyperglycemia, without long-term current use of insulin (CMS/HCC) CBC WITH AUTO DIFFERENTIAL Routine 07/12/2024 10:20 AM EDT Irritable bowel syndrome, unspecified type COMPREHENSIVE METABOLIC PANEL Routine 07/12/2024 10:20 AM EDT Type 2 diabetes mellitus with hyperglycemia, without long-term current use of insulin (CMS/HCC) ALBUMIN, RANDOM URINE W/CREATININE Routine 07/12/2024 10:19 AM EDT Type 2 diabetes mellitus with hyperglycemia, without long-term current use of insulin (CMS/HCC) documented in this encounter Results * (ABNORMAL) Vitamin D, 25-Hydroxy, Total, Immunoassay (07/12/2024 10:20 AM EDT) Vitamin D 25-OH Total 18.4(L) >30 ng/mL [facility] Comment: Health Based Reference Values*< 20 ??ng/mL ??[id number] ng/mL ??Insufficient> 30 ??ng/mL ??Sufficient*Kortney KINNEY. N [...] MD LAB BLOOD ORDERABLES Final Resul t [facility] [address] [place] [phone] * CBC auto differential (07/12/2024 10:20 AM EDT) White Blood Count 7.1 4.8 - 10.8 X10*3/uL [facility] Red Blood Count 4.21 4.20 - 5.50 X10*6/uL [facility] Hemoglobin 13.2 12.0 - 16.0 g/dl [facility] Hematocrit 37.9 37.0 - 47.0 % [facility] Mean Corpuscular Volume 90.0 80.0 - 98.0 fL [facility] Mean Corpuscular Hemoglobin 31.4 27.0 - 33.0 pg [facility] Mean Corpuscular HGB Conc 34.8 31.0 - 35.0 g/dl [facility] Red Cell Distribution Width 12.0 11.0 - 16.0 % [facility] Platelet Count 279 160 - 400 X10*3/uL [facility] Mean Platelet Volume 9.7 9.4 - 12.3 fL [facility] Neutrophils Percent Auto 57.3 45 - 73 % [facility] Imm Gran Pct Auto 0.3 0.0 - 0.4 % [facility] Lymphocytes Percent Auto 31.6 20 - 40 % [facility] Monocytes Percent Auto 8.3 2 - 11 % [facility] Eosinophils Percent Auto 2.1 0 - 4 % [facility] Basophils Percent Auto 0.4 0 - 2 % [facility] NRBC Pct Auto 0.0 0.0 - 0.2 /100WBC [facility] Neutrophils Absolute Auto 4.1 2.0 - 8.3 x10*3/uL [facility] Imm Gran Abs Auto 0.02 0.00 - 0.03 X10*3/uL [facility] Lymphocytes Absolute Auto 2.3 1.2 - 4.9 X10*3/uL [facility] Monocytes Absolute Auto 0.6 0.1 - 1.2 X10*3/uL [facility] Eosinophils Absolute Auto 0.2 0.0 - 0.4 X10*3/uL [facility] Basophils Absolute Auto 0.0 0.0 - 0.2 X10*3/uL [facility] NRBC Abs Auto 0.000 0.0 - 0.012 X10*3/uL [facility] Blood Venous blood specimen / Unknown 07/12/2024 10:20 AM EDT 07/12/2024 10:20 AM EDT us Sharmin Ortiz MD LAB BLOOD ORDERABLES Final Resul t Performing Organization Address City/[facility]/ZIP Co de Phone Number [facility] [address] [place] [address] [phone] * (ABNORMAL) TSH with Reflex to Free T4 (07/12/2024 10:20 AM EDT) TSH reflex Free T4 4.88(H) 0.32 - 4.0 uIU/mL [facility] Blood 07/12/2024 10:2 0 AM EDT 07/12/2024 10:20 AM EDT Sharmin Ortiz MD LAB BLOOD ORDERABLES Final Resul t Performing Organization Address [facility] Co de Phone Number [facility] [address] [place] [address] [phone] * (ABNORMAL) Comprehensive Metabolic Panel (07/12/2024 10:20 AM EDT) Sodium 140 135 - 145 mmol/L [facility] Potassium 3.5 3.3 - 5.1 mmol/L [facility] Chloride 106 96 - 108 mmol/L [facility] Carbon Dioxide 27 22 - 29 mmol/L [facility] Anion Gap 11(L) 12 - 20 [facility] Urea Nitrogen (BUN) 18(H) 9 - 16 mg/dL [facility] Creatinine, Serum 1.09 0.5 - 1.4 mg/dL [facility] Estimated Glomerular Filt Rate 53 [facility] Comment:Chronic Kidney Disea se: Estimated GFR < 60 mL/min/1.94y3Etngtn Kidney Disease: Estimated GFR < 15 mL/min/1.73m2 Glucose 148(H) 60 - 115 mg/dL [facility] Calcium 9.5 8.4 - 10.2 mg/dL [facility] Bilirubin, Total 0.6 0.0 - 1.0 mg/dL [facility] Aspartate Amino Transferase 59(H) 5 - 31 U/L [facility] Alanine Aminotransferase 84(H) 0 - 31 U/L [facility] Total Protein 7.5 6.5 - 8.0 g/dL [facility] Albumin Level 4.2 3.5 - 5.0 g/dL [facility] Alkaline Phosphatase 144(H) 39 - 117 U/L [facility] Blood Venous blood specimen / Unknown 07/12/2024 10:20 AM EDT 07/12/2024 10:20 AM EDT Sharmin Ortiz MD LAB BLOOD ORDERABLES Final Resul t [facility] [address] [place], [place] [phone] * (ABNORMAL) Lipid Panel with Reflex to Direct LDL (07/12/2024 10:20 AM EDT) Triglycerides 197(H) <150 mg/dL [facility] Comment:Desirable Triglyceri de: less than 150 mg/dLBorderline High Triglyceride 150-199 mg/dLHigh Triglyceride: 200-499 mg/dLVery High Triglyceride: greater than or equal to 5OO mg/dL Cholesterol 163 <200 mg/dL [facility] Comment:Desirable Cholestero l: less than 200 mg/dLBorderline High Cholesterol: 200-239 mg/dLHigh Cholesterol: greater than 239 mg/dL LDL Cholesterol Calculated 93 <100 mg/dL [facility] Comment:Desirable LDL: less than 100 mg/dLNear Optimal/Above Optimal LDL: 110- 129 mg/dLBorderline High LDL: 130-159 mg/dLHigh LDL: 160-189 mg/dLVery High LDL: greater than or equal to 190 mg/dL HDL Cholesterol 31(L) >40 mg/dL [facility] Comment:Desirable HDL: great er than 40 mg/dL Note: This HDL assay may give artificially low results in patients with liver disease. Blood 07/12/2024 10:2 0 AM EDT 07/12/2024 10:20 AM EDT Sharmin Ortiz MD LAB BLOOD ORDERABLES Final Resul t Performing Organization Address [facility]/ZIP Co de Phone Number [facility] [address] [place] [phone] * Vitamin B12 (Cobalamin) and Folate Panel, Serum (07/12/2024 10:20 AM EDT) Vitamin B12 325 200 - 900 pg/mL [facility] Comment:NORMAL 200-900 PG/ML INDETERMINATE 160-199 PG/ML DEFICIENT < 160 PG/ML Folate 8.2 > or = 4.0 ng/mL [facility] Comment:Reference Values:> o r = 4.0 ng/mL< 4.0 ng/mL suggests folate deficiency Methotrexate, aminopterin and folinic acid(leucovorin) are chemotherapeutic agents whose molecularstructures are similar to folate; therefore, the Architectfolate assay cannot be used for patients using these drugs. Blood 07/12/2024 10:2 0 AM EDT 07/12/2024 10:20 AM EDT us Sharmin Ortiz MD LAB BLOOD ORDERABLES Final Resul t Performing Organization Address [facility] Co de Phone Number [facility] [address] [place] [phone] * Albumin, Random Urine W/Creatinine (07/12/2024 10:19 AM EDT) Creatinine, Urine 206.08 mg/dL [facility] Microalbumin Urine 47.0 mg/L [facility] Microalbum Creatinine Ratio Ur 22.8 <30 ug/mg cr [facility] Comment:Albumin/Creatinine R atio Reference Ranges: Normal: < 30 ug/mg creatinine Microalbuminuria: 30 - 300 ug/mg creatinineClinical Albuminuria: > 300 ug/mg creatinine Urine 07/12/2024 10:1 9 AM EDT 07/12/2024 11:17 AM EDT us Sharmin Ortiz MD LAB URINE ORDERABLES Final Resul t [facility] [address] [place] [phone] documented in this encounter Visit Diagnoses Diagnosis Primary hypertension- Primary Unspecified essential hypertension Obstructive sleep apnea syndrome Obstructive sleep apnea (adult) (pediatric) Metabolic dysfunction-associated steatotic liver disease (MASLD) Irritable bowel syndrome, unspecified type Fibromyalgia Unspecified myalgia and myositis Vitamin D deficiency Type 2 diabetes mellitus with hyperglycemia, without long-term current use of insulin ([facility]) Encounter for immunization Pelvic pain Stage 3b chronic kidney disease ([facility]) Dietary counseling Dietary surveillance and counseling Exercise counseling Class 2 severe obesity due to excess calories with serious comorbidity and body mass index (BMI) of 37.0 to 37.9 in adult ([facility]) documented in this encounter Additional Health Concerns Assessment Noted Time PHQ-9 Depression Total Score: 12 06/10/ 025 2:53 PM EST documented as of this encounter Care Teams Mold Operator Relationship Specialty Start Date End Date Sharmin Ortiz MD [address] [place] [address] PCP - General Family Medicine 04/10/18 Lamine Giles, DaisyD [address] [place] [address] Pharmacist Internal Medicine 04/01/24 documented as of this encounter
--- OUTSIDE RECORDS SUMMARY | 2024-07-30 13:11 | XMS_ITS | Encounter Summary ---
Author Organization [employer] Address [address] [facility] 7t [place] [address] Care Team Providers Care Sales And Marketing Coordinator Name Role Phone Sharmin Ortiz MD Primary Care Provider [phone] Lamine Giles PharmD Unavailable [phone] Encounter Details Date Type Department Care Team (Late st Contact Info) Description 02/07/2024 Orders Only [facility] [address] [place], [place] [phone] Sharmin Ortiz MD [address] [place], [place] [phone] Social History Tobacco Use Types Packs/Day Years [...] Description 08/22/2024 11:00 AM EDT Medication Management [facility] [address] [place] [phone] Lamine Giles, Dameon [address] [place] [address] 08/26/2024 11:00 AM EDT Office Visit [address] [address] Sharmin Ortiz MD [address] [place] [address] documented as of this encounter Visit Diagnoses Not on filedocumented in this encounter Care Teams Sales And Marketing Coordinator Relationship Specialty Start Date End Date Sharmin Ortiz MD [address] [place] [address] PCP - General Family Medicine 04/10/18 Lamine Giles, PharmD [address] [place] [phone] Pharmacist Internal Medicine 04/01/24 documented as of this encounter
--- OUTSIDE RECORDS SUMMARY | 2024-07-30 13:11 | XMS_ITS | Encounter Summary ---
Author Organization [employer] Address [address] [facility] 7t [place] [address] Care Team Providers Care Design Assembler Name Role Phone Sharmin Ortiz MD Primary Care Provider [phone] Lamine Giles PharmD Unavailable [phone] Encounter Details Date Type Department Care Team (Late st Contact Info) Description 07/14/2024 Orders Only [facility] [address] [place], [place] [phone] Sharmin Ortiz MD [address] [place], [place] [phone] Social History Tobacco Use Types Packs/Day Years [...] Description 08/22/2024 11:00 AM EDT Medication Management [facility] [address] [place] [address] Lamine Giles, PharmD [address] [place] [address] 08/26/2024 11:00 AM EDT Office Visit [facility] [address] [place] [address] Sharmin Ortiz MD [address] [place] [address] documented as of this encounter Visit Diagnoses Not on filedocumented in this encounter Additional Health Concerns Assessment Noted Time PHQ-9 Depression Total Score: 12 025 2:53 PM EST documented as of this encounter Care Teams Design Assembler Relationship Specialty Start Date End Date Sharmin Ortiz MD [address] [place] [phone] PCP - General Family Medicine 04/10/18 Lamine Giles, PharmD [address] [place] [address] [phone] Pharmacist Internal Medicine 04/01/24 documented as of this encounter
--- OUTSIDE RECORDS SUMMARY | 2024-07-30 13:11 | XMS_ITS | Encounter Summary ---
Author Organization [employer] Address 75 [facility] 7t [place] [address] Care Team Providers Care Cooperative Extension Agent Name Role Phone Sharmin Ortiz MD Primary Care Provider [phone] Lamine Giles PharmD Unavailable [phone] Encounter Details Date Type Department Care Team (Late st Contact Info) Description 02/07/2024 Orders Only [facility] [address] [place], [place] [phone] Sharmin Ortiz MD [address] [place], [place] [phone] Social History Tobacco Use Types Packs/Day Years [...] Description 08/22/2024 11:00 AM EDT Medication Management [facility] [address] [place] [address] Lamine Giles, Dameon [address] [place] [address] 08/26/2024 11:00 AM EDT Office Visit [address] [address] Sharmin Ortiz MD [address] [place] [address] documented as of this encounter Visit Diagnoses Not on filedocumented in this encounter Care Teams Cooperative Extension Agent Relationship Specialty Start Date End Date Sharmin Ortiz MD [address] [place] [address] PCP - General Family Medicine 04/10/18 Lamine Giles, PharmD [address] [place] [phone] Pharmacist Internal Medicine 04/01/24 documented as of this encounter
--- OUTSIDE RECORDS SUMMARY | 2024-07-30 13:11 | XMS_ITS | Encounter Summary ---
Author Organization [employer] Address 75 [facility] 7t [place] [address] Care Team Providers Care Financial Economist Name Role Phone Sharmin Ortiz MD Primary Care Provider [phone] Lamine Giles PharmD Unavailable [phone] Encounter Details Date Type Department Care Team (Late st Contact Info) Description 07/30/2024 Orders Only GENERIC EXTERNAL DATA DEPARTMENT Provider, Generic External Data Social History Tobacco Use Types Packs/Day Years [...] Description 08/22/2024 11:00 AM EDT Medication Management [facility] [address] [place] [phone] Lamine Giles, DaisyD [address] [place] [address] 08/26/2024 11:00 AM EDT Office Visit [facility] [address] [place] [address] [phone] Sharmin Ortiz MD [address] [place] [address] documented as of this encounter Procedures Procedure Name Priority Date/Time Associated Diagnosis Comments CREATININE, SERUM Routine 07/30/2024 11: 22 AM EDT CBC WITH AUTO DIFFERENTIAL Routine 07/30/2024 11:22 AM EDT UREA NITROGEN (BUN) Routine 07/30/2024 1 1:22 AM EDT CALCIUM Routine 07/30/2024 11:22 AM EDT ELECTROLYTE PANEL Routine 07/30/2024 11: 22 AM EDT documented in this encounter Results * Calcium (07/30/2024 11:22 AM EDT) Calcium 9.8 8.4 - 10.2 mg/dL [facility] 07/30/2024 11:2 2 AM EDT 07/30/2024 11:22 AM EDT us Generic External Data Provider LAB BLOOD ORDERAB LES Final Result Performing Organization Address [facility] de Phone Number [facility] [address] [place] [phone] * Creatinine, Serum (07/30/2024 11:22 AM EDT) Creatinine, Serum 1.16 0.5 - 1.4 mg/dL [facility] Estimated Glomerular Filt Rate 50 [facility] Comment:Chronic Kidney Disea se: Estimated GFR < 60 mL/min/[id number] Kidney Disease: Estimated GFR < 15 mL/min/1.73m2 07/30/2024 11:2 2 AM EDT 07/30/2024 11:22 AM EDT us Generic External Data Provider LAB BLOOD ORDERAB LES Final Result Performing Organization Address [facility] de Phone Number [facility] [address] [place] [phone] * (ABNORMAL) BUN (Blood Urea Nitrogen) (07/30/2024 11:22 AM EDT) Urea Nitrogen (BUN) 21(H) 9 - 16 mg/dL [facility] 07/30/2024 11:2 2 AM EDT 07/30/2024 11:22 AM EDT us Generic External Data Provider LAB BLOOD ORDERAB LES Final Result Performing Organization Address [facility] de Phone Number [facility] [address] [place] [phone] * (ABNORMAL) Electrolyte Panel (07/30/2024 11:22 AM EDT) Sodium 139 135 - 145 mmol/L [facility] Potassium 3.1(L) 3.3 - 5.1 mmol/L [facility] Chloride 104 96 - 108 mmol/L [facility] Carbon Dioxide 25 22 - 29 mmol/L [facility] Anion Gap 13 12 - 20 [facility] 07/30/2024 11:2 2 AM EDT 07/30/2024 11:22 AM EDT us Generic External Data Provider LAB BLOOD ORDERAB LES Final Result [facility] [address] [place] [phone] * (ABNORMAL) CBC auto differential (07/30/2024 11:22 AM EDT) White Blood Count 5.8 4.8 - 10.8 X10*3/uL [facility] Red Blood Count 4.26 4.20 - 5.50 X10*6/uL [facility] Hemoglobin 13.4 12.0 - 16.0 g/dl [facility] Hematocrit 38.1 37.0 - 47.0 % [facility] Mean Corpuscular Volume 89.4 80.0 - 98.0 fL [facility] Mean Corpuscular Hemoglobin 31.5 27.0 - 33.0 pg [facility] Mean Corpuscular HGB Conc 35.2(H) 31.0 - 35.0 g/dl [facility] Red Cell Distribution Width 11.9 11.0 - 16.0 % [facility] Platelet Count 239 160 - 400 X10*3/uL [facility] Mean Platelet Volume 9.2(L) 9.4 - 12.3 fL [facility] Neutrophils Percent Auto 57.4 45 - 73 % [facility] Imm Gran Pct Auto 0.5(H) 0.0 - 0.4 % [facility] Lymphocytes Percent Auto 32.6 20 - 40 % [facility] Monocytes Percent Auto 7.4 2 - 11 % [facility] Eosinophils Percent Auto 1.6 0 - 4 % [facility] Basophils Percent Auto 0.5 0 - 2 % [facility] NRBC Pct Auto 0.0 0.0 - 0.2 /100WBC [facility] Neutrophils Absolute Auto 3.3 2.0 - 8.3 x10*3/uL [facility] Imm Gran Abs Auto 0.03 0.00 - 0.03 X10*3/uL [facility] Lymphocytes Absolute Auto 1.9 1.2 - 4.9 X10*3/uL [facility] Monocytes Absolute Auto 0.4 0.1 - 1.2 X10*3/uL [facility] Eosinophils Absolute Auto 0.1 0.0 - 0.4 X10*3/uL [facility] Basophils Absolute Auto 0.0 0.0 - 0.2 X10*3/uL [facility] NRBC Abs Auto 0.000 0.0 - 0.012 X10*3/uL [facility] 07/30/2024 11:2 2 AM EDT 07/30/2024 11:22 AM EDT us Generic External Data Provider LAB BLOOD ORDERAB LES Final Result Performing Organization Address City/State/[facility] Co de Phone Number [facility] [address] [place] [phone] documented in this encounter Visit Diagnoses Not on filedocumented in this encounter Additional Health Concerns Assessment Noted Time PHQ-9 Depression Total Score: 12 025 2:53 PM EST documented as of this encounter Care Teams Financial Economist Relationship Specialty Start Date End Date Sharmin Ortiz MD [address] [place] [phone] PCP - General Family Medicine 04/10/18 Lamine Giles, Dameon [address] [place] [address] Pharmacist Internal Medicine 04/01/24 documented as of this encounter
[2024-07-31 11:54] LABS: Complement C3 198 mg/dL (83-193)
[2024-07-31 13:03] LABS: IgA 336 mg/dL (47-310); IgG 1240 mg/dL (600-1640); IgM 78 mg/dL (50-300)
[2024-07-31 21:59] LABS: Anti DNA DS Antibody <1 IU/mL; Anti Glomerular Basement Memb <1.0 AI; Myeloperoxidase Antibody <1.0 AI; Proteinase 3 PR3 Antibodies <1.0 AI
[2024-08-04 01:24] LABS: Phospholipase A2 IgG ELISA <4 RU/mL; Phospholipase A2 IgG IFA NEGATIVE (NEGATIVE)
== END 2024-07-30 11:01 | disposition home or self-care (01) ==
LOC: HO.LAB 11:00
PROVIDERS: PCP Family Medicine; Visit Provider Internal Medicine Nephrology
DX: N18.31 Chronic kidney disease, stage 3a (principal); I10 Essential (primary) hypertension
CPT/HCPCS: 80051; 82310; 82565; 82784; 83520; 84520; 85025; 86021; 86160; 86225; 86255; 86334; 86335; 86704; 87340

== ENCOUNTER 2024-08-02 09:38 | Outpatient (AMB) | payer MEDICAID, SELFPAY ==
--- NOTE | 2024-08-02 09:51 | HO.NEPHOV ---
Vital Signs 08/02/24 09:54 Height 5 ft 1 in Weight 195 lb 2 oz BMI 36.9 BP 110/80 Blood Pressure Location Rt brachial Position Sitting Pulse 110 H Pulse Source Pulse Oximeter Pulse Oximetry (%) 97 Oxygen Delivery Method Room Air Intake Visit Reasons: 1 MO FU Gasateria Attendant Required: Yes Gasateria Attendant Language: Corporate Counsel Services: Gasateria Attendant Offered & Declined ([facility] veneer jointer returner services refused ) Accompanied by: Self / Same As Patient Allergies BEAU Inhibitors Allergy (Unknown, Verified 08/02/24 09:54) cough HPI Comments Details: I had the privilege of seeing Angelita in follow up for CKD and hypertension. She has longstanding diabetes mellitus and has been on medications including SGLT2 inhibitor.She has no documented diabetic retinopathy but has history of microalbuminuria. She has high BMI and and has obstructive sleep apnea as well metabolic dysfunction associated steatotic liver disease. She has hypertension and is on multiple antihypertensive medications including ARB. She has history of stress test, Holter monitor and echo couple years ago which apparently had been normal. She is also on GLP 1 agonist. She is losing some weight ever since she has been on these medications. She is not a smoker. Her lipid status has been steadily improving. She does not have any history of coronary artery disease, congestive heart failure, CVA, carotid disease, peripheral arterial disease or known renal artery stenosis. Her last serum creatinine has settled to baseline. [facility] Medical History (Updated 08/02/24 @ 10:21 by Ravinder Liao MD) Chronic kidney disease, stage 3 Pelvic pain IBS (irritable bowel syndrome) Microalbuminuric diabetic nephropathy Metabolic dysfunction-associated steatotic liver disease (MASLD) Fibromyalgia Family history of systemic lupus erythematosus Hepatitis B immune Diabetic nephropathy Microalbuminuria Dyslipidemia Diabetes mellitus Allergic rhinitis Transaminitis Anemia Chronic low back pain Migraine headache Obesity Carpal tunnel syndrome Hypertension WANDA (obstructive sleep apnea) Vitamin D deficiency Surgical History History of cholecystectomy Tubal ligation status History of salpingo-oophorectomy Family History Father Diabetes Heart disease Mother Hypertension Arthritis Thyroid activity decreased Brother Hypertension Thyroid activity decreased Sister Hypertension Thyroid activity decreased Other Family history of cancer of gallbladder Social History Alcohol intake: never Comment: medicated in pacu Patient Tobacco Use Status: Never used Tobacco Second Hand Smoke Exposure: No 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 Female Reproductive History Menstrual Age of Menarche: 8 Review of Systems Const All systems reviewed & are unremarkable except as noted in HPI and below Physical Exam Vital Signs: Last Vital Signs Pulse 110 H 08/02/24 09:54 BP 110/80 08/02/24 09:54 Pulse Ox 97 08/02/24 09:54 Oxygen Delivery Method Room Air 08/02/24 09:54 BMI result Body Mass Index 36.9 Const General: comfortable and no acute distress Orientation/consciousness: patient oriented x3 HEENT Head: Yes normocephalic Mouth: Normal oral and palatal mucosa present Eyes EOM: EOMs intact bilaterally Neck Neck: Yes supple Resp Auscultation: clear to auscultation bilaterally Cardio Jugular venous distension: no JVD Rate: regular rate GI Palpation (GI): Soft to palpation Auscultation: normal bowel sounds General: Yes no CVA tenderness Back/Spine/Pelvis Back: no CVA tenderness Skin General skin exam: no rashes or lesions noted Neuro General: patient oriented x3 and moves all extremities Extrem General: Yes no pedal edema Results Reviewed Nephrology Results: Hgb 13.4 g/dl (12.0-16.0) 07/30/24 WBC 5.8 X10*3/uL (4.8-10.8) 07/30/24 Plt Count 239 X10*3/uL (160-400) 07/30/24 Sodium 139 mmol/L (135-145) 07/30/24 Potassium 3.1 mmol/L (3.3-5.1) L 07/30/24 Chloride 104 mmol/L (96-108) 07/30/24 Carbon Dioxide 25 mmol/L (22-29) 07/30/24 BUN 21 mg/dL (9-16) H 07/30/24 Creatinine 1.16 mg/dL (0.5-1.4) 07/30/24 Calcium 9.8 mg/dL (8.4-10.2) 07/30/24 Urine Creatinine 206.08 mg/dL 07/12/24 Assessment & Plan Assessment & Plan (1) CKD stage 3a, GFR 45-59 ml/min: Code(s): N18.31 - Chronic kidney disease, stage 3a Category: Medical (2) Hypertension: Code(s): I10 - Essential (primary) hypertension Category: Medical Qualifiers: Hypertension type: primary hypertension Qualified Code(s): I10 - Essential (primary) hypertension (3) Hypokalemia: Code(s): E87.6 - Hypokalemia Category: Medical Plan She has CKD 3 likely from longstanding diabetes mellitus and hypertension. She is on SGLT2 inhibitor as well as ARB. She has no documented diabetic retinopathy and no microalbuminuria now. She has high BMI and and has obstructive sleep apnea as well metabolic dysfunction associated steatotic liver disease. Her blood pressure needs to be maintain a goal of less than 130/80 mm Hg. She has history of stress test, Holter monitor and echo couple years ago which apparently had been normal. She is also on GLP 1 agonist. She is losing some weight ever since she has been on these medications. She is not a smoker. Her lipid status has been steadily improving. She should maintain good hydration and avoid nonsteroidal anti-inflammatories. Her workup is negative. I replaced her K. I answered all questions. Follow-up appointment given Orders: Orders Creatinine 2 Months N18.31 - Chronic kidney disease, stage 3a Blood Urea Nitrogen 2 Months N18.31 - Chronic kidney disease, stage 3a Electrolytes 2 Months N18.31 - Chronic kidney disease, stage 3a Medications: New potassium chloride ER 10 mEq PO BID 20 tabs 0RF Coding Level of Care Code Est Pt Level 4 (80574) Diagnoses CKD stage 3a, GFR 45-59 ml/min N18.31 Primary hypertension I10 Hypertension type: primary hypertension Hypokalemia E87.6
--- OUTSIDE RECORDS SUMMARY | 2024-08-02 09:52 | XMS_ITS | Encounter Summary ---
Author Organization [employer] Address 75 [facility] 7t [place] [address] Care Team Providers Care Stogy Roller Name Role Phone Sharmin Ortiz MD Primary Care Provider [phone] Lamine Giles PharmD Unavailable [phone] Encounter Details Date Type Department Care Team (Late st Contact Info) Description 07/14/2024 Orders Only [facility] [address] [place], [place] [phone] Sharmin Ortiz MD [address] [place], [place] [phone] Social History Tobacco Use Types Packs/Day Years [...] Description 08/22/2024 11:00 AM EDT Medication Management [facility] [address] [place] [phone] Lamine Giles, PharmD [address] [place] [address] 08/26/2024 11:00 AM EDT Office Visit [facility] [address] [place] [address] Sharmin Ortiz MD [address] [place] [phone] documented as of this encounter Visit Diagnoses Not on filedocumented in this encounter Additional Health Concerns Assessment Noted Time PHQ-9 Depression Total Score: 12 025 2:53 PM EST documented as of this encounter Care Teams Stogy Roller Relationship Specialty Start Date End Date Sharmin Ortiz MD [address] [place] [phone] PCP - General Family Medicine 04/10/18 Lamine Giles, PharmD [address] [place] [address] [phone] Pharmacist Internal Medicine 04/01/24 documented as of this encounter
--- OUTSIDE RECORDS SUMMARY | 2024-08-02 09:52 | XMS_ITS | Encounter Summary ---
Author Organization [employer] Address [address] [facility] 7t [place] [address] Care Team Providers Care School Psychometrist Name Role Phone Sharmin Ortiz MD Primary Care Provider [phone] Lamine Giles PharmD Unavailable [phone] Encounter Details Date Type Department Care Team [...] Description 08/22/2024 11:00 AM EDT Medication Management [facility] [address] [place] [address] Lamine Giles, DaisyD [address] [place] [address] 08/26/2024 11:00 AM EDT Office Visit [facility] [address] [place] [address] Sharmin rOtiz MD [address] [place] [address] Pending Results Name Type Priority Associated Diagnoses Date /Time Immunofixation, Serum Lab Routine 11:22 AM EDT DNA (ds) Antibody Lab Routine 11:22 AM EDT Glomerular Basement Membrane Antibody (IgG) Lab Routine 07/30/2024 11:22 AM EDT Myeloperoxidase Antibody (MPO) Lab Routine 07/30/2024 11:22 AM EDT Proteinase-3 Antibody Lab Routine 11:22 AM EDT documented as of this encounter Procedures Procedure Name Priority Date/Time Associated Diagnosis Comments PROTEINASE-3 ANTIBODY Routine 07/30/2024 11:22 AM EDT MYELOPEROXIDASE ANTIBODY (MPO) Routine 07/30/2024 11:22 AM EDT CREATININE, SERUM Routine 07/30/2024 11: 22 AM EDT CBC WITH AUTO DIFFERENTIAL Routine 07/30/2024 11:22 AM EDT GLOMERULAR BASEMENT MEMBRANE ANTIBODY (IGG) Routine 07/30/2024 11:22 AM EDT DNA (DS) ANTIBODY Routine 07/30/2024 11: 22 AM EDT HEPATITIS B SURFACE ANTIGEN, EIA Routine 07/30/2024 11:22 AM EDT HEPATITIS B CORE AB TOTAL Routine 07/30/2024 11:22 AM EDT IMMUNOFIXATION, SERUM Routine 07/30/2024 11:22 AM EDT COMPLEMENT COMPONENT C3C Routine 07/30/2024 11:22 AM EDT COMPLEMENT COMPONENT C4C Routine 07/30/2024 11:22 AM EDT UREA NITROGEN (BUN) Routine 07/30/2024 1 1:22 AM EDT CALCIUM Routine 07/30/2024 11:22 AM EDT ELECTROLYTE PANEL Routine 07/30/2024 11: 22 AM EDT IMMUNOFIXATION, URINE Routine 07/30/2024 11:16 AM EDT documented in this encounter Results * Complement Component C4c (07/30/2024 11:22 AM EDT) Complement C4 29 15 - 57 mg/dL [facility] Comment:THIS TEST WAS PERFOR MED AT:[employer] [place] [id number] REECE MD 07/30/2024 11:2 2 AM EDT 07/30/2024 11:22 AM EDT us Generic External Data Provider LAB BLOOD ORDERAB LES Final Result [facility] [address] [place] [phone] * (ABNORMAL) Complement Component C3c (07/30/2024 11:22 AM EDT) Complement C3 198(A) 83 - 193 mg/dL [facility] Comment:THIS TEST WAS PERFOR MED AT:[employer] [place] [id number] REECE MD 07/30/2024 11:2 2 AM EDT 07/30/2024 11:22 AM EDT us Generic External Data Provider LAB BLOOD ORDERAB LES Final Result Performing Organization Address City/[facility] Co de Phone Number [facility] [address] [place] [phone] * Hepatitis B surface antigen, EIA (07/30/2024 11:22 AM EDT) Hepatitis B Surface Ag Negative Negative [facility] 07/30/2024 11:2 2 AM EDT 07/30/2024 11:22 AM EDT us Generic External Data Provider LAB BLOOD ORDERAB LES Final Result Performing Organization Address [facility] Co de Phone Number [facility] [address] [place] [address] [phone] * Hepatitis B Core Antibody, Total (07/30/2024 11:22 AM EDT) Hepatitis B Core Antibody Nonreactive Nonreactive [facility] 07/30/2024 11:2 2 AM EDT 07/30/2024 11:22 AM EDT Generic External Data Provider LAB BLOOD ORDERAB LES Final Result Performing Organization Address [facility] Co de Phone Number [facility] [address] [place] [phone] * Calcium (07/30/2024 11:22 AM EDT) Calcium 9.8 8.4 - 10.2 mg/dL [facility] 07/30/2024 11:2 2 AM EDT 07/30/2024 11:22 AM EDT Generic External Data Provider LAB BLOOD ORDERAB LES Final Result Performing Organization Address [facility] de Phone Number [facility] [address] [place] [phone] * Creatinine, Serum (07/30/2024 11:22 AM EDT) Creatinine, Serum 1.16 0.5 - 1.4 mg/dL [facility] Estimated Glomerular Filt Rate 50 [facility] Comment:Chronic Kidney Disea se: Estimated GFR < 60 mL/min/1.95z8Jbhrib Kidney Disease: Estimated GFR < 15 mL/min/1.73m2 07/30/2024 11:2 2 AM EDT 07/30/2024 11:22 AM EDT Generic External Data Provider LAB BLOOD ORDERAB LES Final Result Performing Organization Address [facility] de Phone Number [facility] [address] [place] [phone] * (ABNORMAL) BUN (Blood Urea Nitrogen) (07/30/2024 11:22 AM EDT) Urea Nitrogen (BUN) 21(H) 9 - 16 mg/dL [facility] 07/30/2024 11:2 2 AM EDT 07/30/2024 11:22 AM EDT Generic External Data Provider LAB BLOOD ORDERAB LES Final Result Performing Organization Address [facility] de Phone Number [facility] [address] [place] [phone] * (ABNORMAL) Electrolyte Panel (07/30/2024 11:22 AM EDT) Sodium 139 135 - 145 mmol/L [facility] Potassium 3.1(L) 3.3 - 5.1 mmol/L [facility] Chloride 104 96 - 108 mmol/L [facility] Carbon Dioxide 25 22 - 29 mmol/L [facility] Anion Gap 13 12 - 20 [facility] 07/30/2024 11:2 2 AM EDT 07/30/2024 11:22 AM EDT us Generic External Data Provider LAB BLOOD ORDERAB LES Final Result [facility] [address] [place] [phone] [phone] * (ABNORMAL) CBC auto differential (07/30/2024 11:22 AM EDT) White Blood Count 5.8 4.8 - 10.8 X10*3/uL [facility] Red Blood Count 4.26 4.20 - 5.50 X10*6/uL [facility] Hemoglobin 13.4 12.0 - 16.0 g/dl [facility] Hematocrit 38.1 37.0 - 47.0 % [facility] Mean Corpuscular Volume 89.4 80.0 - 98.0 fL [facility] Mean Corpuscular Hemoglobin 31.5 27.0 - 33.0 pg [facility] Mean Corpuscular HGB Conc 35.2(H) 31.0 - 35.0 g/dl [facility] Red Cell Distribution Width 11.9 11.0 - 16.0 % [facility] Platelet Count 239 160 - 400 X10*3/uL [facility] Mean Platelet Volume 9.2(L) 9.4 - 12.3 fL [facility] Neutrophils Percent Auto 57.4 45 - 73 % [facility] Imm Gran Pct Auto 0.5(H) 0.0 - 0.4 % [facility] Lymphocytes Percent Auto 32.6 20 - 40 % [facility] Monocytes Percent Auto 7.4 2 - 11 % [facility] Eosinophils Percent Auto 1.6 0 - 4 % [facility] Basophils Percent Auto 0.5 0 - 2 % [facility] NRBC Pct Auto 0.0 0.0 - 0.2 /100WBC [facility] Neutrophils Absolute Auto 3.3 2.0 - 8.3 x10*3/uL [facility] Imm Gran Abs Auto 0.03 0.00 - 0.03 X10*3/uL [facility] Lymphocytes Absolute Auto 1.9 1.2 - 4.9 X10*3/uL [facility] Monocytes Absolute Auto 0.4 0.1 - 1.2 X10*3/uL [facility] Eosinophils Absolute Auto 0.1 0.0 - 0.4 X10*3/uL [facility] Basophils Absolute Auto 0.0 0.0 - 0.2 X10*3/uL [facility] NRBC Abs Auto 0.000 0.0 - 0.012 X10*3/uL [facility] 07/30/2024 11:2 2 AM EDT 07/30/2024 11:22 AM EDT Generic External Data Provider LAB BLOOD ORDERAB LES Final Result Performing Organization Address [facility] de Phone Number [facility] [address] [place] [phone] * Immunofixation (MORALES), Urine (07/30/2024 11:16 AM EDT) MORALES Interpretation SEE NOTE H [facility] Comment:No monoclonal protei ns detected.The supplier of the testing reagents for this assayhas changed. Detection of small monoclonal proteins mayvary by test system.THIS TEST WAS PERFORMED AT:[employer] [place] [id number] REECE MD 07/30/2024 11:1 6 AM EDT 07/30/2024 11:33 AM EDT us Generic External Data Provider LAB URINE ORDERAB LES Final Result [facility] [address] [place] [phone] [phone] documented in this encounter Visit Diagnoses Not on filedocumented in this encounter Additional Health Concerns Assessment Noted Time PHQ-9 Depression Total Score: 12 025 2:53 PM EST documented as of this encounter Care Teams School Psychometrist Relationship Specialty Start Date End Date Sharmin Ortiz MD [address] [place] [address] PCP - General Family Medicine 04/10/18 Lamine Giles, Dameon [address] [place] [address] Pharmacist Internal Medicine 04/01/24 documented as of this encounter
--- OUTSIDE RECORDS SUMMARY | 2024-08-02 09:52 | XMS_ITS | Encounter Summary ---
Author Organization [employer] Address [address] [facility] 7t [place] [address] Care Team Providers Care Segment Assembler Name Role Phone Sharmin Ortiz MD Primary Care Provider [phone] Lamine Giles PharmD Unavailable Encounter Details Date Type Department Care Team (Late st Contact Info) Description 02/07/2024 Orders Only [facility] MED[facility]INE [address] [place], [place] [phone] Sharmin Ortiz MD [address] [place], [place] [phone] Social History Tobacco Use Types Packs/Day Years [...] Description 08/22/2024 11:00 AM EDT Medication Management [facility] [address] [place] [phone] Lamine Giles, Dameon [address] [place] [address] 08/26/2024 11:00 AM EDT Office Visit [address] [address] Sharmin Ortiz MD [address] [place] [address] documented as of this encounter Visit Diagnoses Not on filedocumented in this encounter Care Teams Segment Assembler Relationship Specialty Start Date End Date Sharmin Ortiz MD [address] [place] [address] PCP - General Family Medicine 04/10/18 Lamine Giles, PharmD [address] [place] [address] Pharmacist Internal Medicine 04/01/24 documented as of this encounter
--- OUTSIDE RECORDS SUMMARY | 2024-08-02 09:52 | XMS_ITS | Encounter Summary ---
Author Organization [employer] Address [address] [facility] 7t [place] [address] Care Team Providers Care Textile Chemist Name Role Phone Sharmin Ortiz MD Primary Care Provider [phone] Lamine Giles PharmD Unavailable [phone] Reason for Visit * Reason Onset Date Comments Referral 03/28/2023 Encounter Details Date Type Department Care Team ([facility] st Contact Info) Description 03/28/2023 Telephone [facility] [address] [place], [place] [phone] Sharmin Ortiz MD [address] [place] [address] Referral Social History Tobacco Use Types Packs/Day [...] t he electric, gas, oil or water [employer] threatened to shut off services in your [...] Notes * Telephone Encounter - Alma Chamorrocitlaly Gannonro - 03/28/2023 10:30 AM EST Tc from [facility] with [facility] Pain Management requesting an updated referral for Pain management for pt due to current one being at least two years old Please fax over @ [phone] Please if any questions contact Stella @ [phone] documented in this encounter Plan of Treatment Upcoming Encounters Date Type Department Care Team (Late st Contact Info) Description 08/22/2024 11:00 AM EDT Medication Management [facility] [address] [place] [phone] Lamine Giles, Dameon [address] [place] [address] 08/26/2024 11:00 AM EDT Office Visit [facility] [address] [place] [address] Sharmin Ortiz MD [address] [place] [address] documented as of this encounter Visit Diagnoses Not on filedocumented in this encounter Care Teams Textile Chemist Relationship Specialty Start Date End Date Sharmin Ortiz MD [address] [place] [address] PCP - General Family Medicine 04/10/18 Lamine Giles, PharmD [address] [place] [address] Pharmacist Internal Medicine 04/01/24 documented as of this encounter
--- OUTSIDE RECORDS SUMMARY | 2024-08-02 09:52 | XMS_ITS | Encounter Summary ---
Author Organization [employer] Address [address] [facility] 7t [place] [address] Care Team Providers Care Hospital Pharmacist Name Role Phone Sharmin Ortiz MD Primary Care Provider [phone] Lamine Giles PharmD Unavailable [phone] Encounter Details Date Type Department Care Team (Late st Contact Info) Description 02/07/2024 Orders Only [facility] MEDICINE [address] [place], [place] [phone] Sharmin Ortiz MD [address] [place], [place] [phone] Social History Tobacco Use Types Packs/Day Years [...] Description 08/22/2024 11:00 AM EDT Medication Management [facility]INE [address] [place] [address] Lamine Giles, Dameon [address] [place] [address] 08/26/2024 11:00 AM EDT Office Visit [address] [address] Sharmin Ortiz MD [address] [place] [address] documented as of this encounter Visit Diagnoses Not on filedocumented in this encounter Care Teams Hospital Pharmacist Relationship Specialty Start Date End Date Sharmin Ortiz MD [address] [place] [address] PCP - General Family Medicine 04/10/18 Lamine Giles, PharmD [address] [place] [address]31 Pharmacist Internal Medicine 04/01/24 documented as of this encounter
--- OUTSIDE RECORDS SUMMARY | 2024-08-02 09:52 | XMS_ITS | Encounter Summary ---
Author Organization [employer] Address [address] [facility] 7t [place] [address] Care Team Providers Care Airport Operations Supervisor Name Role Phone Sharmin Ortiz MD Primary Care Provider [phone] Lamine Giles PharmD Unavailable [phone] Encounter Details Date Type Department Care Team (Late st Contact Info) Description 01/17/2023 Abstract [facility] MED[facility]INE [address] [place] [address] Nicci Jimenez Social History Tobacco Use Types [...] 11:00 AM EDT Medication Management [facility] [address] [place] [phone] Lamine Giles, PharmD [address] [place] [address] 08/26/2024 11:00 AM EDT Office Visit [facility] [address] [place] [address] [phone] Sharmin Ortiz MD [address] [place] [address] documented as of this encounter Visit Diagnoses Not on filedocumented in this encounter Care Teams Airport Operations Supervisor Relationship Specialty Start Date End Date Sharmin Ortiz MD [address] [place] [address] [phone] PCP - General Family Medicine 04/10/18 Lamine Giles, DaisyD [address] [place] [address] Pharmacist Internal Medicine 04/01/24 documented as of this encounter
--- OUTSIDE RECORDS SUMMARY | 2024-08-02 09:52 | XMS_ITS | Encounter Summary ---
Author Organization [employer] Address [address] [facility] 7t [place] [address] Care Team Providers Care Electric Container Tester Name Role Phone Sharmin Ortiz MD Primary Care Provider [phone] Lamine Giles PharmD Unavailable [phone] Reason for Visit * Reason Comments Med Refill Encounter Details Date Type Department Care Team ([facility] st Contact Info) Description 03/14/2023 Refill [facility] MEDICINE [address] [place], [place] [phone] Sharmin Ortiz MD [address] [place], [place] [phone] Social History Tobacco Use Types Packs/Day Years [...] 11:00 AM EDT Medication Management [facility] MEDICINE [address] [place] [phone] Lamine Giles, Dameon [address] [place] [address] 08/26/2024 11:00 AM EDT Office Visit [facility] [address] [place] [address] Sharmin Ortiz MD [address] [place] [address] documented as of this encounter Visit Diagnoses Not on filedocumented in this encounter Care Teams Electric Container Tester Relationship Specialty Start Date End Date Sharmin Ortiz MD [address] [place] [address] PCP - General Family Medicine 04/10/18 Lamine Giles, PharmD [address] [place] [address]277 Pharmacist Internal Medicine 04/01/24 documented as of this encounter
--- OUTSIDE RECORDS SUMMARY | 2024-08-02 09:52 | XMS_ITS | Encounter Summary ---
Author Organization [employer] Address [address] [facility] 7t [place] [address] Care Team Providers Care Structural Steel Painter Name Role Phone Sharmin Ortiz MD Primary Care Provider [phone] Lamine Giles PharmD Unavailable [phone] Encounter Details Date Type Department Care Team (Late st Contact Info) Description 02/09/2024 Orders Only [facility] [address] [place], [place] [phone] Sharmin Ortiz MD [address] [place], [place] [phone] Social History Tobacco Use Types Packs/Day Years [...] Description 08/22/2024 11:00 AM EDT Medication Management [facility] [address] [place] [phone] Lamine Giles, Dameon [address] [place] [address] 08/26/2024 11:00 AM EDT Office Visit [address] [address] Sharmin Ortiz MD [address] [place] [address] documented as of this encounter Visit Diagnoses Not on filedocumented in this encounter Care Teams Structural Steel Painter Relationship Specialty Start Date End Date Sharmin Ortiz MD [address] [place] [phone] PCP - General Family Medicine 04/10/18 Lamine Giles, PharmD [address] [place] [address] Pharmacist Internal Medicine 04/01/24 documented as of this encounter
--- OUTSIDE RECORDS SUMMARY | 2024-08-02 09:52 | XMS_ITS | Clinical Summary ---
Author Organization [employer] Address [address] [facility] [address] [place] [address] Care Team Providers Care Manager Utilization Management Name Role Phone Sharmin Ortiz MD Primary Care Provider [phone] Lamine Giles PharmD Unavailable [phone] Allergies Active Allergy Reactions Criticality Noted Date [...] hyperglycemia, without long-term current use of insulin ([facility]) Take 2 tablets (1,000 mg) by mouth [...] hyperglycemia, without long-term current use of insulin ([facility]) Inject 1 mg under the skin 1 [...] skin at bed time. 04/22/19 21 025 Discontinued(Al d list cleanup (will not trigger notification [...] hyperglycemia, without long-term current use of insulin ([facility]) Inject 0.5 mg under the skin 1 [...] 3% at 5 years, will refer to sba business development officer. Fibromyalgia 08/03/2023 Assessment & Plan (06/11/2024 6:54 [...] (12/18/2022 11:33 AM EDT): - following with [facility]. -Low FODMAP diet History of right salpingo-oophorectomy Family history of hypercoagulable state 03/22/20 Family history of lupus erythematosus 03/22/2022 Hepatitis B immune 03/22/2022 Chronic low back pain 02/09/2018 Assessment & Plan (08/03/2023 1:13 PM EDT): - continue current medications for fibromyalgia - pt declines PT referral - patient was seen by crayon painter and currently scheduled for SI joint injection treatment Assessment & Plan (03/12/2023 5:56 AM EST): - continue current medications for fibromyalgia - pt declines PT referral - pt requests crayon painter referral Assessment & Plan (12/18/2022 11:37 [...] 12:16 PM EDT): - last seen by [facility] in Apr 2022 - last US in Mar 2022. Hepatomegaly with hepatic steatosis. No focal lesion. - FIB-4 = 1.56 in FIB4 index - avoid hepatotoxic drugs. Assessment & Plan (08/04/2023 9:48 AM EDT): - last seen by [facility] in Apr 2022 - last US in Mar 2022. Hepatomegaly with hepatic steatosis. No focal lesion. - FIB-4 = 0.78 in 2021 - avoid hepatotoxic drugs. - will update ultrasound Assessment & Plan (03/12/2023 5:50 AM EST): - followed by [facility] - avoid hepatotoxic drugs. Assessment & Plan (12/18/2022 11:34 AM EDT): - followed by [facility] - avoid hepatotoxic drugs. Allergic rhinitis 09/16/2014 [...] - multifactorial headache - optimize Tx for WADNA - lately not active Obesity 05/30/2012 Assessment [...] (08/03/2023 1:09 PM EDT): - seen by [facility] orthopedic provider in July 2023 - most recent NCT/EMG on 02/16/23 showed b/l mild median nerve neuropathy, consistent with CTS - s/p light carpal tunnel release on 05/16/23 - judicious use of NSAIDs prn and gabapentin - use brace Assessment & Plan (03/12/2023 5:48 AM EST): - seen by [facility] orthopedic provider in Feb 2023, upcoming appt [...] DEPARTMENT Provider, Generic External Data 07/20/2024 [facility] [place] [address] Sharmin Ortiz MD 07/18/2024 Travel 07/15/2024 Telephone [facility] [place] [address] Sharmin Ortiz MD 07/14/2024 Orders Only [facility] [place] [address] Sharmin Ortiz MD 07/12/2024 Orders Only [facility] [place] [address] Sharmin Ortiz MD 07/03/2024 Population Health Risk Score [facility] Department [address] [phone] Provider, Population Health Generic 06/17/2024 Refill [facility] [place] [address] Sharmin Ortiz MD 06/10/2024 2:30 PM EST Office Visit [facility] [address] Sharmin Ortiz MD Primary hypertension (Primary Dx); [...] (BMI) of 37.0 to 37.9 in adult ([facility]) 06/10/2024 Travel 06/05/2024 Telephone [facility] [address] [place] [address] Adela Butcher MA chart prep 05/23/2024 Orders Only [facility] External Provider, [facility] 05/20/2024 Travel 05/15/2024 Orders Only [facility] [address] [facility], [place] [phone] Sharmin Ortiz MD 05/15/2024 Telephone [facility] [address] [place], [place] [phone] Lamine Giles, PharmD 05/15/2024 Telephone [facility] [address] [facility], [place] [phone] Shauna Christian RN 05/14/2024 Orders Only [facility] [address] [place], [place] [phone] Sharmin Ortiz MD from Last 3 Months [...] Description 08/22/2024 11:00 AM EDT Medication Management [facility] [address] [place] [address] Lamine Giles, PharmD [address] [place], [place] [phone] 08/26/2024 11:00 AM EDT Office Visit [facility] [address] [place], [place] [phone] Sharmin Ortiz MD [address] [place], [place] [phone] Health Maintenance Due Date Last Done Comments [...] ANTIBODY (MPO) Routine 07/30/2024 11:22 AM EDT GLOMERULAR BASEMENT MEMBRANE ANTIBODY (IGG) Routine 07/30/2024 11:22 AM EDT DNA (DS) ANTIBODY Routine 07/30/2024 11: 22 AM EDT IMMUNOFIXATION, SERUM Routine 07/30/2024 11:22 AM EDT COMPLEMENT COMPONENT C4C Routine 07/30/2024 11:22 AM EDT COMPLEMENT COMPONENT C3C Routine 07/30/2024 11:22 AM EDT HEPATITIS B SURFACE ANTIGEN, EIA Routine 07/30/2024 11:22 AM EDT HEPATITIS B CORE AB TOTAL Routine 07/30/2024 11:22 AM EDT CALCIUM Routine 07/30/2024 11:22 AM EDT CREATININE, SERUM Routine 07/30/2024 11: 22 AM EDT UREA NITROGEN (BUN) Routine 07/30/2024 1 1:22 AM EDT ELECTROLYTE PANEL Routine 07/30/2024 11: 22 AM EDT CBC WITH AUTO DIFFERENTIAL Routine 07/30/2024 11:22 AM EDT IMMUNOFIXATION, URINE Routine 07/30/2024 11:16 AM EDT T4, FREE Routine 07/12/2024 10:20 [...] hyperglycemia, without long-term current use of insulin ([facility]) LIPID PANEL WITH REFLEX TO DIRECT LDL [...] Routine 06/16/2022 10:23 AM EST HIV ANTIBODY/ANTIGEN ([facility]) Routine 06/16/2022 10:23 AM EST ZZZ HISTORICAL HPV E6/E7 RFLX RENEE 16 18/45 Routine 07/07/2020 1:59 PM EDT from Last 3 Months or Most Recently Relevant to Health Maintenance Results * Creatinine, Serum (07/30/2024 11:22 AM EDT) Creatinine, Serum 1.16 0.5 - 1.4 mg/dL [facility] Estimated Glomerular Filt Rate 50 [facility] Comment:Chronic Kidney Disea se: Estimated GFR < 60 mL/min/1.11x8Tcaryw Kidney Disease: Estimated GFR < 15 mL/min/1.73m2 07/30/2024 11:2 2 AM EDT 07/30/2024 11:22 AM EDT us Generic External Data Provider LAB BLOOD ORDERAB LES Final Result [facility] [address] [place] [phone] * (ABNORMAL) CBC auto differential (07/30/2024 11:22 AM EDT) Only the most recent of2 resultswithin the time period is included. White Blood Count 5.8 4.8 - 10.8 X10*3/uL [facility] Red Blood Count 4.26 4.20 - 5.50 X10*6/uL [facility] Hemoglobin 13.4 12.0 - 16.0 g/dl [facility] Hematocrit 38.1 37.0 - 47.0 % [facility] Mean Corpuscular Volume 89.4 80.0 - 98.0 fL [facility] Mean Corpuscular Hemoglobin 31.5 27.0 - 33.0 pg [facility] Mean Corpuscular HGB Conc 35.2(H) 31.0 - 35.0 g/dl [facility] Red Cell Distribution Width 11.9 11.0 - 16.0 % [facility] Platelet Count 239 160 - 400 X10*3/uL [facility] Mean Platelet Volume 9.2(L) 9.4 - 12.3 fL [facility] Neutrophils Percent Auto 57.4 45 - 73 % [facility] Imm Gran Pct Auto 0.5(H) 0.0 - 0.4 % [facility] Lymphocytes Percent Auto 32.6 20 - 40 % [facility] Monocytes Percent Auto 7.4 2 - 11 % [facility] Eosinophils Percent Auto 1.6 0 - 4 % [facility] Basophils Percent Auto 0.5 0 - 2 % [facility] NRBC Pct Auto 0.0 0.0 - 0.2 /100WBC [facility] Neutrophils Absolute Auto 3.3 2.0 - 8.3 x10*3/uL [facility] Imm Gran Abs Auto 0.03 0.00 - 0.03 X10*3/uL [facility] Lymphocytes Absolute Auto 1.9 1.2 - 4.9 X10*3/uL [facility] Monocytes Absolute Auto 0.4 0.1 - 1.2 X10*3/uL [facility] Eosinophils Absolute Auto 0.1 0.0 - 0.4 X10*3/uL [facility] Basophils Absolute Auto 0.0 0.0 - 0.2 X10*3/uL [facility] NRBC Abs Auto 0.000 0.0 - 0.012 X10*3/uL [facility] 07/30/2024 11:2 2 AM EDT 07/30/2024 11:22 AM EDT Generic External Data Provider LAB BLOOD ORDERAB LES Final Result Performing Organization Address [facility]/ZIP Co de Phone Number [facility] [address] [place] [phone] * Hepatitis B surface antigen, EIA (07/30/2024 11:22 AM EDT) Hepatitis B Surface Ag Negative Negative [facility] 07/30/2024 11:2 2 AM EDT 07/30/2024 11:22 AM EDT Generic External Data Provider LAB BLOOD ORDERAB LES Final Result Performing Organization Address [facility] Co de Phone Number [facility] [address] [place] [phone] * Hepatitis B Core Antibody, Total (07/30/2024 11:22 AM EDT) Hepatitis B Core Antibody Nonreactive Nonreactive [facility] 07/30/2024 11:2 2 AM EDT 07/30/2024 11:22 AM EDT Generic External Data Provider LAB BLOOD ORDERAB LES Final Result Performing Organization Address [facility] Co de Phone Number [facility] [address] [place] [phone] * (ABNORMAL) Complement Component C3c (07/30/2024 11:22 AM EDT) Complement C3 198(A) 83 - 193 mg/dL [facility] Comment:THIS TEST WAS PERFOR MED AT:[employer] [place] [phone] REECE MD 07/30/2024 11:2 2 AM EDT 07/30/2024 11:22 AM EDT us Generic External Data Provider LAB BLOOD ORDERAB LES Final Result Performing Organization Address [facility]/ZIP Co de Phone Number [facility] [address] [place] [phone] * Complement Component C4c (07/30/2024 11:22 AM EDT) Complement C4 29 15 - 57 mg/dL [facility] Comment:THIS TEST WAS PERFOR MED AT:[employer] [address] [phone] REECE MD 07/30/2024 11:2 2 AM EDT 07/30/2024 11:22 AM EDT us Generic External Data Provider LAB BLOOD ORDERAB LES Final Result Performing Organization Address [facility] Co de Phone Number [facility] [address] [place] [phone] * (ABNORMAL) BUN (Blood Urea Nitrogen) (07/30/2024 11:22 AM EDT) Urea Nitrogen (BUN) 21(H) 9 - 16 mg/dL [facility] 07/30/2024 11:2 2 AM EDT 07/30/2024 11:22 AM EDT us Generic External Data Provider LAB BLOOD ORDERAB LES Final Result Performing Organization Address [facility]/ZIP Co de Phone Number [facility] [address] [place] [phone] * Calcium (07/30/2024 11:22 AM EDT) Calcium 9.8 8.4 - 10.2 mg/dL [facility] 07/30/2024 11:2 2 AM EDT 07/30/2024 11:22 AM EDT Generic External Data Provider LAB BLOOD ORDERAB LES Final Result Performing Organization Address [facility] Co de Phone Number [facility] [address] [place] [phone] * (ABNORMAL) Electrolyte Panel (07/30/2024 11:22 AM EDT) Pathologist [facility] Sodium 139 135 - 145 mmol/L [facility] Potassium 3.1(L) 3.3 - 5.1 mmol/L [facility] Chloride 104 96 - 108 mmol/L [facility] Carbon Dioxide 25 22 - 29 mmol/L [facility] Anion Gap 13 12 - 20 [facility] 07/30/2024 11:2 2 AM EDT 07/30/2024 11:22 AM EDT Generic External Data Provider LAB BLOOD ORDERAB LES Final Result Performing Organization Address [facility] de Phone Number [facility] [address] [place] [phone] * Immunofixation (MORALES), Urine (07/30/2024 11:16 AM EDT) MORALES Interpretation SEE NOTE H [facility] Comment:No monoclonal protei ns detected.The supplier of the testing reagents for this assayhas changed. Detection of small monoclonal proteins mayvary by test system.THIS TEST WAS PERFORMED AT:[employer] [place] [phone] REECE MD 07/30/2024 11:1 6 AM EDT 07/30/2024 11:33 AM EDT us Generic External Data Provider LAB URINE ORDERAB LES Final Result Performing Organization Address [facility]/ZIP Co de Phone Number [facility] [address] [place] [phone] * (ABNORMAL) Vitamin D, 25-Hydroxy, Total, Immunoassay (07/12/2024 10:20 AM EDT) Vitamin D 25-OH Total 18.4(L) >30 ng/mL [facility] Comment: Health Based Reference Values*< 20 ??ng/mL ??Hfelbklhf04-51 ng/mL ??Insufficient> 30 ??ng/mL ??Sufficient*Kortney KINNEY. N [...] Final Resul t Performing Organization Address [facility]/ZIP Co de Phone Number [facility] [address] [place] [phone] * Vitamin B12 (Cobalamin) and Folate Panel, Serum (07/12/2024 10:20 AM EDT) Vitamin B12 325 200 - 900 pg/mL [facility] Comment:NORMAL 200-900 PG/ML INDETERMINATE 160-199 PG/ML DEFICIENT < 160 PG/ML Folate 8.2 > or = 4.0 ng/mL [facility] Comment:Reference Values:> o r = 4.0 ng/mL< 4.0 ng/mL suggests folate deficiency Methotrexate, aminopterin and folinic acid(leucovorin) are chemotherapeutic agents whose molecularstructures are similar to folate; therefore, the Architectfolate assay cannot be used for patients using these drugs. Blood 07/12/2024 10:2 0 AM EDT 07/12/2024 10:20 AM EDT Sharmin Ortiz MD LAB BLOOD ORDERABLES Final Resul t Performing Organization Address [facility] Co ks Phone Number [facility] [address] [place] [phone] * (ABNORMAL) TSH with Reflex to Free T4 (07/12/2024 10:20 AM EDT) TSH reflex Free T4 4.88(H) 0.32 - 4.0 uIU/mL [facility] Blood 07/12/2024 10:2 0 AM EDT 07/12/2024 10:20 AM EDT Sharmin Ortiz MD LAB BLOOD ORDERABLES Final Resul t Performing Organization Address [facility] Co de Phone Number [facility] [address] [place] [phone] * (ABNORMAL) Lipid Panel with Reflex to Direct LDL (07/12/2024 10:20 AM EDT) Triglycerides 197(H) <150 mg/dL [facility] Comment:Desirable Triglyceri de: less than 150 mg/dLBorderline High Triglyceride 150-199 mg/dLHigh Triglyceride: 200-499 mg/dLVery High Triglyceride: greater than or equal to 5OO mg/dL Cholesterol 163 <200 mg/dL [facility] Comment:Desirable Cholestero l: less than 200 mg/dLBorderline High Cholesterol: 200-239 mg/dLHigh Cholesterol: greater than 239 mg/dL LDL Cholesterol Calculated 93 <100 mg/dL [facility] Comment:Desirable LDL: less than 100 mg/dLNear Optimal/Above Optimal LDL: 110- 129 mg/dLBorderline High LDL: 130-159 mg/dLHigh LDL: 160-189 mg/dLVery High LDL: greater than or equal to 190 mg/dL HDL Cholesterol 31(L) >40 mg/dL [facility] Comment:Desirable HDL: great er than 40 mg/dL Note: This HDL assay may give artificially low results in patients with liver disease. Blood 07/12/2024 10:2 0 AM EDT 07/12/2024 10:20 AM EDT Sharmin Ortiz MD LAB BLOOD ORDERABLES Final Resul t Performing Organization Address [facility] Co de Phone Number [facility] [address] [place] [phone] * T4, Free (07/12/2024 10:20 AM EDT) Free T4 (Free Thyroxine) 0.99 0.71 - 1.85 ng/dL [facility] 07/12/2024 10:2 0 AM EDT 07/12/2024 10:20 AM EDT Sharmin Ortiz MD LAB BLOOD ORDERABLES Final Resul t Performing Organization Address [facility]/ZIP Co de Phone Number [facility] [address] [place] [phone] * (ABNORMAL) Comprehensive Metabolic Panel (07/12/2024 10:20 AM EDT) Sodium 140 135 - 145 mmol/L [facility] Potassium 3.5 3.3 - 5.1 mmol/L [facility] Chloride 106 96 - 108 mmol/L [facility] Carbon Dioxide 27 22 - 29 mmol/L [facility] Anion Gap 11(L) 12 - 20 [facility] Urea Nitrogen (BUN) 18(H) 9 - 16 mg/dL [facility] Creatinine, Serum 1.09 0.5 - 1.4 mg/dL [facility] Estimated Glomerular Filt Rate 53 [facility] Comment:Chronic Kidney Disea se: Estimated GFR < 60 mL/min/1.92u2Wfdzud Kidney Disease: Estimated GFR < 15 mL/min/1.73m2 Glucose 148(H) 60 - 115 mg/dL [facility] Calcium 9.5 8.4 - 10.2 mg/dL [facility] Bilirubin, Total 0.6 0.0 - 1.0 mg/dL [facility] Aspartate Amino Transferase 59(H) 5 - 31 U/L [facility] Alanine Aminotransferase 84(H) 0 - 31 U/L [facility] Total Protein 7.5 6.5 - 8.0 g/dL [facility] Albumin Level 4.2 3.5 - 5.0 g/dL [facility] Alkaline Phosphatase 144(H) 39 - 117 U/L [facility] Blood Venous blood specimen / Unknown 07/12/2024 10:20 AM EDT 07/12/2024 10:20 AM EDT us Sharmin Ortiz MD LAB BLOOD ORDERABLES Final Resul t [facility] [address] [place] [phone] * Albumin, Random Urine W/Creatinine (07/12/2024 10:19 AM EDT) Creatinine, Urine 206.08 mg/dL [facility] Microalbumin Urine 47.0 mg/L [facility] Microalbum Creatinine Ratio Ur 22.8 <30 ug/mg cr [facility] Comment:Albumin/Creatinine R atio Reference Ranges: Normal: < 30 ug/mg creatinine Microalbuminuria: 30 - 300 ug/mg creatinineClinical Albuminuria: > 300 ug/mg creatinine Urine 07/12/2024 10:1 9 AM EDT 07/12/2024 11:17 AM EDT us Sharmin Ortiz MD LAB URINE ORDERABLES Final Resul t [facility] [address] [place] [phone] * BI Mammogram Screening Tomosynthesis Bilateral (07/12/2024 9:45 AM EDT) Anatomical Region Laterality Modality Breast Bilateral Mammography 07/12/2024 9:45 AM EDT Narrative 07/19/2024 12:59 PM EDT ? [facility] [place] ? [address] ?[place] [address] ?[phone] ? Mammography Report ? Signed ? Patient: Rizwan,Arleen ?MR#: [id number] ?? 01 ? : 1975 ?Acct:[id number] ? Age/Sex: 48 / F ?ADM Date: 04/04/25 ? Loc: HO.MAMMO ? Attending Dr: Sharmin Ortiz MD ? Ordering Physician: Sharmin Ortiz MD ?Results: 1Negative ? Date of Service: 04/04/25 ?Follow Up: 1 Year From Orig ?? inal Mammogram ? Procedure(s): MM tomosynthesis screening BI ?? Accession Number(s): [id number] ? cc: Sharmin Ortiz MD ? EXAMINATION: [...] ? Signed By: ?<Electronically signed by Joie Kaba DO in OV> ? 07/19/24 1256 ? DD/ 0945 ? TD/TT: 07/12/24 1000 ? Young Adult Librarian: ? Procedure Note Tim Forbes - 07/19/2024 [facility] [address] [place] [address] Dr. Mora, JAYNA [address] Mammography Report Signed Patient: Zach AstorgaWilberto#: [id number] 01 : 1975Acct:[id number] Age/Sex: 48 / FADM Date: 07/12/24 Loc: HO.MAMMO Attending Dr: Sharmin Ortiz MD Ordering Physician: Sharmin Ortiz MDResults: 1Negative Date of Service: 07/12/24Follow Up: 1 Year From Orig ina Mammogram Procedure(s): MM tomosynthesis screening BI Accession Number(s): [id number] cc: Sharmin Ortiz MD EXAMINATION: MM SCREENING [...] 07/19/24 1256 DD/ 0945 TD/TT: 07/12/24 1000 Young Adult Librarian: us Sharmin Ortiz MD IMG BI PROCEDURES Final Result * XR CERVICAL SPINE 4V (05/24/2024 5:41 AM EST) Anatomical Region Laterality Modality Abdomen Radiographic Ronna ging 05/24/2024 5:41 AM EST Narrative 05/24/2024 5:42 AM EST ? [place] [facility] ?[address] ?[place] [address] ?XRay Report ? Signed ? Patient: Rizwan,Arleen ?MR#: [id number] ?? 01 ? : 1975 ?Acct:[id number] ? Age/Sex: 48 / F ?ADM Date: 05/23/24 ? Loc: HO.XRAY ? Attending Dr: Lashae XIAO ? Ordering Physician: Lashae Reid ?? Date of Service: 05/23/24 ?? Procedure(s): XR cervical spine 4V ?? Accession Number(s): [id number] ? cc: Lashae Reid; Sharmin Ortiz MD [...] DD/ 05 ? TD/TT: 05/24/24 05 ? Young Adult Librarian: ? Procedure Note Tim Forbes - 05/24/2024 [place] [address] XRay Report Signed Patient: Mireille Astorga#: [id number] 01 : 1975Acct:[id number] Age/Sex: 48 / FADM Date: 05/23/24 Loc: [facility] Attending Dr: Lashae XIAO Ordering Physician: Lashae Reid Date of Service: 05/23/24 Procedure(s): XR cervical spine 4V Accession Number(s): [id number] cc: Lashae Reid; Sharmin Ortiz MD CLINICAL [...] 05/24/24 0542 DD/ 0541 TD/TT: 05/24/24 0541 Young Adult Librarian: us [facility] External Provider IMG XR PROCEDURES Final Result * XR Shoulder 2+ Views Left (05/24/2024 5:41 AM EST) Anatomical Region Laterality Modality Upper Extremities, Shoulder Left Radi ographic Imaging 05/24/2024 5:41 AM EST Narrative 05/24/2024 5:42 AM EST ? [facility] ?[address] ?[place] [address] ?XRay Report ? Signed ? Patient: Arleen Astorga ?MR#: [id number] ?? 01 ? : 1975 ?Acct:[id number] ? Age/Sex: 48 / F ?ADM Date: 05/23/24 ? Loc: HO.XRAY ? Attending Dr: Lashae Reid JANITOR SUPERVISOR ? Ordering Physician: Lashae Reid ?? Date of Service: 05/23/24 ?? Procedure(s): XR shoulder LT min 2V ?? Accession Number(s): [id number] ? cc: Lashae Reid; Sharmin Ortiz MD [...] DD/ 0541 ? TD/TT: 05/24/24 0541 ? Young Adult Librarian: ? Procedure Note Donotuseinterpreter, Image - 05/24/[address] [address] XRay Report Signed Patient: Mireille Astorga#: [id number] 01 : 1975Acct:[id number] Age/Sex: 48 / FADM Date: 05/23/24 Loc: HO.XRAY Attending Dr: Lashae XIAO Ordering Physician: Lashae Reid Date of Service: 05/23/24 Procedure(s): XR shoulder LT min 2V Accession Number(s): [id number] cc: Lashae Reid; Sharmin Ortiz MD CLINICAL [...] OV> 05/24/24 0542 DD/ 0 TD/TT: 05/24/24540 Young Adult Librarian: [facility] External Provider IMG XR PROCEDURES Final Result * (ABNORMAL) POCT HGB A1C (05/20/2024 11:55 AM EST) Hemoglobin A1C 8.0(A) 4.0 - 6.0 % QC Media Lot # [id number] Lot# Expiration Date Blood 05/20/2024 11:5 5 AM EST Sharmin Ortiz MD POINT OF CARE TEST ENTER/EDIT OR DERABLES Final Result * (ABNORMAL) Basic Metabolic Panel (05/14/2024 11:04 AM EST) Pathologist [facility] Sodium 141 135 - 145 mmol/L [facility] Potassium 3.8 3.3 - 5.1 mmol/L [facility] Chloride 104 96 - 108 mmol/L [facility] Carbon Dioxide 26 22 - 29 mmol/L [facility] Anion Gap 15 12 - 20 [facility] Urea Nitrogen (BUN) 26(H) 9 - 16 mg/dL [facility] Creatinine, Serum 1.37 0.5 - 1.4 mg/dL [facility] Estimated Glomerular Filt Rate 41 [facility] Comment:Chronic Kidney Disea se: Estimated GFR < 60 mL/min/1.78t3Wmjppq Kidney Disease: Estimated GFR < 15 mL/min/1.73m2 Glucose 134(H) 60 - 115 mg/dL [facility] Calcium 10.1 8.4 - 10.2 mg/dL [facility] 05/14/2024 11:0 4 AM EST 05/14/2024 11:04 AM EST us Sharmin Ortiz MD LAB BLOOD ORDERABLES Final Resul t [facility] [address] [place] [phone] * HIV Ab/Ag ([facility]) (06/16/2022 10:23 AM EST) Pathologist [facility] HIV AB/AG Nonreactive Nonreactive [facility] Comment:HIV-1 p24 Ag and/or HIV-1/HIV-2 Ab not detected.A test result that is nonreactive does not exclude thepossibility of exposure to or infection with HIV-1 and/orHIV-2. Nonreactive results in this assay for individualswith prior exposure to HIV-1 and/or HIV-2 may be due toantigen and antibody levels that are below the limit ofdetection of this assay.[employer] HIV Ag/Ab Combo assay result andsupplemental assay results should be interpreted inconjunction with the patient's clinical presentation,history and other laboratory results. If the results areinconsistent with clinical evidence, additional testing issuggested to confirm the result. 06/16/2022 10:2 3 AM EST 06/16/2022 10:23 AM EST [facility] External Provider LAB BLO OD ORDERABLES Final Result Performing Organization Address [facility] de Phone Number [facility] [address] [place] [phone] * Hepatitis Panel, General (06/16/2022 10:23 AM EST) Hepatitis A IgM Nonreactive Nonreactive [facility] Comment:IgM antibodies to ROBERTO V not detected; does not exclude earlyacute or recovered HAV infection. ~Hepatitis B Surface Antibody REACTIVE Nonreactive [facility] Comment:REACTIVE: > 11.99 mI U/mL Hepatitis B Core Antibody Nonreactive Nonreactive [facility] Hepatitis C Antibody Nonreactive Nonreactive [facility] Comment:Antibodies to HCV no t detected; does not exclude early acuteHCV infection. Hepatitis B Surface Ag Negative Negative [facility] 06/16/2022 10:2 3 AM EST 06/16/2022 10:23 AM EST [facility] External Provider LAB BLO OD ORDERABLES Final Result Performing Organization Address [facility] de Phone Number [facility] [address] [place] [phone] * HPV E6/E7 RFLX RENEE 16 18/45 (07/07/2020 1:59 PM EDT) HPV mRNA E6/E7 rflx Not Detected Not Detected [employer] [facility] Comment: Methodology: Ceramic Coater-Mediated Amplification This assay detects E6/E7 viral messenger RNA (mRNA) from 14 high-risk HPV types (16,18,31,33,35,39,45,51,52,56,58,59,66,68). The analytical performance characteristics of this assay have been determined by [employer]. The modifications have not been cleared or approved by the FDA. This assay has been validated pursuant to the CLIA regulations and is used for clinical purposes. For additional information, please refer to http://education.[employer]/faq/ZOC464c0 (This link if provided for information/ educational purposes only.) THIS TEST WAS PERFORMED AT: [employer] [address] [place] [address],[address] [place], [place] ??[phone] SAUL REECE MD 07/07/2020 1:59 PM EDT us Sam Michel MD HISTORICAL/NON ORDERABLE LABS Fi nal Result Performing Organization Address City/State/[facility] Co de Phone Number [facility] Anywhere [address] from Last 3 Months or Most Recently Relevant to Health Maintenance Insurance [facility] C3 Care Teams Manager Utilization Management Relationship Specialty Start Date End Date Sharmin Ortiz MD [address] [place] [address] PCP - General Family Medicine 04/10/18 Lamine Giles, PharmD [address] [place] [address] Pharmacist Internal Medicine 04/01/24
--- OUTSIDE RECORDS SUMMARY | 2024-08-02 09:52 | XMS_ITS | Encounter Summary ---
Author Organization [employer] Address [address] [facility] [address]t [place] [address] Care Team Providers Care Technical Advisor Name Role Phone Sharmin Ortiz MD Primary Care Provider [phone] Lamine Giles PharmD Unavailable [phone] Encounter Details Date Type Department Care Team (Late st Contact Info) Description 03/28/2023 Orders Only [facility] [address] [place], [place] [phone] Sharmin Ortiz MD [address] [place], [place] [phone] Chronic pain of left knee (Primary Dx); [...] Description 08/22/2024 11:00 AM EDT Medication Management [facility] [address] [place] [phone] Lamine Giles, Dameon [address] [place] [phone] 08/26/2024 11:00 AM EDT Office Visit [facility] [address] [place] [phone] Sharmin Ortiz MD [address] [place] [phone] documented as of this encounter Visit Diagnoses Diagnosis Chronic pain of left knee- Primary Right hip pain Pain in joint, pelvic region and thigh Chronic low back pain, unspecified back pain laterality, unspecified whether sciatica present documented in this encounter Care Teams Technical Advisor Relationship Specialty Start Date End Date Sharmin Ortiz MD [address] [place] [phone] PCP - General Family Medicine 04/10/18 Lamine Giles, PharmD [address] [place] [address] [phone] Pharmacist Internal Medicine 04/01/24 documented as of this encounter
--- OUTSIDE RECORDS SUMMARY | 2024-08-02 09:52 | XMS_ITS | Encounter Summary ---
Author Organization [employer] Address [address] [facility] 7t [place] [address] Care Team Providers Care Furnace Mechanic Helper Name Role Phone Sharmin Ortiz MD Primary Care Provider [phone] Lamine Giles PharmD Unavailable [phone] Encounter Details Date Type Department Care Team (Late st Contact Info) Description 05/15/2024 Orders Only [facility] [address] [place], [place] [phone] Sharmin Ortiz MD [address] [place], [place] [phone] Social History Tobacco Use Types Packs/Day Years [...] 11:00 AM EDT Medication Management [facility] [address] [place] [phone] Lamine Giles, Dameon [address] [place] [phone] 08/26/2024 11:00 AM EDT Office Visit [address] [address] Sharmin Ortiz MD [address] [place] [phone] documented as of this encounter Visit Diagnoses Not on filedocumented in this encounter Care Teams Furnace Mechanic Helper Relationship Specialty Start Date End Date Sharmin Ortiz MD [address] [place] [phone] PCP - General Family Medicine 04/10/18 Lamine Giles, PharmD [address] [place] [phone] Pharmacist Internal Medicine 04/01/24 documented as of this encounter
--- OUTSIDE RECORDS SUMMARY | 2024-08-02 09:52 | XMS_ITS | Encounter Summary ---
Author Organization [employer] Address [address] [facility] 7t [place] [address] Care Team Providers Care Information Officer Name Role Phone Sharmin Ortiz MD Primary Care Provider Lamine Giles PharmD Unavailable [phone] Reason for Referral * Consultation (Routine) - Closed Specialty Diagnoses / Procedures Referred By Bakari t Referred To Contact Nephrology Diagnoses Stage 3b chronic kidney disease (CMS/HCC) Sharmin Ortiz MD [address] [place] [address] Phone: tel: fax: [facility] [address], [address] [place] [address] Phone: tel: fax: Referral ID Status Reason Start Date Expiration Date V isits Requested Visits Authorized [id number] Closed Specialty Services Required 06/17/2024 06/17/2025 12 12 * Imaging (Routine) - Closed Specialty Diagnoses / Procedures Referred By Contac t Referred To Contact Radiology Diagnoses Metabolic dysfunction-associated steatotic liver disease (MASLD) Procedures US Abdomen Comp w elastography Sharmin Ortiz MD [address] [place] [address] Phone: tel: fax: [facility] [address] [place], [place] Phone: tel: fax: Referral ID Status Reason Start Date Expiration Date Visits Re quested Visits Authorized [id number] Closed 06/16/2024 06/16/2025 1 1 * Imaging (Routine) - Closed Specialty Diagnoses / Procedures Referred By Contac t Referred To Contact Radiology Diagnoses Pelvic pain Procedures US Pelvis Transvaginal Sharmin Ortiz MD [address] [place] [address] Phone: tel: fax: [address] Phone: tel: fax: Referral ID Status Reason Start Date Expiration Date Visits Re quested Visits Authorized [id number] Closed 06/16/2024 06/16/2025 1 1 * Imaging (Routine) - Closed Specialty Diagnoses / Procedures Referred By Contac t Referred To Contact Radiology Diagnoses Pelvic pain Procedures Us Pelvis complete Sharmin Ortiz MD [address] [place] [address] Phone: tel: fax: [address] Phone: tel: fax: Referral ID Status Reason Start Date Expiration Date Visits Re quested Visits Authorized [id number] Closed 06/16/2024 06/16/2025 1 1 * Consultation (Routine) - Authorized Specialty Diagnoses / Procedures Referred By Contac t Referred To Contact Optometry Diagnoses Type 2 diabetes mellitus with hyperglycemia, without long-term current use of insulin ([facility]) Sharmin Ortiz MD [address] [place] [address] Phone: tel: fax: [facility] [address] [place] [phone] Phone: tel: fax: Referral ID Status Reason Start Date Expiration Date Visits Requested Visits Authorized [id number] Authorized Consult and Treat 06/16/2024 06/16/2025 1 1 Encounter Details Date Type Department Care Team (Late st Contact Info) Description 06/10/2024 2:30 PM EST Office Visit [facility] [address] [place] [address] Sharmin Ortiz MD [address] [facility] [place] [address] Primary hypertension (Primary Dx); Obstructive sleep apnea syndrome; Metabolic dysfunction-associate d steatotic liver disease (MASLD); Irritable bowel syndrome, unspecified type; Fibromyalgia; Vitamin D deficiency; Type 2 diabetes mellitus with hyperglycemia, without long-term current use of insulin ([facility]); Encounter for immunization; Pelvic pain; Stage 3b chronic kidney disease ([facility]/HCC); Dietary counseling; Exercise counseling; Class 2 severe obesity due to excess calories with serious comorbidity and body mass index (BMI) of 37.0 to 37.9 in adult ([facility]) Social History Tobacco Use Types Packs/Day Years [...] 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 MRI was ordered. Last MRI in Mar [...] liver disease (MASLD) - last seen by [facility] in Apr 2022 - last US [...] with GLP-1 agonist Type 2 diabetes mellitus ([facility]) A1C 6.8% in Nov 2022, improving -Continue [...] Urine W/Creatinine Comprehensive Metabolic Panel Referral to [facility] Vitamin D deficiency - Ordered Vitamin D, 25-Hydroxy, Total, Immunoassay 06/10/24 Relevant Orders Vitamin D, 25-Hydroxy, Total, Immunoassay IBS (irritable bowel syndrome) - following with [facility]. -Low FODMAP diet - Ordered CBC auto differential 06/10/24 Relevant Orders CBC auto differential Fibromyalgia - continue tylenol prn, continue muscle relaxants prn, advised to avoid NSAIDs Pelvic pain - history of large ovarian cyst s/p removal - evaluate with US Relevant Orders Us Pelvis complete US Pelvis Transvaginal CKD (chronic kidney disease) stage 3, GFR 30-59 ml/min ([facility]) - in a setting of diabetes mellitus type 2 and hypertension - Kidney failure risk: 0.93% at 1 years, 2.87% at 4 years. - continue ARB and SGLT2i - optimize diabetes mellitus and hypertension management - avoid nephrotoxic drugs Due to her young age and the risk is almost 3% at 4 years, will refer to communications analyst. Relevant Orders Referral to Nephrology Other Visit [...] if any problem arises. Scribe Attestation: Ludmila Corral, am serving as a scribe to document [...] kidney disease) stage 3, GFR 30-59 ml/min ([facility]) - in a setting of diabetes mellitus type 2 and hypertension - Kidney failure risk: 0.93% at 1 years, 2.87% at 4 years. - continue ARB and SGLT2i - optimize diabetes mellitus and hypertension management - avoid nephrotoxic drugs Due to her young age and the risk is almost 3% at 4 years, will refer to communications analyst. * Assessment & Plan Note - Ludmila [...] IBS (irritable bowel syndrome) - following with [facility]. -Low FODMAP diet - Ordered CBC auto differential 06/10/24 * Assessment & Plan Note - Ludmila Zarate MA - 06/11/2024 6:54 AM ESTAssociated Problem(s): Metabolic dysfunction-associated steatotic liver disease (MASLD) - last seen by [facility] in Apr 2022 - last US [...] Description 08/22/2024 11:00 AM EDT Medication Management [facility] [address] [place] [phone] Lamine Giles, PharmD [address] [place] [phone] 08/26/2024 11:00 AM EDT Office Visit [facility] [address] [place] [phone] Sharmin Ortiz MD [address] [place] [phone] Pending Results Name Type Priority Associated Diagnoses [...] Priority Associated Diagnoses Order Schedule Referral to [facility] Outpatient Referral Routine Type 2 [...] Vitamin D 25-OH Total 18.4(L) >30 ng/mL [facility] Comment: Health Based Reference Values*< 20 ??ng/mL ??[id number] ng/mL ??Insufficient> 30 ??ng/mL ??Sufficient*Kortney KINNEY. N [...] MD LAB BLOOD ORDERABLES Final Resul t [facility] [address] [place] [phone] * CBC auto differential (07/12/2024 10:20 AM EDT) White Blood Count 7.1 4.8 - 10.8 X10*3/uL [facility] Red Blood Count 4.21 4.20 - 5.50 X10*6/uL [facility] Hemoglobin 13.2 12.0 - 16.0 g/dl [facility] Hematocrit 37.9 37.0 - 47.0 % [facility] Mean Corpuscular Volume 90.0 80.0 - 98.0 fL [facility] Mean Corpuscular Hemoglobin 31.4 27.0 - 33.0 pg [facility] Mean Corpuscular HGB Conc 34.8 31.0 - 35.0 g/dl [facility] Red Cell Distribution Width 12.0 11.0 - 16.0 % [facility] Platelet Count 279 160 - 400 X10*3/uL [facility] Mean Platelet Volume 9.7 9.4 - 12.3 fL [facility] Neutrophils Percent Auto 57.3 45 - 73 % [facility] Imm Gran Pct Auto 0.3 0.0 - 0.4 % [facility] Lymphocytes Percent Auto 31.6 20 - 40 % [facility] Monocytes Percent Auto 8.3 2 - 11 % [facility] Eosinophils Percent Auto 2.1 0 - 4 % [facility] Basophils Percent Auto 0.4 0 - 2 % [facility] NRBC Pct Auto 0.0 0.0 - 0.2 /100WBC [facility] Neutrophils Absolute Auto 4.1 2.0 - 8.3 x10*3/uL [facility] Imm Gran Abs Auto 0.02 0.00 - 0.03 X10*3/uL [facility] Lymphocytes Absolute Auto 2.3 1.2 - 4.9 X10*3/uL [facility] Monocytes Absolute Auto 0.6 0.1 - 1.2 X10*3/uL [facility] Eosinophils Absolute Auto 0.2 0.0 - 0.4 X10*3/uL [facility] Basophils Absolute Auto 0.0 0.0 - 0.2 X10*3/uL [facility] NRBC Abs Auto 0.000 0.0 - 0.012 X10*3/uL [facility] Blood Venous blood specimen / Unknown 07/12/2024 10:20 AM EDT 07/12/2024 10:20 AM EDT us Sharmin Ortiz MD LAB BLOOD ORDERABLES Final Resul t Performing Organization Address City/[facility]/ZIP Co de Phone Number [facility] [address] [place] [phone] [phone] * (ABNORMAL) TSH with Reflex to Free T4 (07/12/2024 10:20 AM EDT) TSH reflex Free T4 4.88(H) 0.32 - 4.0 uIU/mL [facility] Blood 07/12/2024 10:2 0 AM EDT 07/12/2024 10:20 AM EDT Sharmin Ortiz MD LAB BLOOD ORDERABLES Final Resul t Performing Organization Address [facility] Co de Phone Number [facility] [address] [place] [phone] * (ABNORMAL) Comprehensive Metabolic Panel (07/12/2024 10:20 AM EDT) Sodium 140 135 - 145 mmol/L [facility] Potassium 3.5 3.3 - 5.1 mmol/L [facility] Chloride 106 96 - 108 mmol/L [facility] Carbon Dioxide 27 22 - 29 mmol/L [facility] Anion Gap 11(L) 12 - 20 [facility] Urea Nitrogen (BUN) 18(H) 9 - 16 mg/dL [facility] Creatinine, Serum 1.09 0.5 - 1.4 mg/dL [facility] Estimated Glomerular Filt Rate 53 [facility] Comment:Chronic Kidney Disea se: Estimated GFR < 60 mL/min/1.36n0Pxgryt Kidney Disease: Estimated GFR < 15 mL/min/1.73m2 Glucose 148(H) 60 - 115 mg/dL [facility] Calcium 9.5 8.4 - 10.2 mg/dL [facility] Bilirubin, Total 0.6 0.0 - 1.0 mg/dL [facility] Aspartate Amino Transferase 59(H) 5 - 31 U/L [facility] Alanine Aminotransferase 84(H) 0 - 31 U/L [facility] Total Protein 7.5 6.5 - 8.0 g/dL [facility] Albumin Level 4.2 3.5 - 5.0 g/dL [facility] Alkaline Phosphatase 144(H) 39 - 117 U/L [facility] Blood Venous blood specimen / Unknown 07/12/2024 10:20 AM EDT 07/12/2024 10:20 AM EDT Sharmin Ortiz MD LAB BLOOD ORDERABLES Final Resul t [facility] [address] [place], [place] [phone] * (ABNORMAL) Lipid Panel with Reflex to Direct LDL (07/12/2024 10:20 AM EDT) Triglycerides 197(H) <150 mg/dL [facility] Comment:Desirable Triglyceri de: less than 150 mg/dLBorderline High Triglyceride 150-199 mg/dLHigh Triglyceride: 200-499 mg/dLVery High Triglyceride: greater than or equal to 5OO mg/dL Cholesterol 163 <200 mg/dL [facility] Comment:Desirable Cholestero l: less than 200 mg/dLBorderline High Cholesterol: 200-239 mg/dLHigh Cholesterol: greater than 239 mg/dL LDL Cholesterol Calculated 93 <100 mg/dL [facility] Comment:Desirable LDL: less than 100 mg/dLNear Optimal/Above Optimal LDL: 110- 129 mg/dLBorderline High LDL: 130-159 mg/dLHigh LDL: 160-189 mg/dLVery High LDL: greater than or equal to 190 mg/dL HDL Cholesterol 31(L) >40 mg/dL [facility] Comment:Desirable HDL: great er than 40 mg/dL Note: This HDL assay may give artificially low results in patients with liver disease. Blood 07/12/2024 10:2 0 AM EDT 07/12/2024 10:20 AM EDT Sharmin Ortiz MD LAB BLOOD ORDERABLES Final Resul t Performing Organization Address [facility]/ZIP Co de Phone Number [facility] [address] [place] [phone] * Vitamin B12 (Cobalamin) and Folate Panel, Serum (07/12/2024 10:20 AM EDT) Vitamin B12 325 200 - 900 pg/mL [facility] Comment:NORMAL 200-900 PG/ML INDETERMINATE 160-199 PG/ML DEFICIENT < 160 PG/ML Folate 8.2 > or = 4.0 ng/mL [facility] Comment:Reference Values:> o r = 4.0 ng/mL< 4.0 ng/mL suggests folate deficiency Methotrexate, aminopterin and folinic acid(leucovorin) are chemotherapeutic agents whose molecularstructures are similar to folate; therefore, the Architectfolate assay cannot be used for patients using these drugs. Blood 07/12/2024 10:2 0 AM EDT 07/12/2024 10:20 AM EDT us Sharmin Ortiz MD LAB BLOOD ORDERABLES Final Resul t Performing Organization Address [facility] Co de Phone Number [facility] [address] [place] [phone] * Albumin, Random Urine W/Creatinine (07/12/2024 10:19 AM EDT) Creatinine, Urine 206.08 mg/dL [facility] Microalbumin Urine 47.0 mg/L [facility] Microalbum Creatinine Ratio Ur 22.8 <30 ug/mg cr [facility] Comment:Albumin/Creatinine R atio Reference Ranges: Normal: < 30 ug/mg creatinine Microalbuminuria: 30 - 300 ug/mg creatinineClinical Albuminuria: > 300 ug/mg creatinine Urine 07/12/2024 10:1 9 AM EDT 07/12/2024 11:17 AM EDT us Sharmin Ortiz MD LAB URINE ORDERABLES Final Resul t [facility] [address] [place] [phone] documented in this encounter Visit Diagnoses Diagnosis Primary hypertension- Primary Unspecified essential hypertension Obstructive sleep apnea syndrome Obstructive sleep apnea (adult) (pediatric) Metabolic dysfunction-associated steatotic liver disease (MASLD) Irritable bowel syndrome, unspecified type Fibromyalgia Unspecified myalgia and myositis Vitamin D deficiency Type 2 diabetes mellitus with hyperglycemia, without long-term current use of insulin ([facility]) Encounter for immunization Pelvic pain Stage 3b chronic kidney disease ([facility]) Dietary counseling Dietary surveillance and counseling Exercise counseling Class 2 severe obesity due to excess calories with serious comorbidity and body mass index (BMI) of 37.0 to 37.9 in adult ([facility]) documented in this encounter Additional Health Concerns Assessment Noted Time PHQ-9 Depression Total Score: 12 06/10/ 025 2:53 PM EST documented as of this encounter Care Teams Information Officer Relationship Specialty Start Date End Date Sharmin Ortiz MD [address] [place] [address] PCP - General Family Medicine 04/10/18 Lamine Giles, DaisyD [address] [place] [address] Pharmacist Internal Medicine 04/01/24 documented as of this encounter
[2024-08-02 09:54] VITALS: BP 110/80; PULSE 110; O2SAT 97; BMI 36.9
== END 2024-08-02 10:26 | disposition home or self-care (01) ==
LOC: HO.HKA 09:38
PROVIDERS: PCP Family Medicine; Visit Provider Internal Medicine Nephrology
DX: N18.31 Chronic kidney disease, stage 3a (principal); I10 Essential (primary) hypertension; E87.6 Hypokalemia
CPT/HCPCS: 99214

== ENCOUNTER → 2024-08-02 09:38 | Outpatient (BNVA) | payer MEDICAID, SELFPAY | PROVIDERS: PCP Family Medicine; Visit Provider Internal Medicine Nephrology | DX: I12.9 Hypertensive chronic kidney disease with stage 1 through stage 4 chronic kidney disease, or unspecified chronic kidney disease (principal); E11.22 Type 2 diabetes mellitus with diabetic chronic kidney disease; N18.31 Chronic kidney disease, stage 3a; E87.6 Hypokalemia; Z79.899 Other long term (current) drug therapy | CPT/HCPCS: 99212 ==

== ENCOUNTER 2024-08-19 14:23 | Outpatient (AMB) | payer MEDICAID, SELFPAY ==
--- NOTE | 2024-08-19 14:24 | MHC.OFFVIS ---
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 Her initial complaint of neck pain has progressed to include persistent back pain, favorably more on the right side, and radiates to her legs. She describes the pain as ongoing with notable sacroiliac joint involvement, especially accentuating towards the buttocks and hips. Physical therapy completed earlier this year did not bring substantial relief. She carries a history of poorly controlled diabetes mellitus (A1C > 10), which complicates her treatment options, particularly concerning interventions involving steroids or surgical options. Her MRI after work related injury showed moderate left paracentral L5-S1 disc protrusion impinging upon the descending left S1 nerve root. The patient also has a diagnosis of fibromyalgia. She was seen at [facility] but was deemed non-surgical. Patient requests return to work with light duty as she continues to endorse significant low back pain. Last functional capacity assessment was completed in February 2024. - Onset and Timing: Chronic, persistent low back - Quality and Character: Continuous, more significant on the right side - Primary Location: Neck and back pain - Areas of Radiation: Legs, particularly the buttocks and hips - Exacerbating Factors: Movements, lifting, walking, prolonged sitting or standing, changing positions - Relieving Factors: Physical therapy with minimal relief - Interferes with: Daily activities and work capacity - Affect: The pain has caused notable frustration and concern about work capability. - Analgesia: Current pain levels are bothersome; physical therapy has been completed with minimal benefit; concerns about diabetes limit certain interventions. - Adverse Effects: Not explicitly reported in conversation. Avoids NSAIDs due to CKD. - Activities of Daily Living: Pain interferes with her ability to perform work and tasks associated with caregiving. - Aberrant Drug Related Behaviors: None mentioned. PRIOR: Patient presents today for follow up with persistent neck and left shoulder pain and to discuss recent xray results. She reports no improvement with PT and home exercise program. Neck pain is axial but also radiates into her left shoulder and left upper arm to the elbow with pain and tingling. Reports chronic bilateral hand numbness and tingling with history of CTS. She remains out of work. Reports she recently started on Ozempic, fasting blood sugars at home remain >200 and most recent A1C=10.8. Reports she is seeing Endocrinology or Nutrionist provider at [facility]. Patient was deemed non-surgical for back pain per recent visit with Dr. Hdez. Denies any recent cough, cold, infection, fever, dizziness, weakness, foot drop, bladder or bowel dysfunction, saddle anesthesia, or any other significant changes in medical history since last office visit. PRIOR: Patient presents today for follow up and now reports neck and left shoulder pain after completing another course of physical therapy. She reports no improvement in her back symptoms and limiting range of motions of left shoulder and neck with muscle spasms. Denies any new injury, trauma, or falls. Reports numbness and tingling in both hands, known history of CTS, with release done on the right without much relief and pending left CTS release. She is left hand dominant. Patient is scheduled to follow up with Dr. Hdez next week after PT and surgical re-evaluation. She has been taking Meloxicam for pain control prescribed by Neurosurgery. We have reviewed her recent lab work, with concerns in decreased renal function, estimated GFR=41, ranging 39-43 in 2023, Creatinine=1.37 and BUN=26. Patient was advised to discontinue NSAIDs. Her A1C remains 10.8, she was recently started on Mounjaro. Denies any recent cough, cold, infection, fever or any other significant changes in medical history since last office visit. PRIOR: Patient presents today to discuss concerns for planned therapeutic injection Left L5-S1 TFESI for moderate left paracentral L5-S1 disc protrusion impinging upon the descending left S1 nerve root per recent lumbar spine MRI. She continues to endorse significant lower back pain is radiation into left lower extremity posteriorly is associated numbness in tingling in her calf, heel and the 5th toe. Radiation of back pain into the sacral areas consistent with sacroiliac joint pain. She had recent follow up with PCP and completed labs work, including A1C=10.8 on 02/02/24. Due to significant elevated A1C levels, she is not candidate for therapeutic injection. Patient reports she Januvia injections and continues with metformin. She continues to experience significant left sided radiculopathy and impairments in her ADLs, mobility, lifting mechanics, limited ROM, sleep and work. She made minimal progress with formal PT and is being discharged from PT due to lack of progress and back pain aggravation with exercises and movements. 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 enies any recent cough, cold, infection, fever, bowel or bladder dysfunction or other significant changes in medical history since last office visit. Reports intermittent left lower extremity weakness and left saddle anesthesia. PRIOR: Patient presents today for follow up for worsening low back pain and review xray results. She was initially seen in our office in March 2023. Reports recent right carpal tunnel release surgery and reports recovery has been well. 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 Her back pain extends to sacral areas bilaterally and into her lateral hips. She reports her worse side alternates from left to right, depending on the daily activities and work. Patient also reports occasional sensations of heaviness with numbness in her posterior legs. Lumbar spine and hip xrays reports were reviewed today and are noted below. Pain affects her daily ADLs, mobility, sleep and social interactions. She continues to stay active and performs regular HEP, takes Tylenol and Flexeril with continued symptoms. She has been trying to loose weight and has lost 7 lbs since last visit. Most recent A1C is 6.8. Patient is interested to proceed with interventional treatments to address her radicular back and SIJ pain. Denies any recent cough, cold, infection, fever, weakness, foot drop, bladder or bowel dysfunction, saddle anesthesia, any significant changes in her medical history, medications or recent hospitalizations. PRIOR: Patient is a pleasant 47 years old female with past medical history of chronic back pain, carpal tunnel syndrome, WANDA with mild adherence to CPAP machine, obesity, type 2 DM (A1C 6.8 on 11/30), left knee pain, OA, fibromyalgia, presents today for initial evaluation of right hip and low back pain. Denies any recent trauma, injury or falls. She was seen at [facility] 2 years ago and declined SI injection. She is also was seen by Rheumatology for OA and fibromyalgia. 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 Back pain is axial and also radiates into her right buttock and into lateral right hip and groin. She reports weakness and occasional right leg giving out as well as burning and radiating pain into her right foot with numbness and tingling. Patient also has significant neck pain with muscle stiffness and spasms. Reports physical therapy in the remote past with mild improvement in her symptoms and function. Due to significant pain, patient cannot undergo PT. Pain is constant and she rates it at 8/10. Denies previous spine surgery or injections. Pain affects her daily activities, functioning, sleep, social activities, mood and quality of life. Patient denies any fever, abdominal pain, foot drop, bladder or bowel incontinence or saddle anesthesia. Reports right lower extremity weakness with ambulation. Patient reports she does not check blood sugars regularly. She states her A1C was good in November and she cannot recall if this has been rechecked recently. Patient tries to loose weight, and control DM with diet and taking medications regularly. Location Lower back, radiates into right buttock and right hip and groin Duration Progressively worsening pain > 2 years Characteristics of symptom or complaint Aching, shooting, radiating, tight, tiring, numbness, heavy, sore Aggravating or associated factors Walking, bending, climbing stairs, lifting, pulling, pushing, cold weather Relieving factors Cyclobenzaprine, Tylenol, resting, heat therapy Treatment None PFSH Medical History (Updated 08/19/24 @ 15:11 by DAMEON Mandujano) Chronic kidney disease, stage 3 Pelvic pain IBS (irritable bowel syndrome) Microalbuminuric diabetic nephropathy Metabolic dysfunction-associated steatotic liver disease (MASLD) Fibromyalgia Family history of systemic lupus erythematosus Hepatitis B immune Diabetic nephropathy Microalbuminuria Dyslipidemia Diabetes mellitus Allergic rhinitis Transaminitis Anemia Chronic low back pain Migraine headache Obesity Carpal tunnel syndrome Hypertension WANDA (obstructive sleep apnea) Vitamin D deficiency Surgical History History of cholecystectomy Tubal ligation status History of salpingo-oophorectomy Family History Father Diabetes Heart disease Mother Hypertension Arthritis Thyroid activity decreased Brother Hypertension Thyroid activity decreased Sister Hypertension Thyroid activity decreased Other Family history of cancer of gallbladder Social History Alcohol intake: never Comment: medicated in pacu Patient Tobacco Use Status: Never used Tobacco Second Hand Smoke Exposure: No 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 Mild to moderate distress due to significant pain. Alert and oriented. Mood and affect appropriate. Follows and participates in conversation appropriately. Respiratory effort is unlabored. No cough. Able to transition from sit to stand unassisted. Ambulates with bilaterally normal heel strike and toe off, reports intermittent LLE numbness without weakness. Neck Neck: Yes full ROM, Yes no lymphadenopathy, Yes supple, No anterior neck swelling, Yes no JVD and Yes prominent dorsocervical fat pad General: Yes no CVA tenderness Back/Spine/Pelvis Other: Limited lumbar ROM with flexion and extension reproducing moderate pain, worse pain with flexion forward and facet loading bilaterally. Mildly antalgic gait, no limping. Demonstrates 5/5 strength of quadriceps bilaterally as well as flexion/dorsiflexion of bilateral feet against resistance. 2+ pedal pulses bilaterally. Seated straight leg rise with dorsiflexion positive bilaterally, worse on the left. +1 patellar and diminished achilles reflexes bilaterally. Nia sign positive bilaterally, Sudarshan?s, Gaenslen, Pelvic compression and Stinchfield tests are positive bilaterally. No groin pain with I/E hip rotations. Valsalva maneuver negative. Back: no CVA tenderness Cervical Spine: cervical ROM normal, cervical muscular tenderness, pain with cervical ROM and No Cervical spine tenderness Thoracic/Lumbar Spine: thoracic and lumbar spine normal to inspection, No Thoracic/lumbar spine scar(s), Lasegue's sign positive bilateral and diffuse, pain with thoraco-lumbar ROM, paraspinal muscle tenderness, thoraco-lumbar ROM limited, No thoracic spinal tenderness and lumbar spinal tenderness (L4-S1) Pelvis: buttock tenderness bilaterally Sacroiliac joints: bilaterally tender to palpation Extrem General: Yes capillary refill normal, Yes no clubbing, cyanosis or edema and Yes no calf tenderness Results Reviewed Results Reviewed: XR LUMBOSACRAL SPINE WITH OBLIQUES 06/20/23 FINDINGS: There 5 nonrib-bearing lumbar-type vertebral bodies. The height of the vertebral bodies is well-maintained. There is straightening of the usual lumbar lordosis which can be seen with muscle spasm. There is no spondylolysis or spondylolisthesis. 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 A few small calcifications are seen in the right lower quadrant. There are a few calcifications in the pelvis which likely represent phleboliths. Surgical clips in the right upper quadrant are consistent with prior cholecystectomy. IMPRESSION: 1. Muscle spasm. 2. 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 Alignment is anatomic. Right hip joint space is maintained. Small calcifications are seen in the right lower quadrant. A few calcifications are seen in the pelvis which likely represent phleboliths. Hip joint space of the left hip is preserved. 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 The pubic symphysis is normal. IMPRESSION: No significant abnormality of the right hip. MR SPINE LUMBAR without CONTRAST 01/01/24 at [facility] INDICATION: Low back pain that radiates to bilateral legs with a heavy feeling associated with leg symptoms. Bilateral hip pain. Painful to walk. TECHNIQUE: Unenhanced multiplanar, multisequence MR imaging of the lumbar spine. COMPARISON: None Available. FINDINGS: Normal lumbar alignment is demonstrated. Vertebral heights are well maintained. Bone marrow signal is within normal limits, and no suspicious osseous lesion is identified. Conus medullaris is unremarkable. Paraspinal soft tissues and visualized portions of the abdomen and pelvis are unremarkable. At L1-2 there is no significant disc herniation or protrusion. No central canal or neural foraminal stenosis is demonstrated. At L2-3 there is no significant disc herniation or protrusion. No central canal or neural foraminal stenosis is demonstrated. At L3-4 there is no significant disc herniation or protrusion. No central canal or neural foraminal stenosis is demonstrated. At L4-5 there is no significant disc herniation or protrusion. No central canal or neural foraminal stenosis is demonstrated. At L5-S1 there is loss of T2 hyperintense intervertebral disc signal. There is a moderate left paracentral disc protrusion extending into the left anterolateral recess of spinal canal impinging upon the descending left S1 nerve root. No clinically significant central canal or neuroforaminal stenosis.. IMPRESSION: Moderate left paracentral L5-S1 disc protrusion impinging upon the descending left S1 nerve root. Assessment & Plan Assessment & Plan (1) Sacroiliac joint pain: Code(s): M53.3 - Sacrococcygeal disorders, not elsewhere classified Category: Medical (2) Lumbosacral spondylosis: Code(s): M47.817 - Spondylosis without myelopathy or radiculopathy, lumbosacral region Category: Medical (3) Lumbar radiculopathy: Code(s): M54.16 - Radiculopathy, lumbar region Category: Medical (4) Lumbar degenerative disc disease: Code(s): M51.36 - Other intervertebral disc degeneration, lumbar region Category: Medical (5) Cervical spondylosis: Code(s): M47.812 - Spondylosis without myelopathy or radiculopathy, cervical region Category: Medical (6) Bilateral hand numbness: Code(s): R20.0 - Anesthesia of skin Category: Medical (7) Degenerative disc disease, cervical: Code(s): M50.30 - Other cervical disc degeneration, unspecified cervical region Category: Medical (8) Cervical radiculopathy: Code(s): M54.12 - Radiculopathy, cervical region Category: Medical (9) Cervicalgia: Code(s): M54.2 - Cervicalgia Category: Medical Plan Management of the patient's chronic neck and back pain will involve diagnostic injections targeting lumbar medial branch and subsequently sacroiliac joint to determine specific pain sources. While her diabetes limits steroid-based interventions, procedures such as radiofrequency ablation remain viable. This approach aims to address spinal arthritis effectively without impacting her diabetes management adversely. Improving diabetes control is necessary to allow broader treatment options. Continued monitoring and follow-up are pivotal to evaluating the effectiveness of interventions and to support the patient's improved quality of life. Schedule Bilateral Diagnostic L3-L4 DR L5 MBB with local and fluoroscopy. Expectations, risks and benefits were reviewed. Patient is aware she will be contacted to schedule this procedure. We also touched on her work situation and the need for engagement with appropriate work compensation professionals as our office is not certified for functional capacity assessment. I will submit referral to [facility] for this. All questions and concerns have been answered and patient agreed with the plan. Follow up after injections and sooner as needed. Patient was informed and verbally consented to the use of an ambient scribe for clinic note documentation during this visit. Orders: Orders Functional Capacity Exam Today M47.812 - Spondylosis without myelopathy or radiculopathy, cervical region, M47.817 - Spondylosis without myelopathy or radiculopathy, lumbosacral region, M51.36 - Other intervertebral disc degeneration, lumbar region, M53.3 - Sacrococcygeal disorders, not elsewhere classified, M54.16 - Radiculopathy, lumbar region, Z76.89 - Persons encountering health services in other specified circumstances Coding Level of Care Code Est Pt Level 4 (28928) Complex EM visit Add On G2211 Diagnoses Sacroiliac joint pain M53.3 Lumbosacral spondylosis M47.817 Lumbar radiculopathy M54.16 Lumbar degenerative disc disease M51.36 Cervical spondylosis M47.812 Bilateral hand numbness R20.0 Degenerative disc disease, cervical M50.30 Cervical radiculopathy M54.12 Cervicalgia M54.2
[2024-08-19 14:28] VITALS: BP 120/82; PULSE 94; O2SAT 100; BMI 36.7
--- OUTSIDE RECORDS SUMMARY | 2024-08-19 14:34 | XMS_ITS | Encounter Summary ---
Author Organization [employer] Address [address] [place] [address] Care Team Providers Care Welfare Eligibility Worker Name Role Phone Sharmin Ortiz MD Primary Care Provider [phone] Lamine Giles PharmD Unavailable [phone] Encounter Details Date Type Department Care Team (Late st Contact Info) Description 03/28/2023 Orders Only [facility] [address] [place], [place] [phone] Sharmin Ortiz MD [address] [place], [place] [phone] Chronic pain of left knee (Primary Dx); [...] Description 08/22/2024 11:00 AM EDT Medication Management [facility] [address] [place] [phone] Lamine Giles, PharmD [address] [place] [phone] 08/26/2024 11:00 AM EDT Office Visit [facility] [address] [place] [phone] Sharmin Ortiz MD [address] [place] [phone] 10/17/2024 10:30 AM EDT Office Visit [facility] [address] [place] [address] Tarka, Gema, OD [address] [place] [address] documented as of this encounter Visit Diagnoses Diagnosis Chronic pain of left knee- Primary Right hip pain Pain in joint, pelvic region and thigh Chronic low back pain, unspecified back pain laterality, unspecified whether sciatica present documented in this encounter Care Teams Welfare Eligibility Worker Relationship Specialty Start Date End Date Sharmin Ortiz MD [address] [place] [id number] PCP - General Family Medicine 04/10/18 Lamine Giles, PharmD [address] [place] [phone] Pharmacist Internal Medicine 04/01/24 documented as of this encounter
--- OUTSIDE RECORDS SUMMARY | 2024-08-19 14:34 | XMS_ITS | Encounter Summary ---
Author Organization [employer] Address [address] [place] [address] Care Team Providers Care Machine Spring Former Name Role Phone Sharmin Ortiz MD Primary Care Provider [phone] Lamine Giles PharmD Unavailable [phone] Encounter Details Date Type Department Care Team (Late Contact Info) Description 01/17/2023 Abstract [facility] [address] [place] [phone] Nicci Jimenez Social History Tobacco Use Types [...] Description 08/22/2024 11:00 AM EDT Medication Management [facility] [address] [place] [phone] Lamine Giles, PharmD [address] [place] [address] 08/26/2024 11:00 AM EDT Office Visit [facility] [address] [place] [address] [phone] Sharmin Ortiz MD [address] [place], [place] [phone] 10/17/2024 10:30 AM EDT Office Visit [facility] [address] [place], [place] [phone] Gema Aguirre, OD [address] [place] [address] documented as of this encounter Visit Diagnoses Not on filedocumented in this encounter Care Teams Machine Spring Former Relationship Specialty Start Date End Date Sharmin Ortiz MD [address] [place], [place] [phone] PCP - General Family Medicine 04/10/18 Lamine Giles, PharmD [address] [place] [address] [phone] Pharmacist Internal Medicine 04/01/24 documented as of this encounter
--- OUTSIDE RECORDS SUMMARY | 2024-08-19 14:34 | XMS_ITS | Encounter Summary ---
Author Organization [employer] Address [address] [facility] 7t [place] [address] Care Team Providers Care Lpc Name Role Phone Sharmin Ortiz MD Primary Care Provider [phone] Lamine Giles PharmD Unavailable Reason for Visit * Reason Onset Date Comments Referral 03/28/2023 Encounter Details Date Type Department Care Team ([facility] st Contact Info) Description 03/28/2023 Telephone [facility] [address] [place], [place] [phone] Sharmin Ortiz MD [address] [place] [address] Referral Social History Tobacco Use Types Packs/Day [...] the past 12 months, has t he [employer], [employer], oil or water [employer] threatened to shut off services in your [...] Miscellaneous Notes * Telephone Encounter - Juddveronica Chamorrocitlaly Pires - 03/28/2023 10:30 AM EST Tc from [facility] with [facility] requesting an updated referral for Pain management for pt due to current one being at least two years old Please fax over @ [phone] Please if any questions contact Stella @ [phone] documented in this encounter Plan of Treatment Upcoming Encounters Date Type Department Care Team (Late st Contact Info) Description 08/22/2024 11:00 AM EDT Medication Management [facility] [address] [place] [phone] Lamine Giles, PharmD [address] [place] [address] 08/26/2024 11:00 AM EDT Office Visit [facility] [address] [place] [address] Sharmin Ortiz MD [address] [place] [address] 10/17/2024 10:30 AM EDT Office Visit [facility] [address] [place] [address] Gema Aguirre, JAME [address] [place] [address] documented as of this encounter Visit Diagnoses Not on filedocumented in this encounter Care Teams Lpc Relationship Specialty Start Date End Date Sharmin Ortiz MD [address] [place] [address] PCP - General Family Medicine 04/10/18 Lamine Giles, PharmD [address] [place] [address] Pharmacist Internal Medicine 04/01/24 documented as of this encounter
--- OUTSIDE RECORDS SUMMARY | 2024-08-19 14:34 | XMS_ITS | Encounter Summary ---
Author Organization [employer] Address [address] [facility] 7t [place] [address] Care Team Providers Care Regulatory Affairs Specialist Name Role Phone Sharmin Ortiz MD Primary Care Provider [phone] Lamine Giles PharmD Unavailable [phone] Encounter Details Date Type Department Care Team (Late st Contact Info) Description 02/09/2024 Orders Only [facility] [address] [place], [place] [phone] Sharmin Ortiz MD [address] [place], [place] [phone] Social History Tobacco Use Types Packs/Day Years [...] Description 08/22/2024 11:00 AM EDT Medication Management [facility] [address] [place] [address] Lamine Giles, PharmD [address] [place] [address] 08/26/2024 11:00 AM EDT Office Visit [facility] [address] [place] [address] Sharmin Ortiz MD [address] [place] [address] 10/17/2024 10:30 AM EDT Office Visit [facility] [address] [place] [address] TarkaGema, OD [address] [place] [address] documented as of this encounter Visit Diagnoses Not on filedocumented in this encounter Care Teams Regulatory Affairs Specialist Relationship Specialty Start Date End Date Sharmin Ortiz MD [address] [place] [address] PCP - General Family Medicine 04/10/18 Lamine Giles, PharmD [address] [place] [address] Pharmacist Internal Medicine 04/01/24 documented as of this encounter
--- OUTSIDE RECORDS SUMMARY | 2024-08-19 14:34 | XMS_ITS | Encounter Summary ---
Author Organization [employer] Address [address] [facility] 7t [place] [address] Care Team Providers Care Envelope Press Operator Name Role Phone Sharmin Ortiz MD Primary Care Provider [phone] Lamine Giles PharmD Unavailable [phone] Reason for Visit * Reason Comments Med Refill Encounter Details Date Type Department Care Team ([facility] st Contact Info) Description 03/14/2023 Refill [facility] [address] [place], [place] [phone] Sharmin Ortiz MD 230 [place], [place] [phone] Social History Tobacco Use Types Packs/Day Years [...] Description 08/22/2024 11:00 AM EDT Medication Management [facility] [address] [place] [address] Lamine Giles, Dameon [address] [place] [address] 08/26/2024 11:00 AM EDT Office Visit [facility] [address] [place] [address] Sharmin Ortiz MD 230 [place] [address] 10/17/2024 10:30 AM EDT Office Visit [facility] [address] [place] [address] Tarka, Gema, OD [address] [place] [address] documented as of this encounter Visit Diagnoses Not on filedocumented in this encounter Care Teams Envelope Press Operator Relationship Specialty Start Date End Date Sharmin Ortiz MD [address] [place] [address] PCP - General Family Medicine 04/10/18 Lamine iGles, PharmD [address] [place] [address] Pharmacist Internal Medicine 04/01/24 documented as of this encounter
--- OUTSIDE RECORDS SUMMARY | 2024-08-19 14:34 | XMS_ITS | Encounter Summary ---
Author Organization [employer] Address [address] [facility] 7t [place] [address] Care Team Providers Care Channel Rebuilder Name Role Phone Sharmin Ortiz MD Primary Care Provider [phone] Lamine Giles PharmD Unavailable [phone] Reason for Visit * Reason Comments Med Refill Encounter Details Date Type Department Care Team ([facility] st Contact Info) Description 08/19/[address] [facility] [address] [place], [place] [phone] Sharmin Ortiz MD [address] [place], [place] [phone] Primary hypertension Social History Tobacco Use Types Packs/Day Years [...] 08/22/2024 11:00 AM EDT Medication Management [facility] [address] [place] [address] Lamine Giles, PharmD [address] [place] [address] 08/26/2024 11:00 AM EDT Office Visit [facility] [address] [place] [address] Sharmin Ortiz MD [address] [place] [address] 10/17/2024 10:30 AM EDT Office Visit [facility] [address] [place] [address] Gema Aguirre, OD [address] [place] [address] documented as of this encounter Visit Diagnoses Diagnosis Primary hypertension Unspecified essential hypertension documented in this encounter Additional Health Concerns Assessment Noted Time PHQ-9 Depression Total Score: 12 025 2:53 PM EST documented as of this encounter Care Teams Channel Rebuilder Relationship Specialty Start Date End Date Sharmin Ortiz MD [address] [place] [address] PCP - General Family Medicine 04/10/18 Lamine Giles, PharmD [address] [place] [address] Pharmacist Internal Medicine 04/01/24 documented as of this encounter
--- OUTSIDE RECORDS SUMMARY | 2024-08-19 14:35 | XMS_ITS | Encounter Summary ---
Author Organization [employer] Address 75 [facility] 7t [place] [address] Care Team Providers Care Clay Worker Name Role Phone Sharmin Ortiz MD Primary Care Provider [phone] Lamine Giles PharmD Unavailable [phone] Encounter Details Date Type Department Care Team (Late st Contact Info) Description 05/15/2024 Orders Only [facility] [address] [place], [place] [phone] Sharmin Ortiz MD [address] [place], [place] [phone] Social History Tobacco Use Types Packs/Day Years [...] Medication Management [facility] [address] [place] [address] Lamine Giles, PharmD [address] [place] [address] 08/26/2024 11:00 AM EDT Office Visit [facility] [address] [place] [address] Sharmin Ortiz MD [address] [place] [address] 10/17/2024 10:30 AM EDT Office Visit [facility] [address] [place] [address] TarkaGema, OD [address] [place] [address] documented as of this encounter Visit Diagnoses Not on filedocumented in this encounter Care Teams Clay Worker Relationship Specialty Start Date End Date Sharmin Ortiz MD [address] [place] [address] PCP - General Family Medicine 04/10/18 Lamine Giles, PharmD [address] [place] [address] Pharmacist Internal Medicine 04/01/24 documented as of this encounter
--- OUTSIDE RECORDS SUMMARY | 2024-08-19 14:35 | XMS_ITS | Encounter Summary ---
Author Organization [employer] Address [address] [facility] 7t [place] [address] Care Team Providers Care Paint Trimmer Pipe Bowls Name Role Phone Sharmin Ortiz MD Primary Care Provider [phone] Lamine Giles PharmD Unavailable [phone] Encounter Details Date Type Department Care Team (Late st Contact Info) Description 02/07/2024 Orders Only [facility] [address] [place], [place] [phone] Sharmin Ortiz MD [address] [place], [place] [phone] Social History Tobacco Use Types Packs/Day Years [...] 11:00 AM EDT Medication Management [facility] [address] [place] [address] Lamine Giles, PharmD [address] [place] [address] 08/26/2024 11:00 AM EDT Office Visit [facility] [address] [place] [address] Sharmin Ortiz MD [address] [place] [address] 10/17/2024 10:30 AM EDT Office Visit [facility] [address] [place] [address] TarkaGema, OD [address] [place] [address] documented as of this encounter Visit Diagnoses Not on filedocumented in this encounter Care Teams Paint Trimmer Pipe Bowls Relationship Specialty Start Date End Date Sharmin Ortiz MD [address] [place] [address] PCP - General Family Medicine 04/10/18 Lamine Giles, PharmD [address] [place] [address] Pharmacist Internal Medicine 04/01/24 documented as of this encounter
--- OUTSIDE RECORDS SUMMARY | 2024-08-19 14:35 | XMS_ITS | Clinical Summary ---
Author Organization [employer] Address [address] [facility] [place] [address] Care Team Providers Care Molder Meat Name Role Phone Sharmin Ortiz MD Primary Care Provider [phone] Lamine Giles PharmD Unavailable [phone] Allergies Active Allergy Reactions Criticality Noted Date Comments Albert Inhibitors Cough High 06/28/2010 Other reaction(s): unspecified Medications acetaminophen (Tylenol) 500 MG tablet Take 2 tablets by mouth every 8 (eight) hours if needed for pain. 02/06/20 19 Active Elastic Bandages & Supports (Wrist Splint) misc Active chlorthalidone (Hygroton) 25 MG tabletIndication s:Primary [...] hyperglycemia, without long-term current use of insulin ([facility]) Take 2 tablets (1,000 mg) by mouth [...] semaglutide (Ozempic, 1 MG/DOSE,) 2 MG/1.5ML solution pen-injectorIndi cations:Type 2 diabetes mellitus with hyperglycemia, without long-term current use of insulin ([facility]) Inject 1 mg under the skin 1 (one) time per week. 2 each 07/19/19 25 Active Diclofenac Sodium 1 % gel APPLY 2 GRAMS TOPICALLY TO AFFECTED AREA(S) FOUR TIMES DAILY DIRECTED 06/15/19 25 Active pravastatin (Pravachol) 20 MG tabletIndication s:Type 2 diabetes mellitus with hyperglycemia, without long-term current use of insulin ([facility]) Take 1 tablet (20 mg) by mouth at bedtime. 90 tablet 3 07/19/19 25 Active metoprolol tartrate (Lopressor) 100 MG tablet TAKE 1 AND 1/2 TABLETS BY MOUTH TWICE DAILY IN THE MORNING AND IN THE EVENING WITH BREAKFAST and WITH DINNER 180 tablet 3 07/23/19 25 Active metoprolol tartrate (Lopressor) 100 MG tablet Take 1.5 tablets (150 mg) by mouth with breakfast and with evening meal. 180 tablet 3 07/04/19 24 025 Discontinued Active Problems Problem Noted [...] 3% at 5 years, will refer to registered nurse. Fibromyalgia 08/03/2023 Assessment & Plan (06/11/2024 6:54 AM EST): - continue tylenol prn, continue muscle relaxants prn, advised to avoid NSAIDs Assessment & Plan (08/03/2023 1:10 PM EDT): - continue tylenol prn, continue muscle relaxants prn, advised to avoid NSAIDs IBS (irritable bowel syndrome) 11/29/2022 Assessment & Plan (06/11/2024 6:58 AM EST): - [place] [facility] -Low FODMAP diet - Ordered CBC auto differential 06/10/24 Assessment & Plan (03/12/2023 5:50 AM EST): - [place] [facility] -Low FODMAP diet Assessment & Plan (12/18/2022 11:33 AM EDT): - following [place] [facility] -Low FODMAP diet History of right salpingo-oophorectomy Family history of hypercoagulable state 03/22/20 22 Family history of lupus erythematosus 03/22/2022 Hepatitis B immune 03/22/2022 Chronic low back pain 02/09/2018 Assessment & Plan (08/03/2023 1:13 PM EDT): - continue current medications for fibromyalgia - pt declines PT referral - patient was seen by supervisor paint roller covers and currently scheduled for SI joint injection treatment Assessment & Plan (03/12/2023 5:56 AM EST): - continue current medications for fibromyalgia - pt declines PT referral - pt requests supervisor paint roller covers referral Assessment & Plan (12/18/2022 11:37 AM [...] 12:16 PM EDT): - last seen by [facility] in Apr [place] - last [place] in Mar 2022. Hepatomegaly with hepatic steatosis. No focal lesion. - FIB-4 = 1.56 in FIB4 index - avoid hepatotoxic drugs. Assessment & Plan (08/04/2023 9:48 AM EDT): - last seen by [facility] [place] Apr 20[place] - last [place] in Mar 2022. Hepatomegaly with hepatic steatosis. No focal lesion. - FIB-4 = 0.78 in 2021 - avoid hepatotoxic drugs. - will update ultrasound Assessment & Plan (03/12/2023 5:50 AM EST): - followed by [facility] - avoid hepatotoxic drugs. Assessment & Plan (12/18/2022 11:34 AM EDT): - followed by [facility] - avoid hepatotoxic drugs. [...] (08/03/2023 1:09 PM EDT): - [place] [facility] [place] in July 2023 - most recent NCT/EMG on 02/16/23 showed b/l mild median nerve neuropathy, consistent with CTS - s/p light carpal tunnel release on 05/16/23 - judicious use of NSAIDs prn and gabapentin - use brace Assessment & Plan (03/12/2023 5:48 AM EST): - seen [place] [facility] [place] in Feb 2023, upcoming [...] Encounters Date Type Department Care Team Description 08/19/2024 Refill [facility] [address] [facility] [place] [address] Sharmin Ortiz MD Primary hypertension 07/30/2024 Orders Only GENERIC EXTERNAL DATA DEPARTMENT Provider, Generic External Data 07/20/2024 Refill [facility] [address] [facility] [address] [place] [address] Sharmin Ortiz MD 07/18/2024 Travel 07/15/2024 Telephone [facility] [address] [place] [address] Sharmin Ortiz MD 07/14/2024 Orders Only [facility] [place] [address] Sharmin Ortiz MD 07/12/2024 Orders Only [facility] [place] [address] Sharmin Ortiz MD 07/03/2024 Population Health Risk Score [facility] Department [address] [place] [phone] Provider, Population Health Generic 06/17/2024 Refill [facility] [address] [place] [address] Sharmin Ortiz MD 06/10/2024 2:30 PM EST Office Visit [facility] [place] [address] Sharmin Ortiz MD Primary hypertension (Primary Dx); [...] (BMI) of 37.0 to 37.9 in adult (CMS/HCC) 06/10/2024 Travel 06/05/2024 Telephone [facility] [address], [place] [phone] Adela Butcher MA chart prep 05/23/2024 Orders Only [facility] External Provider, [facility] from Last 3 Months Immunizations Name Administration [...] 11:00 AM EDT Medication Management [facility] [address] [place] [address] Lamine Giles, PharmD [address] [place] [address] 08/26/2024 11:00 AM EDT Office Visit [facility] [address] [place] [address] Sharmin Ortiz MD [address] [place] [address] 10/17/2024 10:30 AM EDT Office Visit [facility] [address] [place] [address] Gema Aguirre, OD [address] [place] [address] Health Maintenance Due Date Last Done Comments [...] Procedure Name Priority Date/Time Associated Diagnosis Comments PHOSPHOLIPASE A2 RECEPTOR (PLA2R) AB PANEL Routine 07/30/2024 11:22 AM EDT PROTEINASE-3 ANTIBODY Routine 07/30/2024 11:22 AM EDT [...] Routine 06/16/2022 10:23 AM EST HIV ANTIBODY/ANTIGEN ([facility]) Routine 06/16/2022 10:23 AM EST ZZZ HISTORICAL HPV E6/E7 RFLX RENEE 16 18/45 Routine 07/07/2020 1:59 PM EDT from Last 3 Months or Most Recently Relevant to Health Maintenance Results * Proteinase-3 Antibody (07/30/2024 11:22 AM EDT) Proteinase-3 Antibody <1.0 [facility] Comment:Value Interpretation ----- <1.0 No Antibody Detected > or = 1.0 Antibody DetectedAutoantibodies to proteinase-3 (AK-3) are accepted ascharacteristic for granulomatosis with polyangiitis(GPA, Kings's), and are detectable in 95% of thehistologically proven cases. The cytoplasmic IFApattern, (c-ANCA), is based largely on autoantibody toPR-3 which serves as the primary antigen.These autoantibodies are present in active disease.THIS TEST WAS PERFORMED AT:[facility] [place] [phone] REECE MD 07/30/2024 11:2 2 AM EDT 07/30/2024 11:22 AM EDT us Generic External Data Provider LAB BLOOD ORDERAB LES Final Result [facility] [address] [place] [phone] * Myeloperoxidase Antibody (MPO) (07/30/2024 11:22 AM EDT) Myeloperoxidase Antibody <1.0 [facility] Comment:Value Interpretation ----- <1.0 No Antibody Detected > or = 1.0 Antibody DetectedAutoantibodies to myeloperoxidase (MPO) are commonlyassociated with the following small-vesselvasculitides: microscopic polyangiitis,polyarteritis nodosa, Churg-Amanda syndrome,necrotizing and crescentic glomerulonephritis andoccasionally granulomatosis with polyangiitis(GPA, Kings's). The perinuclear IFA pattern,(p-ANCA) is based largely on autoantibody tomyeloperoxidase which serves as the primary antigen.These autoantibodies are present in active disease.THIS TEST WAS PERFORMED AT:[facility] [address] [id number] REECE MD 07/30/2024 11:2 2 AM EDT 07/30/2024 11:22 AM EDT Generic External Data Provider LAB BLOOD ORDERAB LES Final Result Performing Organization Address [facility] de Phone Number [facility] [address] [place] [phone] * Phospholipase A2 Receptor (PLA2R) Antibody Panel (07/30/2024 11:22 AM EDT) Phospholipase A2 Receptor (PLA2R) Ab, CLARITA <4 RU/mL [facility] Comment:Reference Range: <14 : NEGATIVE 14-19: BORDERLINE >19: POSITIVE Phospholipase A2 Receptor (PLA2R) Ab, IFA NEGATIVE NEGATIVE [facility] Comment:THIS TEST WAS PERFOR MED AT:[facility]/[place] [id number] [facility] [phone] AGUILAR MD,PHD,GEORGE 07/30/2024 11:2 2 AM EDT 07/30/2024 11:22 AM EDT Generic External Data Provider LAB BLOOD ORDERAB LES Final Result Performing Organization Address [facility] Co de Phone Number [facility] [address] [place] [phone] * Creatinine, Serum (07/30/2024 11:22 AM EDT) Creatinine, Serum 1.16 0.5 - 1.4 mg/dL [facility] Estimated Glomerular Filt Rate 50 [facility] Comment:Chronic Kidney Disea se: Estimated GFR < 60 mL/min/[id number] Kidney Disease: Estimated GFR < 15 mL/min/1.73m2 07/30/2024 11:2 2 AM EDT 07/30/2024 11:22 AM EDT us Generic External Data Provider LAB BLOOD ORDERAB LES Final Result [facility] [address] [place] [phone] * (ABNORMAL) CBC auto differential (07/30/2024 11:22 AM EDT) Only the most recent of2 resultswithin the time period is included. White Blood Count 5.8 4.8 - 10.8 X10*3/uL [facility] Red Blood Count 4.26 4.20 - 5.50 X10*6/uL [facility] Hemoglobin 13.4 12.0 - 16.0 g/dl [facility] Hematocrit 38.1 37.0 - 47.0 % [facility] Mean Corpuscular Volume 89.4 80.0 - 98.0 fL [facility] Mean Corpuscular Hemoglobin 31.5 27.0 - 33.0 pg [facility] Mean Corpuscular HGB Conc 35.2(H) 31.0 - 35.0 g/dl [facility] Red Cell Distribution Width 11.9 11.0 - 16.0 % [facility] Platelet Count 239 160 - 400 X10*3/uL [facility] Mean Platelet Volume 9.2(L) 9.4 - 12.3 fL [facility] Neutrophils Percent Auto 57.4 45 - 73 % [facility] Imm Gran Pct Auto 0.5(H) 0.0 - 0.4 % [facility] Lymphocytes Percent Auto 32.6 20 - 40 % [facility] Monocytes Percent Auto 7.4 2 - 11 % [facility] Eosinophils Percent Auto 1.6 0 - 4 % [facility] Basophils Percent Auto 0.5 0 - 2 % [facility] NRBC Pct Auto 0.0 0.0 - 0.2 /100WBC [facility] Neutrophils Absolute Auto 3.3 2.0 - 8.3 x10*3/uL [facility] Imm Gran Abs Auto 0.03 0.00 - 0.03 X10*3/uL [facility] Lymphocytes Absolute Auto 1.9 1.2 - 4.9 X10*3/uL [facility] Monocytes Absolute Auto 0.4 0.1 - 1.2 X10*3/uL [facility] Eosinophils Absolute Auto 0.1 0.0 - 0.4 X10*3/uL [facility] Basophils Absolute Auto 0.0 0.0 - 0.2 X10*3/uL [facility] NRBC Abs Auto 0.000 0.0 - 0.012 X10*3/uL [facility] 07/30/2024 11:2 2 AM EDT 07/30/2024 11:22 AM EDT us Generic External Data Provider LAB BLOOD ORDERAB LES Final Result [facility] [address] [place] [phone] * Glomerular Basement Membrane Antibody (IgG) (07/30/2024 11:22 AM EDT) Glomerular Basement Memebrane Antibody (IgG) <1.0 AI [facility] Comment:Value Interpretation ----- <1.0 No Antibody Detected > or = 1.0 Antibody DetectedTHIS TEST WAS PERFORMED AT:[facility] [place] [id number] REECE MD 07/30/2024 11:2 2 AM EDT 07/30/2024 11:22 AM EDT Generic External Data Provider LAB BLOOD ORDERAB LES Final Result Performing Organization Address City/[facility]/ZIP Co de Phone Number [facility] [address] [place] [phone] * DNA (ds) Antibody (07/30/2024 11:22 AM EDT) Anti DNA DS Antibody <1 IU/mL [facility] Comment:IU/mL Interpretation < or = 4 Negative 5-9 Indeterminate > or = 10 PositiveTHIS TEST WAS PERFORMED AT:[facility] [place] [id number] REECE MD 07/30/2024 11:2 2 AM EDT 07/30/2024 11:22 AM EDT Generic External Data Provider LAB BLOOD ORDERAB LES Final Result Performing Organization Address [facility]/ZIP Co de Phone Number [facility] [address] [place] [phone] * Hepatitis B surface antigen, EIA (07/30/2024 11:22 AM EDT) Hepatitis B Surface Ag Negative Negative [facility] 07/30/2024 11:2 2 AM EDT 07/30/2024 11:22 AM EDT Generic External Data Provider LAB BLOOD ORDERAB LES Final Result Performing Organization Address [facility]/ZIP Co de Phone Number [facility] [address] [place] [phone] * Hepatitis B Core Antibody, Total (07/30/2024 11:22 AM EDT) Hepatitis B Core Antibody Nonreactive Nonreactive [facility] 07/30/2024 11:2 2 AM EDT 07/30/2024 11:22 AM EDT us Generic External Data Provider LAB BLOOD ORDERAB LES Final Result Performing Organization Address [facility] Co de Phone Number [facility] [address] [place] [phone] * (ABNORMAL) Immunofixation, Serum (07/30/2024 11:22 AM EDT) IMMUNOGLOBULIN G 1240 600 - 1640 mg/dL [facility] IMMUNOGLOBULIN A 336(A) 47 - 310 mg/dL [facility] Immunoglobulin M 78 50 - 300 mg/dL [facility] Comment:THIS TEST WAS PERFOR MED AT:[facility] [place] [phone] REECE MD Immunofixation Result SEE NOTE [facility] Comment:Normal pattern. No m onoclonal proteins detected. 07/30/2024 11:2 2 AM EDT 07/30/2024 11:22 AM EDT us Generic External Data Provider LAB BLOOD ORDERAB LES Final Result Performing Organization Address [facility] Co de Phone Number [facility] [address] [place] [phone] * (ABNORMAL) Complement Component C3c (07/30/2024 11:22 AM EDT) Complement C3 198(A) 83 - 193 mg/dL [facility] Comment:THIS TEST WAS PERFOR MED AT:[facility] [place] [phone] REECE MD 07/30/2024 11:2 2 AM EDT 07/30/2024 11:22 AM EDT us Generic External Data Provider LAB BLOOD ORDERAB LES Final Result Performing Organization Address City/[facility]/ZIP Co de Phone Number [facility] [address] [place] [phone] * Complement Component C4c (07/30/2024 11:22 AM EDT) Complement C4 29 15 - 57 mg/dL [facility] Comment:THIS TEST WAS PERFOR MED AT:[facility] [place] [id number] REECE MD 07/30/2024 11:2 2 AM EDT 07/30/2024 11:22 AM EDT us Generic External Data Provider LAB BLOOD ORDERAB LES Final Result Performing Organization Address [facility] Co de Phone Number [facility] [address] [place] [phone] * (ABNORMAL) BUN (Blood Urea Nitrogen) (07/30/2024 11:22 AM EDT) Urea Nitrogen (BUN) 21(H) 9 - 16 mg/dL [facility] 07/30/2024 11:2 2 AM EDT 07/30/2024 11:22 AM EDT us Generic External Data Provider LAB BLOOD ORDERAB LES Final Result Performing Organization Address [facility] Co de Phone Number [facility] [address] [place] [phone] * Calcium (07/30/2024 11:22 AM EDT) Calcium 9.8 8.4 - 10.2 mg/dL [facility] 07/30/2024 11:2 2 AM EDT 07/30/2024 11:22 AM EDT us Generic External Data Provider LAB BLOOD ORDERAB LES Final Result Performing Organization Address [facility] Co de Phone Number [facility] [address] [place] [phone] * (ABNORMAL) Electrolyte Panel (07/30/2024 11:22 AM EDT) Pathologist [facility] Sodium 139 135 - 145 mmol/L [facility] Potassium 3.1(L) 3.3 - 5.1 mmol/L [facility] Chloride 104 96 - 108 mmol/L [facility] Carbon Dioxide 25 22 - 29 mmol/L [facility] Anion Gap 13 12 - 20 [facility] 07/30/2024 11:2 2 AM EDT 07/30/2024 11:22 AM EDT Generic External Data Provider LAB BLOOD ORDERAB LES Final Result Performing Organization Address City/[facility]/ZIP Co de Phone Number [facility] [address] [place] [phone] * Immunofixation (MORALES), Urine (07/30/2024 11:16 AM EDT) Pathologist [facility] MORALES Interpretation SEE NOTE [facility] Comment:No monoclonal protei ns detected.The supplier of the testing reagents for this assayhas changed. Detection of small monoclonal proteins mayvary by test system.THIS TEST WAS PERFORMED AT:[facility] [place] [id number] REECE MD 07/30/2024 11:1 6 AM EDT 07/30/2024 11:33 AM EDT us Generic External Data Provider LAB URINE ORDERAB LES Final Result Performing Organization Address City/[facility]/ZIP Co de Phone Number [facility] [address] [place] [phone] * (ABNORMAL) Vitamin D, 25-Hydroxy, Total, Immunoassay (07/12/2024 10:20 AM EDT) Pathologist [facility] Vitamin D 25-OH Total 18.4(L) >30 ng/mL [facility] Comment: Health Based Reference Values*< 20 ??ng/mL ??[id number] ng/mL ??Insufficient> 30 ??ng/mL ??Sufficient*Kortney KINNEY. N [...] MD LAB BLOOD ORDERABLES Final Resul t [facility] [address] [place] [phone] * Vitamin B12 (Cobalamin) and Folate Panel, Serum (07/12/2024 10:20 AM EDT) Vitamin B12 325 200 - 900 pg/mL [facility] Comment:NORMAL 200-900 PG/ML INDETERMINATE 160-199 PG/ML DEFICIENT < 160 PG/ML Folate 8.2 > or = 4.0 ng/mL [facility] Comment:Reference Values:> o r = 4.0 ng/mL< 4.0 ng/mL suggests folate deficiency Methotrexate, aminopterin and folinic acid(leucovorin) are chemotherapeutic agents whose molecularstructures are similar to folate; therefore, the Architectfolate assay cannot be used for patients using these drugs. Blood 07/12/2024 10:2 0 AM EDT 07/12/2024 10:20 AM EDT Sharmin Ortiz MD LAB BLOOD ORDERABLES Final Resul t Performing Organization Address [facility] Co de Phone Number [facility] [address] [place] [phone] * (ABNORMAL) TSH with Reflex to Free T4 (07/12/2024 10:20 AM EDT) TSH reflex Free T4 4.88(H) 0.32 - 4.0 uIU/mL [facility] Blood 07/12/2024 10:2 0 AM EDT 07/12/2024 10:20 AM EDT Sharmin Ortiz MD LAB BLOOD ORDERABLES Final Resul t Performing Organization Address [facility] Co de Phone Number [facility] [address] [place] [phone] * (ABNORMAL) Lipid Panel with Reflex to Direct LDL (07/12/2024 10:20 AM EDT) Triglycerides 197(H) <150 mg/dL [facility] Comment:Desirable Triglyceri de: less than 150 mg/dLBorderline High Triglyceride 150-199 mg/dLHigh Triglyceride: 200-499 mg/dLVery High Triglyceride: greater than or equal to 5OO mg/dL Cholesterol 163 <200 mg/dL [facility] Comment:Desirable Cholestero l: less than 200 mg/dLBorderline High Cholesterol: 200-239 mg/dLHigh Cholesterol: greater than 239 mg/dL LDL Cholesterol Calculated 93 <100 mg/dL [facility] Comment:Desirable LDL: less than 100 mg/dLNear Optimal/Above Optimal LDL: 110- 129 mg/dLBorderline High LDL: 130-159 mg/dLHigh LDL: 160-189 mg/dLVery High LDL: greater than or equal to 190 mg/dL HDL Cholesterol 31(L) >40 mg/dL [facility] Comment:Desirable HDL: great er than 40 mg/dL Note: This HDL assay may give artificially low results in patients with liver disease. Blood 07/12/2024 10:2 0 AM EDT 07/12/2024 10:20 AM EDT Sharmin Ortiz MD LAB BLOOD ORDERABLES Final Resul t Performing Organization Address [facility] Co de Phone Number [facility] [address] [place] [phone] * T4, Free (07/12/2024 10:20 AM EDT) Free T4 (Free Thyroxine) 0.99 0.71 - 1.85 ng/dL [facility] 07/12/2024 10:2 0 AM EDT 07/12/2024 10:20 AM EDT Sharmin Ortiz MD LAB BLOOD ORDERABLES Final Resul t Performing Organization Address [facility] de Phone Number [facility] [address] [place] [phone] * (ABNORMAL) Comprehensive Metabolic Panel (07/12/2024 10:20 AM EDT) Sodium 140 135 - 145 mmol/L [facility] Potassium 3.5 3.3 - 5.1 mmol/L [facility] Chloride 106 96 - 108 mmol/L [facility] Carbon Dioxide 27 22 - 29 mmol/L [facility] Anion Gap 11(L) 12 - 20 [facility] Urea Nitrogen (BUN) 18(H) 9 - 16 mg/dL [facility] Creatinine, Serum 1.09 0.5 - 1.4 mg/dL [facility] Estimated Glomerular Filt Rate 53 [facility] Comment:Chronic Kidney Disea se: Estimated GFR < 60 mL/min/1.40g0Xzggld Kidney Disease: Estimated GFR < 15 mL/min/1.73m2 Glucose 148(H) 60 - 115 mg/dL [facility] Calcium 9.5 8.4 - 10.2 mg/dL [facility] Bilirubin, Total 0.6 0.0 - 1.0 mg/dL [facility] Aspartate Amino Transferase 59(H) 5 - 31 U/L [facility] Alanine Aminotransferase 84(H) 0 - 31 U/L [facility] Total Protein 7.5 6.5 - 8.0 g/dL [facility] Albumin Level 4.2 3.5 - 5.0 g/dL [facility] Alkaline Phosphatase 144(H) 39 - 117 U/L [facility] Blood Venous blood specimen / Unknown 07/12/2024 10:20 AM EDT 07/12/2024 10:20 AM EDT us Sharmin Ortiz MD LAB BLOOD ORDERABLES Final Resul t Performing Organization Address City/[facility] Co de Phone Number [facility] [address] [place] [phone] * Albumin, Random Urine W/Creatinine (07/12/2024 10:19 AM EDT) Creatinine, Urine 206.08 mg/dL [facility] Microalbumin Urine 47.0 mg/L [facility] Microalbum Creatinine Ratio Ur 22.8 <30 ug/mg cr [facility] Comment:Albumin/Creatinine R atio Reference Ranges: Normal: < 30 ug/mg creatinine Microalbuminuria: 30 - 300 ug/mg creatinineClinical Albuminuria: > 300 ug/mg creatinine Urine 07/12/2024 10:1 9 AM EDT 07/12/2024 11:17 AM EDT us Sharmin Ortiz MD LAB URINE ORDERABLES Final Resul t Performing Organization Address [facility] Co de Phone Number [facility] [address] [place] [phone] * BI Mammogram Screening Tomosynthesis Bilateral (07/12/2024 9:45 AM EDT) Anatomical Region Laterality Modality Breast Bilateral Mammography 07/12/2024 9:45 AM EDT Narrative 07/19/2024 12:59 PM EDT ? [facility] ? [address] [facility] ?[place] [address] ?[phone] ? Mammography Report ? Signed ? Patient: Rizwan,Arleen ?MR#: [id number] ?? 01 ? : 1975 ?Acct:[id number] ? Age/Sex: 48 / F ?ADM Date: 07/12/ ? Loc: HO.MAMMO ? Attending Dr: Sharmin Ortiz MD ? Ordering Physician: Sharmin Ortiz MD ?Results: 1Negative ? Date of Service: // ?Follow Up: 1 Year From Orig ?? inal Mammogram ? Procedure(s): MM tomosynthesis screening BI ?? Accession Number(s): [id number] ? cc: Sharmin Ortiz MD ? EXAMINATION: [...] ??Joie Kaba DO ??07/19/2024 12:56 PM EDT ?? RP ? Dictated By: ?Joie aKba DO ? Signed By: ?<Electronically signed by Joie Kaba, DO in OV> ? 07/19/24 1256 ? DD/ 0945 ? TD/TT: 07/12/24 1000 ? Ledger Poster: ? Procedure Note Tim Forbes - 07/19/2024 [facility] [address] [place] [address] Mammography Report Signed Patient: Mireille Astorga#: [id number] 01 : 1975Acct:[id number] Age/Sex: 48 / FADM Date: 07/12/24 Loc: [facility] Attending Dr: Sharmin Ortiz MD Ordering Physician: Sharmin Ortiz MDResults: 1Negative Date of Service: 07/12/24Follow Up: 1 Year From Orig inal Mammogram Procedure(s): MM tomosynthesis screening BI Accession Number(s): [id number] cc: Sharmin Ortiz MD EXAMINATION: MM SCREENING [...] 07/19/24 1256 DD/ 0945 TD/TT: 07/12/24 1000 Ledger Poster: us Sharmin Ortiz MD IMG BI PROCEDURES Final Result * XR CERVICAL SPINE 4V (05/24/2024 5:41 AM EST) Anatomical Region Laterality Modality Abdomen Radiographic Ronna ging 05/24/2024 5:41 AM EST Narrative 05/24/2024 5:42 AM EST ? [facility] ?[address] ?[place] [address] ?XRay Report ? Signed ? Patient: Rizwan,Arleen ?MR#: [id number] ?? 01 ? : 1975 ?Acct:[id number] ? Age/Sex: 48 / F ?ADM Date: //25 ? Loc: HO.XRAY ? Attending Dr: Lashae Reid ENROLLMENT ADVISOR ? Ordering Physician: Lashae Reid ?? Date of Service: 05/23/24 ?? Procedure(s): XR cervical spine 4V ?? Accession Number(s): [id number] ? cc: Lashae Reid; Sharmin Ortiz MD [...] in OV> ? 05/24/24 0542 ? DD/ 0 ? TD/TT: 05/24/24540 ? Ledger Poster: ? Procedure Note Donjulisa, Tim - 05/24/2024 [place] [address] XRay Report Signed Patient: Mireille Astorga#: [id number] 01 : 1975Acct:[id number] Age/Sex: 48 / FADM Date: 05/23/24 Loc: [facility] Attending Dr: Lashae XIAO Ordering Physician: Lashae Reid Date of Service: 05/23/24 Procedure(s): XR cervical spine 4V Accession Number(s): [id number] cc: Lashae Reid; Sharmin Ortiz MD CLINICAL [...] OV> 05/24/24 0542 DD/ 0 TD/TT: 05/24/24540 Ledger Poster: [facility] External Provider IMG XR PROCEDURES Final Result * XR Shoulder 2+ Views Left (05/24/2024 5:41 AM EST) Anatomical Region Laterality Modality Upper Extremities, Shoulder Left Radi ographic Imaging 05/24/2024 5:41 AM EST Narrative 05/24/2024 5:42 AM EST ? [facility] ?[address] ?[place] [address] ?XRay Report ? Signed ? Patient: Rizwan,Arleen ?MR#: [id number] ?? 01 ? : 1975 ?Acct:[id number] ? Age/Sex: 48 / F ?ADM Date: 05/23/24 ? Loc: HO.XRAY ? Attending Dr: Lashae XIAO ? Ordering Physician: Lashae Reid ?? Date of Service: 05/23/24 ?? Procedure(s): XR shoulder LT min 2V ?? Accession Number(s): [id number] ? cc: Lashae Reid; Sharmin Ortiz MD [...] DD/ 0541 ? TD/TT: 05/24/24 0541 ? Ledger Poster: ? Procedure Note Leidy, Image - 05/24/[address] [address] XRay Report Signed Patient: Mireille Astorga#: [id number] 01 : 1975Acct:[id number] Age/Sex: 48 / FADM Date: 05/23/24 Loc: [facility] Attending Dr: Lashae Reid ENROLLMENT ADVISOR Ordering Physician: Lashae Reid Date of Service: 05/23/24 Procedure(s): XR shoulder LT min 2V Accession Number(s): [id number] cc: Lashae Reid; Sharmin Ortiz MD CLINICAL [...] signed by Curtis Jacinto MD in OV> 05/24/2442 DD/ 0 TD/TT: 05/24/24540 Ledger Poster: [facility] External Provider IMG XR PROCEDURES Final Result * (ABNORMAL) POCT HGB A1C (05/20/2024 11:55 AM EST) Pathologist [facility] Hemoglobin A1C 8.0(A) 4.0 - 6.0 % QC Media Lot # [id number] Lot# Expiration Date Blood 05/20/2024 11:5 5 AM EST Sharmin Ortiz MD POINT OF CARE TEST ENTER/EDIT OR DERABLES Final Result * HIV Ab/Ag ([place] [facility]) (06/16/2022 10:23 AM EST) HIV AB/AG Nonreactive Nonreactive [facility] Comment:HIV-1 p24 Ag and/or HIV-1/HIV-2 Ab not detected.A test result that is nonreactive does not exclude thepossibility of exposure to or infection with HIV-1 and/orHIV-2. Nonreactive results in this assay for individualswith prior exposure to HIV-1 and/or HIV-2 may be due toantigen and antibody levels that are below the limit ofdetection of this assay.[employer] Att[employer] HIV Ag/Ab Combo assay result andsupplemental assay results should be interpreted inconjunction with the patient's clinical presentation,history and other laboratory results. If the results areinconsistent with clinical evidence, additional testing issuggested to confirm the result. 06/16/2022 10:2 3 AM EST 06/16/2022 10:23 AM EST [facility] External Provider LAB BLO OD ORDERABLES Final Result Performing Organization Address [facility] de Phone Number [facility] [address] [place] [phone] [phone] * Hepatitis Panel, General (06/16/2022 10:23 AM EST) Hepatitis A IgM Nonreactive Nonreactive [facility] Comment:IgM antibodies to ROBERTO V not detected; does not exclude earlyacute or recovered HAV infection. ~Hepatitis B Surface Antibody REACTIVE Nonreactive [facility] Comment:REACTIVE: > 11.99 mI U/mL Hepatitis B Core Antibody Nonreactive Nonreactive [facility] Hepatitis C Antibody Nonreactive Nonreactive [facility] Comment:Antibodies to HCV no t detected; does not exclude early acuteHCV infection. Hepatitis B Surface Ag Negative Negative [facility] 06/16/2022 10:2 3 AM EST 06/16/2022 10:23 AM EST [facility] External Provider LAB BLO OD ORDERABLES Final Result Performing Organization Address [facility] de Phone Number [facility] [address] [place] [phone] * HPV E6/E7 RFLX RENEE 16 18/45 (07/07/2020 1:59 PM EDT) HPV mRNA E6/E7 rflx Not Detected Not Detected [facility] Comment: Methodology: [employer]-Mediated Amplification This assay detects E6/E7 viral messenger RNA (mRNA) from 14 high-risk HPV types (16,18,31,33,35,39,45,51,52,56,58,59,66,68). The analytical performance characteristics of this assay have been determined by [employer]. The modifications have not been cleared or approved by the FDA. This assay has been validated pursuant to the CLIA regulations and is used for clinical purposes. For additional information, please refer to http://education.[employer]/faq/WRW400w5 (This link if provided for information/ educational purposes only.) THIS TEST WAS PERFORMED AT: [facility] [address] [place], [place] ??[phone] SAUL REECE MD 07/07/2020 1:59 PM EDT Sma Michel MD HISTORICAL/NON ORDERABLE LABS Fi nal Result [facility] [address] from Last 3 Months or Most Recently Relevant to Health Maintenance Insurance Protection Plus C3 Care Teams Molder Meat Relationship Specialty Start Date End Date Sharmin Ortiz MD [address] [place] [address] PCP - General Family Medicine 04/10/18 Lamine Giles, PharmD [address] [place] [phone] Pharmacist Internal Medicine 04/01/24
--- OUTSIDE RECORDS SUMMARY | 2024-08-19 14:35 | XMS_ITS | Encounter Summary ---
Author Organization [employer] Address [address] [facility] 7t [place] [address] Care Team Providers Care Teaching Assistant Name Role Phone Sharmin Ortiz MD Primary Care Provider Lamine Giles PharmD Unavailable [phone] Encounter Details Date Type Department Care Team (Late st Contact Info) Description 02/07/2024 Orders Only [facility] [address] [place], [place] [phone] Sharmin Ortiz MD [address] [place], [place] [phone] Social History Tobacco Use Types Packs/Day Years [...] Description 08/22/2024 11:00 AM EDT Medication Management [facility] [address] [place] [address] Lamine Giles, PharmD [address] [place] [address] 08/26/2024 11:00 AM EDT Office Visit [facility] [address] [place] [phone] Sharmin Ortiz MD [address] [place] [address] 10/17/2024 10:30 AM EDT Office Visit [facility] [address] [place] [address] TarkaGema, OD [address] [place] [address] documented as of this encounter Visit Diagnoses Not on filedocumented in this encounter Care Teams Teaching Assistant Relationship Specialty Start Date End Date Sharmin Ortiz MD [address] [place] [phone] PCP - General Family Medicine 04/10/18 Lamine Giles, PharmD [address] [place] [phone] Pharmacist Internal Medicine 04/01/24 documented as of this encounter
--- OUTSIDE RECORDS SUMMARY | 2024-08-19 14:35 | XMS_ITS | Encounter Summary ---
Author Organization [employer] Address [address] [facility] 7t [place] [address] Care Team Providers Care Alterations Expert Name Role Phone Sharmin Ortiz MD Primary Care Provider [phone] Lamine Giles PharmD Unavailable [phone] Encounter Details Date Type Department Care Team (Late st Contact Info) Description 07/14/2024 Orders Only [facility] [address] [place], [place] [phone] Sharmin Ortiz MD [address] [place], [place] [phone] Social History Tobacco Use Types Packs/Day Years Used Date Smoking Tobacco: Never Smokeless Tobacco: Never Depression Answer Date Recorded Patient Health Questionnaire-9 Score 12 06/10/2024 Patient Health Questionnaire-9 Score 12 06/10/2024 Last PHQ-9: Questionnaire Data Not on file 0 06/10/2024 Housing Stability Answer Date Recorded What is your housing situation today? I have terry milo 06/10/[address] you li [...] Description 08/22/2024 11:00 AM EDT Medication Management [facility] [address] [place] [phone] Lamine Giles, PharmD [address] [place] [address] 08/26/2024 11:00 AM EDT Office Visit [facility] [address] [place] [phone] Sharmin Ortiz MD [address] [place] [address] 10/17/2024 10:30 AM EDT Office Visit [facility] [address] [place] [address] TarGema oates, OD [address] [place] [address] documented as of this encounter Visit Diagnoses Not on filedocumented in this encounter Additional Health Concerns Assessment Noted Time PHQ-9 Depression Total Score: 12 025 2:53 PM EST documented as of this encounter Care Teams Alterations Expert Relationship Specialty Start Date End Date Sharmin Ortiz MD [address] [place] [phone] PCP - General Family Medicine 04/10/18 Lamine Giles, PharmD [address] [place] [address] Pharmacist Internal Medicine 04/01/24 documented as of this encounter
== END 2024-08-19 15:07 | disposition home or self-care (01) ==
LOC: HO.PMC 14:23
PROVIDERS: PCP Family Medicine; Visit Provider Nurse Practitioner Family
DX: M53.3 Sacrococcygeal disorders, not elsewhere classified (principal); M47.817 Spondylosis without myelopathy or radiculopathy, lumbosacral region; M54.16 Radiculopathy, lumbar region; M51.369 Other intervertebral disc degeneration, lumbar region without mention of lumbar back pain or lower extremity pain; M47.812 Spondylosis without myelopathy or radiculopathy, cervical region; R20.0 Anesthesia of skin; M50.30 Other cervical disc degeneration, unspecified cervical region; M54.12 Radiculopathy, cervical region; M54.2 Cervicalgia
CPT/HCPCS: 99214

== ENCOUNTER → 2024-08-19 14:23 | Outpatient (BNVA) | payer OTHER, MEDICAID, SELFPAY | PROVIDERS: PCP Family Medicine; Visit Provider Nurse Practitioner Family | DX: M53.3 Sacrococcygeal disorders, not elsewhere classified (principal); M47.27 Other spondylosis with radiculopathy, lumbosacral region; M51.369 Other intervertebral disc degeneration, lumbar region without mention of lumbar back pain or lower extremity pain; M47.22 Other spondylosis with radiculopathy, cervical region; R20.0 Anesthesia of skin; M50.30 Other cervical disc degeneration, unspecified cervical region | CPT/HCPCS: 99212 ==

== ENCOUNTER 2024-10-15 06:13 | Outpatient (REF) | payer OTHER, MEDICAID, SELFPAY ==
--- NOTE | ~2024-10-15 | FL_ITS ---
EXAMINATION: FL GUIDANCE ONLY HISTORY: M47.817 - Spondylosis without myelopathy or radiculopathy, lumbosacral COMPARISON: None available. TECHNIQUE: Fluoroscopy time: 0.5 minutes. Cumulative Dose: 8.69 mGy. DAP: 0.150 mGym2 Images: 12. FINDINGS: Fluoroscopic spot films of the lumbar spine in the AP projection demonstrate needles and contrast material in the regions of the bilateral L3-4, L4-5, and L5-S1 facet joints. FL/FL guidance in treatment room IMPRESSION: Fluoroscopy during procedure. Please see procedure report for additional information. Electronically signed by: Case Hernandez MD 10/15/2024 10:50 AM EDT
--- OUTSIDE RECORDS SUMMARY | 2024-10-15 06:16 | XMS_ITS | Encounter Summary ---
Author Organization [employer] Address [address] [facility] 7t [place] [address] Care Team Providers Care Assistant Research Scientist Name Role Phone Sharmin Ortiz MD Primary Care Provider [phone] Lamine Giles PharmD Unavailable [phone] Encounter Details Date Type Department Care Team (Late st Contact Info) Description 01/17/2023 Abstract [facility] [address] [place] [address] Nicci Jimenez Social History Tobacco Use Types [...] Care Team (Late st Contact Info) Description 10/17/2024 10:30 AM EDT Office Visit [facility] [address] [place], [place] [phone] Gema Aguirre, OD [address] [place] [address] 11/04/2024 2:30 PM EDT Medication Management [facility] [address] [place] [address] Lamine Giles, PharmD [address] [place] [address] documented as of this encounter Visit Diagnoses Not on filedocumented in this encounter Care Teams Assistant Research Scientist Relationship Specialty Start Date End Date Sharmin Ortiz MD [address] [place] [phone] PCP - General Family Medicine 04/10/18 Lamine Giles, DaisyD [address] [place] [address] Pharmacist Internal Medicine 04/01/24 documented as of this encounter
== END 2024-10-15 06:14 | disposition home or self-care (01) ==
LOC: CF 06:13
PROVIDERS: Visit Provider Anesthesiology
DX: M47.817 Spondylosis without myelopathy or radiculopathy, lumbosacral region (principal)
CPT/HCPCS: 64493; 64494; J2003; J2795; Q9967

== ENCOUNTER 2024-10-15 09:40 | Outpatient (AMB) | payer OTHER, MEDICAID, SELFPAY ==
--- NOTE | 2024-10-15 09:46 | A.OFFVIS_ITS ---
Vital Signs 10/15/24 09:47 10/15/24 10:16 Height 5 ft 1 in Weight 194 lb BMI 36.7 BP 118/75 121/86 Blood Pressure Location Lt brachial Lt brachial Position Sitting Sitting Respiration 16 18 Pulse 77 80 Pulse Source Pulse Oximeter Pulse Oximeter Pulse Oximetry (%) 99 100 Oxygen Delivery Method Room Air Room Air Intake Visit Reasons: BILATERAL DIAGNOSTIC L3, L4, DRL5 MBB Allergies BEAU Inhibitors Allergy (Unknown, Verified 08/19/24 14:28) cough PFSH Medical History (Updated 10/15/24 @ 10:18 by Grayson Russo MD) Chronic kidney disease, stage 3 Pelvic pain IBS (irritable bowel syndrome) Microalbuminuric diabetic nephropathy Metabolic dysfunction-associated steatotic liver disease (MASLD) Fibromyalgia Family history of systemic lupus erythematosus Hepatitis B immune Diabetic nephropathy Microalbuminuria Dyslipidemia Diabetes mellitus Allergic rhinitis Transaminitis Anemia Chronic low back pain Migraine headache Obesity Carpal tunnel syndrome Hypertension WANDA (obstructive sleep apnea) Vitamin D deficiency Surgical History History of cholecystectomy Tubal ligation status History of salpingo-oophorectomy Family History Father Diabetes Heart disease Mother Hypertension Arthritis Thyroid activity decreased Brother Hypertension Thyroid activity decreased Sister Hypertension Thyroid activity decreased Other Family history of cancer of gallbladder Social History Alcohol intake: never Comment: medicated in pacu Patient Tobacco Use Status: Never used Tobacco Second Hand Smoke Exposure: No 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 ? ?Informed consent was explained to the patient. All questions were explained and? answered.? The patient was taken inside the operating room where she was positioned prone on the operating table. Time-out was performed delineating correct site, side, the nature of the procedure, patient's allergy, . All operating room staff was participating in OR time-out procedure. ? ? The lower back was prepped with ChloraPrep and draped with sterile towels.? C- arm was brought over the operating field and sq picture of L4-, L5 vertebra and S1 AREA were delineated on the screen.? Point of interest were delineated as confluence of superior articular process of L4 and L5 vertebra bilaterally with corresponding transverse processes as well as confluence of the sacral alae bilaterally with superior articular process of S1.? The projection of the point of interest to the skin were injected with the small amount of local anesthetic lidocaine 2% mixed with ropivacaine 0.5% 1-1 approcimately 1 cc.? After that 22 gauge 5 inch spinal needle was driven sequentially to the points of interest in tunnel vision fashion. After needles gently contacted the bone at the point of interests the needle was injected with small amount of the contrast.? The injection of the contrast did not demonstrate any intravascular or intrathecal spread of the contrast.? After that injection of the? ropivacaine 0.5%-1cc was performed at each needle location. ?after that the needles were removed and Bandaids were applied. Orders: Orders FL guidance in treatment room Today M47.817 - Spondylosis without myelopathy or radiculopathy, lumbosacral region Coding Level of Care Code Procedure Only Diagnoses Spondylosis of lumbar region without myelopathy or radiculopathy M47.816
[2024-10-15 09:47] VITALS: BP 118/75; PULSE 77; RESP 16; O2SAT 99; BMI 36.7
[2024-10-15 10:16] VITALS: BP 121/86; PULSE 80; RESP 18; O2SAT 100
== END 2024-10-15 10:18 | disposition home or self-care (01) ==
LOC: HO.PMCPRC 09:40
PROVIDERS: PCP Family Medicine; Visit Provider Anesthesiology
DX: M47.816 Spondylosis without myelopathy or radiculopathy, lumbar region (principal)
CPT/HCPCS: 64493; 64494

== ENCOUNTER 2024-10-22 10:36 | Outpatient (AMB) | payer OTHER, MEDICAID, SELFPAY ==
--- NOTE | 2024-10-22 10:38 | A.OFFVIS_ITS ---
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 The patient underwent these injections on October 15, and initially reported some relief on the right side, but overall, the relief was limited to 50% for about three hours before the pain returned to baseline levels. The pain is primarily located in the back, with some involvement of the neck and left shoulder areas. Neck pain is increased with movements, lifting and computer work and left shoulder with overhead and back pocket reaches and lifting or pushing. She avoids sleeping on the left side due to pain. Unfortunately, her cervical spine MRI was denied. Patient is interested to pursue physical therapy for shoulder and neck pain. The patient has a history of diabetes mellitus, with previous A1c levels above 10, but recent blood sugar levels have shown improvement, being in the low to mid 100s. The patient has not had a recent A1c test, but plans to follow up with her primary care provider for further evaluation. Denies any recent cough, cold, infection, fever or any significant changes in medical history since last office visit. 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 - Onset: Pain persists post-injection, with temporary mild relief noted. - Quality: Described as persistent and returning to baseline after initial relief. - Location: Primarily in the back, with involvement of the neck and shoulder. - Exacerbating factors: Activity seems to maintain baseline pain levels. Heavy lifting, bending, twisting or pushing. - Relieving factors: Temporary relief post-injection, lasting approximately three hours; Tylenol, heat, rest. Avoids NSAIDs due to CKD. - Affect: Pain impacts daily activities, including work and home responsibilities. - Analgesia: 50% relief for three hours post-injection, with pain returning to baseline. - Adverse Effects: No adverse effects from current pain management reported. - Activities of Daily Living: Pain affects ability to perform work duties and household tasks. - Aberrant Drug Related Behaviors: No aberrant behaviors reported. Oswestry Neck Pain Disability Score=24 Shoulder Pain Disability Index Score=70% PRIOR 06/30/23: Patient presents today for follow up for worsening low back pain and review xray results. She was initially seen in our office in March 2023. Reports recent right carpal tunnel release surgery and reports recovery has been well. 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 Her back pain extends to sacral areas bilaterally and into her lateral hips. She reports her worse side alternates from left to right, depending on the daily activities and work. Patient also reports occasional sensations of heaviness with numbness in her posterior legs. Lumbar spine and hip xrays reports were reviewed today and are noted below. Pain affects her daily ADLs, mobility, sleep and social interactions. She continues to stay active and performs regular HEP, takes Tylenol and Flexeril with continued symptoms. She has been trying to loose weight and has lost 7 lbs since last visit. Most recent A1C is 6.8. Patient is interested to proceed with interventional treatments to address her radicular back and SIJ pain. Denies any recent cough, cold, infection, fever, weakness, foot drop, bladder or bowel dysfunction, saddle anesthesia, any significant changes in her medical history, medications or recent hospitalizations. PRIOR: Patient is a pleasant 47 years old female with past medical history of chronic back pain, carpal tunnel syndrome, WANDA with mild adherence to CPAP machine, obesity, type 2 DM (A1C 6.8 on 11/30), left knee pain, OA, fibromyalgia, presents today for initial evaluation of right hip and low back pain. Denies any recent trauma, injury or falls. She was seen at [facility] 2 years ago and declined SI injection. She is also was seen by Rheumatology for OA and fibromyalgia. 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 Back pain is axial and also radiates into her right buttock and into lateral right hip and groin. She reports weakness and occasional right leg giving out as well as burning and radiating pain into her right foot with numbness and tingling. Patient also has significant neck pain with muscle stiffness and spasms. Reports physical therapy in the remote past with mild improvement in her symptoms and function. Due to significant pain, patient cannot undergo PT. Pain is constant and she rates it at 8/10. Denies previous spine surgery or injections. Pain affects her daily activities, functioning, sleep, social activities, mood and quality of life. Patient denies any fever, abdominal pain, foot drop, bladder or bowel incontinence or saddle anesthesia. Reports right lower extremity weakness with ambulation. Patient reports she does not check blood sugars regularly. She states her A1C was good in November and she cannot recall if this has been rechecked recently. Patient tries to loose weight, and control DM with diet and taking medications regularly. Location Lower back, radiates into right buttock and right hip and groin Duration Progressively worsening pain > 2 years Characteristics of symptom or complaint Aching, shooting, radiating, tight, tiring, numbness, heavy, sore Aggravating or associated factors Walking, bending, climbing stairs, lifting, pulling, pushing, cold weather Relieving factors Cyclobenzaprine, Tylenol, resting, heat therapy Treatment None PFSH Medical History Chronic kidney disease, stage 3 Pelvic pain IBS (irritable bowel syndrome) Microalbuminuric diabetic nephropathy Metabolic dysfunction-associated steatotic liver disease (MASLD) Fibromyalgia Family history of systemic lupus erythematosus Hepatitis B immune Diabetic nephropathy Microalbuminuria Dyslipidemia Diabetes mellitus Allergic rhinitis Transaminitis Anemia Chronic low back pain Migraine headache Obesity Carpal tunnel syndrome Hypertension WANDA (obstructive sleep apnea) Vitamin D deficiency Surgical History History of cholecystectomy Tubal ligation status History of salpingo-oophorectomy Family History Father Diabetes Heart disease Mother Hypertension Arthritis Thyroid activity decreased Brother Hypertension Thyroid activity decreased Sister Hypertension Thyroid activity decreased Other Family history of cancer of gallbladder Social History Alcohol intake: never Comment: medicated in pacu Patient Tobacco Use Status: Never used Tobacco Second Hand Smoke Exposure: No 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 - Endocrine: Denies recent A1c testing, reports improved blood sugar levels. All systems reviewed & are unremarkable except as noted in HPI and below Physical Exam Vital Signs: Last Vital Signs Pulse 108 H 10/22/24 10:40 BP 127/75 10/22/24 10:40 Pulse Ox 100 10/22/24 10:40 Oxygen Delivery Method Room Air 10/22/24 10:40 BMI result Body Mass Index 35.3 General: Appears afebrile. Alert and oriented. Mood and affect appropriate. Follows and participates in conversation appropriately. Respiratory effort is unlabored. No cough. Able to transition from sit to stand unassisted. Ambulates with bilaterally normal heel strike and toe off, reports intermittent LLE numbness without weakness. Neck Neck: Yes normal visual inspection, Yes no lymphadenopathy, Yes supple, No anterior neck swelling, Yes no JVD and Yes prominent dorsocervical fat pad General: Yes no CVA tenderness Back/Spine/Pelvis Other: Limited lumbar ROM with flexion and extension reproducing mild to moderate pain, worse pain with flexion forward and facet loading bilaterally. Mildly antalgic gait, no limping. Demonstrates 5/5 strength of quadriceps bilaterally as well as flexion/dorsiflexion of bilateral feet against resistance. 2+ pedal pulses bilaterally. Seated straight leg rise with dorsiflexion negative bilaterally. +1 patellar and diminished achilles reflexes bilaterally. Nia sign positive bilaterally, Sudarshan?s, Gaenslen, Pelvic compression and Stinchfield tests are positive bilaterally. No groin pain with I/E hip rotations. Valsalva maneuver negative. Back: no CVA tenderness Cervical Spine: cervical muscular tenderness, pain with cervical ROM (worse with flexion and lateral rotations) and No Cervical spine tenderness Thoracic/Lumbar Spine: thoracic and lumbar spine normal to inspection, No Thoracic/lumbar spine scar(s), Lasegue's sign negative, straight leg raise negative bilaterally, pain with thoraco-lumbar ROM, paraspinal muscle tenderness, thoraco-lumbar ROM limited, No thoracic spinal tenderness and lumbar spinal tenderness (L4-S1) Pelvis: buttock tenderness bilaterally Sacroiliac joints: bilaterally tender to palpation Extrem General: Yes capillary refill normal, Yes no clubbing, cyanosis or edema and Yes no calf tenderness Assessment & Plan Assessment & Plan (1) Myofascial neck pain: Code(s): M54.2 - Cervicalgia Category: Medical (2) Cervical spondylosis: Code(s): M47.812 - Spondylosis without myelopathy or radiculopathy, cervical region Category: Medical (3) Left shoulder pain: Code(s): M25.512 - Pain in left shoulder Category: Medical (4) Degenerative disc disease, cervical: Code(s): M50.30 - Other cervical disc degeneration, unspecified cervical region Category: Medical (5) Cervical radiculopathy: Code(s): M54.12 - Radiculopathy, cervical region Category: Medical (6) Sacroiliac joint pain: Code(s): M53.3 - Sacrococcygeal disorders, not elsewhere classified Category: Medical (7) Lumbosacral spondylosis: Code(s): M47.817 - Spondylosis without myelopathy or radiculopathy, lumbosacral region Category: Medical (8) Low back pain: Code(s): M54.50 - Low back pain, unspecified Category: Medical (9) Lumbar degenerative disc disease: Code(s): M51.36 - Other intervertebral disc degeneration, lumbar region Category: Medical Plan The patient experienced limited relief from the bilateral diagnostic L3-L4-L5 medial branch blocks, with only 50% pain reduction for three hours. Given this response, further interventional procedures such as radiofrequency ablation or Sprint are not recommended at this time. The option to repeat the injections und er sedation was discussed, but the patient declined. The patient's diabetes management shows improvement in blood sugar levels, but a follow-up with the primary care provider is necessary for updated A1c testing (previous A1C>10). Physical therapy for neck pain was recommended, with a referral to a home nearby facility per patient's request. Work note provided today. Patient will continue light duty and avoiding heavy lifting, excessive bending, twisting or pushing. All questions and concerns have been answered and patient agreed with the plan. Follow up after PT and sooner as needed. Patient was informed and verbally consented to the use of an ambient scribe for clinic note documentation during this visit. Orders: Orders PT Evaluation and Treatment Today M25.512 - Pain in left shoulder, M47.812 - Spondylosis without myelopathy or radiculopathy, cervical region, M50.30 - Other cervical disc degeneration, unspecified cervical region, M54.12 - Radiculopathy, cervical region, M54.2 - Cervicalgia, R20.0 - Anesthesia of skin Coding Level of Care Code Est Pt Level 4 (73849) Complex EM visit Add On G2211 Diagnoses Myofascial neck pain M54.2 Cervical spondylosis M47.812 Left shoulder pain M25.512 Degenerative disc disease, cervical M50.30 Cervical radiculopathy M54.12 Sacroiliac joint pain M53.3 Lumbosacral spondylosis M47.817 Low back pain M54.50 Lumbar degenerative disc disease M51.36
[2024-10-22 10:40] VITALS: BP 127/75; PULSE 108; O2SAT 100; BMI 35.3
--- OUTSIDE RECORDS SUMMARY | 2024-10-22 11:53 | XMS_ITS | Encounter Summary ---
Author Organization [employer] Address [address] [place] [address] Care Team Providers Care Assembler Wire Group Name Role Phone Sharmin Ortiz MD Primary Care Provider [phone] Lamine Giles PharmD Unavailable [phone] Encounter Details Date Type Department Care Team (Late st Contact Info) Description 01/17/2023 Abstract [facility] [address] [place] [address] Nicci Jimenez Social History Tobacco Use Types [...] Care Team (Late st Contact Info) Description 11/04/2024 2:30 PM EDT Medication Management [facility] [address] [place] [address] Lamine Giles, PharmD [address] [place] [address] documented as of this encounter Visit Diagnoses Not on filedocumented in this encounter Care Teams Assembler Wire Group Relationship Specialty Start Date End Date Sharmin Ortiz MD [address], [place] [id number] PCP - General Family Medicine 04/10/18 Lamine Giles, DaisyD [address] [place] [address] [place] [address] Pharmacist Internal Medicine 04/01/24 documented as of this encounter
== END 2024-10-22 11:15 | disposition home or self-care (01) ==
LOC: HO.PMC 10:37
PROVIDERS: PCP Family Medicine; Visit Provider Nurse Practitioner Family
DX: M54.2 Cervicalgia (principal); M47.812 Spondylosis without myelopathy or radiculopathy, cervical region; M25.512 Pain in left shoulder; M54.12 Radiculopathy, cervical region; M53.3 Sacrococcygeal disorders, not elsewhere classified; M47.817 Spondylosis without myelopathy or radiculopathy, lumbosacral region; M54.50 Low back pain, unspecified; M51.369 Other intervertebral disc degeneration, lumbar region without mention of lumbar back pain or lower extremity pain
CPT/HCPCS: 99214; G2211

== ENCOUNTER → 2024-10-22 10:36 | Outpatient (BNVA) | payer OTHER, MEDICAID, SELFPAY | PROVIDERS: PCP Family Medicine; Visit Provider Nurse Practitioner Family | DX: M54.2 Cervicalgia (principal); M47.812 Spondylosis without myelopathy or radiculopathy, cervical region; M25.512 Pain in left shoulder; M54.12 Radiculopathy, cervical region; M53.3 Sacrococcygeal disorders, not elsewhere classified; M47.817 Spondylosis without myelopathy or radiculopathy, lumbosacral region; M51.360 Other intervertebral disc degeneration, lumbar region with discogenic back pain only | CPT/HCPCS: 99212 ==

== ENCOUNTER 2024-11-29 09:59 | Outpatient (REF) | payer MEDICAID, SELFPAY ==
--- OUTSIDE RECORDS SUMMARY | 2024-11-29 10:02 | XMS_ITS | Encounter Summary ---
Author Organization [employer] Address [address] [place] [address] Care Team Providers Care Tourist Home Keeper Name Role Phone Sharmin Ortiz MD Primary Care Provider [phone] Lamine Giles PharmD Unavailable [phone] Encounter Details Date Type Department Care Team (Late st Contact Info) Description 01/17/[address] [facility]INE [address] [place] [address] Nicci Jimenez Social History Tobacco Use Types [...] Care Team (Late st Contact Info) Description 01/03/2025 10:30 AM EDT Telemedicine [facility] [address] [place] [address] Lamine Giles, PharmD [address] [place] [address] documented as of this encounter Visit Diagnoses Not on filedocumented in this encounter Care Teams Tourist Home Keeper Relationship Specialty Start Date End Date Sharmin Ortiz MD [address] [place] [address] PCP - General Family Medicine 04/10/18 Lamine Giles, PharmD [address] [place], [place] [address] [address] Pharmacist Internal Medicine 04/01/24 documented as of this encounter
[2024-11-29 11:02] LABS: Anion Gap 12 (12-20); Blood Urea Nitrogen 26 mg/dL (9-16); Carbon Dioxide 29 mmol/L (22-29); Chloride 104 mmol/L (96-108); Estimated Glomerular Filt Rate 46; Potassium 3.7 mmol/L (3.3-5.1); Sodium 141 mmol/L (135-145)
== END 2024-11-29 10:00 | disposition home or self-care (01) ==
LOC: HO.LAB 09:59
PROVIDERS: PCP Family Medicine; Visit Provider Internal Medicine Nephrology
DX: N18.31 Chronic kidney disease, stage 3a (principal)
CPT/HCPCS: 36415; 80051; 82565; 84520

== ENCOUNTER 2025-01-24 10:49 | Outpatient (AMB) | payer MEDICAID, SELFPAY ==
--- NOTE | 2025-01-24 10:55 | A.OFFVIS_ITS ---
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 The chronic neck pain has been persistent, with the patient reporting painful range of motion in all directions, particularly worse to the left. Physical therapy at [facility] was completed, which helped improve mobility, although pain persists, especially when moving the neck to the left or look up. The patient also reports chronic back pain, which has been ongoing and affects her daily activities. She experiences numbness and tightness in the neck, which sometimes radiates to the arm, impacting her ability to perform tasks at work. The patient has a history of diabetes mellitus, for which she takes Mounjaro and metformin. Her A1c levels were last checked a year ago, with a result of 10.8, and she is due for a recheck to assess current levels. PRIOR: The patient is a 49-year-old female presenting for evaluation of pain management following bilateral diagnostic L3-L4-L5 medial branch blocks. The patient underwent these injections on October 15, and initially reported some relief on the right side, but overall, the relief was limited to 50% for about three hours before the pain returned to baseline levels. The pain is primarily located in the back, with some involvement of the neck and left shoulder areas. Neck pain is increased with movements, lifting and computer work and left shoulder with overhead and back pocket reaches and lifting or pushing. She avoids sleeping on the left side due to pain. Unfortunately, her cervical spine MRI was denied. Patient is interested to pursue physical therapy for shoulder and neck pain. The patient has a history of diabetes mellitus, with previous A1c levels above 10, but recent blood sugar levels have shown improvement, being in the low to mid 100s. The patient has not had a recent A1c test, but plans to follow up with her primary care provider for further evaluation. Denies any recent cough, cold, infection, fever or any significant changes in medical history since last office visit. 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 - Onset: Pain persists post-injection, with temporary mild relief noted. - Quality: Described as persistent and returning to baseline after initial relief. - Location: Primarily in the back, with involvement of the neck and shoulder. - Exacerbating factors: Activity seems to maintain baseline pain levels. Heavy lifting, bending, twisting or pushing. - Relieving factors: Temporary relief post-injection, lasting approximately three hours; Tylenol, heat, rest. Avoids NSAIDs due to CKD. - Affect: Pain impacts daily activities, including work and home responsibilities. - Analgesia: 50% relief for three hours post-injection, with pain returning to baseline. - Adverse Effects: No adverse effects from current pain management reported. - Activities of Daily Living: Pain affects ability to perform work duties and ho usehold tasks. - Aberrant Drug Related Behaviors: No aberrant behaviors reported. Oswestry Neck Pain Disability Score=24 Shoulder Pain Disability Index Score=70% PFSH Medical History Chronic kidney disease, stage 3 Pelvic pain IBS (irritable bowel syndrome) Microalbuminuric diabetic nephropathy Metabolic dysfunction-associated steatotic liver disease (MASLD) Fibromyalgia Family history of systemic lupus erythematosus Hepatitis B immune Diabetic nephropathy Microalbuminuria Dyslipidemia Diabetes mellitus Allergic rhinitis Transaminitis Anemia Chronic low back pain Migraine headache Obesity Carpal tunnel syndrome Hypertension WANDA (obstructive sleep apnea) Vitamin D deficiency Surgical History History of cholecystectomy Tubal ligation status History of salpingo-oophorectomy Family History Father Diabetes Heart disease Mother Hypertension Arthritis Thyroid activity decreased Brother Hypertension Thyroid activity decreased Sister Hypertension Thyroid activity decreased Other Family history of cancer of gallbladder Social History Alcohol intake: never Comment: medicated in pacu Patient Tobacco Use Status: Never used Tobacco Second Hand Smoke Exposure: No 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 Alert and oriented. Mood and affect appropriate. Follows and participates in conversation appropriately. Respiratory effort is unlabored. No cough. Able to transition from sit to stand unassisted. Ambulates with bilaterally normal heel strike and toe off. Neck Neck: Yes normal visual inspection, Yes no lymphadenopathy, Yes supple, No anterior neck swelling, Yes no JVD and Yes prominent dorsocervical fat pad Back/Spine/Pelvis Cervical Spine: No Lhermitte's sign positive, cervical muscular tenderness, pain with cervical ROM (worse with extension and lateral rotations, L>R), No Cervical spine tenderness and No step off deformity Thoracic/Lumbar Spine: thoracic and lumbar spine normal to inspection, No Thor acic/lumbar spine scar(s), Lasegue's sign negative, straight leg raise negative bilaterally, pain with thoraco-lumbar ROM, paraspinal muscle tenderness, thoraco-lumbar ROM limited, No thoracic spinal tenderness and lumbar spinal tenderness (L4-S1) Sacroiliac joints: bilaterally tender to palpation Results Reviewed Results Reviewed: XR cervical spine 4V 05/24/24 Findings: Normal vertebral body alignment. No acute fractures or dislocation. Mild multilevel degenerative changes with mild disc space narrowing at C5-6 and C6-7. No bony foraminal narrowing. No prevertebral soft tissue swelling. IMPRESSION: No acute findings. Mild degenerative changes. XR shoulder LT min 2V 05/24/24 Findings: Bones intact. No dislocations. No significant arthritic change. No erosions. No radiopaque foreign body. IMPRESSION: 1. No acute findings Assessment & Plan Assessment & Plan (1) Myofascial neck pain: Code(s): M54.2 - Cervicalgia Category: Medical (2) Lumbosacral spondylosis: Code(s): M47.817 - Spondylosis without myelopathy or radiculopathy, lumbosacral region Category: Medical (3) Low back pain: Code(s): M54.50 - Low back pain, unspecified Category: Medical (4) Cervicalgia: Code(s): M54.2 - Cervicalgia Category: Medical (5) Cervical spondylosis: Code(s): M47.812 - Spondylosis without myelopathy or radiculopathy, cervical region Category: Medical (6) Degenerative disc disease, cervical: Code(s): M50.30 - Other cervical disc degeneration, unspecified cervical region Category: Medical (7) Fibromyalgia: Code(s): M79.7 - Fibromyalgia Category: Medical Plan The plan includes considering bilateral diagnostic cervical medial branch blocks for potential pain relief. If positive response, further treatments will be contingent upon A1c levels being below 7-7.5. If A1c levels are not optimal, alternative pain management strategies will be considered, including cervical medial branch RFA. The patient will continue with diabetes management, including monitoring A1c levels and medication and diet adherence. Schedule Bilateral Diagnostic C4-C5-C6 MBB with local and fluoroscopy. Expectations, risks and benefits were reviewed. Patient is aware she will be contacted to schedule this procedure. All questions and concerns have been answered and patient agreed with the treatment plan. Follow up after injections and sooner as needed. Patient was informed and verbally consented to the use of an ambient scribe for clinic note documentation during this visit. Orders: Orders Hemoglobin A1c Today E11.9 - Type 2 diabetes mellitus without complications Coding Level of Care Code Est Pt Level 4 (58507) Complex EM visit Add On G2211 Diagnoses Myofascial neck pain M54.2 Lumbosacral spondylosis M47.817 Low back pain M54.50 Cervicalgia M54.2 Cervical spondylosis M47.812 Degenerative disc disease, cervical M50.30 Fibromyalgia M79.7
[2025-01-24 11:00] VITALS: BP 140/74; PULSE 94; O2SAT 98; BMI 34.5
--- OUTSIDE RECORDS SUMMARY | 2025-01-24 13:21 | XMS_ITS | Encounter Summary ---
Author Organization [employer] Address [address] [place] [address] Care Team Providers Care Furniture Polisher Name Role Phone Sharmin Ortiz MD Primary Care Provider [phone] Lamine Giles PharmD Unavailable [phone] Encounter Details Date Type Department Care Team (Late st Contact Info) Description 01/17/2023 Abstract [facility] [address] [place] [phone] Nicci Jimenez Social History Tobacco Use Types [...] Care Team (Late st Contact Info) Description 02/17/2025 11:30 AM EST Office Visit [facility] [address] [place] [phone] Sharmin Ortiz MD [address] [place] [phone] 04/11/2025 11:00 AM EST Telemedicine [facility] [address] [place] [phone] Lamine Giles, PharmD [address], [place] [phone] 05/05/2025 10:30 AM EST Office Visit [facility] [address] [place], [place] [phone] Gema Aguirre, OD [address] [place] [address] documented as of this encounter Visit Diagnoses Not on filedocumented in this encounter Care Teams Furniture Polisher Relationship Specialty Start Date End Date Sharmin Ortiz MD [address], [place] [phone] PCP - General Family Medicine 04/10/18 Lamine Giles, DaisyD [address] [place] [address] [phone] Pharmacist Internal Medicine 04/01/24 documented as of this encounter
--- OUTSIDE RECORDS SUMMARY | 2025-01-24 13:22 | XMS_ITS | Clinical Summary ---
Author Organization [employer] Address [address] [facility] [address] [place] [address] Care Team Providers Care Sql Report Analyst Name Role Phone Sharmin Ortiz MD Primary Care Provider [phone] Lamine Giles PharmD Unavailable [phone] Allergies Active Allergy Reactions Criticality Noted Date Comments Albert Inhibitors Cough High 06/28/2010 Other reaction(s): unspecified Medications acetaminophen (Tylenol) 500 MG tablet Take 2 tablets by mouth every 8 (eight) hours if needed for pain. 02/06/20 19 Active Elastic Bandages & Supports (Wrist Splint) misc Active empagliflozin (Jardiance) 25 MG Take 1 [...] times daily 1 kit 02/09/20 24 Active metFORMIN XR (Glucophage-XR) 500 MG 24 hr tabletIndicatio ns:Type 2 diabetes mellitus with hyperglycemia, without long-term current use of insulin (HCC) Take 2 tablets (1,000 mg) by mouth Once per day. 60 tablet 11 05/23/19 25 Active losartan (Cozaar) 100 MG tablet Take 1 tablet (100 mg) by mouth Once per day. 90 tablet 3 06/11/19 25 Active cholecalciferol (Vitamin D-3) 25 MCG (1000 UT) tablet Take 1 tablet (25 mcg) by mouth Once per day. 90 tablet 3 07/15/19 25 Active Diclofenac Sodium 1 % gel APPLY 2 GRAMS TOPICALLY TO AFFECTED AREA(S) FOUR TIMES DAILY DIRECTED 06/15/19 25 Active pravastatin (Pravachol) 20 MG tabletIndicatio ns:Type 2 diabetes mellitus with hyperglycemia, without long-term current use of insulin (HCC) Take 1 tablet (20 mg) by mouth at bedtime. 90 tablet 3 07/19/19 25 Active metoprolol tartrate (Lopressor) 100 MG tablet TAKE 1 AND 1/2 TABLETS BY MOUTH TWICE DAILY IN THE MORNING AND IN THE EVENING WITH BREAKFAST and WITH DINNER 180 tablet 3 07/23/19 25 Active chlorthalidone (Hygroton) 25 MG tabletIndicatio ns:Primary hypertension TAKE 1 TABLET BY MOUTH EVERY DAY 90 tablet 3 08/21/19 25 Active cyclobenzaprine (Flexeril) 10 MG tablet TAKE 1 TABLET BY MOUTH THREE TIMES DAILY IN THE MORNING, AT NOON, AND AT BEDTIME NEEDED FOR MUSCLE SPASMS 30 tablet 2 11/14/19 25 Active Tirzepatide (Mounjaro) 5 MG/0.5ML solution auto-injectorIn dications:Type 2 diabetes mellitus with hyperglycemia, without long-term current use of insulin ([facility]) Inject 5 mg under the skin 1 (one) time per week. 2 mL 3 11/23/19 25 Active meloxicam (Mobic) 15 MG tablet TAKE 1 TABLET BY MOUTH EVERY DAY AFTER MEAL 03/29/20 24 025 Discontinued(Me d list cleanup (will not trigger notification to Pharmacy)) Active Problems Problem Noted Date Diagnosed Date Pelvic pain 06/16/2024 Assessment & Plan (06/16/2024 12:13 PM EDT): - history of large ovarian cyst s/p removal - evaluate with US CKD (chronic kidney disease) stage 3, GFR 30-59 ml/min ([facility]) 06/16/2024 Assessment & Plan (11/29/2024 4:18 PM EDT): - in a setting of diabetes mellitus type 2 and hypertension - Kidney failure risk: 0.3% at 2 years, 0.94% at 5 years. - continue ARB and SGLT2i - optimize diabetes mellitus and hypertension management - avoid nephrotoxic drugs - upcoming appointment with health information coder Assessment & Plan (09/01/2024 6:13 PM EDT): - in a setting of diabetes mellitus type 2 and hypertension - Kidney failure risk: 0.3% at 2 years, 0.94% at 5 years. - continue ARB and SGLT2i - optimize diabetes mellitus and hypertension management - avoid nephrotoxic drugs Assessment & Plan (06/16/2024 1:13 PM EDT): - in a setting of diabetes mellitus type 2 and hypertension - Kidney failure risk: 0.93% at 2 years, 2.87% at 5 years. - continue ARB and SGLT2i - optimize diabetes mellitus and hypertension management - avoid nephrotoxic drugs Due to her young age and the risk is almost 3% at 5 years, will refer to health information coder. Fibromyalgia 08/03/2023 Assessment & Plan (09/01/2024 6:20 PM EDT): - continue tylenol prn, continue muscle relaxants prn, advised to avoid NSAIDs Assessment & Plan (06/11/2024 6:54 AM EST): [...] low back pain 02/09/2018 Assessment & Plan (11/29/2024 4:23 PM EDT): - continue current medications for fibromyalgia - Pain has been exacerbated after a fall injury at work - patient has been following with painter, last seen in October 2024. - tried MBB injection treatment on 10/15/24, which was ineffective. - referred to [facility] for work-related injury evaluation - patient needs a letter for her work with restriction, no lifting weight > 10 lbs. Patient is still in pain and limping, and is unable to resume full duty. Letter for work restriction given to the patient Assessment & Plan (09/01/2024 6:22 PM EDT): - continue current medications for fibromyalgia - Pain has been exacerbated after a fall injury at work - patient has been following with painter, last seen on 08/18/24. - scheduling for lumbar MBB injection treatment - referred to [facility] for work-related injury evaluation - patient needs a letter for her work with restriction, no lifting weight > 50 lbs. Patient is still in pain and limping, and is unable to resume full duty. Assessment & Plan (08/03/2023 1:13 PM EDT): - continue current medications for fibromyalgia - pt declines PT referral - patient was seen by painter and currently scheduled for SI joint injection treatment Assessment & Plan (03/12/2023 5:56 AM EST): - continue current medications for fibromyalgia - pt declines PT referral - pt requests painter referral Assessment & Plan (12/18/2022 11:37 AM EDT): - continue current medications for fibromyalgia - pt declines PT referral Dyslipidemia 08/16/2016 Assessment & Plan (08/29/2024 12:43 AM EDT): - current medication: Pravastatin - lipid profile: 07/12/24 - continue lifestyle modification Assessment & Plan (08/03/2023 10:20 AM EDT): - current medication: Pravastatin - lipid profile: 03/01/23 - continue lifestyle modification Assessment & Plan (03/12/2023 5:54 AM EST): - current medication: Pravastatin - lipid profile: 03/01/23 - continue lifestyle modification Type 2 diabetes mellitus 08/16/2016 Assessment & Plan (11/29/2024 4:13 PM EDT): A1C 6.3% on 11/25/2024, improved from 6.9% on 08/26/24 - Co-managed with our pharmacist - Continue working on lifestyle modifications. -Improve adherence to medications and SMBG. - Continue metformin ER 1000 mg daily (decreased from 1000 mg bid due to CKD3). - Currently on tirzepatide 5 mg weekly, titrate up as tolerated - Continue empagliflozin 25 mg daily Last eye exam: 10/25/21 No diabetic retinopathy Last foot exam: 06/10/24 Last microalbumin test: July 2024; Hx microalbuminuria; on ARB and SGLT2i Last lipid profile: 07/12/2024 Last dental exam: > years. No dental plan currently Assessment & Plan (08/29/2024 12:45 AM EDT): A1C 6.9% on 08/26/24, improved from 8.0% on 05/20/24 - Co-managed with our pharmacist - Continue working on lifestyle modifications. -Improve adherence to medications and SMBG. - Continue metformin ER 1000 mg daily (decreased from 1000 mg bid due to CKD3). - Currently on semaglutide, titrate up as tolerated - Continue empagliflozin 25 mg daily Last eye exam: 10/25/21 No diabetic retinopathy Last foot exam: 06/10/24 Last microalbumin test: July 2024; Hx microalbuminuria; on ARB and SGLT2i Last lipid profile: 07/12/2024 Last dental exam: > years. No dental plan currently Immunizations: UTD Follow up in 3 mo - Ordered Vitamin B12 (Cobalamin) and Folate Panel, Serum 06/10/24 - Ordered Lipid Panel with Reflex to Direct LDL 06/10/24 - Ordered Albumin, Random Urine W/Creatinine 06/10/24 - Ordered Comprehensive Metabolic Panel 06/10/24 Assessment & Plan (07/27/2024 10:56 PM EDT): [...] Microalbuminuric diabetic nephropathy 07/15/2016 Assessment & Plan (11/29/2024 4:20 PM EDT): - CKD3b - on SGLT2i and ARB - avoid nephrotoxic drugs - optimize Tx for diabetes mellitus and hypertension Assessment & Plan (08/04/2023 9:52 AM EDT): - will check kidney function today, since last lab shows mild microalbuminuria - patient is prescribed ARB History of anemia 09/24/2014 Metabolic dysfunction-associ ated steatotic liver disease (MASLD) 09/24/2014 Assessment & Plan (11/29/2024 4:16 PM EDT): - last seen by [facility] in Apr 2022 - last US in Mar 2022. Hepatomegaly with hepatic steatosis. No focal lesion. - FIB-4 = 1.32 in FIB4 index - avoid hepatotoxic drugs. - waiting for US Assessment & Plan (08/26/2024 1:45 PM EDT): - last seen by [facility] in Apr 2022 - last US in Mar 2022. Hepatomegaly with hepatic steatosis. No focal lesion. - FIB-4 = 1.56 in FIB4 index - avoid hepatotoxic drugs. Assessment & Plan (06/16/2024 12:16 PM EDT): - last seen by [facility] in Apr 2022 - last US in Mar 2022. Hepatomegaly with hepatic steatosis. No focal lesion. - FIB-4 = 1.56 in FIB4 index - avoid hepatotoxic drugs. Assessment & Plan (08/04/2023 9:48 AM EDT): - last seen by [facility] in Apr 2022 - last US in Mar 2022. Hepatomegaly with hepatic steatosis. No focal lesion. - FIB-4 = 0.78 in 2021 - avoid hepatotoxic drugs. - will update ultrasound Assessment & Plan (03/12/2023 5:50 AM EST): - followed by [facility] - avoid hepatotoxic drugs. Assessment & Plan (12/18/2022 11:34 AM EDT): - followed by [facility] - avoid hepatotoxic drugs. Allergic rhinitis 09/16/2014 Hypertension 05/30/2012 Assessment & Plan (11/25/2024 5:57 AM EDT): - Goal BP < 130/80 per ACC/AHA guideline - within acceptable range today; inadequate Tx for WANDA and questionable medication adherence -Work on lifestyle modifications. -Pt reports frequesnt tachycardia at work (in a setting of anemia, obesity, WANDA) -Continue losartan 100 mg daily. -continue metoprolol tartrate 150 mg bid -continue chlorthalidone 25 mg once daily -normal stress test, Holter monitor and echo in 11/2021 -continue checking home BP -keep appt with sleep medicine clinic Assessment & Plan (09/01/2024 6:06 PM EDT): - Goal BP < 140/90 per JNC-8, < 130/80 per ACC/AHA guideline - within acceptable range today; inadequate Tx for WANDA and questionable medication adherence -Work on lifestyle modifications. -Pt reports frequesnt tachycardia at work (in a setting of anemia, obesity, WANDA) -Continue losartan 100 mg daily. -continue metoprolol tartrate 150 mg bid -continue chlorthalidone 25 mg once daily -normal stress test, Holter monitor and echo in 11/2021 -continue checking home BP -keep appt with sleep medicine clinic Assessment & Plan (06/16/2024 12:15 PM EDT): [...] Readings from Last 3 Encounters: 06/10/24 37.53 kg/m 10/31/23 38.92 kg/m 08/03/23 39.30 kg/m Wt Readings from Last 3 Encounters: 06/10/24 [...] sleep apnea syndrome 05/30/2012 Assessment & Plan (11/29/2024 4:21 PM EDT): -pt has diagnosis of WANDA but has not been adherence to CPAP machine -referred to sleep clinic' check its status -pt is hesitant to try CPAP machine again but she is very symptomatic -pt was advised to sign up for weight management clinic in the past; pt is currently trying to lose weight with GLP-1 agonist Assessment & Plan (06/11/2024 6:53 AM EST): [...] Carpal tunnel syndrome 09/28/2011 Assessment & Plan (11/29/2024 4:21 PM EDT): - seen by [facility] orthopedic provider in July 2023 - most recent NCT/EMG on 02/16/23 showed b/l mild median nerve neuropathy, consistent with CTS - s/p light carpal tunnel release on 05/16/23 - judicious use of NSAIDs prn and gabapentin - use brace Assessment & Plan (08/03/2023 1:09 PM EDT): - seen by [facility] orthopedic provider in July 2023 - most recent NCT/EMG on 02/16/23 showed b/l mild median nerve neuropathy, consistent with CTS - s/p light carpal tunnel release on 05/16/23 - judicious use of NSAIDs prn and gabapentin - use brace Assessment & Plan (03/12/2023 5:48 AM EST): - seen by [facility] orthopedic provider in Feb [...] Encounters Date Type Department Care Team Description 01/08/2025 Orders Only [address] [address] Sharmin Ortiz MD Type 2 diabetes mellitus with hyperglycemia, without long-term current use of insulin (HCC) (Primary Dx); Primary hypertension 01/08/2025 Orders Only [address] [address] Sharmin Ortiz MD 01/03/2025 10:30 AM EDT Telemedicine [address] [address] Lamine Giles, Dameon Type 2 diabetes mellitus with hyperglycemia, without long-term current use of insulin (CMS/HCC) (Primary Dx) 11/29/2024 Orders Only GENERIC EXTERNAL DATA DEPARTMENT Provider, Generic External Data 11/25/2024 11:30 AM EDT Office Visit [address] [address] Sharmin Ortiz MD Type 2 diabetes mellitus with hyperglycemia, without long-term current use of insulin (CMS/HCC) (Primary Dx); Primary hypertension; Metabolic dysfunction-associate d steatotic liver disease (MASLD); Stage 3a chronic kidney disease (CMS/HCC); Microalbuminuric diabetic nephropathy (CMS/HCC); Chronic low back pain, unspecified back pain laterality, unspecified whether sciatica present; Fibromyalgia; Bilateral carpal tunnel syndrome; Obstructive sleep apnea syndrome 11/25/2024 Travel 11/22/[address] [address] Sharmin Ortiz MD chart prep 11/22/2024 Travel 11/13/2024 Refill [facility] [address] [place], [place] [id number] Sharmin Ortiz MD from Last 3 Months Immunizations Immunization Administration Dates Next Due Hep A, Adult 06/10/2024 Hep B, adult 05/23/2024(Deferred: No longer needed - HBV Immune (06/16/2022)) Influenza, IIV3, injectable 04/14/2011 Moderna Covid-19 Vaccine 12+ 07/06/2020,03/01/20 21 Pfizer Covid-19 Vaccine 12+ 01/28/2021,,04/08/2020 Pneumococcal Conjugate PCV 20 06/10/2024 Pneumococcal Polysaccharide PPSV23 07/13/2016 TD (adult), 2 Lf tetanus tox oid, preservative free, adsorbed 08/24/2020 Tdap 11/23/2009 Social History Tobacco Use Types Packs/Day Years Used Date Smoking Tobacco: Never Passive Smoke Exposure: Never Smokeless Tobacco: Never Tobacco Cessation:Counseling Given: [...] Sign Reading Time Taken Comments Blood Pressure 112/80 11/25/2024 11:57 AM EDT Pulse 106 11/25/2024 11:57 AM EDT Temperature 36 C (96.8 F) 11/25/2024 11:57 AM EDT Respiratory Rate 20 11/25/2024 11:57 AM EDT Oxygen Saturation 99% 11/25/2024 11:57 AM EDT Inhaled Oxygen Concentration - - Weight 84.2 kg (185 lb 9.6 oz) 11/25/2024 11:57 AM EDT Height 154.9 cm (5' 1 ) 11/25/2024 11:57 AM EDT Body Mass Index 35.07 11/25/2024 11:57 AM EDT Plan of Treatment Upcoming Encounters Date Type Department Care Team (Late st Contact Info) Description 02/17/2025 11:30 AM EST Office Visit [facility] MEDICINE [address] [place] [phone] Sharmin Ortiz MD [address] [place] [address] 04/11/2025 11:00 AM EST Telemedicine [facility] [address] [place] [address] Lamine Giles, PharmD [address] [place] [address] 05/05/2025 10:30 AM EST Office Visit [facility] OPTOMET[facility] [address] [place] [address] Gema Aguirre, OD [address] [place] [address] Health Maintenance Due Date Last Done Comments CT Colonography 1975 Colonoscopy 1974 Colorectal Cancer Screening 1975 FIT DNA/Cologuard 1974 FIT 1974 FOBT 1975 Sigmoidoscopy 1975 Eye Exam 1984 Family Planning (PISQ) 1989 Pap Smear 10/01/1995 SDOH Screening 02/29/2024 02/28/2023 Zoster Vaccines (1 of 2) 2024 COVID-19 Vaccine ( season) 2024 01/28/2021, 07/06/2020, 06/08/2020, Additional history exists Influenza Vaccine (#1) 2024 04/14/2011 Depression Monitoring 12/11/2024 06/10/2024, 025 Hepatitis A Vaccines (2 of 2 - Risk 2-dose series) 12/11/2024 06/10/2024 Diabetes: Hemoglobin A1C 02/25/2025 025, 08/26/2024, 05/20/2024, Additional history exists Alcohol/Substance Use Screening 06/10/2025 06/10/2024 Diabetes: Foot Exam 06/10/2025 06/10/2024, 11/29/2022, 11/29/2022, Additional history exists Cervical Cancer Screening 07/07/2025 HPV/Cotest 07/07/2025 07/07/2020, 07/07/2020 Lipid Panel 07/12/2025 07/12/2024, 04/10, 01/13/2022, Additional history exists Mammogram 07/12/2025 07/12/2024, 0411/2018, 07/16/2018, Additional history exists Disability Screening 08/26/2025 08/26/2024 Tobacco Screening 11/29/2025 11/29/2024 DTaP/Tdap/Td Vaccines (3 - Td or Tdap) 08/24/2030 08/24/2020, 11/23/2009 RSV Patients and Patients Aged 60 years or older (1 - 1-dose 75+ series) 2049 HIV Screening Completed 06/16/2022 Hepatitis C Screening Completed 06/16/2022 Pneumococcal Vaccine: 50+ Years Completed 06/10/2024, 07/13/2016 HIB Vaccines Aged Out No longer eligi ble based on patient's age to complete this topic HPV Vaccines Aged Out No longer eligi ble based on patient's age to complete this topic Hepatitis B Vaccines Discontinued IPV Vaccines Aged Out No longer eligi ble based on patient's age to complete this topic Meningococcal B Vaccine Aged Out No l onger eligible based on patient's age to complete [...] Date/Time Associated Diagnosis Comments CREATININE, SERUM Routine 11/29/2024 10: 12 AM EDT UREA NITROGEN (BUN) Routine 11/29/2024 1 0:12 AM EDT ELECTROLYTE PANEL Routine 11/29/2024 10: 12 AM EDT POCT GLYCATED HEMOGLOBIN, TOTAL Routine 11/25/2024 12:10 PM EDT Type 2 diabetes mellitus with hyperglycemia, without long-term current use of insulin (CMS/HCC) POCT GLUCOSE Routine 11/25/2024 11:59 AM EDT Type 2 diabetes mellitus with hyperglycemia, without long-term current use of insulin (CMS/HCC) LIPID PANEL WITH REFLEX TO DIRECT LDL Routine 07/12/2024 10:20 AM EDT Type 2 diabetes mellitus with hyperglycemia, without long-term current use of insulin (CMS/HCC) BI MAMMOGRAM SCREENING TOMOSYNTHESIS BILATERAL Routine 07/12/2024 9:45 AM EDT Breast cancer screening by mammogram HEPATITIS PANEL, GENERAL Routine 06/16/2022 10:23 AM EST HIV ANTIBODY/ANTIGEN ([place] DPH) Routine 06/16/2022 10:23 AM EST ZZZ HISTORICAL HPV E6/E7 RFLX RENEE 16 18/45 Routine 07/07/2020 1:59 PM EDT from Last 3 Months or Most Recently Relevant to Health Maintenance Results * Creatinine, Serum (11/29/2024 10:12 AM EDT) Creatinine, Serum 1.24 0.5 - 1.4 mg/dL [facility] Estimated Glomerular Filt Rate 46 [facility] Comment:Chronic Kidney Disea se: Estimated GFR < 60 mL/min/[id number] Kidney Disease: Estimated GFR < 15 mL/min/1.73m2 11/29/2024 10:1 2 AM EDT 11/29/2024 10:12 AM EDT us Generic External Data Provider LAB BLOOD ORDERAB LES Final Result Performing Organization Address [facility]/ZIP Co de Phone Number [facility] [address] [place] [phone] * (ABNORMAL) BUN (Blood Urea Nitrogen) (11/29/2024 10:12 AM EDT) Urea Nitrogen (BUN) 26(H) 9 - 16 mg/dL [facility] 11/29/2024 10:1 2 AM EDT 11/29/2024 10:12 AM EDT us Generic External Data Provider LAB BLOOD ORDERAB LES Final Result Performing Organization Address [facility] Co de Phone Number [facility] [address] [place] [phone] * Electrolyte Panel (11/29/2024 10:12 AM EDT) Sodium 141 135 - 145 mmol/L [facility] Potassium 3.7 3.3 - 5.1 mmol/L [facility] Chloride 104 96 - 108 mmol/L [facility] Carbon Dioxide 29 22 - 29 mmol/L [facility] Anion Gap 12 12 - 20 [facility] 11/29/2024 10:1 2 AM EDT 11/29/2024 10:12 AM EDT us Generic External Data Provider LAB BLOOD ORDERAB LES Final Result Performing Organization Address [facility] Co de Phone Number [facility] [address] [place] [phone] * (ABNORMAL) POCT HGB A1C (11/25/2024 12:10 PM EDT) Hemoglobin A1C 6.3(A) 4.0 - 5.7 % QC Media Lot # [id number] Lot# Expiration Date [id number] Blood 11/25/2024 12:1 0 PM EDT Sharmin Ortiz MD POINT OF CARE TEST ENTER/EDIT OR DERABLES Final Result * POCT Glucose (11/25/2024 11:59 AM EDT) Glucose Blood, POC 139 60 - 200 mg/dL QC Media Lot # [id number] Lot# Expiration Date [id number] Blood Capillary blood specimen / Unknown 11/25/2024 11:59 AM EDT Sharmin Ortiz MD POINT OF CARE TEST ENTER/EDIT OR DERABLES Final Result * (ABNORMAL) Lipid Panel with Reflex to Direct LDL (07/12/2024 10:20 AM EDT) Triglycerides 197(H) <150 mg/dL [facility] Comment:Desirable Triglyceri de: less than 150 mg/dLBorderline High Triglyceride 150-199 mg/dLHigh Triglyceride: 200-499 mg/dLVery High Triglyceride: greater than or equal to 5OO mg/dL Cholesterol 163 <200 mg/dL [facility] Comment:Desirable Cholestero l: less than 200 mg/dLBorderline High Cholesterol: 200-239 mg/dLHigh Cholesterol: greater than 239 mg/dL LDL Cholesterol Calculated 93 <100 mg/dL [facility] Comment:Desirable LDL: less than 100 mg/dLNear Optimal/Above Optimal LDL: 110- 129 mg/dLBorderline High LDL: 130-159 mg/dLHigh LDL: 160-189 mg/dLVery High LDL: greater than or equal to 190 mg/dL HDL Cholesterol 31(L) >40 mg/dL [facility] Comment:Desirable HDL: great er than 40 mg/dL Note: This HDL assay may give artificially low results in patients with liver disease. Blood 07/12/2024 10:2 0 AM EDT 07/12/2024 10:20 AM EDT us Sharmin Ortiz MD LAB BLOOD ORDERABLES Final Resul t [facility] [address] [place] [phone] * BI Mammogram Screening Tomosynthesis Bilateral (07/12/2024 9:45 AM EDT) Anatomical Region Laterality Modality Breast Bilateral Mammography 07/12/2024 9:45 AM EDT Narrative 07/19/2024 12:59 PM EDT [address] [place] [address] Mammography Report Signed Patient: Arleen Astorga MR#: [id number] [birth year] : 1975 Acct:[id number] Age/Sex: 48 / F ADM Date: 07/12/24 Loc: [facility] Attending Dr: Sharmin Ortiz MD Ordering Physician: Sharmin Ortiz MD Results: 1Negative Date of Service: 07/12/24 Follow Up: 1 Year From [facility] Mammogram Procedure(s): MM tomosynthesis screening BI Accession Number(s): [id number] cc: Sharmin Ortiz MD EXAMINATION: MM SCREENING [...] Joie Kaba DO 07/19/2024 12:56 PM EDT RP Dictated By: Joie Kaba DO Signed By: <Electronically signed by Joie Kaba DO in OV> 07/19/24 1256 DD/ 0945 TD/TT: 07/12/24 1000 Structural Ironworker: Procedure Note Donotuseinterpreter, Image - 07/19/2024 [facility] [address] [place] [address] Mammography Report Signed Patient: Mireille Astorga#: [id number] 01 : 1975Acct:[id number] Age/Sex: 48 / FADM Date: 07/12/24 Loc: [facility] Attending Dr: Sharmin Ortiz MD Ordering Physician: Sharmin Ortiz MDResults: 1Negative Date of Service: 07/12/24Follow Up: 1 Year From [facility] Mammogram Procedure(s): MM tomosynthesis screening BI Accession Number(s): [id number] cc: Sharmin Ortiz MD EXAMINATION: MM SCREENING [...] 07/19/24 1256 DD/ 0945 TD/TT: 07/12/24 1000 Structural Ironworker: Sharmin Ortiz MD IMG BI PROCEDURES Final Result * HIV Ab/Ag ([facility]) (06/16/2022 10:23 AM EST) HIV AB/AG Nonreactive Nonreactive [facility] Comment:HIV-1 p24 Ag and/or HIV-1/HIV-2 Ab not detected.A test result that is nonreactive does not exclude thepossibility of exposure to or infection with HIV-1 and/orHIV-2. Nonreactive results in this assay for individualswith prior exposure to HIV-1 and/or HIV-2 may be due toantigen and antibody levels that are below the limit ofdetection of this assay.The [employer] HIV Ag/Ab Combo assay result andsupplemental assay results should be interpreted inconjunction with the patient's clinical presentation,history and other laboratory results. If the results areinconsistent with clinical evidence, additional testing issuggested to confirm the result. 06/16/2022 10:2 3 AM EST 06/16/2022 10:23 AM EST [facility] External Provider LAB BLO OD ORDERABLES Final Result [facility] [address] [place] [address] [phone] * Hepatitis Panel, General (06/16/2022 10:23 AM EST) Hepatitis A IgM Nonreactive Nonreactive [facility] Comment:IgM antibodies to ROBERTO V not detected; does not exclude earlyacute or recovered HAV infection. ~Hepatitis B Surface Antibody REACTIVE Nonreactive [facility] Comment:REACTIVE: > 11.99 mI U/mL Hepatitis B Core Antibody Nonreactive Nonreactive [facility] Hepatitis C Antibody Nonreactive Nonreactive [facility] Comment:Antibodies to HCV no t detected; does not exclude early acuteHCV infection. Hepatitis B Surface Ag Negative Negative [facility] 06/16/2022 10:2 3 AM EST 06/16/2022 10:23 AM EST [facility] External Provider LAB BLO OD ORDERABLES Final Result Performing Organization Address City/[facility]/ZIP Co de Phone Number [facility] [address] [place] [address] [phone] * HPV E6/E7 RFLX RENEE 16 18/45 (07/07/2020 1:59 PM EDT) HPV mRNA E6/E7 rflx Not Detected Not Detected [facility] Comment: Methodology: Hat And Cap Opener-Mediated Amplification This assay detects E6/E7 viral messenger RNA (mRNA) from 14 high-risk HPV types (16,18,31,33,35,39,45,51,52,56,58,59,66,68). The analytical performance characteristics of this assay have been determined by [employer]. The modifications have not been cleared or approved by the FDA. This assay has been validated pursuant to the CLIA regulations and is used for clinical purposes. For additional information, please refer to http://education.MILI.GameDuell/faq/CUP012g8 (This link if provided for information/ educational purposes only.) THIS TEST WAS PERFORMED AT: [facility] [address] [place] [address] [address],[place] [address] SAUL REECE MD 07/07/2020 1:59 PM EDT Sam Michel MD HISTORICAL/NON ORDERABLE LABS Fi nal Result Performing Organization Address City/[facility]/ZIP Co de Phone Number [facility] [address] from Last 3 Months or Most Recently Relevant to Health Maintenance Insurance Care Teams Sql Report Analyst Relationship Specialty Start Date End Date Sharmin Ortiz MD [address] [place] [address] PCP - General Family Medicine 04/10/18 Lamine Giles, PharmD [address] [place] [address] Pharmacist Internal Medicine 04/01/24
--- OUTSIDE RECORDS SUMMARY | 2025-01-24 13:22 | XMS_ITS | Encounter Summary ---
Author Organization [employer] Address 75 [facility] 7t [place] [address] Care Team Providers Care Bottom Precipitator Operator Name Role Phone Sharmin Ortiz MD Primary Care Provider [phone] Lamine Giles PharmD Unavailable [phone] Encounter Details Date Type Department Care Team (Late st Contact Info) Description 07/14/2024 Orders Only [facility] MEDICINE [address] [place], [place] [phone] Sharmin Ortiz MD 230 [place], [place] [phone] Social History Tobacco Use Types Packs/Day Years [...] Description 02/17/2025 11:30 AM EST Office Visit [facility] [address] [place] [address] Sharmin Ortiz MD 230 [place] [address] 04/11/2025 11:00 AM EST Telemedicine [facility] [address] [place] [address] Lamine Giles, Dameon 230 [place] [address] 05/05/2025 10:30 AM EST Office Visit [facility] OPTOMET[facility] [address] [place] [address] Gema Aguirre, OD [address] [place] [address] documented as of this encounter Visit Diagnoses Not on filedocumented in this encounter Additional Health Concerns Assessment Noted Time PHQ-9 Depression Total Score: 12 025 2:53 PM EST documented as of this encounter Care Teams Bottom Precipitator Operator Relationship Specialty Start Date End Date Sharmin Ortiz MD [address] [place] [address] PCP - General Family Medicine 04/10/18 Lamine Giles, PharmD [address] [place] [address] Pharmacist Internal Medicine 04/01/24 documented as of this encounter
--- OUTSIDE RECORDS SUMMARY | 2025-01-24 13:22 | XMS_ITS | Encounter Summary ---
Author Organization [employer] Address 75 [facility] 7t [place] [address] Care Team Providers Care Electroplater Name Role Phone Sharmin Ortiz MD Primary Care Provider [phone] Lamine Giles PharmD Unavailable [phone] Encounter Details Date Type Department Care Team (Late st Contact Info) Description 02/07/2024 Orders Only [facility]INE 230 [place], [place] [phone] Sharmin Ortiz MD 230 [place], [place] [phone] Social History Tobacco Use Types Packs/Day Years [...] Description 02/17/2025 11:30 AM EST Office Visit [facility] [address] [place] [address] Sharmin Ortiz MD 230 [place] [address] 04/11/2025 11:00 AM EST Telemedicine [facility] [address] [place] [address] Lamine Giles, PharmChencho [address] [place] [address] 05/05/2025 10:30 AM EST Office Visit [facility] [address] [place], [place] [phone] Gema Aguirre, OD [address] [place] [address] documented as of this encounter Visit Diagnoses Not on filedocumented in this encounter Care Teams Electroplater Relationship Specialty Start Date End Date Sharmin Ortiz MD [address] [place] [address] PCP - General Family Medicine 04/10/18 Lamine Giles, PharmD [address] [place] [address] Pharmacist Internal Medicine 04/01/24 documented as of this encounter
--- OUTSIDE RECORDS SUMMARY | 2025-01-24 13:22 | XMS_ITS | Encounter Summary ---
Author Organization [employer] Address 75 [facility] 7t [place] [address] Care Team Providers Care Embedded Developer Name Role Phone Sharmin Ortiz MD Primary Care Provider [phone] Lamine Giles PharmD Unavailable [phone] Reason for Visit * Reason Comments Med Refill Encounter Details Date Type Department Care Team ([facility] st Contact Info) Description 03/14/[address] [facility] 230 [place], [place] [phone] Sharmin Ortiz MD 230 [place], [place] [phone] Social History Tobacco Use Types Packs/Day Years [...] Description 02/17/2025 11:30 AM EST Office Visit [facility] [address] [place] [address] Sharmin Ortiz MD [address] [place] [address] 04/11/2025 11:[address] [facility] [address] [place] [address] Lamine Giles, Dameon 230 [place] [address] 05/05/2025 10:30 AM EST Office Visit [facility] OPT[facility] [address] [place] [address] TarGema oates, OD [address] [place] [address] documented as of this encounter Visit Diagnoses Not on filedocumented in this encounter Care Teams Embedded Developer Relationship Specialty Start Date End Date Sharmin Ortiz MD [address] [place] [address] PCP - General Family Medicine 04/10/18 Lamine Giles, DaisyD [address] [place] [address] Pharmacist Internal Medicine 04/01/24 documented as of this encounter
--- OUTSIDE RECORDS SUMMARY | 2025-01-24 13:22 | XMS_ITS | Encounter Summary ---
Author Organization [employer] Address 75 [facility] 7t [place] [address] Care Team Providers Care Clinic Administrator Name Role Phone Sharmin Ortiz MD Primary Care Provider Lamine Giles PharmD Unavailable [phone] Reason for Referral * Consultation (Routine) - Authorized Specialty Diagnoses / Procedures Referred By Contac t Referred To Contact Pharmacy Diagnoses Type 2 diabetes mellitus with hyperglycemia, without long-term current use of insulin (HCC) Primary hypertension Sharmin Ortiz MD 230 [place] [address] Phone: tel: fax: Referral ID Status Reason Start Date Expiration Date Visits Requested Visits Authorized [id number] Authorized Consult and Treat 01/08/2025 01/08/2026 6 6 Encounter Details Date Type Department Care Team (Late st Contact Info) Description 01/08/2025 Orders Only [facility] 230 [place], [place] [phone] Sharimn Ortiz MD [address] [place], [place] [phone] Type 2 diabetes mellitus with hyperglycemia, without long-term current use of insulin (HCC) (Primary Dx); Primary hypertension Social History Tobacco Use Types Packs/Day Years Used Date Smoking Tobacco: Never Passive Smoke Exposure: Never Smokeless Tobacco: Never Depression Answer Date [...] Description 02/17/2025 11:30 AM EST Office Visit [facility] [address] [place] [address] Sharmin Ortiz MD [address] [place] [address] 04/11/2025 11:00 AM EST Telemedicine [facility] [address] [place] [address] Lamine Giles, PharmD [address] [place] [address] 05/05/2025 10:30 AM EST Office Visit [facility] [address] [place] [address] Gema Aguirre, OD 267 [place], [place] [phone] Scheduled Referrals Name Type Priority Associated Diagnoses Orde r Schedule Referral to Pharmacy CDTM Outpatient Referral Routine Type 2 diabetes mellitus with hyperglycemia, without long-term current use of insulin ([facility]) Primary hypertension Ordered: 01/08/2025 documented as of this encounter Visit Diagnoses Diagnosis Type 2 diabetes mellitus with hyperglycemia, without long-term current use of insulin ([facility])- Primary Primary hypertension Unspecified essential hypertension documented in this encounter Additional Health Concerns Assessment Noted Time PHQ-9 Depression Total Score: 12 025 2:53 PM EST documented as of this encounter Care Teams Clinic Administrator Relationship Specialty Start Date End Date Sharmin Ortiz MD [address] [place] [address] PCP - General Family Medicine 04/10/18 Lamine Giles, DaisyD [address] [place] [address] Pharmacist Internal Medicine 04/01/24 documented as of this encounter
--- OUTSIDE RECORDS SUMMARY | 2025-01-24 13:22 | XMS_ITS | Encounter Summary ---
Author Organization [employer] Address 75 [facility] 7t [place] [address] Care Team Providers Care Relief Salesperson Name Role Phone Sharmin Ortiz MD Primary Care Provider [phone] Lamine Giles PharmD Unavailable Encounter Details Date Type Department Care Team (Late st Contact Info) Description 03/28/2023 Orders Only [facility] [address] [place], [place] [phone] Sharmin Ortiz MD 230 [place], [place] [phone] Chronic pain of left knee (Primary Dx); [...] Description 02/17/2025 11:30 AM EST Office Visit [facility] [address] [place] [address] Sharmin Ortiz MD [address] [place] [address] 04/11/2025 11:00 AM EST Telemedicine [facility] [address] [place] [address] Lamine Giles, DaisyD [address] [place] [address] 05/05/2025 10:30 AM EST Office Visit [facility] OPTOM[facility] [address] [place] [address] Tarka, Gema, OD [address] [place] [address] documented as of this encounter Visit Diagnoses Diagnosis Chronic pain of left knee- Primary Right hip pain Pain in joint, pelvic region and thigh Chronic low back pain, unspecified back pain laterality, unspecified whether sciatica present documented in this encounter Care Teams Relief Salesperson Relationship Specialty Start Date End Date Sharmin Ortiz MD [address] [place] [address] PCP - General Family Medicine 04/10/18 Lamine Giles, PharmD [address] [place] [address] Pharmacist Internal Medicine 04/01/24 documented as of this encounter
--- OUTSIDE RECORDS SUMMARY | 2025-01-24 13:22 | XMS_ITS | Encounter Summary ---
Author Organization [employer] Address 75 [facility] 7t [place] [address] Care Team Providers Care Ferryboat Operator Cable Name Role Phone Sharmin Ortiz MD Primary Care Provider [phone] Lamine Giles PharmD Unavailable [phone] Reason for Visit * Reason Onset Date Comments Referral 03/28/2023 Encounter Details Date Type Department Care Team ([facility] st Contact Info) Description 03/28/2023 Telephone [facility]S [address] [place], [place] [phone] Sharmin Ortiz MD 230 [place], [place] [phone] Referral Social History Tobacco Use Types Packs/Day [...] t he electric, gas, oil or water [employer] threatened to shut off services in your [...] Miscellaneous Notes * Telephone Encounter - Alma Ronal Pires - 03/28/2023 10:30 AM EST [facility] requesting an updated referral for Pain management for pt due to current one being at least two years old Please fax over @ [phone] Please if any questions contact Stella @ [phone] documented in this encounter Plan of Treatment Upcoming Encounters Date Type Department Care Team (Late st Contact Info) Description 02/17/2025 11:30 AM EST Office Visit [facility] MEDICINE [address] [place] [address] Sharmin Ortiz MD 230 [place] [address] 04/11/2025 11:00 AM EST Telemedicine [facility] 230 [place] [address] Lamine Giles, PharmD 230 [place] [address] 05/05/2025 10:30 AM EST Office Visit [facility] OPTOMETRY [address] [place] [address] Gema Aguirre, OD 267 [place] [address] documented as of this encounter Visit Diagnoses Not on filedocumented in this encounter Care Teams Ferryboat Operator Cable Relationship Specialty Start Date End Date Sharmin Ortiz MD 230 [place] [address] PCP - General Family Medicine 04/10/18 Lamine Giles, DaisyD [address] [place] [address] Pharmacist Internal Medicine 04/01/24 documented as of this encounter
--- OUTSIDE RECORDS SUMMARY | 2025-01-24 13:22 | XMS_ITS | Encounter Summary ---
Author Organization [employer] Address 75 [facility] 7t [place] [address] Care Team Providers Care Commercial Real Estate Agent Name Role Phone Sharmin Ortiz MD Primary Care Provider [phone] Lamine Giles PharmD Unavailable [phone] Encounter Details Date Type Department Care Team (Late st Contact Info) Description 02/09/2024 Orders Only [facility] MED[facility]INE 230 [place], [place] [phone] Sharmin Ortiz MD 230 [place], [place] [phone] Social History Tobacco Use Types Packs/Day Years [...] Description 02/17/2025 11:30 AM EST Office Visit [facility] 230 [place] [address] Sharmin Ortiz MD 230 [place] [address] 04/11/2025 11:00 AM EST Telemedicine [facility] 230 [place] [address] Lamine Giles, PharmChencho 230 [place] [address] 05/05/2025 10:30 AM EST Office Visit [facility] OPTOMETRY [address] [place], [place] [phone] Gema Aguirre, OD 267 [place] [address] documented as of this encounter Visit Diagnoses Not on filedocumented in this encounter Care Teams Commercial Real Estate Agent Relationship Specialty Start Date End Date Sharmin Ortiz MD [address] [place] [address] PCP - General Family Medicine 04/10/18 Lamine Giles, PharmD [address] [place] [address] Pharmacist Internal Medicine 04/01/24 documented as of this encounter
--- OUTSIDE RECORDS SUMMARY | 2025-01-24 13:22 | XMS_ITS | Encounter Summary ---
Author Organization [employer] Address 75 [facility] 7t [place] [address] Care Team Providers Care Pull Tab Dealer Name Role Phone Sharmin Ortiz MD Primary Care Provider [phone] Lamine Giles PharmD Unavailable [phone] Encounter Details Date Type Department Care Team (Late st Contact Info) Description 02/07/2024 Orders Only [facility] MEDICINE 230 [place], [place] [phone] Sharmin Ortiz MD 230 [place], [place] [phone] Social History Tobacco Use Types Packs/Day Years [...] Description 02/17/2025 11:30 AM EST Office Visit [facility]INE 230 [place] [address] Sharmin Ortiz MD 230 [place] [address] 04/11/2025 11:00 AM EST Telemedicine [facility] MED[facility]INE 230 [place] [address] Lamine Giles, PharmChencho 230 [place] [address] 05/05/2025 10:30 AM EST Office Visit [facility] OPTOMETRY [address] [place], [place] [phone] Gema Aguirre, OD 267 [place] [address] documented as of this encounter Visit Diagnoses Not on filedocumented in this encounter Care Teams Pull Tab Dealer Relationship Specialty Start Date End Date Sahrmin Ortiz MD [address] [place] [address] PCP - General Family Medicine 04/10/18 Lamine Giles, PharmD [address] [place] [address] Pharmacist Internal Medicine 04/01/24 documented as of this encounter
--- OUTSIDE RECORDS SUMMARY | 2025-01-24 13:22 | XMS_ITS | Encounter Summary ---
Author Organization [employer] Address 75 [facility] 7t [place] [address] Care Team Providers Care Bank And Savings Securities Trader Name Role Phone Sharmin Ortiz MD Primary Care Provider [phone] Lamine Giles PharmD Unavailable [phone] Encounter Details Date Type Department Care Team (Late st Contact Info) Description 05/15/2024 Orders Only [facility] MEDICINE 230 [place], [place] [phone] Sharmin Ortiz MD 230 [place], [place] [phone] Social History Tobacco Use Types Packs/Day Years [...] Description 02/17/2025 11:30 AM EST Office Visit [facility] MED[facility] [address] [place] [address] Sharmin Ortiz MD 230 [place] [address] 04/11/2025 11:00 AM EST Telemedicine [facility] MED[facility]INE [address] [place] [address] Lamine Giles, PharmChencho [address] [place] [address] 05/05/2025 10:30 AM EST Office Visit [facility] OPTOMETRY [address] [place], [place] [phone] Gema Aguirre, OD 267 [place] [address] documented as of this encounter Visit Diagnoses Not on filedocumented in this encounter Care Teams Bank And Savings Securities Trader Relationship Specialty Start Date End Date Sharmin Ortiz MD [address] [place] [address] PCP - General Family Medicine 04/10/18 Lamine Giles, PharmD [address] [place] [address] Pharmacist Internal Medicine 04/01/24 documented as of this encounter
--- OUTSIDE RECORDS SUMMARY | 2025-01-24 13:22 | XMS_ITS | Encounter Summary ---
Author Organization [employer] Address 75 [facility] 7t [place] [address] Care Team Providers Care Human Services Care Specialist Name Role Phone Sharmin Ortiz MD Primary Care Provider [phone] Lamine Giles PharmD Unavailable [phone] Encounter Details Date Type Department Care Team (Late st Contact Info) Description 01/08/2025 Orders Only [facility] MED[facility]INE 230 [place], [place] [phone] Sharmin Ortiz MD 230 [place], [place] [phone] Social History Tobacco Use Types Packs/Day Years [...] 02/17/2025 11:30 AM EST Office Visit [facility] [address] [place] [address] Sharmin Ortiz MD 230 [place] [address] 04/11/2025 11:00 AM EST Telemedicine [facility] [address] [place] [address] Lamine Giles, PharmD 230 [place] [address] 05/05/2025 10:30 AM EST Office Visit [facility] OPTOMETRY [address] [place] [address] Gema Aguirre, OD [address] [place] [address] documented as of this encounter Visit Diagnoses Not on filedocumented in this encounter Additional Health Concerns Assessment Noted Time PHQ-9 Depression Total Score: 12 025 2:53 PM EST documented as of this encounter Care Teams Human Services Care Specialist Relationship Specialty Start Date End Date Sharmin Ortiz MD [address] [place] [address] PCP - General Family Medicine 04/10/18 Lamine Giles, PharmD [address] [place] [address] Pharmacist Internal Medicine 04/01/24 documented as of this encounter
== END 2025-01-24 11:16 | disposition home or self-care (01) ==
LOC: HO.PMC 10:50
PROVIDERS: PCP Family Medicine; Visit Provider Nurse Practitioner Family
DX: M54.2 Cervicalgia (principal); M47.817 Spondylosis without myelopathy or radiculopathy, lumbosacral region; M54.50 Low back pain, unspecified; M47.812 Spondylosis without myelopathy or radiculopathy, cervical region; M50.30 Other cervical disc degeneration, unspecified cervical region; M79.7 Fibromyalgia
CPT/HCPCS: 99214

== ENCOUNTER → 2025-01-24 10:49 | Outpatient (BNVA) | payer MEDICAID, SELFPAY | PROVIDERS: PCP Family Medicine; Visit Provider Nurse Practitioner Family | DX: M54.2 Cervicalgia (principal); M47.817 Spondylosis without myelopathy or radiculopathy, lumbosacral region; M54.50 Low back pain, unspecified; M47.812 Spondylosis without myelopathy or radiculopathy, cervical region; M79.7 Fibromyalgia | CPT/HCPCS: 99212 ==

== ENCOUNTER 2025-02-25 06:20 | Outpatient (REF) | payer MEDICAID, SELFPAY ==
--- NOTE | ~2025-02-25 | FL_ITS ---
EXAMINATION: FL GUIDANCE ONLY HISTORY: M47.812 - Spondylosis without myelopathy or radiculopathy, cervical region COMPARISON: None available. TECHNIQUE: Fluoroscopy time: 38 seconds. Cumulative Dose: 4.70 mGy. DAP: 1010.10 mGycm2 Images: 8. FINDINGS: Fluoroscopic spot films of the cervical spine demonstrate needles in place and contrast material at multiple levels bilaterally. FL/FL guidance in treatment room IMPRESSION: Fluoroscopy during procedure. Please see procedure report for additional information. Electronically signed by: Case Hernandez MD 02/26/2025 07:32 AM EST
== END 2025-02-25 06:21 | disposition home or self-care (01) ==
LOC: CF 06:20
PROVIDERS: Visit Provider Anesthesiology
DX: M47.812 Spondylosis without myelopathy or radiculopathy, cervical region (principal)
CPT/HCPCS: 64490; 64491; J2003; J2795; Q9967

== ENCOUNTER 2025-02-25 08:28 | Outpatient (AMB) | payer MEDICAID, SELFPAY ==
[2025-02-25 08:30] VITALS: BP 115/77; PULSE 109; RESP 16; O2SAT 100; BMI 34.4
--- NOTE | 2025-02-25 08:30 | MHC.OFFVIS ---
Vital Signs 02/25/25 08:30 02/25/25 09:27 Height 5 ft 1 in Weight 182 lb BMI 34.4 BP 115/77 124/78 Blood Pressure Location Lt brachial Lt brachial Position Sitting Sitting Respiration 16 16 Pulse 109 H 88 Pulse Source Pulse Oximeter Pulse Oximeter Pulse Oximetry (%) 100 100 Oxygen Delivery Method Room Air Room Air Intake Visit Reasons: Bilateral Diagnostic C4-C5-C6 MBB/ Ativan Allergies BEAU Inhibitors Allergy (Unknown, Verified 02/27/25 09:29) cough PFSH Medical History Chronic kidney disease, stage 3 Pelvic pain IBS (irritable bowel syndrome) Microalbuminuric diabetic nephropathy Metabolic dysfunction-associated steatotic liver disease (MASLD) Fibromyalgia Family history of systemic lupus erythematosus Hepatitis B immune Diabetic nephropathy Microalbuminuria Dyslipidemia Diabetes mellitus Allergic rhinitis Transaminitis Anemia Chronic low back pain Migraine headache Obesity Carpal tunnel syndrome Hypertension WANDA (obstructive sleep apnea) Vitamin D deficiency Surgical History History of cholecystectomy Tubal ligation status History of salpingo-oophorectomy Family History Father Diabetes Heart disease Mother Hypertension Arthritis Thyroid activity decreased Brother Hypertension Thyroid activity decreased Sister Hypertension Thyroid activity decreased Other Family history of cancer of gallbladder Social History Alcohol intake: never Comment: medicated in pacu Patient Tobacco Use Status: Never used Tobacco Second Hand Smoke Exposure: No 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 ? ?Informed consent was explained to the patient. All questions were explained and? answered.? The patient was taken inside the operating room where he was positioned prone on the operating table. Time-out was performed delineating correct site, side, the nature of the procedure, patient's allergy, . All operating room staff was participating in OR time-out procedure. ? ? The the upper back and posterior neck was prepped with ChloraPrep and draped with sterile towels.? C-arm was brought over the operating field and sq picture of C4- C5- C6 vertebra were delineated on the screen.? Point of interest were delineated as lateral masses of the vertebras as above with the bilateral waist of each of the lateral mass as the target of the final needle position.? The projection of the point of interest to the skin were injected with the small amount of local anesthetic lidocaine 2% mixed with ropivacaine 0.5% 1-1 approximately 1 cc.? After that three 22 gauge 3.5 inch spinal needles were driven sequentially to the points of interest in tunnel vision fashion first on the right and after that on the left.. Lateral view demonstrating appropriate needles positioned. At the point of interests the needle was injected with small amount of the contrast.? The injection of the contrast did not demonstrate any intravascular or intrathecal spread of the contrast.? After that injection of the?ropivacaine 0.5%-1cc was performed at each needle location.?? After that the needles were removed and Bandaids were applied. Patient tolerated the procedure well she was taken outside of the operating room to recovery room. Orders: Orders FL guidance in treatment room 02/25/25 M47.812 - Spondylosis without myelopathy or radiculopathy, cervical region Coding Level of Care Code Procedure Only Diagnoses Cervical spondylosis M47.812
[2025-02-25 09:27] VITALS: BP 124/78; PULSE 88; RESP 16; O2SAT 100
== END 2025-02-25 09:30 | disposition home or self-care (01) ==
LOC: HO.PMCPRC 08:28
PROVIDERS: PCP Family Medicine; Visit Provider Anesthesiology
DX: M47.812 Spondylosis without myelopathy or radiculopathy, cervical region (principal)
CPT/HCPCS: 64490; 64491

== ENCOUNTER 2025-02-27 09:19 | Outpatient (AMB) | payer MEDICAID, SELFPAY ==
--- NOTE | 2025-02-27 09:25 | A.OFFVIS_ITS ---
Vital Signs 02/27/25 09:29 Height 5 ft 1 in Weight 185 lb 2 oz BMI 35.0 BP 133/82 Blood Pressure Location Rt brachial Position Sitting Pulse 94 Pulse Source Pulse Oximeter Pulse Oximetry (%) 100 Oxygen Delivery Method Room Air Intake Visit Reasons: S/P Bilateral Diagnostic C4-C5-C6 MBB Intake Note: Pain today 2 Business Systems Developer Required: No Accompanied by: Self / Same As Patient Allergies BEAU Inhibitors Allergy (Unknown, Verified 02/27/25 09:29) cough HPI Comments Details: The patient is a 49-year-old female presenting for a follow-up visit after undergoing bilateral diagnostic C4, C5, and C6 medial branch blocks on 02/25/25 for chronic neck pain. The patient reported experiencing 80% pain relief for 6 hours following the procedure, with significant improvement in neck symptoms and better sleep last for the past 2 days. Prior to the injection, the patient had severe pain with cervical extension and lateral rotations, but now reports that movement is more tolerable, particularly when looking up and turning to the right. The patient also has ongoing left shoulder pain, rated at 7/10, and is scheduled to see [facility] on 03/05/25 for these symptoms. Additionally, the patient has chronic, significant back pain, which is associated with numbness after sitting for a few minutes. 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 The patient reports a recent A1c level of 8 or 9 and is scheduled for new lab work next week. Denies any recent cough, cold, infection, fever or any significant changes in medical history since last office visit. Past Procedures: 02/25/25: Bilateral Diagnostic C4-C5-C6 MBB-80% pain relief for 2 days PRIOR: The patient is a 49-year-old female presenting with chronic neck and back pain for follow-up after completing physical therapy for neck pain symptoms. The chronic neck pain has been persistent, with the patient reporting painful range of motion in all directions, particularly worse to the left. Physical therapy at [facility] was completed, which helped improve mobility, although pain pers ists, especially when moving the neck to the left or look up. The patient also reports chronic back pain, which has been ongoing and affects her daily activities. She experiences numbness and tightness in the neck, which sometimes radiates to the arm, impacting her ability to perform tasks at work. The patient has a history of diabetes mellitus, for which she takes Mounjaro and metformin. Her A1c levels were last checked a year ago, with a result of 10.8, and she is due for a recheck to assess current levels. PRIOR: The patient is a 49-year-old female presenting for evaluation of pain management following bilateral diagnostic L3-L4-L5 medial branch blocks. The patient underwent these injections on October 15, and initially reported some relief on the right side, but overall, the relief was limited to 50% for about three hours before the pain returned to baseline levels. The pain is primarily located in the back, with some involvement of the neck and left shoulder areas. Neck pain is increased with movements, lifting and computer work and left shoulder with overhead and back pocket reaches and lifting or pushing. She avoids sleeping on the left side due to pain. Unfortunately, her cervical spine MRI was denied. Patient is interested to pursue physical therapy for shoulder and neck pain. The patient has a history of diabetes mellitus, with previous A1c levels above 10, but recent blood sugar levels have shown improvement, being in the low to mid 100s. The patient has not had a recent A1c test, but plans to follow up with her primary care provider for further evaluation. Denies any recent cough, cold, infection, fever or any significant changes in medical history since last office visit. 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 - Onset: Pain persists post-injection, with temporary mild relief noted. - Quality: Described as persistent and returning to baseline after initial relief. - Location: Primarily in the back, with involvement of the neck and shoulder. - Exacerbating factors: Activity seems to maintain baseline pain levels. Heavy lifting, bending, twisting or pushing. - Relieving factors: Temporary relief post-injection, lasting approximately three hours; Tylenol, heat, rest. Avoids NSAIDs due to CKD. - Affect: Pain impacts daily activities, including work and home responsibilities. - Analgesia: 50% relief for three hours post-injection, with pain returning to baseline. - Adverse Effects: No adverse effects from current pain management reported. - Activities of Daily Living: Pain affects ability to perform work duties and household tasks. - Aberrant Drug Related Behaviors: No aberrant behaviors reported. Oswestry Neck Pain Disability Score=24 Shoulder Pain Disability Index Score=70% [facility] Medical History Chronic kidney disease, stage 3 Pelvic pain IBS (irritable bowel syndrome) Microalbuminuric diabetic nephropathy Metabolic dysfunction-associated steatotic liver disease (MASLD) Fibromyalgia Family history of systemic lupus erythematosus Hepatitis B immune Diabetic nephropathy Microalbuminuria Dyslipidemia Diabetes mellitus Allergic rhinitis Transaminitis Anemia Chronic low back pain Migraine headache Obesity Carpal tunnel syndrome Hypertension WANDA (obstructive sleep apnea) Vitamin D deficiency Surgical History History of cholecystectomy Tubal ligation status History of salpingo-oophorectomy Family History Father Diabetes Heart disease Mother Hypertension Arthritis Thyroid activity decreased Brother Hypertension Thyroid activity decreased Sister Hypertension Thyroid activity decreased Other Family history of cancer of gallbladder Social History Alcohol intake: never Comment: medicated in pacu Patient Tobacco Use Status: Never used Tobacco Second Hand Smoke Exposure: No 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 - Reports improved cervical range of motion, but lingering stiffness. - Neurological: Reports numbness in buttocks and legs after prolonged sitting. - Constitutional: Reports improved sleep since the neck injections. All systems reviewed & are unremarkable except as noted in HPI and below Physical Exam Vital Signs: Last Vital Signs Pulse 94 02/27/25 09:29 BP 133/82 02/27/25 09:29 Pulse Ox 100 02/27/25 09:29 Oxygen Delivery Method Room Air 02/27/25 09:29 BMI result Body Mass Index 35.0 General: Appears afebrile. Alert and oriented. Mood and affect appropriate. Follows and participates in conversation appropriately. Respiratory effort is unlabored. No cough. Able to transition from sit to stand unassisted. Ambulates with bilaterally normal heel strike and toe off. Neck Other: Observation reveals improved range of motion of the neck, especially with extension. Neck: Yes normal visual inspection, Yes no lymphadenopathy, Yes supple, No anterior neck swelling, Yes no JVD and Yes prominent dorsocervical fat pad Back/Spine/Pelvis Cervical Spine: normal cervical lordosis, No Lhermitte's sign positive, cervical muscular tenderness, pain with cervical ROM (worse with extension and lateral rotations, L>R), No Cervical spine tenderness and No step off deformity Thoracic/Lumbar Spine: thoracic and lumbar spine normal to inspection, No Thoracic/lumbar spine scar(s), Lasegue's sign negative, straight leg raise negative bilaterally, pain with thoraco-lumbar ROM, paraspinal muscle tenderness, thoraco-lumbar ROM limited, No thoracic spinal tenderness and lumbar spinal tenderness (L4-S1) Pelvis: no buttock tenderness Sacroiliac joints: bilaterally (+Sudarshan's) tender to palpation Results Reviewed Results Reviewed: XR cervical spine 4V 05/24/24 Findings: Normal vertebral body alignment. No acute fractures or dislocation. Mild multilevel degenerative changes with mild disc space narrowing at C5-6 and C6-7. No bony foraminal narrowing. No prevertebral soft tissue swelling. IMPRESSION: No acute findings. Mild degenerative changes. XR shoulder LT min 2V 05/24/24 Findings: Bones intact. No dislocations. No significant arthritic change. No erosions. No radiopaque foreign body. IMPRESSION: 1. No acute findings Assessment & Plan Assessment & Plan (1) Sacroiliac joint pain: Code(s): M53.3 - Sacrococcygeal disorders, not elsewhere classified Category: Medical (2) Lumbosacral spondylosis: Code(s): M47.817 - Spondylosis without myelopathy or radiculopathy, lumbosacral region Category: Medical (3) Myofascial neck pain: Code(s): M54.2 - Cervicalgia Category: Medical (4) Low back pain: Code(s): M54.50 - Low back pain, unspecified Category: Medical (5) Lumbar radiculopathy: Code(s): M54.16 - Radiculopathy, lumbar region Category: Medical (6) Cervicalgia: Code(s): M54.2 - Cervicalgia Category: Medical (7) Cervical spondylosis: Code(s): M47.812 - Spondylosis without myelopathy or radiculopathy, cervical region Category: Medical (8) Left shoulder pain: Code(s): M25.512 - Pain in left shoulder Category: Medical (9) Discogenic low back pain: Code(s): M51.36 - Other intervertebral disc degeneration, lumbar region Category: Medical Plan Given the positive response to the diagnostic medial branch blocks, several treatment options for the chronic neck pain were discussed. These include repeating the injections with steroids 3 months or longer pain relief, radiofrequency ablation (RFA) for up to a year of relief, or undergoing peripheral nerve stimulation for potentially 8-10 months of relief. The patient was informed that RFA would require one more set of diagnostic cervical medial branch blocks. A final decision on the neck pain treatment will be deferred until after the patient's upcoming Orthopedic consultation for left shoulder pain on 03/05/25. A potential shoulder injection by Orthopedics may also serve a diagnostic purpose regarding its contribution to the neck symptoms. The patient will follow up to communicate the preferred course of action. It was noted that if the patient's A1c is confirmed to be between 8 and 9, steroid injections and peripheral nerve stimulation would be contraindicated, leaving RFA as the primary option. The patient will have labs drawn next week to confirm the A1c level. A letter will be provided to the patient's employer recommending light-duty work restrictions. All questions and concerns have been answered and patient agreed with the treatment plan. Follow up as needed. Patient was informed and verbally consented to the use of an ambient scribe for clinic note documentation during this visit. Coding Level of Care Code Est Pt Level 3 (14729) Complex EM visit Add On G2211 Diagnoses Sacroiliac joint pain M53.3 Lumbosacral spondylosis M47.817 Myofascial neck pain M54.2 Low back pain M54.50 Lumbar radiculopathy M54.16 Cervicalgia M54.2 Cervical spondylosis M47.812 Left shoulder pain M25.512 Discogenic low back pain M51.36
[2025-02-27 09:29] VITALS: BP 133/82; PULSE 94; O2SAT 100; BMI 35.0
--- OUTSIDE RECORDS SUMMARY | 2025-02-27 12:05 | XMS_ITS | Encounter Summary ---
Author Organization [employer] Address [address] [facility] 7t [place] [address] Care Team Providers Care Raw Finish Mill Operator Name Role Phone Sharmin Ortiz MD Primary Care Provider [phone] Lamine Giles PharmD Unavailable [phone] Reason for Visit * Reason Onset Date Comments Referral 03/28/2023 Encounter Details Date Type Department Care Team ([facility] st Contact Info) Description 03/28/[address] [facility] MED & PEDS [address] [place], [place] [phone] Sharmin Ortiz MD [address] [place], [place] [phone] Referral Social History Tobacco Use Types Packs/Day Years Used Date Smoking Tobacco: Never Smokeless Tobacco: Never PHQ-2 Answer Date Recorded Patient Health Questionnaire-2 Score 2 11/29/2022 Housing Stability Answer Date Recorded What is your housing situation today? I have teryr pedraza 02/28/[address] you [...] t he electric, gas, oil or water [facility] [employer] threatened to shut off services in your [...] - 03/28/2023 10:30 AM EST Tc from [facility] with [facility] requesting an updated referral for Pain management for pt due to current one being at least two years old Please fax over @ [phone] Please if any questions contact Stella @ [phone] documented in this encounter Plan of Treatment Upcoming Encounters Date Type Department Care Team (Late st Contact Info) Description 04/11/2025 11:00 AM EST Telemedicine [facility] MEDICINE [address] [place] [address] Lamine Giles, DaisyD [address] [place] [address] 05/05/2025 10:30 AM EST Office Visit [facility] OPTOMETRY [address] [place] [address] Gema Aguirre, OD [address] [place] [address] documented as of this encounter Visit Diagnoses Not on filedocumented in this encounter Care Teams Raw Finish Mill Operator Relationship Specialty Start Date End Date Sharmin Ortiz MD [address] [place] [address] PCP - General Family Medicine 04/10/18 Lamine Giles, PharmD [address] [place] [address] Pharmacist Internal Medicine 04/01/24 documented as of this encounter
--- OUTSIDE RECORDS SUMMARY | 2025-02-27 12:05 | XMS_ITS | Encounter Summary ---
Author Organization [employer] Address [address] [facility] 7t [place] [address] Care Team Providers Care Dynamometer Tester Name Role Phone Sharmin Ortiz MD Primary Care Provider [phone] Lamine Giles PharmD Unavailable [phone] Reason for Visit * Reason Comments Med Refill Encounter Details Date Type Department Care Team ([facility] st Contact Info) Description 03/14/2023 Refill [facility] MEDICINE [address] [place], [place] [phone] Sharmin Ortiz MD [address] [place], [place] [phone] Social History Tobacco Use Types Packs/Day Years [...] Info) Description 04/11/2025 11:00 AM EST Telemedicine [facility] MEDICINE [address] [place] [address] Lamine Giles, PharmChencho [address] [place] [address] 05/05/2025 10:30 AM EST Office Visit [facility] OPTOMETRY [address] [place], [place] [phone] Gema Aguirre, OD [address] [place] [address] documented as of this encounter Visit Diagnoses Not on filedocumented in this encounter Care Teams Dynamometer Tester Relationship Specialty Start Date End Date Sharmin Ortiz MD [address] [place] [address] PCP - General Family Medicine 04/10/18 Lamine Giles, PharmD [address] [place] [address] Pharmacist Internal Medicine 04/01/24 documented as of this encounter
--- OUTSIDE RECORDS SUMMARY | 2025-02-27 12:05 | XMS_ITS | Encounter Summary ---
Author Organization [employer] Address [address] [facility] 7t [place] [address] Care Team Providers Care Teacher Emotionally Impaired Name Role Phone Sharmin Ortiz MD Primary Care Provider [phone] Lamine Giles PharmD Unavailable [phone] Encounter Details Date Type Department Care Team (Late st Contact Info) Description 02/09/2024 Orders Only [facility] MEDICINE [address] [place], [place] [phone] Sharmin Ortiz MD [address] [place], [place] [phone] Social History Tobacco Use Types Packs/Day Years [...] 04/11/2025 11:00 AM EST Telemedicine [facility] MEDICINE [address] [place] [address] Lamine Giles, PharmD [address] [place] [address] 05/05/2025 10:30 AM EST Office Visit [facility] OPTOMETRY [address] [place], [place] [phone] Gema Aguirre, OD [address] [place] [address] documented as of this encounter Visit Diagnoses Not on filedocumented in this encounter Care Teams Teacher Emotionally Impaired Relationship Specialty Start Date End Date Sharmin Ortiz MD [address] [place] [address] PCP - General Family Medicine 04/10/18 Lamine Giles, PharmD [address] [place] [address] Pharmacist Internal Medicine 04/01/24 documented as of this encounter
--- OUTSIDE RECORDS SUMMARY | 2025-02-27 12:05 | XMS_ITS | Encounter Summary ---
Author Organization [employer] Address [address] [facility] 7t [place] [address] Care Team Providers Care Field Foreman Name Role Phone Sharmin Ortiz MD Primary Care Provider [phone] Lamine Giles PharmD Unavailable Encounter Details Date Type Department Care Team (Late st Contact Info) Description 02/07/2024 Orders Only [facility] MEDICINE [address] [place], [place] [phone] Sharmin Ortiz MD [address] [place], [place] [phone] Social History Tobacco Use Types Packs/Day Years [...] Info) Description 04/11/2025 11:00 AM EST Telemedicine [facility] MEDICINE [address] [place] [address] Lamine Giles, PharmD [address] [place] [address] 05/05/2025 10:30 AM EST Office Visit [facility] OPTOMETRY [address] [place], [place] [phone] Gema Aguirre, OD [address] [place] [address] documented as of this encounter Visit Diagnoses Not on filedocumented in this encounter Care Teams Field Foreman Relationship Specialty Start Date End Date Sharmin Ortiz MD [address] [place] [address] PCP - General Family Medicine 04/10/18 Lamine Giles, PharmD [address] [place] [address] Pharmacist Internal Medicine 04/01/24 documented as of this encounter
--- OUTSIDE RECORDS SUMMARY | 2025-02-27 12:05 | XMS_ITS | Encounter Summary ---
Author Organization [employer] Address [address] [facility] 7t [place] [address] Care Team Providers Care Pocket Assembler Name Role Phone Sharmin Ortiz MD Primary Care Provider [phone] Lamine Giles PharmD Unavailable [phone] Encounter Details Date Type Department Care Team (Late st Contact Info) Description 03/28/2023 Orders Only [facility] MEDICINE [address] [place], [place] [phone] Sharmin Ortiz MD [address] [place], [place] [phone] Chronic pain of left knee (Primary Dx); [...] Info) Description 04/11/2025 11:00 AM EST Telemedicine [facility] MEDICINE [address] [place] [address] Lamine Giles, PharmChencho [address] [place] [address] 05/05/2025 10:30 AM EST Office Visit [facility] OPTOMETRY [address] [place], [place] [phone] Tarka, Gema, OD [address] [place] [address] documented as of this encounter Visit Diagnoses Diagnosis Chronic pain of left knee- Primary Right hip pain Pain in joint, pelvic region and thigh Chronic low back pain, unspecified back pain laterality, unspecified whether sciatica present documented in this encounter Care Teams Pocket Assembler Relationship Specialty Start Date End Date Sharmin Ortiz MD [address] [place] [address] PCP - General Family Medicine 04/10/18 Lamine Giles, PharmD [address] [place] [address] [phone] Pharmacist Internal Medicine 04/01/24 documented as of this encounter
--- OUTSIDE RECORDS SUMMARY | 2025-02-27 12:05 | XMS_ITS | Encounter Summary ---
Author Organization [employer] Address [address] [facility] 7t [place] [address] Care Team Providers Care Sports Apparel Internship Name Role Phone Sharmin Ortiz MD Primary Care Provider [phone] Lamine Giles PharmD Unavailable Encounter Details Date Type Department Care Team (Late Contact Info) Description 01/17/2023 Abstract [facility] MEDICINE [address] [place] [address] Nicci Jimenez Social History Tobacco Use Types [...] Info) Description 04/11/2025 11:00 AM EST Telemedicine [facility] MEDICINE [address] [place] [address] Lamine Giles, PharmD 230 [place] [address] 05/05/2025 10:30 AM EST Office Visit [facility] OPTOMETRY [address] [place] [address] Gema Aguirre, OD [address] [place] [address] documented as of this encounter Visit Diagnoses Not on filedocumented in this encounter Care Teams Sports Apparel Internship Relationship Specialty Start Date End Date Sharmin Ortiz MD [address] [place] [address] PCP - General Family Medicine 04/10/18 Lamine Giles, Dameon [address] [place] [address] Pharmacist Internal Medicine 04/01/24 documented as of this encounter
--- OUTSIDE RECORDS SUMMARY | 2025-02-27 12:06 | XMS_ITS | Encounter Summary ---
Author Organization [employer] Address [address] [facility] 7t [place] [address] Care Team Providers Care Diesel Engine Pipe Fitter Name Role Phone Sharmin Ortiz MD Primary Care Provider [phone] Lamine Giles PharmD Unavailable [phone] Encounter Details Date Type Department Care Team (Late st Contact Info) Description 01/08/2025 Orders Only [facility] MEDICINE [address] [place], [place] [phone] Sharmin Ortiz MD [address] [place], [place] [phone] Social History Tobacco Use Types Packs/Day Years [...] Info) Description 04/11/2025 11:00 AM EST Telemedicine [facility] MEDICINE 230 [place] [address] Lamine Giles, PharmD [address] [place] [address] 05/05/2025 10:30 AM EST Office Visit [facility] OPTOMETRY [address] [place] [address] Gema Aguirre, OD [address] [place] [address] documented as of this encounter Visit Diagnoses Not on filedocumented in this encounter Additional Health Concerns Assessment Noted Time PHQ-9 Depression Total Score: 12 025 2:53 PM EST documented as of this encounter Care Teams Diesel Engine Pipe Fitter Relationship Specialty Start Date End Date Sharmin Ortiz MD [address] [place] [address] PCP - General Family Medicine 04/10/18 Lamine Giles, PharmD [address] [place] [address] Pharmacist Internal Medicine 04/01/24 documented as of this encounter
--- OUTSIDE RECORDS SUMMARY | 2025-02-27 12:06 | XMS_ITS | Encounter Summary ---
Author Organization [employer] Address [address] [facility] 7t [place] [address] Care Team Providers Care Hog Confinement System Manager Name Role Phone Sharmin Ortiz MD Primary Care Provider [phone] Lamine Giles PharmD Unavailable [phone] Encounter Details Date Type Department Care Team (Late st Contact Info) Description 02/07/2024 Orders Only [facility] MEDICINE [address] [place], [place] [phone] Sharmin Ortiz MD [address] [place], [place] [phone] Social History Tobacco Use Types Packs/Day Years [...] 11:00 AM EST Telemedicine [facility] MEDICINE [address] [place] [address] Lamine Giles, PharmD [address] [place] [address] 05/05/2025 10:30 AM EST Office Visit [facility] OPTOMETRY [address] [place], [place] [phone] Gema Aguirre, OD [address] [place] [address] documented as of this encounter Visit Diagnoses Not on filedocumented in this encounter Care Teams Hog Confinement System Manager Relationship Specialty Start Date End Date Sharmin Ortiz MD [address] [place] [address] PCP - General Family Medicine 04/10/18 Lamine Giles, PharmD [address] [place] [address] Pharmacist Internal Medicine 04/01/24 documented as of this encounter
--- OUTSIDE RECORDS SUMMARY | 2025-02-27 12:06 | XMS_ITS | Encounter Summary ---
Author Organization [employer] Address [address] [facility] [address] [place] [address] Care Team Providers Care Bus Greaser Name Role Phone Sharmin Ortiz MD Primary Care Provider [phone] Lamine Giles PharmD Unavailable [phone] Encounter Details Date Type Department Care Team (Late st Contact Info) Description 07/14/2024 Orders Only [facility] [address] [place], [place] [phone] Sharmin Ortiz MD [address] [place], [place] [phone] Social History Tobacco Use Types Packs/Day Years [...] 04/11/2025 11:00 AM EST Telemedicine [facility] [address] [place] [address] Lamine Giles, PharmD [address] [place] [address] 05/05/2025 10:30 AM EST Office Visit [facility] [address] [place] [address] TarkaGema, OD [address] [place] [address] documented as of this encounter Visit Diagnoses Not on filedocumented in this encounter Additional Health Concerns Assessment Noted Time PHQ-9 Depression Total Score: 12 025 2:53 PM EST documented as of this encounter Care Teams Bus Greaser Relationship Specialty Start Date End Date Sharmin Ortiz MD [address] [place] [phone] PCP - General Family Medicine 04/10/18 Lamine Giles, PharmD [address] [place] [phone] Pharmacist Internal Medicine 04/01/24 documented as of this encounter
--- OUTSIDE RECORDS SUMMARY | 2025-02-27 12:06 | XMS_ITS | Encounter Summary ---
Author Organization [employer] Address [address] [facility] [address] [place] [address] Care Team Providers Care Utilities Ground Worker Name Role Phone Sharmin Ortiz MD Primary Care Provider Lamine Giles PharmD Unavailable [phone] Reason for Referral * Consultation (Routine) - Authorized Specialty Diagnoses / Procedures Referred By Contac t Referred To Contact Pharmacy Diagnoses Type 2 diabetes mellitus with hyperglycemia, without long-term current use of insulin (HCC) Primary hypertension Sharmin Ortiz MD [address] [place] [address] Phone: tel: fax: Referral ID Status Reason Start Date Expiration Date Visits Requested Visits Authorized [id number] Authorized Consult and Treat 02/03/2025 02/03/2026 6 6 Encounter Details Date Type Department Care Team (Late st Contact Info) Description 02/03/2025 Orders Only [facility] [address] [place], [place] [phone] Sharmin Ortiz MD [address] [place], [place] [phone] Type 2 diabetes mellitus with hyperglycemia, without [...] Info) Description 04/11/2025 11:00 AM EST Telemedicine [facility] [address] [place] [address] Lamine Giles, PharmD [address] [place] [address] 05/05/2025 10:30 AM EST Office Visit [facility] [address] [place] [address] Gema Aguirre, OD [address] [place] [address] Scheduled Referrals Name Type Priority Associated Diagnoses Orde r Schedule Referral to Pharmacy CDTM Outpatient Referral Routine Type 2 diabetes mellitus with hyperglycemia, without long-term current use of insulin (HCC) Primary hypertension Ordered: 02/03/2025 documented as of this encounter Visit Diagnoses Diagnosis Type 2 diabetes mellitus with hyperglycemia, without long-term current use of insulin (HCC)- Primary Primary hypertension Unspecified essential hypertension documented in this encounter Additional Health Concerns Assessment Noted Time PHQ-9 Depression Total Score: 12 025 2:53 PM EST documented as of this encounter Care Teams Utilities Ground Worker Relationship Specialty Start Date End Date Sharmin Ortiz MD [address] [place] [address] PCP - General Family Medicine 04/10/18 Lamine Giles, DaisyD [address] [place] [phone] Pharmacist Internal Medicine 04/01/24 documented as of this encounter
--- OUTSIDE RECORDS SUMMARY | 2025-02-27 12:06 | XMS_ITS | Encounter Summary ---
Author Organization [employer] Address [address] [facility] [address] [place] [address] Care Team Providers Care Smart Grid Engineer Name Role Phone Sharmin Ortiz MD Primary Care Provider Lamine Giles PharmD Unavailable [phone] Reason for Referral * Consultation (Routine) - Canceled Specialty Diagnoses / Procedures Referred By Contac t Referred To Contact Pharmacy Diagnoses Type 2 diabetes mellitus with hyperglycemia, without long-term current use of insulin (HCC) Primary hypertension Sharmin Ortiz MD [address] [place] [address] Phone: tel: fax: Referral ID Status Reason Start Date Expiration Date V isits Requested Visits Authorized [id number] Canceled Consult and Treat 01/08/2025 01/08/2026 6 6 Encounter Details Date Type Department Care Team (Late st Contact Info) Description 01/08/2025 Orders Only [facility] [address] [place], [place] [phone] Sharmin Ortiz MD [address] [place], [place] [phone] Type 2 diabetes mellitus with hyperglycemia, without [...] 04/11/2025 11:00 AM EST Telemedicine [facility] [address] [place] [address] Lamine Giles, PharmD [address] [place] [address] 05/05/2025 10:30 AM EST Office Visit [facility] [address] [place] [address] Gema Aguirre, OD [address] [place] [address] Scheduled Referrals Name Type Priority Associated Diagnoses Orde r Schedule Referral to Pharmacy CD Outpatient Referral Routine Type 2 diabetes mellitus with hyperglycemia, without long-term current use of insulin ([facility]) Primary hypertension Ordered: 01/08/2025 documented as of this encounter Visit Diagnoses Diagnosis Type 2 diabetes mellitus with hyperglycemia, without long-term current use of insulin ([facility])- Primary Primary hypertension Unspecified essential hypertension documented in this encounter Additional Health Concerns Assessment Noted Time PHQ-9 Depression Total Score: 12 025 2:53 PM EST documented as of this encounter Care Teams Smart Grid Engineer Relationship Specialty Start Date End Date Sharmin Ortiz MD [address] [place] [address] PCP - General Family Medicine 04/10/18 Lamine Giles, DaisyD [address] [place] [address] Pharmacist Internal Medicine 04/01/24 documented as of this encounter
--- OUTSIDE RECORDS SUMMARY | 2025-02-27 12:06 | XMS_ITS | Clinical Summary ---
Author Organization [employer] Address [address] [facility] 7[address] [place] [address] Care Team Providers Care Snow Ranger Name Role Phone Sharmin Ortiz MD Primary Care Provider [phone] Lamine Giles PharmD Unavailable Allergies Active Allergy Reactions Criticality Noted Date [...] per day. 30 tablet 11 02/08/20 24 Active Lancets Thin misc Check blood sugar [...] NEEDED FOR MUSCLE SPASMS 30 tablet 2 02/18/20 25 Active Tirzepatide (Mounjaro) 7.5 MG/0.5ML solution auto-injector Inject 7.5 mg under the skin 1 (one) time per week. 2 mL 11 5 10:28 AM EST 02/18/20 25 Active cyclobenzaprine (Flexeril) 10 MG tablet TAKE 1 TABLET BY MOUTH THREE TIMES DAILY IN THE MORNING, AT NOON, AND AT BEDTIME NEEDED FOR MUSCLE SPASMS 30 tablet 2 11/14/19 25 025 Discontinued(Re order (will not trigger notification to Pharmacy)) Tirzepatide (Mounjaro) 5 MG/0.5ML solution auto-injectorIn dications:Type 2 diabetes mellitus with hyperglycemia, without long-term current use of insulin (HCC) Inject 5 mg under the skin 1 (one) time per week. 2 mL 3 11/23/19 25 025 Discontinued(Do se adjustment) Active Problems Problem Noted Date Diagnosed Date Right hip pain 02/18/2025 Assessment & Plan (02/18/2025 12:26 PM EST): - likely trochanteric bursitis - patient requests a referral to [facility] - continue judicious use of APAP and muscle relaxant, and topical agents - continue staying physically active, increase activity as tolerated Type 2 diabetes mellitus wit h kidney complication, without long-term current use of insulin 02/18/2025 Pelvic pain 06/16/2024 Assessment & Plan (06/16/2024 12:13 PM EDT): - history of large ovarian cyst s/p removal - evaluate with US CKD (chronic kidney disease) stage 3, GFR 30-59 ml/min ([facility]) 06/16/2024 Assessment & Plan (02/18/2025 12:28 PM EST): - 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 - in a setting of diabetes mellitus type 2 and hypertension - Kidney failure risk: 0.3% at 2 years, 0.94% at 5 years. - continue ARB and SGLT2i - optimize diabetes mellitus and hypertension management - avoid nephrotoxic drugs Assessment & Plan (11/29/2024 4:18 PM EDT): - in a setting of diabetes mellitus type 2 and hypertension - Kidney failure risk: 0.3% at 2 years, 0.94% at 5 years. - continue ARB and SGLT2i - optimize diabetes mellitus and hypertension management - avoid nephrotoxic drugs - upcoming appointment with professional wrestler Assessment & Plan (09/01/2024 6:13 PM EDT): [...] 3% at 5 years, will refer to professional wrestler. Fibromyalgia 08/03/2023 Assessment & Plan (02/18/2025 12:26 PM EST): - continue tylenol prn, continue muscle relaxants prn Assessment & Plan (09/01/2024 6:20 PM EDT): [...] (06/11/2024 6:58 AM EST): - following with [facility]. -Low FODMAP diet - Ordered CBC auto differential 06/10/24 Assessment & Plan (03/12/2023 5:50 AM EST): - following with [facility]. -Low FODMAP diet Assessment & Plan (12/18/2022 11:33 AM EDT): - following with [facility]. -Low FODMAP diet History of right salpingo-oophorectomy Family history of hypercoagulable state 03/22/20 22 Family history of lupus erythematosus 03/22/2022 Hepatitis B immune 03/22/2022 Chronic low back pain 02/09/2018 Assessment & Plan (11/29/2024 4:23 PM EDT): - continue current medications for fibromyalgia - Pain has been exacerbated after a fall injury at work - patient has been following with paint stripper, last seen in October 2024. - tried MBB injection treatment on 10/15/24, which was ineffective. - referred to [facility] for work-related injury evaluation - patient needs [...] work - patient has been following with paint stripper, last seen on 08/18/24. - scheduling for lumbar MBB injection treatment - referred to [facility] for work-related injury evaluation - patient needs a letter for her work with restriction, no lifting weight > 50 lbs. Patient is still in pain and limping, and is unable to resume full duty. Assessment & Plan (08/03/2023 1:13 PM EDT): - continue current medications for fibromyalgia - pt declines PT referral - patient was seen by paint stripper and currently scheduled for SI joint injection treatment Assessment & Plan (03/12/2023 5:56 AM EST): - continue current medications for fibromyalgia - pt declines PT referral - pt requests paint stripper referral Assessment & Plan (12/18/2022 11:37 AM EDT): - continue current medications for fibromyalgia - pt declines PT referral Dyslipidemia 08/16/2016 Assessment & Plan (02/18/2025 11:01 AM EST): - current medication: Pravastatin - lipid profile: 07/12/24 - continue lifestyle modification Assessment & Plan (08/29/2024 12:43 AM EDT): [...] 2 diabetes mellitus 08/16/2016 Assessment & Plan (02/18/2025 12:37 PM EST): A1C 6.1% on 02/17/2025, improved from 6.3% on 11/25/2024 - Co-managed with our pharmacist - Continue working on lifestyle modifications. -Improve adherence to medications and SMBG. - Continue metformin ER 1000 mg daily (decreased from 1000 mg bid due to CKD3). - Currently on tirzepatide 5 mg weekly, Will increase to 7.5 mg weekly. Consider decreasing metformin dose or empagliflozin dose if she develops hypoglycemia. - Continue empagliflozin 25 mg daily Last eye exam: 10/25/21 No diabetic retinopathy Last foot exam: 06/10/24 Last microalbumin test: July 2024; Hx microalbuminuria; on ARB and SGLT2i Last lipid profile: 07/12/2024 Last dental exam: > years. No dental plan currently Assessment & Plan (11/29/2024 4:13 PM EDT): [...] liver disease (MASLD) 09/24/2014 Assessment & Plan (02/18/2025 12:34 PM EST): - last seen by [facility] in Apr 2022 - last US in Mar 2022. Hepatomegaly with hepatic steatosis. No focal lesion. - FIB-4 = 1.32 in FIB4 index - avoid hepatotoxic drugs. - waiting for US Assessment & Plan (11/29/2024 4:16 PM EDT): - last seen by [facility] in Apr 2022 - last US in Mar 2022. Hepatomegaly with hepatic steatosis. No focal lesion. - FIB-4 = 1.32 in FIB4 index - avoid hepatotoxic drugs. - waiting for US Assessment & Plan (08/26/2024 1:45 PM EDT): - last seen by [facility] in Apr 2022 - last US in Mar 2022. Hepatomegaly with hepatic steatosis. No focal lesion. - FIB-4 = 1.56 in FIB4 index - avoid hepatotoxic drugs. Assessment & Plan (06/16/2024 12:16 PM EDT): - last seen by [facility] in Apr 2022 - last US in Mar 2022. Hepatomegaly with hepatic steatosis. No focal lesion. - FIB-4 = 1.56 in FIB4 index - avoid hepatotoxic drugs. Assessment & Plan (08/04/2023 9:48 AM EDT): - last seen by [facility] in Apr 2022 - [...] rhinitis 09/16/2014 Hypertension 05/30/2012 Assessment & Plan (02/18/2025 11:02 AM EST): - Goal BP < 130/80 per ACC/AHA [...] with sleep medicine clinic Assessment & Plan (11/25/2024 5:57 AM EDT): [...] not active Obesity 05/30/2012 Assessment & Plan (02/18/2025 12:37 PM EST): -continue working on lifestyle modifications -associated conditions: WANDA; hypertension; diabetes mellitus; MASLD -patient is considering about surgical weight loss -continue GLP-1 RA, tirzepatide. Currently 5 mg weekly. Will increase dose to 7.5 mg weekly since her weight is in plateau now. Will increase with caution. Assessment & Plan (06/16/2024 12:19 PM EDT): [...] (11/29/2024 4:21 PM EDT): - seen by [facility] orthopedic provider in July 2023 - most recent NCT/EMG on 02/16/23 showed b/l mild median nerve neuropathy, consistent with CTS - s/p light carpal tunnel release on 05/16/23 - judicious use of NSAIDs prn and gabapentin - use brace Assessment & Plan (08/03/2023 1:09 PM EDT): - seen by [facility] orthopedic provider in July 2023 - most recent NCT/EMG on 02/16/23 showed b/l mild median nerve neuropathy, consistent with CTS - s/p light carpal tunnel release on 05/16/23 - judicious use of NSAIDs prn and gabapentin - use brace Assessment & Plan (03/12/2023 5:48 AM EST): - seen by [facility] orthopedic provider in Feb 2023, upcoming appt [...] Encounters Date Type Department Care Team Description 02/17/2025 11:30 AM EST Office Visit [facility] [address] [place] [phone] Sharmin Ortiz MD Type 2 diabetes mellitus with hyperglycemia, without long-term current use of insulin (HCC) (Primary Dx); Primary hypertension; Dyslipidemia; Right hip pain; Fibromyalgia; Stage 3a chronic kidney disease (CMS/HCC) (HCC); Class 2 severe obesity due to excess calories with serious comorbidity and body mass index (BMI) of 35.0 to 35.9 in adult; Metabolic dysfunction-associate d steatotic liver disease (MASLD); Type 2 diabetes mellitus with stage 3a chronic kidney disease, without long-term current use of insulin (HCC); Screening for colon cancer 02/17/2025 Travel 02/14/[address] [address] Sharmin Ortiz MD chartprep 02/03/2025 Orders Only [address] [address] Sharmin Ortiz MD Type 2 diabetes mellitus with hyperglycemia, without long-term current use of insulin (HCC) (Primary Dx); Primary hypertension 01/29/2025 Telephone [facility] [address] [place] [address] Yolis Carpenter, PharmD 01/08/2025 Orders Only [address] [address] Sharmin Ortiz MD Type 2 diabetes mellitus with hyperglycemia, without long-term current use of insulin (HCC) (Primary Dx); Primary hypertension 01/08/2025 Orders Only [address] [address] Sharmin Ortiz MD 01/03/2025 10:30 AM EDT Telemedicine [address] [address] Lamine Giles, PharmD Type 2 diabetes mellitus with hyperglycemia, without long-term current use of insulin ([facility]/HCC) (Primary Dx) 11/29/2024 Orders Only GENERIC EXTERNAL DATA DEPARTMENT Provider, Generic External Data from Last 3 Months Immunizations Immunization Administration [...] getting things needed for daily living? No 02/17/2025 Utilities Answer Date Recorded In the past [...] Sign Reading Time Taken Comments Blood Pressure 120/84 02/17/2025 1:06 PM EST Pulse 91 02/17/2025 1:06 PM EST Temperature 35.4 C (95.7 F) 02/17/2025 1:06 PM EST Respiratory Rate 17 02/17/2025 1:06 PM EST Oxygen Saturation 98% 02/17/2025 1:06 PM EST Inhaled Oxygen Concentration - - Weight 83 kg (183 lb) 02/17/2025 1:06 PM EST Height 154.9 cm (5' 1 ) 02/17/2025 1:06 PM EST Body Mass Index 34.58 02/17/2025 1:06 PM EST Plan of Treatment Upcoming Encounters Date Type Department Care Team (Late st Contact Info) Description 04/11/2025 11:00 AM EST Telemedicine [facility] [address] [place] [address] Lamine Giles, PharmD [address] [place], [place] [phone] 05/05/2025 10:30 AM EST Office Visit [facility] [address] [place], [place] [phone] Gema Aguirre, OD [address] [place] [address] Health Maintenance Due Date Last Done Comments CT Colonography 1975 Colonoscopy 1975 Colorectal Cancer Screening 1975 FIT DNA/Cologuard 1974 FIT 1975 FOBT 1975 Sigmoidoscopy 1974 Eye Exam 1984 Family Planning (PISQ) 1989 Pap Smear 10/01/1995 RSV Patients and Patients Aged 60 years or older (1 - Risk 50-74 years 1-dose series) 2024 Zoster Vaccines (1 of 2) 2024 COVID-19 Vaccine ( season) 2024 01/28/2021, 07/06/2020, 06/08/2020, Additional history exists Influenza Vaccine (#1) 2024 04/14/2011 Depression Monitoring 12/11/2024 06/10/2024, 025 Hepatitis A Vaccines (2 of 2 - Risk 2-dose series) 12/11/2024 06/10/2024 Diabetes: Hemoglobin A1C 05/20/2025 025, 11/25/2024, 08/26/2024, Additional history exists Alcohol/Substance Use Screening 06/10/2025 06/10/2024 Diabetes: Foot Exam 06/10/2025 06/10/2024, 11/29/2022, 11/29/2022, Additional history exists Cervical Cancer Screening 07/07/2025 HPV/Cotest 07/07/2025 07/07/2020, 07/07/2020 Lipid Panel 07/12/2025 07/12/2024, 04/10, 01/13/2022, Additional history exists Mammogram 07/12/2025 07/12/2024, 11/2018, 07/16/2018, Additional history exists Disability Screening 08/26/2025 08/26/2024 SDOH Screening 02/17/2026 02/17/2025 Tobacco Screening 02/17/2026 02/17/2025 DTaP/Tdap/Td Vaccines (3 - Td or Tdap) 08/24/2030 08/24/2020, 11/23/2009 HIV Screening Completed 06/16/2022 Hepatitis C Screening [...] Name Priority Date/Time Associated Diagnosis Comments POCT GLUCOSE Routine 02/17/2025 1:06 PM EST Type 2 diabetes mellitus with hyperglycemia, without long-term current use of insulin (HCC) POCT GLYCOSYLATED HEMOGLOBIN (HGB A1C) Routine 02/17/2025 1:05 PM EST Type 2 diabetes mellitus with hyperglycemia, without long-term current use of insulin (HCC) CREATININE, SERUM Routine 11/29/2024 10: 12 AM EDT UREA NITROGEN (BUN) Routine 11/29/2024 1 0:12 AM EDT ELECTROLYTE PANEL Routine 11/29/2024 10: 12 AM EDT LIPID PANEL WITH REFLEX TO DIRECT LDL [...] Recently Relevant to Health Maintenance Results * POCT glucose manually resulted (02/17/2025 1:06 PM EST) Glucose Blood, POC 135 60 - 200 mg/dL QC Media Lot # [id number] Lot# Expiration Date Blood Capillary blood specimen / Unknown 02/17/2025 1:06 PM EST Sharimn Ortiz MD POINT OF CARE TEST ENTER/EDIT OR DERABLES Final Result * (ABNORMAL) POCT glycosylated hemoglobin (Hgb A1c) (02/17/2025 1:05 PM EST) Hemoglobin A1C 6.1(A) 4.0 - 5.7 % QC Media Lot # [id number] Lot# Expiration Date [id number] Blood Capillary blood specimen / Unknown 02/17/2025 1:05 PM EST Sharmin Ortiz MD POINT OF CARE TEST ENTER/EDIT OR DERABLES Final Result * Creatinine, Serum (11/29/2024 10:12 AM EDT) Creatinine, Serum 1.24 0.5 - 1.4 mg/dL [facility] Estimated Glomerular Filt Rate 46 [facility] Comment:Chronic Kidney Disea se: Estimated GFR < 60 mL/min/1.72x5Hrnike Kidney Disease: Estimated GFR < 15 mL/min/1.73m2 11/29/2024 10:1 2 AM EDT 11/29/2024 10:12 AM EDT Generic External Data Provider LAB BLOOD ORDERAB LES Final Result Performing Organization Address City/Va Hospital/ZIP Co de Phone Number [facility] [address] [place] [phone] * (ABNORMAL) BUN (Blood Urea Nitrogen) (11/29/2024 10:12 AM EDT) Urea Nitrogen (BUN) 26(H) 9 - 16 mg/dL [facility] 11/29/2024 10:1 2 AM EDT 11/29/2024 10:12 AM EDT Generic External Data Provider LAB BLOOD ORDERAB LES Final Result Performing Organization Address City/Va Hospital/ZIP Co de Phone Number [facility] [address] [place] [phone] * Electrolyte Panel (11/29/2024 10:12 AM EDT) Sodium 141 135 - 145 mmol/L [facility] Potassium 3.7 3.3 - 5.1 mmol/L [facility] Chloride 104 96 - 108 mmol/L [facility] Carbon Dioxide 29 22 - 29 mmol/L [facility] Anion Gap 12 12 - 20 [facility] 11/29/2024 10:1 2 AM EDT 11/29/2024 10:12 AM EDT us Generic External Data Provider LAB BLOOD ORDERAB LES Final Result Performing Organization Address [facility]/Va Hospital/ZIP Co de Phone Number [facility] [address] [place] [phone] * (ABNORMAL) Lipid Panel with Reflex to Direct LDL (07/12/2024 10:20 AM EDT) Triglycerides 197(H) <150 mg/dL [facility] Comment:Desirable Triglyceri de: less than 150 mg/dLBorderline High Triglyceride 150-199 mg/dLHigh Triglyceride: 200-499 mg/dLVery High Triglyceride: greater than or equal to 5OO mg/dL Cholesterol 163 <200 mg/dL [facility] Comment:Desirable Cholestero l: less than 200 mg/dLBorderline High Cholesterol: 200-239 mg/dLHigh Cholesterol: greater than 239 mg/dL LDL Cholesterol Calculated 93 <100 mg/dL [facility] Comment:Desirable LDL: less than 100 mg/dLNear Optimal/Above Optimal LDL: 110- 129 mg/dLBorderline High LDL: 130-159 mg/dLHigh LDL: 160-189 mg/dLVery High LDL: greater than or equal to 190 mg/dL HDL Cholesterol 31(L) >40 mg/dL [facility] Comment:Desirable HDL: great er than 40 mg/dL Note: This HDL assay may give artificially low results in patients with liver disease. Blood 07/12/2024 10:2 0 AM EDT 07/12/2024 10:20 AM EDT us Sharmin Ortiz MD LAB BLOOD ORDERABLES Final Resul t Performing Organization Address City/Va Hospital/ZIP Co de Phone Number [facility] [address] [place] [phone] * BI Mammogram Screening Tomosynthesis Bilateral (07/12/2024 9:45 AM EDT) Anatomical Region Laterality Modality Breast Bilateral Mammography 07/12/2024 9:45 AM EDT Narrative 07/19/2024 12:59 PM EDT [facility] [address] [place], [place] [address] Mammography Report Signed Patient: Arleen Astorga MR#: [id number] [birth year] : 1975 Acct:[id number] Age/Sex: 48 / F ADM Date: 07/12/24 Loc: HO.MAMMO Attending Dr: Sharmin Ortiz MD Ordering Physician: Sharmin Ortiz MD Results: 1Negative Date of Service: 07/12/24 Follow Up: 1 Year From [facility] Mammogram Procedure(s): MM tomosynthesis screening BI Accession Number(s): [id number] cc: Sharmin Ortiz MD EXAMINATION: MM SCREENING [...] 07/19/24 1256 DD/ 0945 TD/TT: 07/12/24 1000 Quality Control Director: Procedure Note Donotuseinterpreter, Image - 07/19/2024 [facility] [address] [place] [address] Mammography Report Signed Patient: Mireille Astorga#: [id number] 01 : 1975Acct:[id number] Age/Sex: 48 / FADM Date: 07/12/24 Loc: HO.MAMMO Attending Dr: Sharmin Ortiz MD Ordering Physician: Sharmin Ortiz MDResults: 1Negative Date of Service: 07/12/24Follow Up: 1 Year From Orig inal Mammogram Procedure(s): MM tomosynthesis screening BI Accession Number(s): [id number] cc: Sharmin Ortiz MD EXAMINATION: MM SCREENING [...] 07/19/24 1256 DD/ 0945 TD/TT: 07/12/24 1000 Quality Control Director: Sharmin Ortiz MD IMG BI PROCEDURES Final Result * HIV Ab/Ag ([facility]) (06/16/2022 10:23 AM EST) HIV AB/AG Nonreactive Nonreactive [facility] Comment:HIV-1 p24 Ag and/or HIV-1/HIV-2 Ab not detected.A test result that is nonreactive does not exclude thepossibility of exposure to or infection with HIV-1 and/orHIV-2. Nonreactive results in this assay for individualswith prior exposure to HIV-1 and/or HIV-2 may be due toantigen and antibody levels that are below the limit ofdetection of this assay.The [employer] HIV Ag/Ab Combo assay result andsupplemental assay results should be interpreted inconjunction with the patient's clinical presentation,history and other laboratory results. If the results areinconsistent with clinical evidence, additional testing issuggested to confirm the result. 06/16/2022 10:2 3 AM EST 06/16/2022 10:23 AM EST [facility] External Provider LAB BLO OD ORDERABLES Final Result [facility] [address] [place] [phone] * Hepatitis Panel, General (06/16/2022 10:23 AM EST) Hepatitis A IgM Nonreactive Nonreactive [facility] Comment:IgM antibodies to ROBERTO V not detected; does not exclude earlyacute or recovered HAV infection. ~Hepatitis B Surface Antibody REACTIVE Nonreactive [facility] Comment:REACTIVE: > 11.99 mI U/mL Hepatitis B Core Antibody Nonreactive Nonreactive [facility] Hepatitis C Antibody Nonreactive Nonreactive [facility] Comment:Antibodies to HCV no t detected; does not exclude early acuteHCV infection. Hepatitis B Surface Ag Negative Negative [facility] 06/16/2022 10:2 3 AM EST 06/16/2022 10:23 AM EST [facility] External Provider LAB BLO OD ORDERABLES Final Result [facility] [address] [place] [phone] * HPV E6/E7 RFLX RENEE 16 18/45 (07/07/2020 1:59 PM EDT) HPV mRNA E6/E7 rflx Not Detected Not Detected [facility] Comment: Methodology: Rectifying Attendant-Mediated Amplification This assay detects E6/E7 viral messenger RNA (mRNA) from 14 high-risk HPV types (16,18,31,33,35,39,45,51,52,56,58,59,66,68). The analytical performance characteristics of this assay have been determined by [facility]. The modifications have not been cleared or approved by the FDA. This assay has been validated pursuant to the CLIA regulations and is used for clinical purposes. For additional information, please refer to http://education.[employer]/faq/ZJC119o4 (This link if provided for information/ educational purposes only.) THIS TEST WAS PERFORMED AT: [employer] [address] [facility] [address] [facility] [phone] SAUL REECE MD 07/07/2020 1:59 PM EDT us Sam Michel MD HISTORICAL/NON ORDERABLE LABS Fi nal Result Performing Organization Address City/Va Hospital/ZIP Co de Phone Number [facility] [address] from Last 3 Months or Most Recently Relevant to Health Maintenance [facility] [employer] Care Teams Snow Ranger Relationship Specialty Start Date End Date Sharmin Ortiz MD [address] [place] [address] PCP - General Family Medicine 04/10/18 Lamine Giles, DaisyD [address] [place] [address] Pharmacist Internal Medicine 04/01/24
--- OUTSIDE RECORDS SUMMARY | 2025-02-27 12:06 | XMS_ITS | Encounter Summary ---
Author Organization [employer] Address [address] [facility] 7t [place] [address] Care Team Providers Care Recruiter Manager Name Role Phone Sharmin Ortiz MD Primary Care Provider [phone] Lamine Giles PharmD Unavailable [phone] Encounter Details Date Type Department Care Team (Late st Contact Info) Description 05/15/2024 Orders Only [facility] [address] [place], [place] [phone] Sharmin Ortiz MD [address] [place], [place] [phone] Social History Tobacco Use Types Packs/Day Years [...] Info) Description 04/11/2025 11:00 AM EST Telemedicine [facility] [address] [place] [address] Lamine Giles, PharmD [address] [place] [address] 05/05/2025 10:30 AM EST Office Visit [facility] [address] [place], [place] [phone] Gema Aguirre, OD [address] [place] [address] documented as of this encounter Visit Diagnoses Not on filedocumented in this encounter Care Teams Recruiter Manager Relationship Specialty Start Date End Date Sharmin Ortiz MD [address] [place] [phone] PCP - General Family Medicine 04/10/18 Lamine Giles, PharmD [address] [place] [phone] Pharmacist Internal Medicine 04/01/24 documented as of this encounter
== END 2025-02-27 09:57 | disposition home or self-care (01) ==
LOC: HO.PMC 09:20
PROVIDERS: PCP Family Medicine; Visit Provider Nurse Practitioner Family
DX: M53.3 Sacrococcygeal disorders, not elsewhere classified (principal); M47.817 Spondylosis without myelopathy or radiculopathy, lumbosacral region; M54.2 Cervicalgia; M54.50 Low back pain, unspecified; M54.16 Radiculopathy, lumbar region; M47.812 Spondylosis without myelopathy or radiculopathy, cervical region; M25.512 Pain in left shoulder; M51.369 Other intervertebral disc degeneration, lumbar region without mention of lumbar back pain or lower extremity pain
CPT/HCPCS: 99213

== ENCOUNTER → 2025-02-27 09:19 | Outpatient (BNVA) | payer MEDICAID, SELFPAY | PROVIDERS: PCP Family Medicine; Visit Provider Nurse Practitioner Family | DX: M54.2 Cervicalgia (principal); M47.812 Spondylosis without myelopathy or radiculopathy, cervical region; M25.512 Pain in left shoulder; M53.3 Sacrococcygeal disorders, not elsewhere classified; M51.360 Other intervertebral disc degeneration, lumbar region with discogenic back pain only | CPT/HCPCS: 99212 ==

== ENCOUNTER 2025-03-05 13:39 | Outpatient (AMB) | payer MEDICAID, SELFPAY ==
--- NOTE | 2025-03-05 13:53 | A.OFFVIS_ITS ---
Vital Signs 03/05/25 13:55 Height 5 ft 1 in Weight 182 lb BMI 34.4 Handedness Left Intake Visit Reasons: New prob- LT shoulder pain Intake Note: Arleen is a 49 year old left hand dominant female who presents today for her left shoulder pain. Patient reports this has been on going for a year. She expresses difficulty with movement and increase in pain with any movement. She had neck injection 2 weeks ago and she thought they would help her shoulder however it did not. She is denying injections today because she says she has to check her blood sugar before. Tylenol does not offer her relief. She's tried physical therapy, acetaminophen and lidocaine patches with no adequate relief. Can not take NSAIDs due to her liver. She has concern of work status, she was placed on light duty by Pain Management but says her job does not have light duty. 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 She reports difficulty lifting her left hand above shoulder height. Head Correction Officer Required: Yes Head Correction Officer Language: Well Shooter Services: Head Correction Officer Present (iPad) Head Correction Officer Name: [id number] Chuck Allergies BEAU Inhibitors Allergy (Unknown, Verified 03/05/25 13:55) cough Medication List - Last Reconciled 03/05/25 by Grupo Stanley MD acetaminophen (Tylenol Extra Strength) 500 mg PO Q6H PRN chlorthalidone 25 mg PO DAILY cholecalciferol (vitamin D3) 25 mcg PO DAILY cyclobenzaprine 10 mg PO BEDTIME empagliflozin (Jardiance) 25 mg PO DAILY gabapentin 100 mg PO TID PRN lidocaine 5% 1 patch topical DAILY 30 days losartan 100 mg PO DAILY metformin ER 1,000 mg PO DAILY metoprolol tartrate 150 mg (1.5 x 100 mg) PO BID potassium chloride ER 10 mEq PO BID pravastatin 20 mg PO BEDTIME tirzepatide (Mounjaro) mg subcut QWEEK PFSH Medical History Chronic kidney disease, stage 3 Pelvic pain IBS (irritable bowel syndrome) Microalbuminuric diabetic nephropathy Metabolic dysfunction-associated steatotic liver disease (MASLD) Fibromyalgia Family history of systemic lupus erythematosus Hepatitis B immune Diabetic nephropathy Microalbuminuria Dyslipidemia Diabetes mellitus Allergic rhinitis Transaminitis Anemia Chronic low back pain Migraine headache Obesity Carpal tunnel syndrome Hypertension WANDA (obstructive sleep apnea) Vitamin D deficiency Surgical History History of cholecystectomy Tubal ligation status History of salpingo-oophorectomy Family History Father Diabetes Heart disease Mother Hypertension Arthritis Thyroid activity decreased Brother Hypertension Thyroid activity decreased Sister Hypertension Thyroid activity decreased Other Family history of cancer of gallbladder Social History Alcohol intake: never Comment: medicated in pacu Patient Tobacco Use Status: Never used Tobacco Second Hand Smoke Exposure: No 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 Female Reproductive History Menstrual Age of Menarche: 8 Physical Exam Vital Signs: BMI result Body Mass Index 34.4 Extrem Other: Left shoulder examination shows decreased range of motion when compared to her right shoulder, 4+ out of 5 strength with supraspinatus testing, positive impingement signs, no instability Assessment & Plan Assessment & Plan (1) Rotator cuff insufficiency of left shoulder: Code(s): M25.312 - Other instability, left shoulder Category: Medical Plan Ms. Astorga presents with left shoulder pain and weakness due to impingement syndrome and possible rotator cuff tearing. Thus, I will send the patient for an MRI of her left shoulder for further evaluation. I will see her back once the MRI is completed to discuss the findings and treatment options. I will keep her on light duty for now. Feel free to call me at any time should questions regarding her orthopedic management arise. I spent 20 minutes in reviewing the patient's records and imaging studies, seein g the patient and documenting in the medical record. Orders: Orders MR shoulder LT wo con 03/10/25 Grupo Stanley MD M25.312 - Other instability, left shoulder Medications: Changed From gabapentin 100 mg PO TID 30 days 90 caps 0RF pain M47.817 - Spondylosis without myelopathy or radiculopathy, lumbosacral region, M51.36 - Other intervertebral disc degeneration, lumbar region, M54.16 - Radiculopathy, lumbar region To gabapentin 100 mg PO TID PRN M47.817 - Spondylosis without myelopathy or radiculopathy, lumbosacral region, M51.36 - Other intervertebral disc degeneration, lumbar region, M54.16 - Radiculopathy, lumbar region DAMEON Mandujano Coding Level of Care Code New Pt Level 3 (18596) Complex visit Add On G2211 Diagnoses Rotator cuff insufficiency of left shoulder M25.312
[2025-03-05 13:55] VITALS: BMI 34.4
--- OUTSIDE RECORDS SUMMARY | 2025-03-05 16:44 | XMS_ITS | Clinical Summary ---
Author Organization [employer] Address [address] [facility] 7t [place] [address] Care Team Providers Care Grades 7 And 8 Visiting Teacher Name Role Phone Sharmin Ortiz MD Primary Care Provider [phone] Lamine Giles PharmD Unavailable [phone] Allergies Active Allergy Reactions Criticality Noted Date [...] kidney disease) stage 3, GFR 30-59 ml/min ([facility]) 06/16/2024 Assessment & Plan (02/18/2025 12:28 PM EST): - following with display mechanic, [facility]. - in a setting of diabetes mellitus [...] avoid nephrotoxic drugs - upcoming appointment with display mechanic Assessment & Plan (09/01/2024 6:13 PM EDT): [...] 3% at 5 years, will refer to display mechanic. Fibromyalgia 08/03/2023 Assessment & Plan (02/18/2025 12:26 [...] (06/11/2024 6:58 AM EST): - following with [facility] GI. -Low FODMAP diet - Ordered CBC auto differential 06/10/24 Assessment & Plan (03/12/2023 5:50 AM EST): - following with [facility]. -Low FODMAP diet Assessment & Plan (12/18/2022 11:33 AM EDT): - following with [facility] GI. -Low FODMAP diet History of right salpingo-oophorectomy Family history of hypercoagulable state 03/22/20 22 Family history of lupus erythematosus 03/22/2022 Hepatitis B immune 03/22/2022 Chronic low back pain 02/09/2018 Assessment & Plan (11/29/2024 4:23 PM EDT): - continue current medications for fibromyalgia - Pain has been exacerbated after a fall injury at work - patient has been following with spray painter, last seen in October 2024. - [...] work - patient has been following with spray painter, last seen on 08/18/24. - scheduling [...] PT referral - patient was seen by spray painter and currently scheduled for SI joint injection treatment Assessment & Plan (03/12/2023 5:56 AM EST): - continue current medications for fibromyalgia - pt declines PT referral - pt requests spray painter referral Assessment & Plan (12/18/2022 11:37 [...] 12:34 PM EST): - last seen by [facility] in Apr 2022 - last US in Mar 2022. Hepatomegaly with hepatic steatosis. No focal lesion. - FIB-4 = 1.32 in FIB4 index - avoid hepatotoxic drugs. - waiting for US Assessment & Plan (11/29/2024 4:16 PM EDT): - last seen by [facility] in Apr 2022 - last US in Mar 2022. Hepatomegaly with hepatic steatosis. No focal lesion. - FIB-4 = 1.32 in FIB4 index - avoid hepatotoxic drugs. - waiting for US Assessment & Plan (08/26/2024 1:45 PM EDT): - last seen by [facility] in Apr 2022 - last US in Mar 2022. Hepatomegaly with hepatic steatosis. No focal lesion. - FIB-4 = 1.56 in FIB4 index - avoid hepatotoxic drugs. Assessment & Plan (06/16/2024 12:16 PM EDT): - last seen by [facility] in Apr 2022 - last US in Mar 2022. Hepatomegaly with hepatic steatosis. No focal lesion. - FIB-4 = 1.56 in FIB4 index - avoid hepatotoxic drugs. Assessment & Plan (08/04/2023 9:48 AM EDT): - last seen by [facility] in Apr 2022 - last US in Mar 2022. Hepatomegaly with hepatic steatosis. No focal lesion. - FIB-4 = 0.78 in 2021 - avoid hepatotoxic drugs. - will update ultrasound Assessment & Plan (03/12/2023 5:50 AM EST): - followed by [facility] - avoid hepatotoxic drugs. Assessment & Plan (12/18/2022 11:34 AM EDT): - followed by [facility] - avoid hepatotoxic drugs. Allergic [...] (11/29/2024 4:21 PM EDT): - seen by [facility] orthopedic provider in July 2023 - most recent NCT/EMG on 02/16/23 showed b/l mild median nerve neuropathy, consistent with CTS - s/p light carpal tunnel release on 05/16/23 - judicious use of NSAIDs prn and gabapentin - use brace Assessment & Plan (08/03/2023 1:09 PM EDT): - seen by [facility] orthopedic provider in July 2023 - most recent NCT/EMG on 02/16/23 showed b/l mild median nerve neuropathy, consistent with CTS - s/p light carpal tunnel release on 05/16/23 - judicious use of NSAIDs prn and gabapentin - use brace Assessment & Plan (03/12/2023 5:48 AM EST): - seen by [facility] orthopedic provider in Feb [...] Description 02/17/2025 11:30 AM EST Office Visit [facility] [address] [place] [phone] Sharmin Ortiz MD Type 2 diabetes mellitus with hyperglycemia, without long-term current use of insulin (HCC) (Primary Dx); Primary hypertension; Dyslipidemia; Right hip pain; Fibromyalgia; Stage 3a chronic kidney disease (CMS/HCC) (HCC); Class 2 severe obesity due to excess calories with serious comorbidity and body mass index (BMI) of 35.0 to 35.9 in adult; Metabolic dysfunction-associated steatotic liver disease (MASLD); Type 2 diabetes mellitus with stage 3a chronic kidney disease, without long-term current use of insulin (HCC); Screening for colon cancer 02/17/2025 Travel 02/14/[address] [address] Sharmin Ortiz MD chartprep 02/03/2025 Orders Only [address] [address] Sharmin Ortiz MD Type 2 diabetes mellitus with hyperglycemia, without long-term current use of insulin (HCC) (Primary Dx); Primary hypertension 01/29/[address] [address] Yolis Carpenter, PharmD 01/08/2025 Orders Only [address] [address] Sharmin Ortiz MD Type 2 diabetes mellitus with hyperglycemia, without long-term current use of insulin (HCC) (Primary Dx); Primary hypertension 01/08/2025 Orders Only [address] [address] Sharmin Ortiz MD 01/03/2025 10:30 AM EDT Telemedicine [address] [address] Lamine Giles, PharmD Type 2 diabetes mellitus with hyperglycemia, without long-term current use of insulin (CMS/HCC) (Primary Dx) from Last 3 Months Immunizations Immunization Administration [...] Info) Description 04/11/2025 11:00 AM EST Telemedicine [facility] [address] [place] [address] Lamine Giles, PharmD [address] [place] [address] 05/05/2025 10:30 AM EST Office Visit [facility] [address] [place], [place] [phone] Gema Aguirre, OD [address] [place], [place] [phone] Health Maintenance Due Date Last Done Comments [...] without long-term current use of insulin (HCC) LIPID PANEL WITH REFLEX TO DIRECT LDL [...] ZZZ HISTORICAL HPV E6/E7 RFLX RENEE 16 Routine 07/07/2020 1:59 PM EDT from Last 3 Months or Most Recently Relevant to Health Maintenance Results * POCT glucose manually resulted (02/17/2025 1:06 PM EST) Glucose Blood, POC 135 60 - 200 mg/dL QC Media Lot # [id number] Lot# Expiration Date 3,025 Blood Capillary blood specimen / Unknown 02/17/2025 1:06 PM EST Sharmin Ortiz MD POINT OF CARE TEST ENTER/EDIT OR DERABLES Final Result * (ABNORMAL) POCT glycosylated hemoglobin (Hgb A1c) (02/17/2025 1:05 PM EST) Hemoglobin A1C 6.1(A) 4.0 - 5.7 % QC Media Lot # [id number] Lot# Expiration Date [id number] Blood Capillary blood specimen / Unknown 02/17/2025 1:05 PM EST Sharmin Ortiz MD POINT OF CARE TEST ENTER/EDIT OR DERABLES Final Result * (ABNORMAL) Lipid Panel with Reflex to Direct LDL (07/12/2024 10:20 AM EDT) Triglycerides 197(H) <150 mg/dL [facility] Comment:Desirable Triglyceri de: less than 150 mg/dLBorderline High Triglyceride 150-199 mg/dLHigh Triglyceride: 200-499 mg/dLVery High Triglyceride: greater than or equal to 5OO mg/dL Cholesterol 163 <200 mg/dL [facility] Comment:Desirable Cholestero l: less than 200 mg/dLBorderline High Cholesterol: 200-239 mg/dLHigh Cholesterol: greater than 239 mg/dL LDL Cholesterol Calculated 93 <100 mg/dL [facility] Comment:Desirable LDL: less than 100 mg/dLNear Optimal/Above Optimal LDL: 110- 129 mg/dLBorderline High LDL: 130-159 mg/dLHigh LDL: 160-189 mg/dLVery High LDL: greater than or equal to 190 mg/dL HDL Cholesterol 31(L) >40 mg/dL [facility] Comment:Desirable HDL: great er than 40 mg/dL Note: This HDL assay may give artificially low results in patients with liver disease. Blood 07/12/2024 10:2 0 AM EDT 07/12/2024 10:20 AM EDT Sharmin Ortiz MD LAB BLOOD ORDERABLES Final Resul t [facility] [address] [place] [phone] * BI Mammogram Screening Tomosynthesis Bilateral (07/12/2024 9:45 AM EDT) Anatomical Region Laterality Modality Breast Bilateral Mammography 07/12/2024 9:45 AM EDT Narrative 07/19/2024 12:59 PM EDT [facility] [address] [place] [address] Mammography Report Signed Patient: Arleen Astorga MR#: [id number] [birth year] : 1975 Acct:[id number] Age/Sex: 48 / F ADM Date: 07/12/24 Loc: [facility] Attending Dr: Sharmin Ortiz MD Ordering Physician: Sharmin Ortiz MD Results: 1Negative Date of Service: 07/12/24 Follow Up: 1 Year From Orig inal Mammogram Procedure(s): MM tomosynthesis screening BI Accession Number(s): [id number] cc: Sharmin Ortiz MD EXAMINATION: MM SCREENING [...] 07/19/24 1256 DD/ 0945 TD/TT: 07/12/24 1000 Shoe Ironer: Procedure Note Donotuseinterpreter, Image - 07/19/2024 [facility] [address] [place] [address] Dr. [place], JAYNA [address] Mammography Report Signed Patient: Melissa AstorgaR#: [id number] 01 : 1975Acct:[id number] Age/Sex: 48 / FADM Date: 07/12/24 Loc: [facility] Attending Dr: Sharmin Ortiz MD Ordering Physician: Sharmin Ortiz MDResults: 1Negative Date of Service: 07/12/24Follow Up: 1 Year From Orig inal Mammogram Procedure(s): MM tomosynthesis screening BI Accession Number(s): [id number] cc: Sharmin Ortiz MD EXAMINATION: MM SCREENING [...] 07/19/24 1256 DD/ 0945 TD/TT: 07/12/24 1000 Shoe Ironer: Sharmin Ortiz MD IM BI PROCEDURES Final Result * HIV Ab/Ag ([place] [facility]) (06/16/2022 10:23 AM EST) HIV AB/AG Nonreactive Nonreactive [facility] Comment:HIV-1 p24 Ag and/or HIV-1/HIV-2 Ab not detected.A test result that is nonreactive does not exclude thepossibility of exposure to or infection with HIV-1 and/orHIV-2. Nonreactive results in this assay for individualswith prior exposure to HIV-1 and/or HIV-2 may be due toantigen and antibody levels that are below the limit ofdetection of this assay.The [employer] HIV Ag/Ab Combo assay result andsupplemental assay results should be interpreted inconjunction with the patient's clinical presentation,history and other laboratory results. If the results areinconsistent with clinical evidence, additional testing issuggested to confirm the result. 06/16/2022 10:2 3 AM EST 06/16/2022 10:23 AM EST [facility] External Provider LAB BLO OD ORDERABLES Final Result Performing Organization Address [facility] de Phone Number [facility] [address] [place] [phone] * Hepatitis Panel, General (06/16/2022 10:23 AM EST) Hepatitis A IgM Nonreactive Nonreactive [facility] Comment:IgM antibodies to ROBERTO V not detected; does not exclude earlyacute or recovered HAV infection. ~Hepatitis B Surface Antibody REACTIVE Nonreactive [facility] Comment:REACTIVE: > 11.99 mI U/mL Hepatitis B Core Antibody Nonreactive Nonreactive [facility] Hepatitis C Antibody Nonreactive Nonreactive [facility] Comment:Antibodies to HCV no t detected; does not exclude early acuteHCV infection. Hepatitis B Surface Ag Negative Negative [facility] 06/16/2022 10:2 3 AM EST 06/16/2022 10:23 AM EST [facility] External Provider LAB BLO OD ORDERABLES Final Result Performing Organization Address [facility] de Phone Number [facility] [address] [place] [phone] * HPV E6/E7 RFLX RENEE 16 18/45 (07/07/2020 1:59 PM EDT) HPV mRNA E6/E7 rflx Not Detected Not Detected [facility] Comment: Methodology: [employer]-Mediated Amplification This assay detects E6/E7 viral messenger RNA (mRNA) from 14 high-risk HPV types (16,18,31,33,35,39,45,51,52,56,58,59,66,68). The analytical performance characteristics of this assay have been determined by [employer]. The modifications have not been cleared or approved by the FDA. This assay has been validated pursuant to the CLIA regulations and is used for clinical purposes. For additional information, please refer to http://education.FriendCode/faq/MJW770y6 (This link if provided for information/ educational purposes only.) THIS TEST WAS PERFORMED AT: [facility] [address] [place] [address],[place] [phone] SAUL REECE MD 07/07/2020 1:59 PM EDT us Sam Michel MD HISTORICAL/NON ORDERABLE LABS Fi nal Result [facility] [address] from Last 3 Months or Most Recently Relevant to Health Maintenance Insurance C3 Care Teams Grades 7 And 8 Visiting Teacher Relationship Specialty Start Date End Date Sharmin Ortiz MD [address] [place] [address] PCP - General Family Medicine 04/10/18 Lamine Giles, PharmD [address] [place] [address] [phone] Pharmacist Internal Medicine 04/01/24
--- OUTSIDE RECORDS SUMMARY | 2025-03-05 16:44 | XMS_ITS | Encounter Summary ---
Author Organization [employer] Address [address] [facility] 7t [place] [address] Care Team Providers Care Dude Ranch Manager Name Role Phone Sharmin Ortiz MD Primary Care Provider [phone] Lamine Giles PharmD Unavailable [phone] Encounter Details Date Type Department Care Team (Late st Contact Info) Description 02/09/2024 Orders Only [facility] [address] [place], [place] [phone] Sharmin Ortiz MD [address] [place], [place] [phone] Social History Tobacco Use Types Packs/Day Years [...] 04/11/2025 11:00 AM EST Telemedicine [facility] [address] [place] [address] Lamine Giles, PharmD [address] [place] [address] 05/05/2025 10:30 AM EST Office Visit [facility] [address] [place], [place] [phone] Gema Aguirre, OD [address] [place] [address] documented as of this encounter Visit Diagnoses Not on filedocumented in this encounter Care Teams Dude Ranch Manager Relationship Specialty Start Date End Date Sharmin Ortiz MD [address] [place] [phone] PCP - General Family Medicine 04/10/18 Lamine Giles, PharmD [address] [place] [phone] Pharmacist Internal Medicine 04/01/24 documented as of this encounter
--- OUTSIDE RECORDS SUMMARY | 2025-03-05 16:44 | XMS_ITS | Encounter Summary ---
Author Organization [employer] Address [address] [facility] 7t [place] [address] Care Team Providers Care Associate Professor Of Engineering Name Role Phone Sharmin Ortiz MD Primary Care Provider [phone] Lamine Giles PharmD Unavailable [phone] Reason for Visit * Reason Comments Med Refill Encounter Details Date Type Department Care Team ([facility] st Contact Info) Description 03/14/2023 Refill [facility] [address] [place], [place] [phone] Sharmin Ortiz MD [address] [place], [place] [phone] Social History Tobacco Use Types Packs/Day Years [...] Info) Description 04/11/2025 11:00 AM EST Telemedicine [facility] [address] [place] [address] Lamine Giles, PharmChencho [address] [place] [address] 05/05/2025 10:30 AM EST Office Visit [facility] [address] [place], [place] [phone] Gema Aguirre, OD [address] [place] [address] documented as of this encounter Visit Diagnoses Not on filedocumented in this encounter Care Teams Associate Professor Of Engineering Relationship Specialty Start Date End Date Sharmin Ortiz MD [address] [place] [phone] PCP - General Family Medicine 04/10/18 Lamine Giles, PharmD [address] [place] [phone] Pharmacist Internal Medicine 04/01/24 documented as of this encounter
--- OUTSIDE RECORDS SUMMARY | 2025-03-05 16:44 | XMS_ITS | Encounter Summary ---
Author Organization [employer] Address [address] [facility] 7t [place] [address] Care Team Providers Care Sample Distributor Name Role Phone Sharmin Ortiz MD Primary Care Provider [phone] Lamine Giles PharmD Unavailable [phone] Reason for Referral * Consultation (Routine) - Canceled Specialty Diagnoses / Procedures Referred By Contac t Referred To Contact Pharmacy Diagnoses Type 2 diabetes mellitus with hyperglycemia, without long-term current use of insulin (HCC) Primary hypertension Sharmin Ortiz MD [address] [place] [address] Phone: tel: fax: Referral ID Status Reason Start Date Expiration Date V isits Requested Visits Authorized [id number] Canceled Consult and Treat 01/08/2025 01/08/2026 6 6 Encounter Details Date Type Department Care Team (Late st Contact Info) Description 01/08/2025 Orders Only [facility] [address] [place], [place] [phone] Sharmin Ortiz MD [address] [place], [place] [phone] Type 2 diabetes mellitus with hyperglycemia, without [...] Description 04/11/2025 11:00 AM EST Telemedicine [facility] [address] [place] [address] Lamine Giles, PharmD [address] [place] [address] 05/05/2025 10:30 AM EST Office Visit [facility] [address] [place] [address] Gema Aguirre, OD [address] [place] [address] Scheduled Referrals Name Type Priority Associated Diagnoses Orde r Schedule Referral to Pharmacy CD Outpatient Referral Routine Type 2 diabetes mellitus with hyperglycemia, without long-term current use of insulin ([facility]) Primary hypertension Ordered: 01/08/2025 documented as of this encounter Visit Diagnoses Diagnosis Type 2 diabetes mellitus with hyperglycemia, without long-term current use of insulin ([facility])- Primary Primary hypertension Unspecified essential hypertension documented in this encounter Additional Health Concerns Assessment Noted Time PHQ-9 Depression Total Score: 12 025 2:53 PM EST documented as of this encounter Care Teams Sample Distributor Relationship Specialty Start Date End Date Sharmin Ortiz MD [address] [place] [address] PCP - General Family Medicine 04/10/18 Lamine Giles, DaisyD [address] [place] [address] Pharmacist Internal Medicine 04/01/24 documented as of this encounter
--- OUTSIDE RECORDS SUMMARY | 2025-03-05 16:44 | XMS_ITS | Encounter Summary ---
Author Organization [employer] Address [address] [facility] 7t [place] [address] Care Team Providers Care Loan Specialist Name Role Phone Sharmin Ortiz MD Primary Care Provider Lamine Giles PharmD Unavailable [phone] Encounter Details Date Type Department Care Team (Late st Contact Info) Description 03/28/2023 Orders Only [facility] [address] [place], [place] [phone] Sharmin Ortiz MD 230 [place], [place] [phone] Chronic pain of left knee (Primary Dx); [...] Info) Description 04/11/2025 11:00 AM EST Telemedicine [facility] 230 [place] [address] Lamine Giles, PharmChencho 230 [place] [address] 05/05/2025 10:30 AM EST Office Visit [facility] [address] [place], [place] [phone] Tarka, Gema, OD 267 [place] [address] documented as of this encounter Visit Diagnoses Diagnosis Chronic pain of left knee- Primary Right hip pain Pain in joint, pelvic region and thigh Chronic low back pain, unspecified back pain laterality, unspecified whether sciatica present documented in this encounter Care Teams Loan Specialist Relationship Specialty Start Date End Date Sharmin Ortiz MD [address] [place] [address] PCP - General Family Medicine 04/10/18 Lamine Giles, PharmD [address] [place] [address] [phone] Pharmacist Internal Medicine 04/01/24 documented as of this encounter
--- OUTSIDE RECORDS SUMMARY | 2025-03-05 16:44 | XMS_ITS | Encounter Summary ---
Author Organization [employer] Address [address] [facility] 7t [place] [address] Care Team Providers Care Nut Dehydrator Operator Name Role Phone Sharmin Ortiz MD Primary Care Provider [phone] Lamine Giles PharmD Unavailable [phone] Encounter Details Date Type Department Care Team (Late st Contact Info) Description 01/08/2025 Orders Only [facility] 230 [place], [place] [phone] Sharmin Ortiz MD 230 [place], [place] [phone] Social History Tobacco Use Types Packs/Day Years [...] Info) Description 04/11/2025 11:00 AM EST Telemedicine [facility] 230 [place] [address] Lamine Giles, PharmD 230 [place] [address] 05/05/2025 10:30 AM EST Office Visit [facility] [address] [place] [address] Gema Aguirre, OD 267 [place] [address] documented as of this encounter Visit Diagnoses Not on filedocumented in this encounter Additional Health Concerns Assessment Noted Time PHQ-9 Depression Total Score: 12 025 2:53 PM EST documented as of this encounter Care Teams Nut Dehydrator Operator Relationship Specialty Start Date End Date Sharmin Ortiz MD [address] [place] [address] PCP - General Family Medicine 04/10/18 Lamine Giles, PharmD [address] [place] [address] Pharmacist Internal Medicine 04/01/24 documented as of this encounter
--- OUTSIDE RECORDS SUMMARY | 2025-03-05 16:44 | XMS_ITS | Encounter Summary ---
Author Organization [employer] Address 75 [facility] 7t [place] [address] Care Team Providers Care Laundry Clerk Name Role Phone Sharmin Ortiz MD Primary Care Provider [phone] Lamine Giles PharmD Unavailable [phone] Encounter Details Date Type Department Care Team (Late Contact Info) Description 01/17/2023 Abstract [facility] 230 [place] [address] Nicci Jimenez Social History Tobacco Use Types [...] Info) Description 04/11/2025 11:00 AM EST Telemedicine [facility] 230 [place] [address] Laimne Giles, PharmD 230 [place] [address] 05/05/2025 10:30 AM EST Office Visit [facility] [address] [place] [address] Gema Aguirre, OD 267 [place] [address] documented as of this encounter Visit Diagnoses Not on filedocumented in this encounter Care Teams Laundry Clerk Relationship Specialty Start Date End Date Sharmin Ortiz MD 230 [place] [address] PCP - General Family Medicine 04/10/18 Lamine Giles, Dameon [address] [place] [address] Pharmacist Internal Medicine 04/01/24 documented as of this encounter
--- OUTSIDE RECORDS SUMMARY | 2025-03-05 16:44 | XMS_ITS | Encounter Summary ---
Author Organization [employer] Address [address] [facility] 7t [place] [address] Care Team Providers Care Gi Technician Name Role Phone Sharmin Ortiz MD Primary Care Provider Lamine Giles PharmD Unavailable [phone] Encounter Details Date Type Department Care Team (Late st Contact Info) Description 02/07/2024 Orders Only [facility] 230 [place], [place] [phone] Sharmin Ortiz MD 230 [place], [place] [phone] Social History Tobacco Use Types Packs/Day Years [...] 04/11/2025 11:00 AM EST Telemedicine [facility]INE 230 [place] [address] Lamine Giles, PharmD 230 [place] [address] 05/05/2025 10:30 AM EST Office Visit [facility] 267 [place], [place] [phone] Gema Aguirre, OD [address] [place] [address] documented as of this encounter Visit Diagnoses Not on filedocumented in this encounter Care Teams Gi Technician Relationship Specialty Start Date End Date Sharmin Ortiz MD [address] [place] [address] PCP - General Family Medicine 04/10/18 Lamine Giles, PharmD [address] [place] [address] Pharmacist Internal Medicine 04/01/24 documented as of this encounter
--- OUTSIDE RECORDS SUMMARY | 2025-03-05 16:44 | XMS_ITS | Encounter Summary ---
Author Organization [employer] Address [address] [facility] 7t [place] [address] Care Team Providers Care Transportation Dispatch Manager Name Role Phone Sharmin Ortiz MD Primary Care Provider [phone] Lamine Giles PharmD Unavailable [phone] Encounter Details Date Type Department Care Team (Late st Contact Info) Description 07/14/2024 Orders Only [facility] MEDICINE 230 [place], [place] [phone] Sharmin Ortiz MD 230 [place], [place] [phone] Social History Tobacco Use Types Packs/Day Years [...] Description 04/11/2025 11:00 AM EST Telemedicine [facility] MEDICINE 230 [place] [address] Lamine Giles, PharmD 230 [place] [address] 05/05/2025 10:30 AM EST Office Visit [facility] OPTOMETRY 267 [place] [address] TarkaGema, OD [address] [place] [address] documented as of this encounter Visit Diagnoses Not on filedocumented in this encounter Additional Health Concerns Assessment Noted Time PHQ-9 Depression Total Score: 12 025 2:53 PM EST documented as of this encounter Care Teams Transportation Dispatch Manager Relationship Specialty Start Date End Date Sharmin Ortiz MD [address] [place] [address] PCP - General Family Medicine 04/10/18 Lamine Giles, PharmD [address] [place] [address] Pharmacist Internal Medicine 04/01/24 documented as of this encounter
--- OUTSIDE RECORDS SUMMARY | 2025-03-05 16:44 | XMS_ITS | Encounter Summary ---
Author Organization [employer] Address 75 [facility] 7t [place] [address] Care Team Providers Care Analysis Tester Name Role Phone Sharmin Ortiz MD Primary Care Provider [phone] Lamine Giles PharmD Unavailable [phone] Reason for Visit * Reason Onset Date Comments Referral 03/28/2023 Encounter Details Date Type Department Care Team ([facility] st Contact Info) Description 03/28/[address] [facility] MED & PEDS [address] [place], [place] [phone] Sharmin Ortiz MD 230 [place], [place] [phone] Referral Social History Tobacco Use Types Packs/Day [...] t he electric, gas, oil or water [employer] threatened to shut off services in your [...] - 03/28/2023 10:30 AM EST Tc from [facility] with [facility] requesting an updated referral for Pain management for pt due to current one being at least two years old Please fax over @ [phone] Please if any questions contact Stella @ [phone] documented in this encounter Plan of Treatment Upcoming Encounters Date Type Department Care Team (Late st Contact Info) Description 04/11/2025 11:00 AM EST Telemedicine [facility] MEDICINE 230 [place] [address] Lamine Giles, DaisyD 230 [place] [address] 05/05/2025 10:30 AM EST Office Visit [facility] OPTOMETRY 267 [place] [address] Gema Aguirre, OD 267 [place] [address] documented as of this encounter Visit Diagnoses Not on filedocumented in this encounter Care Teams Analysis Tester Relationship Specialty Start Date End Date Sharmin Ortiz MD [address] [place] [address] PCP - General Family Medicine 04/10/18 Lamine Giles, PharmD [address] [place] [address] Pharmacist Internal Medicine 04/01/24 documented as of this encounter
--- OUTSIDE RECORDS SUMMARY | 2025-03-05 16:44 | XMS_ITS | Encounter Summary ---
Author Organization [employer] Address [address] [facility] 7t [place] [address] Care Team Providers Care Flower Machine Operator Name Role Phone Sharmin Ortiz MD Primary Care Provider Lamine Giles PharmD Unavailable [phone] Reason for Referral * Consultation (Routine) - Authorized Specialty Diagnoses / Procedures Referred By Contac t Referred To Contact Pharmacy Diagnoses Type 2 diabetes mellitus with hyperglycemia, without long-term current use of insulin (HCC) Primary hypertension Sharmin Ortiz MD [address] [place] [address] Phone: tel: fax: Referral ID Status Reason Start Date Expiration Date Visits Requested Visits Authorized [id number] Authorized Consult and Treat 02/03/2025 02/03/2026 6 6 Encounter Details Date Type Department Care Team (Late st Contact Info) Description 02/03/2025 Orders Only [facility] MEDICINE 230 [place], [place] [phone] Sharmin Ortiz MD [address] [place], [place] [phone] Type 2 diabetes mellitus with hyperglycemia, without [...] Info) Description 04/11/2025 11:00 AM EST Telemedicine [facility] MED[facility]INE 230 [place] [address] Lamine Giles, PharmD 230 [place] [address] 05/05/2025 10:30 AM EST Office Visit [facility] 267 [place] [address] Gema Aguirre, OD 267 [place] [address] Scheduled Referrals Name Type Priority Associated Diagnoses [...] documented as of this encounter Care Teams Flower Machine Operator Relationship Specialty Start Date End Date Sharmin Ortiz MD [address] [place] [address] PCP - General Family Medicine 04/10/18 Lamine Giles, DaisyD [address] [place] [address] Pharmacist Internal Medicine 04/01/24 documented as of this encounter
--- OUTSIDE RECORDS SUMMARY | 2025-03-05 16:44 | XMS_ITS | Encounter Summary ---
Author Organization [employer] Address 75 [facility] 7t [place] [address] Care Team Providers Care Entry Level Truck Driver Name Role Phone Sharmin Ortiz MD Primary Care Provider [phone] Lamine Giles PharmD Unavailable [phone] Encounter Details Date Type Department Care Team (Late st Contact Info) Description 02/07/2024 Orders Only [facility] 230 [place], [place] [phone] Sharmin Ortiz MD 230 [place], [place] [phone] Social History Tobacco Use Types Packs/Day Years [...] Info) Description 04/11/2025 11:00 AM EST Telemedicine [facility] 230 [place] [address] Lamine Giles, PharmD 230 [place] [address] 05/05/2025 10:30 AM EST Office Visit [facility] 267 [place], [place] [phone] Gema Aguirre, OD 267 [place] [address] documented as of this encounter Visit Diagnoses Not on filedocumented in this encounter Care Teams Entry Level Truck Driver Relationship Specialty Start Date End Date Sharmin Ortiz MD [address] [place] [address] PCP - General Family Medicine 04/10/18 Lamine Giles, PharmD [address] [place] [address] Pharmacist Internal Medicine 04/01/24 documented as of this encounter
--- OUTSIDE RECORDS SUMMARY | 2025-03-05 16:44 | XMS_ITS | Encounter Summary ---
Author Organization [employer] Address [address] [facility] 7t [place] [address] Care Team Providers Care Floor Steward/Stewardess Name Role Phone Sharmin Ortiz MD Primary Care Provider [phone] Lamine Giles PharmD Unavailable [phone] Encounter Details Date Type Department Care Team (Late st Contact Info) Description 05/15/2024 Orders Only [facility] 230 [place], [place] [phone] Sharmin Ortiz MD 230 [place], [place] [phone] Social History Tobacco Use Types Packs/Day Years [...] [facility] [address] [place] [address] Lamine Giles, PharmD 230 [place] [address] 05/05/2025 10:30 AM EST Office Visit [facility] 267 [place], [place] [phone] Gema Aguirre, OD 267 [place] [address] documented as of this encounter Visit Diagnoses Not on filedocumented in this encounter Care Teams Floor Steward/Stewardess Relationship Specialty Start Date End Date Sharmin Ortiz MD [address] [place] [address] PCP - General Family Medicine 04/10/18 Lamine Giles, PharmD [address] [place] [address] Pharmacist Internal Medicine 04/01/24 documented as of this encounter
== END 2025-03-05 14:22 | disposition home or self-care (01) ==
LOC: HO.HOS 13:40
PROVIDERS: PCP Family Medicine; Visit Provider Orthopaedic Surgery
DX: M25.312 Other instability, left shoulder (principal)
CPT/HCPCS: 99203

== ENCOUNTER → 2025-03-05 13:39 | Outpatient (BNVA) | payer MEDICAID, SELFPAY | PROVIDERS: PCP Family Medicine; Visit Provider Orthopaedic Surgery | DX: M25.312 Other instability, left shoulder (principal); M47.817 Spondylosis without myelopathy or radiculopathy, lumbosacral region; M51.16 Intervertebral disc disorders with radiculopathy, lumbar region; M75.42 Impingement syndrome of left shoulder | CPT/HCPCS: 99202 ==